=== PATIENT | female | born 1950 | race Caucasian/White ===

== ENCOUNTER 2019-09-27 13:56 | Inpatient (IN) | payer OTHER, MEDICAID ==
[2019-09-27] VITALS (11 sets, daily range): BP systolic 102–128; BP diastolic 48–62
[~2019-09-27] VITALS: Ht 152.4 cm; Wt 61.5 kg
[~2019-09-27 13:56] MED LIST: ALBU2.5V5 INH; ALBU2.5V8 INH; ALPR0.254 PO; AMOX1TAB61 PO; BUDE10.2 INH; FURO40TA4 PO; GABA300C9 PO; HYDR-52 PO; ISOS30TA4 PO; METO-239 PO; NORT25CA PO; OMEP20CA10 PO; POTA20TA84 PO; PRAV20TA2 PO; RIVA20TA2 PO; SPIR25TA5 PO; SULF1TAB24 PO; TIOT18CA INH
[2019-09-27 14:13] LABS: BASE EXCESS ABG 8 mmol/L (-3-3); HCO3 ABG 34 mmol/L (21-28); PCO2 ABG 51 mmHg (35-46); PO2 ABG 84 mmHg (65-108); SAT O2 ABG 96 % (92-99)
[2019-09-27 14:15] LABS: FIO2 ABG 100
[2019-09-27] MEDS ORDERED: IPRATROPIUM BROMIDE 0.5 MG/2.5 ML NEBU. NEB ONE (14:15)
[2019-09-27] MEDS ORDERED: methylPREDNISolone SOD SUCC PF 125 MG/2 ML VIAL. IV ONE (14:15)
[2019-09-27 14:18] LABS: BASO # 0.1 x10^3/uL (0.0-0.2); BASO % 0 % (0-3); EOS # 0.1 x10^3/uL (0.0-0.7); EOS % 0 % (0-3); LYMPH # 3.2 x10^3/uL (1.0-4.8); LYMPH % 12 % (24-48); MEAN CORPUSCULAR HEMOGLOBIN 28 pg (25-35); MEAN CORPUSCULAR HGB CONC 30 g/dL (31-37); MEAN CORPUSCULAR VOLUME 93 fL (79-100); MONO # 1.8 x10^3/uL (0.0-1.1); MONO % 7 % (0-9); NEUT # 22.1 x10^3/uL (1.8-7.7); NEUT % 81 % (31-73); PLATELET COUNT 280 x10^3/uL (140-400); RED BLOOD COUNT 4.95 x10^6/uL (3.50-5.40); RED CELL DISTRIBUTION WIDTH 23.1 % (11.5-14.5); WHITE BLOOD COUNT 27.3 x10^3/uL (4.0-11.0)
[2019-09-27 14:33] LABS: ALBUMIN 4.1 g/dL (3.4-5.0); ALBUMIN/GLOBULIN RATIO 1.1 (1.0-1.7); CALCIUM 9.9 mg/dL (8.5-10.1); CREATININE 1.3 mg/dL (0.6-1.0); GFR 40.7; MAGNESIUM 2.2 mg/dL (1.8-2.4); POTASSIUM 5.1 mmol/L (3.5-5.1); TOTAL BILIRUBIN 0.8 mg/dL (0.2-1.0); TOTAL PROTEIN 7.8 g/dL (6.4-8.2)
[2019-09-27 14:35] LABS: PROTHROMBIN TIME PATIENT 30.7 SEC (11.7-14.0)
--- NOTE | 2019-09-27 14:36 | PHYS DOC ---
Past Medical History Past Medical History: A-Fib, CHF, COPD, High Cholesterol, Heart Disease, Liver Disease, OR, Other Additional Past Medical Histor: sleep apnea, Emphysema Past Surgical History: Cervical Fusion, Pacemaker, Other Additional Past Surgical Histo: RT AKA Alcohol Use: None Drug Use: None Adult General Chief Complaint Chief Complaint: SHORTNESS OF BREATH HPI HPI Patient is a 69 year old female with history of COPD on home oxygen and currently a smoker, dyslipidemia, coronary artery disease, CHF who presents via EMS with complaining of shortness of breath. Patient was admitted at [facility] because of acute respiratory failure from September 19 to September 26 and was discharged to assisted living home yesterday. EMS reported that patient had O2 sat of 42% on her home oxygen increased to 80s with CPAP. Patient had severe respiratory distress at arrival to ER and unable to give history. Review of Systems Review of Systems Constitutional: Denies fever or chills [] Eyes: Denies change in visual acuity, redness, or eye pain [] HENT: Denies nasal congestion or sore throat [] Respiratory: Denies cough or shortness of breath [] Cardiovascular: No additional information not addressed in HPI [] GI: Denies abdominal pain, nausea, vomiting, bloody stools or diarrhea [] : Denies dysuria or hematuria [] Musculoskeletal: Denies back pain or joint pain [] Integument: Denies rash or skin lesions [] Neurologic: Denies headache, focal weakness or sensory changes [] Endocrine: Denies polyuria or polydipsia [] All other systems were reviewed and found to be within normal limits, except as documented in this note. Current Medications Current Medications Allergies Allergies Allergies Coded Allergies Type Severity Reaction Last Updated Verified Penicillins Allergy Unknown 04/27/16 Yes fentanyl Allergy Unknown 04/27/16 Yes levofloxacin Allergy Unknown 04/27/16 Yes Physical Exam Physical Exam Constitutional: Moderate distress, very anxious[] HENT: Normocephalic, atraumatic Eyes: PERRLA Neck: Normal range of motion, no tenderness, supple, no stridor. [] Cardiovascular:Heart rate regular rhythm Lungs & Thorax: Moderate respiratory distress with intercostal retractions and audible rales Abdomen: Bowel sounds normal, soft Skin: Cyanotic and mottled Extremities: Right above-knee amputation, 2+ left lower extremity edema Neurologic: Alert, moves all extremities Psychologic: Affect anxious, unable to evaluate because of medical condition Current Patient Data Vital Signs Vital Signs Date Time Temp Pulse Resp B/P (MAP) Pulse Ox O2 Delivery O2 Flow Rate FiO2 09/27/19 14:05 BiPAP/CPAP 09/27/19 13:58 97.9 79 20 128/74 (92) 81 97.9 Lab Values Laboratory Tests Test 09/27/19 14:00 09/27/19 14:02 White Blood Count 27.3 x10^3/uL (4.0-11.0) H Red Blood Count 4.95 x10^6/uL (3.50-5.40) Hemoglobin 14.0 g/dL (12.0-15.5) Hematocrit 46.0 % (36.0-47.0) Mean Corpuscular Volume 93 fL (79-100) Mean Corpuscular Hemoglobin 28 pg (25-35) Mean Corpuscular Hemoglobin Concent 30 g/dL (31-37) L Red Cell Distribution Width 23.1 % (11.5-14.5) H Platelet Count 280 x10^3/uL (140-400) Neutrophils (%) (Auto) 81 % (31-73) H Lymphocytes (%) (Auto) 12 % (24-48) L Monocytes (%) (Auto) 7 % (0-9) Eosinophils (%) (Auto) 0 % (0-3) Basophils (%) (Auto) 0 % (0-3) Neutrophils # (Auto) 22.1 x10^3/uL (1.8-7.7) H Lymphocytes # (Auto) 3.2 x10^3/uL (1.0-4.8) Monocytes # (Auto) 1.8 x10^3/uL (0.0-1.1) H Eosinophils # (Auto) 0.1 x10^3/uL (0.0-0.7) Basophils # (Auto) 0.1 x10^3/uL (0.0-0.2) Segmented Neutrophils % 73 % (35-66) H Band Neutrophils % 1 % (0-9) Lymphocytes % 17 % (24-48) L Monocytes % 8 % (0-10) Eosinophils % 1 % (0-5) Toxic Vacuolation Slight Platelet Estimate Adequate (ADEQUATE) Anisocytosis Slight Ovalocytes Occ Schistocytes Occ Prothrombin Time 30.7 SEC (11.7-14.0) H Prothrombin Time INR 3.0 (0.8-1.1) H Activated Partial Thromboplast Time 30 SEC (24-38) Sodium Level 142 mmol/L (136-145) Potassium Level 5.1 mmol/L (3.5-5.1) Chloride Level 94 mmol/L (98-107) L Carbon Dioxide Level 40 mmol/L (21-32) H Anion Gap 8 (6-14) Blood Urea Nitrogen 42 mg/dL (7-20) H Creatinine 1.3 mg/dL (0.6-1.0) H Estimated GFR (Cockcroft-Gault) 40.7 BUN/Creatinine Ratio 32 (6-20) H Glucose Level 170 mg/dL (70-99) H Lactic Acid Level 7.6 mmol/L (0.4-2.0) *H Calcium Level 9.9 mg/dL (8.5-10.1) Magnesium Level 2.2 mg/dL (1.8-2.4) Total Bilirubin 0.8 mg/dL (0.2-1.0) Aspartate Amino Transferase (AST) 60 U/L (15-37) H Alanine Aminotransferase (ALT) 78 U/L (14-59) H Alkaline Phosphatase 97 U/L (46-116) Creatine Kinase 29 U/L (26-192) Troponin I Quantitative 0.105 ng/mL (0.000-0.055) MS-Cqu-T-Type Natriuretic Peptide 63873 pg/mL (0-124) H Total Protein 7.8 g/dL (6.4-8.2) Albumin 4.1 g/dL (3.4-5.0) Albumin/Globulin Ratio 1.1 (1.0-1.7) Lipase 58 U/L (73-393) L O2 Saturation 96 % (92-99) Arterial Blood pH 7.44 (7.35-7.45) Arterial Blood pCO2 at Patient Temp 51 mmHg (35-46) H Arterial Blood pO2 at Patient Temp 84 mmHg (65-108) Arterial Blood HCO3 34 mmol/L (21-28) H Arterial Blood Base Excess 8 mmol/L (-3-3) H FiO2 100 Laboratory Tests 09/27/19 14:00 Laboratory Tests 09/27/19 14:00 EKG EKG EKG interpreted by me. EKG at 1422 showed sinus rhythm with multiple artifacts at rate of 75, abnormal right superior axis deviation, left bundle branch block. Radiology/Procedures Radiology/Procedures [][facility] [address] [place] [address] IMAGING REPORT Signed PATIENT: JAIR MARCUS ACCOUNT: [id number] : 1950 LOCATION: [facility] ICU AGE: 69 SEX: F EXAM STATUS: ADM IN ORD. PHYSICIAN: RADHA KEYES MD REASON: shortness of breath NOT READY AT 250PM. WILL CALL PROCEDURE: PORTABLE CHEST 1V Exam performed: One view chest. Indication: Shortness of breath Date of Service: 09/27/2019 3:00 PM Comparison: Two-view chest from 05/02/2016. Single AP upright portable view chest findings: Cardiomediastinal silhouette is enlarged, however stable. Pulmonary vascularity is congested. Prominent interstitial markings are seen in both lungs mainly in the perihilar regions. There is a pacemaker in place. There is a small left pleural effusion. No focal infiltrates are identified. The bony structures are normal. Impression: Cardiomegaly with Central vascular congestion, prominent interstitial markings and small left pleural effusion. Consolation of findings may be related to CHF. Correlate clinically Electronically signed by: Viridiana Murphy MD (09/27/2019 3:49 PM) [facility] DICTATED and SIGNED BY: VIRIDIANA MURPHY MD DATE: 09/27/19 1549 Course & Med Decision Making Course & Med Decision Making Pertinent Labs and Imaging studies reviewed. (See chart for details) Evaluation of patient in ER showed 69-year-old female patient with history of COPD on oxygen and currently smoking, CHF and atrial fibrillation, recent discharge from hospital yesterday because of acute respiratory distress. Patient brought in by EMS because of acute respiratory distress. Patient had tachypnea and audible rales. Patient treated with BiPAP. ABG did not show hypoxia or hypercapnia. Patient treated with Ativan and morphine with improvement of her agitation and tolerating BiPAP. Patient had elevation of lactic 7.6 and antibiotic was started at did not treated with IV fluid because of pulmonary edema and CHF exacerbation because patient did not have hypotension or tachycardia or fever.Patient requiring admission for further evaluation and treatment. Discussed with Dr. Mcintosh who is in agreement with admission. Discussed findings and plan with patient and family, who acknowledge understanding and agreement. Dragon Disclaimer Dragon Disclaimer This electronic medical record was generated, in whole or in part, using a voice recognition dictation system. Departure Departure Impression: Primary Impression: Acute respiratory distress Additional Impressions: Severe sepsis Pulmonary edema Acute exacerbation of CHF (congestive heart failure) COPD exacerbation Tobacco abuse Renal insufficiency Hyponatremia Anxiety Disposition: 09 ADMITTED INPATIENT (at 1431) Admitting Physician: YESICA (Dr. Mcintosh accepted admission at 1430) Condition: GUARDED Referrals: NO PCP (PCP) Date and Time of Reassessment Date: Sep 27, 2019 Time: 14:35 Fluid Challenge Is the fluid challenge complet: No (pulmonary edema) IBW Target Volume Used: No BMI > 30: No Vital Signs Vital Signs: Vital Signs Date Time Temp Pulse Resp B/P (MAP) Pulse Ox O2 Delivery O2 Flow Rate FiO2 09/27/19 14:05 BiPAP/CPAP 09/27/19 13:58 97.9 79 20 128/74 (92) 81 97.9 Temperature Source: Axillary Respirations Respiratory Effort: Labored, Mechanical ventilation Respiratory Pattern: Tachypnea Cardiovascular Pulse Rhythm: Regular Heart: Nml rate, reg. rhythm Lung Sounds Breath Sounds: Crackles, Rhonchi, Diminished, Rales Capillary Refil Capillary Refill: Rt Hand < 3 seconds Peripheral Pulse Pulse Location: Radial Pulse Strength: Normal (2+) Pulse Assessment Method: Palpation Integumentary Skin Moisture: Clammy Critical Care Time Critical care time was 60 minutes exclusive of procedures. Problem Qualifiers Additional Impressions: Pulmonary edema Chronicity: acute Qualified Codes: J81.0 - Acute pulmonary edema Acute exacerbation of CHF (congestive heart failure) Heart failure type: unspecified Qualified Codes: I50.9 - Heart failure, unspecified RADHA KEYES MD Sep 27, 2019 14:36
[2019-09-27 14:43] LABS: % BANDS 1 % (0-9); % EOS 1 % (0-5); % LYMPHS 17 % (24-48); % MONOS 8 % (0-10); % SEGS 73 % (35-66); PLT ESTIMATE ADEQUATE (ADEQUATE)
[2019-09-27 14:44] LABS: ANISOCYTOSIS SLIGHT; OVALOCYTES OCC; SCHISTOCYTES OCC; TOXIC VACUOLATION SLIGHT
[2019-09-27] MEDS ORDERED: cefTRIAXone IV Push 1 GM VIAL. IVP ONE (14:45)
[2019-09-27] MEDS ORDERED: VANCOMYCIN 1GM IVPB FOR OMNI 250 ML IV ONE (14:45)
--- NOTE | 2019-09-27 14:49 | PDOC1 ---
History and Physical Date of Admission Date of Admission DATE: 09/27/19 TIME: 14:48 Identification/Chief Complaint Chief Complaint PRESENTED WITH ACUTE SOB TO ER, HYPOXIC, STARTED ON BIPAP, ADMITTED ICU Just dismissed for [facility] yesterday, was in bathroom, found to be hypoxic 911 called Past Medical History Past Medical History Past Medical History Past Medical History Past Medical History: A-Fib, CHF, COPD, High Cholesterol, Heart Disease, Liver Disease, PR, Other Additional Past Medical Histor: sleep apnea, Emphysema Past Surgical History: Cervical Fusion, Pacemaker, Other Additional Past Surgical Histo: RT AKA Alcohol Use: None Drug Use: None Cardiovascular: AFIB, CAD, HTN, Hyperlipidemia, Other Pulmonary: COPD CENTRAL NERVOUS SYSTEM: CVA GI: GERD Heme/Onc: No pertinent hx Hepatobiliary: No pertinent hx Psych: Anxiety, Addictions Musculoskeletal: Osteoarthritis, Other Rheumatologic: No pertinent hx Infectious disease: Other Renal/: No pertinent hx Endocrine: No pertinent hx Past Surgical History Past Surgical History: Pacemaker Family History Family History: Coronary Artery Disease, Diabetes, High Cholestrol Social History Smoke: <1 pack per day ALCOHOL: occassional Drugs: None, Marijuana Current Problem List Problem List Problems Medical Problems: (1) Acute respiratory distress Status: Acute Current Medications Current Medications Current Medications Ipratropium [place] (Atrovent) 0.5 mg 1X ONCE NEB ; Start 09/27/19 at 14:15; Stop 09/27/19 at 14:16; Status DC Methylprednisolone Sodium Succinate (SOLU-Medrol 125MG VIAL) 125 mg 1X ONCE IV ; Start 09/27/19 at 14:15; Stop 09/27/19 at 14:16; Status DC Lorazepam (Ativan Inj) 1 mg 1X ONCE IVP ; Start 09/27/19 at 14:30; Stop 09/27 at 14:31; Status DC Vancomycin HCl 250 ml @ 250 mls/hr 1X ONCE IV ; Start 09/27/19 at 14:45; Stop 09/27/19 at 15:44 Ceftriaxone Sodium (Rocephin) 1 gm 1X ONCE IVP ; Start 09/27/19 at 14:45; Stop 09/27/19 at 14:46; Status DC Active Scripts Active Reported Augmentin 875-125 Tablet (Amoxicillin/Potassium Clav) 1 Each Tablet 1 Tab PO BID 7 Days Hydrocodone-Acetamin 10-325 mg (Hydrocodone/Acetaminophen) 1 Each Tablet 10-325 Mg PO PRN Q6HRS PRN Alprazolam 0.25 Mg Tablet 0.25 Mg PO PRN PRN Albuterol Sulfate Neb Soln (Albuterol Sulfate) 2.5 Mg/3 Ml Vial.neb 2.5 Mg INH PRN PRN Proair Hfa (Albuterol Sulfate) 8.5 Gm Hfa.aer.ad 108 Mcg INH PRN PRN Symbicort 160-4.5 Mcg Inhaler (Budesonide/Formoterol Fumarate) 10.2 Gm Hfa.ae r.ad 160 Mcg INH BID 160-4.5 mcg. 10.2 GM HFA.AER.AD Spiriva (Tiotropium [place]) 18 Mcg Cap.w.dev 18 Mcg INH DAILY Isosorbide Mononitrate Er (Isosorbide Mononitrate) 30 Mg Tab.er.24h 30 Mg PO DAILY Xarelto (Rivaroxaban) 20 Mg Tablet 20 Mg PO AFTRNOON Metoprolol Succinate ( Xl ) (Metoprolol Succinate) 25 Mg Tab.er.24h 25 Mg PO DAILY Nortriptyline Hcl 25 Mg Capsule 25 Mg PO HS Omeprazole 20 Mg Capsule.dr 20 Mg PO DAILY Pravastatin Sodium 20 Mg Tablet 20 Mg PO DAILY Furosemide 40 Mg Tablet 40 Mg PO DAILY Spironolactone 25 Mg Tablet 25 Mg PO DAILY Gabapentin 300 Mg Capsule 600 Mg PO TID Allergies Allergies: Coded Allergies: Penicillins (Verified Allergy, Unknown, 04/27/16) fentanyl (Verified Allergy, Unknown, 04/27/16) levofloxacin (Verified Allergy, Unknown, 04/27/16) ROS Review of System Cardiovascular: No additional information not addressed in HPI [] GI: Denies abdominal pain, nausea, vomiting, bloody stools or diarrhea [] : Denies dysuria or hematuria [] Musculoskeletal: Denies back pain or joint pain [] Integument: Denies rash or skin lesions [] Neurologic: Denies headache, focal weakness or sensory changes [] Endocrine: Denies polyuria or polydipsia [] All other systems were reviewed and found to be within normal limits, except as documented in this note General: YES: Fatigue ENDOCRINE: YES: Palpitations Respiratory: YES: Shortness of breath, SOB with excertion Musculoskeletal: Yes Gait Disturbance Physical Exam Physical Exam Abdomen: Bowel sounds normal, soft, no tenderness, no masses, no pulsatile masses. [] Skin: Warm, dry, no erythema, no rash. [] Back: No tenderness, no CVA tenderness. [] Extremities: No tenderness, no cyanosis, no clubbing, ROM intact, no edema. [] Neurologic: Alert and oriented X 3, normal motor function, normal sensory function, no focal deficits noted. [] Psychologic: Affect SEDATED General: Cooperative, moderate distress HEENT: Atraumatic, EOMI, Mucous membr. moist/pink Lungs: Other (wheezing on exp) Heart: no thrills Breasts: Not examined Abdomen: Normal bowel sounds, Soft Rectal Exam: not examined PELVIC: Examination not indicated Extremities: No cyanosis Neuro: Cranial nerves 3-12 NL Vitals Vitals Vital Signs Date Time Temp Pulse Resp B/P (MAP) Pulse Ox O2 Delivery O2 Flow Rate FiO2 09/27/19 14:05 BiPAP/CPAP Labs Labs Laboratory Tests Test 09/27/19 14:00 09/27/19 14:02 White Blood Count 27.3 x10^3/uL (4.0-11.0) Red Blood Count 4.95 x10^6/uL (3.50-5.40) Hemoglobin 14.0 g/dL (12.0-15.5) Hematocrit 46.0 % (36.0-47.0) Mean Corpuscular Volume 93 fL (79-100) Mean Corpuscular Hemoglobin 28 pg (25-35) Mean Corpuscular Hemoglobin Concent 30 g/dL (31-37) Red Cell Distribution Width 23.1 % (11.5-14.5) Platelet Count 280 x10^3/uL (140-400) Neutrophils (%) (Auto) 81 % (31-73) Lymphocytes (%) (Auto) 12 % (24-48) Monocytes (%) (Auto) 7 % (0-9) Eosinophils (%) (Auto) 0 % (0-3) Basophils (%) (Auto) 0 % (0-3) Neutrophils # (Auto) 22.1 x10^3/uL (1.8-7.7) Lymphocytes # (Auto) 3.2 x10^3/uL (1.0-4.8) Monocytes # (Auto) 1.8 x10^3/uL (0.0-1.1) Eosinophils # (Auto) 0.1 x10^3/uL (0.0-0.7) Basophils # (Auto) 0.1 x10^3/uL (0.0-0.2) Segmented Neutrophils % 73 % (35-66) Band Neutrophils % 1 % (0-9) Lymphocytes % 17 % (24-48) Monocytes % 8 % (0-10) Eosinophils % 1 % (0-5) Toxic Vacuolation Slight Platelet Estimate Adequate (ADEQUATE) Anisocytosis Slight Ovalocytes Occ Schistocytes Occ Prothrombin Time 30.7 SEC (11.7-14.0) Prothromb Time International Ratio 3.0 (0.8-1.1) Activated Partial Thromboplast Time 30 SEC (24-38) Sodium Level 142 mmol/L (136-145) Potassium Level 5.1 mmol/L (3.5-5.1) Chloride Level 94 mmol/L (98-107) Carbon Dioxide Level 40 mmol/L (21-32) Anion Gap 8 (6-14) Blood Urea Nitrogen 42 mg/dL (7-20) Creatinine 1.3 mg/dL (0.6-1.0) Estimated GFR (Cockcroft-Gault) 40.7 BUN/Creatinine Ratio 32 (6-20) Glucose Level 170 mg/dL (70-99) Calcium Level 9.9 mg/dL (8.5-10.1) Magnesium Level 2.2 mg/dL (1.8-2.4) Total Bilirubin 0.8 mg/dL (0.2-1.0) Aspartate Amino Transf (AST/SGOT) 60 U/L (15-37) Alanine Aminotransferase (ALT/SGPT) 78 U/L (14-59) Alkaline Phosphatase 97 U/L (46-116) Creatine Kinase 29 U/L (26-192) Troponin I Quantitative 0.105 ng/mL (0.000-0.055) AU-Nvr-F-Type Natriuretic Peptide 42530 pg/mL (0-124) Total Protein 7.8 g/dL (6.4-8.2) Albumin 4.1 g/dL (3.4-5.0) Albumin/Globulin Ratio 1.1 (1.0-1.7) Lipase 58 U/L (73-393) O2 Saturation 96 % (92-99) Arterial Blood pH 7.44 (7.35-7.45) Arterial Blood pCO2 at Patient Temp 51 mmHg (35-46) Arterial Blood pO2 at Patient Temp 84 mmHg (65-108) Arterial Blood HCO3 34 mmol/L (21-28) Arterial Blood Base Excess 8 mmol/L (-3-3) FiO2 100 Laboratory Tests Test 09/27/19 14:00 09/27/19 14:02 White Blood Count 27.3 x10^3/uL (4.0-11.0) Red Blood Count 4.95 x10^6/uL (3.50-5.40) Hemoglobin 14.0 g/dL (12.0-15.5) Hematocrit 46.0 % (36.0-47.0) Mean Corpuscular Volume 93 fL (79-100) Mean Corpuscular Hemoglobin 28 pg (25-35) Mean Corpuscular Hemoglobin Concent 30 g/dL (31-37) Red Cell Distribution Width 23.1 % (11.5-14.5) Platelet Count 280 x10^3/uL (140-400) Neutrophils (%) (Auto) 81 % (31-73) Lymphocytes (%) (Auto) 12 % (24-48) Monocytes (%) (Auto) 7 % (0-9) Eosinophils (%) (Auto) 0 % (0-3) Basophils (%) (Auto) 0 % (0-3) Neutrophils # (Auto) 22.1 x10^3/uL (1.8-7.7) Lymphocytes # (Auto) 3.2 x10^3/uL (1.0-4.8) Monocytes # (Auto) 1.8 x10^3/uL (0.0-1.1) Eosinophils # (Auto) 0.1 x10^3/uL (0.0-0.7) Basophils # (Auto) 0.1 x10^3/uL (0.0-0.2) Segmented Neutrophils % 73 % (35-66) Band Neutrophils % 1 % (0-9) Lymphocytes % 17 % (24-48) Monocytes % 8 % (0-10) Eosinophils % 1 % (0-5) Toxic Vacuolation Slight Platelet Estimate Adequate (ADEQUATE) Anisocytosis Slight Ovalocytes Occ Schistocytes Occ Prothrombin Time 30.7 SEC (11.7-14.0) Prothromb Time International Ratio 3.0 (0.8-1.1) Activated Partial Thromboplast Time 30 SEC (24-38) Sodium Level 142 mmol/L (136-145) Potassium Level 5.1 mmol/L (3.5-5.1) Chloride Level 94 mmol/L (98-107) Carbon Dioxide Level 40 mmol/L (21-32) Anion Gap 8 (6-14) Blood Urea Nitrogen 42 mg/dL (7-20) Creatinine 1.3 mg/dL (0.6-1.0) Estimated GFR (Cockcroft-Gault) 40.7 BUN/Creatinine Ratio 32 (6-20) Glucose Level 170 mg/dL (70-99) Calcium Level 9.9 mg/dL (8.5-10.1) Magnesium Level 2.2 mg/dL (1.8-2.4) Total Bilirubin 0.8 mg/dL (0.2-1.0) Aspartate Amino Transf (AST/SGOT) 60 U/L (15-37) Alanine Aminotransferase (ALT/SGPT) 78 U/L (14-59) Alkaline Phosphatase 97 U/L (46-116) Creatine Kinase 29 U/L (26-192) Troponin I Quantitative 0.105 ng/mL (0.000-0.055) RJ-Hyg-N-Type Natriuretic Peptide 05044 pg/mL (0-124) Total Protein 7.8 g/dL (6.4-8.2) Albumin 4.1 g/dL (3.4-5.0) Albumin/Globulin Ratio 1.1 (1.0-1.7) Lipase 58 U/L (73-393) O2 Saturation 96 % (92-99) Arterial Blood pH 7.44 (7.35-7.45) Arterial Blood pCO2 at Patient Temp 51 mmHg (35-46) Arterial Blood pO2 at Patient Temp 84 mmHg (65-108) Arterial Blood HCO3 34 mmol/L (21-28) Arterial Blood Base Excess 8 mmol/L (-3-3) FiO2 100 Images Images Exam: CTA chest INDICATION: Pleuritic pain TECHNIQUE: Sequential axial images through the chest obtained following the administration of 70 mL of Isovue 370 IV contrast IV contrast. Sagittal and coronal reformatted images were reconstructed from the axial data and reviewed. 3-D reformatted images were reconstructed from the axial data and reviewed. Comparisons: None FINDINGS: Visualized portions of the thyroid are unremarkable. No enlarged mediastinal lymph nodes. Heart is enlarged, particularly with right artery enlargement. No pericardial effusion. Mild coronary artery calcifications. Pacer leads terminating in the right ventricle is noted. Thoracic aorta has a normal course and caliber. Pulmonary artery is not enlarged. Evaluation for pulmonary embolus is limited secondary to respiratory motion. No pulmonary embolus identified within the main, lobar or proximal segmental pulmonary arteries. Airways are patent. Moderate centrilobular emphysematous change noted predominantly in the upper lungs. No consolidation or pneumothorax. 4 mm nodule in the left upper lobe series 3 image 63. No pleural effusion or thickening. Visualized upper abdomen is unremarkable. No suspicious osseous lesion or acute fracture. IMPRESSION: 1. No pulmonary embolus identified within the main, lobar or proximal segmental pulmonary arteries. Limitations as described above. 2. A 4 mm pulmonary nodule in the left upper lobe. Given degree of emphysematous change patient is likely high-risk patient and optional one-year CT follow-up can BE performed. Exposure: One or more of the following in the visualized dose reduction techniques were utilized for this examination: 1. Automated exposure control 2. Adjustment of the MA and/or KV according to patient size 3. Use of iterative of reconstructive technique Electronically signed by: Parmjit Huerta MD (07/20/2019 10:40 PM) [id number] DICTATED and SIGNED BY: PARMJIT HUERTA MD DATE: 07/20/19 2240 VTE Prophylaxis Ordered VTE Prophylaxis Devices: Yes VTE Pharmacological Prophylaxi: Yes Assessment/Plan Assessment/Plan IMPRESSION ACUTE HYPERCAPNIC RESP FAILURE CHF exacerbation, acute Atrial fibrillation COPD ACUTE EXAC CAD HX THC ABUSE noncompliance hypertension hyperlipidemia tachybrady syndrome hx left bundle branch block GERD ADMIT ICU CONSULT PULM BIPAP SUPPORT IV STEROID TAPER IV ZOSYN Q 6 HRS SPUTUM CULTURE cardiology consult echo 43 MIN CC TIME DENNY OSHEA MD Sep 27, 2019 14:49
[2019-09-27] MEDS ORDERED: MORPHINE SULFATE 4 MG/ML VIAL. ONE (14:53)
[2019-09-27] MEDS ORDERED: MORPHINE SULFATE 4 MG/ML VIAL. IV ONE (15:00)
[2019-09-27] MEDS ORDERED: ONDANSETRON PF 4 MG/2 ML VIAL. IV ONE (15:00)
--- NOTE | 2019-09-27 15:52 | RAD ---
Exam performed: One view chest. Indication: Shortness of breath Date of Service: 09/27/2019 3:00 PM Comparison: Two-view chest from 05/02/2016. Single AP upright portable view chest findings: Cardiomediastinal silhouette is enlarged, however stable. Pulmonary vascularity is congested. Prominent interstitial markings are seen in both lungs mainly in the perihilar regions. There is a pacemaker in place. There is a small left pleural effusion. No focal infiltrates are identified. The bony structures are normal. Impression: Cardiomegaly with Central vascular congestion, prominent interstitial markings and small left pleural effusion. Consolation of findings may be related to CHF. Correlate clinically Electronically signed by: Viridiana Murphy MD (09/27/2019 3:49 PM) [facility]
[2019-09-27 16:28] LABS: BILIRUBIN,URINE NEGATIVE (NEG); CLARITY,URINE CLEAR; COLOR,URINE YELLOW; NITRITE,URINE NEGATIVE (NEG); PROTEIN,URINE 30 mg/dL (NEG-TRACE); UROBILINOGEN,URINE 0.2 mg/dL (0.2 mg/dL)
[2019-09-27] MEDS ORDERED: VANCOMYCIN 500 MG in IV NORMAL SALINE 100ML 100 ML IV ONE (16:30)
[2019-09-27 16:33] LABS: AMORPHOUS SEDIMENT,UR PRESENT /HPF; BACTERIA,URINE 0 /HPF (0-FEW); RBC,URINE 0 /HPF (0-2); SQUAMOUS EPITHELIAL CELL,UR MANY /LPF
[2019-09-27] MEDS: VANCOMYCIN PER PHARMACY MC PRN (16:43)
--- NOTE | 2019-09-27 16:46 | NUR ---
Pharmacy Vancomycin Dosing Note S:Consulted to monitor and dose vancomycin started 09/27/19. O:JAIR MARCUS is a 69 year old F with respiratory failure/leukocytosis . Height: 5 feet, 4 inches Weight: 56.9 kg [place] Body Weight: 54.70 Adjusted Body Weight: 55.58 Dosing Weight: Actual Other Antibiotics: zosyn LABS: Last BUN: 42 Last Creatinine: 1.3 Creatinine Clearance: 36 mL/min Last WBC: 27.3 Last Procalcitonin: Tmax (past 24 hours): 97.9 Microbiology: - Vancomycin Dosing: Loading Dose: 1500 mg x1 Dosing Weight: Actual Target Trough: 15-20 A: Based on: weight and renal function P: 1. Begin Vancomycin 1000 mg IV q24h 2. Follow up Trough level on 09/29/19 at 1730 3. Pharmacy will continue to monitor, follow and adjust therapy as needed. Delphine Ernst RPH, 09/27/19 [id number]
[2019-09-27] MEDS: PIPERACILLIN/TAZOBACTAM 3.375 GM in IV NORMAL SALINE 50ML 50 ML IV SCH ×2 (16:55→23:52)
[2019-09-27] MEDS: ALBUTEROL SULFATE 2.5 MG/3 ML NEBU. INH SCH ×3 (17:00→23:36)
[2019-09-27] MEDS ORDERED: ALPRAZolam 0.25 MG TABLET PO PRN (17:00)
[2019-09-27] MEDS ORDERED: RIVAROXABAN 10 MG TABLET. PO SCH (17:30)
[2019-09-27] MEDS: PANTOPRAZOLE 40 MG TABLET.DR. PO SCH (17:30)
[2019-09-27] MEDS: SPIRONOLACTONE 25 MG TABLET PO SCH (18:00)
[2019-09-27] MEDS: FUROSEMIDE 40 MG TABLET. PO SCH (18:00)
[2019-09-27] MEDS: ISOSORBIDE MONONITRATE ER 30 MG TAB.ER.24H PO SCH (18:00)
[2019-09-27] MEDS: METOPROLOL SUCC 24HR ER 25 MG TAB.ER.24H. PO SCH (18:00)
[2019-09-27] MEDS: BUDESONIDE 0.5 MG/2 ML NEBU. NEB SCH (19:38)
--- NOTE | 2019-09-27 19:38 | NUR ---
Reassessment of Morphine not completed by ED RN, documented as "not done" by this RN.
[2019-09-27] MEDS: methylPREDNISolone SOD SUCC PF 125 MG/2 ML VIAL. IV SCH ×2 (20:15→23:52)
[2019-09-27] MEDS: ATORVASTATIN CALCIUM 10 MG TABLET. PO SCH (20:39)
[2019-09-27] MEDS: GABAPENTIN 300 MG CAPSULE. PO SCH (20:39)
[2019-09-27] MEDS: NORTRIPTYLINE 25 MG CAPSULE PO SCH (20:40)
[2019-09-27] MEDS ORDERED: BUDESONIDE INH SCH (21:00)
[2019-09-27] MEDS ORDERED: FORMOTEROL FUMARATE INH SCH (21:00)
[2019-09-27] MEDS ORDERED: [UNRECOGNIZED DRUG - OTHER] INH SCH (21:00)
[2019-09-27 22:40] LABS: INFLUENZA A PATIENT NEGATIVE (NEGATIVE); INFLUENZA B PATIENT NEGATIVE (NEGATIVE)
[2019-09-27] MEDS ORDERED: ONDANSETRON PF 4 MG/2 ML VIAL. IV PRN (22:45)
[2019-09-27] MEDS ORDERED: MAG HYDROX/ALUMINUM HYD/SIMETH 30 ML ORAL.SUSP PO PRN (22:45)
[2019-09-27] MEDS ORDERED: PROCHLORPERAZINE 10 MG/2 ML VIAL. IV PRN (22:45)
[2019-09-27] MEDS ORDERED: BISACODYL 10 MG SUPP.RECT. PR PRN (22:45)
[2019-09-27] MEDS ORDERED: 0.9 % SODIUM CHLORIDE 10 ML DISP.SYRIN. IV PRN (22:45)
[2019-09-28] VITALS (24 sets, daily range): BP systolic 100–140; BP diastolic 43–111
[2019-09-28] MEDS: ALBUTEROL SULFATE 2.5 MG/3 ML NEBU. INH SCH ×2 (03:53→08:14)
[2019-09-28 05:11] LABS: PROTHROMBIN TIME PATIENT 33.2 SEC (11.7-14.0)
[2019-09-28] MEDS: methylPREDNISolone SOD SUCC PF 125 MG/2 ML VIAL. IV SCH (05:32)
[2019-09-28] MEDS: PIPERACILLIN/TAZOBACTAM 3.375 GM in IV NORMAL SALINE 50ML 50 ML IV SCH ×3 (05:33→18:00)
--- NOTE | 2019-09-28 06:50 | EKG ---
[facility] [address] [place] [address] Test Date: 2019-09-27 Test Time: 14:22:53 Pat Name: JAIR MARCUS Department: Room: Gender: F Building [place]: : 1950 Requested By: RADHA KEYES Order Number: [id number] Reading MD: Measurements Intervals [place] Rate: 75 P: ID: QRS: -95 QRSD: 206 T: 90 QT: 442 QTc: 497 Interpretive Statements SINUS RHYTHM COMPLEX(ES) WITH ABERRANT INTRAVENTRICULAR CONDUCTION ABNORMAL RIGHT SUPERIOR AXIS DEVIATION LEFT BUNDLE BRANCH BLOCK ABNORMAL ECG RI6.01 No previous ECG available for comparison
[2019-09-28 07:41] LABS: BASO % 0 % (0-3); EOS % 0 % (0-3); HEMATOCRIT 40.2 % (36.0-47.0); HEMOGLOBIN 12.6 g/dL (12.0-15.5); LYMPH # 0.5 x10^3/uL (1.0-4.8); LYMPH % 5 % (24-48); MEAN CORPUSCULAR HEMOGLOBIN 28 pg (25-35); MEAN CORPUSCULAR HGB CONC 31 g/dL (31-37); MEAN CORPUSCULAR VOLUME 91 fL (79-100); MONO # 0.2 x10^3/uL (0.0-1.1); MONO % 2 % (0-9); NEUT # 9.4 x10^3/uL (1.8-7.7); NEUT % 93 % (31-73); PLATELET COUNT 157 x10^3/uL (140-400); RED BLOOD COUNT 4.44 x10^6/uL (3.50-5.40); RED CELL DISTRIBUTION WIDTH 23.1 % (11.5-14.5); WHITE BLOOD COUNT 10.1 x10^3/uL (4.0-11.0)
[2019-09-28 08:01] LABS: CALCIUM 9.2 mg/dL (8.5-10.1); CREATININE 1.1 mg/dL (0.6-1.0); GFR 49.4; POTASSIUM 3.5 mmol/L (3.5-5.1)
[2019-09-28] MEDS: BUDESONIDE 0.5 MG/2 ML NEBU. NEB SCH ×2 (08:15→19:35)
[2019-09-28] MEDS: ANTI-COAG MONITOR BY PHARMACY. MC PRN ×2 (08:20→08:26)
[2019-09-28] MEDS: PANTOPRAZOLE 40 MG TABLET.DR. PO SCH (08:33)
[2019-09-28] MEDS: GABAPENTIN 300 MG CAPSULE. PO SCH ×3 (08:33→20:51)
[2019-09-28] MEDS: DOCUSATE SODIUM 100 MG CAPSULE. PO SCH ×2 (08:34→20:51)
[2019-09-28] MEDS: SENNOSIDES/DOCUSATE 8.6/50MG TABLET. PO SCH ×2 (08:34→20:51)
[2019-09-28] MEDS: FUROSEMIDE 40 MG TABLET. PO SCH (08:34)
[2019-09-28] MEDS: SPIRONOLACTONE 25 MG TABLET PO SCH (08:36)
[2019-09-28] MEDS: ISOSORBIDE MONONITRATE ER 30 MG TAB.ER.24H PO SCH (08:36)
[2019-09-28] MEDS: METOPROLOL SUCC 24HR ER 25 MG TAB.ER.24H. PO SCH (08:36)
[2019-09-28 08:38] LABS: BASE EXCESS ABG 14 mmol/L (-3-3); HCO3 ABG 40 mmol/L (21-28); PCO2 ABG 55 mmHg (35-46); PO2 ABG 104 mmHg (65-108); SAT O2 ABG 98 % (92-99)
[2019-09-28] MEDS ORDERED: oxyCODONE/APAP 5/325 1 TAB TABLET PO PRN (09:45)
[2019-09-28] MEDS ORDERED: TEMAZEPAM 7.5 MG CAPSULE PO PRN (09:45)
[2019-09-28] MEDS ORDERED: ALBUTEROL SULFATE 2.5 MG/3 ML NEBU. INH PRN (09:45)
[2019-09-28] MEDS ORDERED: MORPHINE SULFATE 2 MG/ML VIAL. IV PRN (09:45)
[2019-09-28] MEDS ORDERED: ONDANSETRON PF 4 MG/2 ML VIAL. IVP PRN (09:45)
--- NOTE | 2019-09-28 09:55 | PDOC2 ---
CHARLOTTE GOLDMAN SENIOR BIOINFORMATICS SPECIALIST 09/28/19 0955: CARDIAC CONSULT DATE OF CONSULT Date of Consult DATE: 09/28/19 TIME: 09:40 REASON FOR CONSULT Reason for Consult: Elevated troponin REFERRING PHYSICIAN Referring Physician: Dr. Mcintosh SOURCE Source: Chart review, Patient HISTORY OF PRESENT ILLNESS HISTORY OF PRESENT ILLNESS This is a 69 yo female who presented secondary to shortness of breath. Was treated for acute respiratory failure at [facility] from September 19- . Was discharged to assisted living facility. Returned secondary to shortness of breath. Was found in the bathroom to be significantly short of breath and hypoxic. Also noted with blueish discoloration of her LLE toes. EMS was called. In respiratory distress with O2 saturation in the 40's upon EMS arrival. She denies any chest pain, palpitations, dizziness, diaphoresis, or nausea/vomiting. PAST MEDICAL HISTORY Past Medical History Cardiovascular: AFIB, CAD, HTN, Hyperlipidemia, Other (tachy nathan syndrome; chronic LBBB) Pulmonary: COPD (OP2 dependent) CENTRAL NERVOUS SYSTEM: CVA (multiple) GI: GERD Heme/Onc: No pertinent hx Hepatobiliary: No pertinent hx Psych: Anxiety Musculoskeletal: Osteoarthritis, Other (RAKA, LLE cellulitis) Rheumatologic: No pertinent hx Infectious disease: Other (LLE cellulitis) Renal/: No pertinent hx Endocrine: No pertinent hx Dermatology: Other (LLE cellulitis) Musculoskeletal: Muscle atrophy PAST SURGICAL HISTORY Past Surgical History: Pacemaker FAMILY HISTORY Family History Coronary Artery Disease (mother and father) SOCIAL HISTORY Social History Smoke: <1 pack per day ALCOHOL: none Drugs: None Lives: Alone CURRENT MEDICATIONS CURRENT MEDICATIONS Current Medications Medications (Trade) Dose Ordered Sig/Ralph Route PRN Reason Start Time Stop Time Status Last Admin Dose Admin Ipratropium Sherwood (Atrovent) 0.5 mg 1X ONCE NEB 09/27/19 14:15 09/27/19 14:16 DC 09/27/19 14:15 Methylprednisolone Sodium Succinate (SOLU-Medrol 125MG VIAL) 125 mg 1X ONCE IV 09/27/19 14:15 09/27/19 14:16 DC 09/27/19 14:56 Lorazepam (Ativan Inj) 1 mg 1X ONCE IVP 09/27/19 14:30 09/27/19 14:31 DC 09/27/19 14:30 Vancomycin HCl 250 ml @ 250 mls/hr 1X ONCE IV 09/27/19 14:45 09/27/19 15:44 DC 09/27/19 15:06 Ceftriaxone Sodium (Rocephin) 1 gm 1X ONCE IVP 09/27/19 14:45 09/27/19 14:46 DC 09/27/19 15:02 Morphine Sulfate (Morphine Sulfate) 4 mg 1X ONCE IV 09/27/19 15:00 09/27/19 15:01 DC 09/27/19 14:56 Methylprednisolone Sodium Succinate (SOLU-Medrol 125MG VIAL) 100 mg Q6HRS IV 09/27/19 18:00 09/28/19 05:32 Vancomycin HCl (Vanco Per Pharmacy) 1 each PRN DAILY PRN MC SEE COMMENTS 09/27/19 16:30 09/27/19 16:43 Vancomycin HCl 500 mg/Sodium Chloride 100 ml @ 100 mls/hr 1X ONCE IV 09/27/19 16:30 09/27/19 17:29 DC 09/27/19 16:55 Piperacillin Sod/ Tazobactam Sod 3.375 gm/Sodium Chloride 50 ml @ 100 mls/hr Q6HRS IV 09/27/19 17:00 09/28/19 05:33 Albuterol Sulfate (Ventolin Neb Soln) 2.5 mg Q4HRS INH 09/27/19 17:00 09/28/19 08:14 Furosemide (Lasix) 40 mg DAILY PO 09/27/19 18:00 09/28/19 08:34 Gabapentin (Neurontin) 600 mg TID PO 09/27/19 21:00 09/28/19 08:33 Isosorbide Mononitrate (Imdur) 30 mg DAILY PO 09/27/19 18:00 09/28/19 08:36 Metoprolol Succinate (Toprol Xl) 25 mg DAILY PO 09/27/19 18:00 09/28/19 08:36 Spironolactone (Aldactone) 25 mg DAILY PO 09/27/19 18:00 09/28/19 08:36 Pantoprazole Sodium (Protonix) 40 mg DAILYAC PO 09/27/19 17:30 09/28/19 08:33 Budesonide (Pulmicort) 0.5 mg RTBID NEB 09/27/19 20:00 09/28/19 08:15 Senna/Docusate Sodium (Senna Plus) 1 tab BID PO 09/28/19 09:00 09/28/19 08:34 Docusate Sodium (Colace) 100 mg BID PO 09/28/19 09:00 09/28/19 08:34 Info (Anti-Coagulation Monitoring By Pharmacy) 1 each PRN DAILY PRN MC SEE COMMENTS 09/28/19 07:45 09/28/19 08:26 ALLERGIES ALLERGIES: Coded Allergies: Penicillins (Verified Allergy, Unknown, 04/27/16) fentanyl (Verified Allergy, Unknown, 04/27/16) levofloxacin (Verified Allergy, Unknown, 04/27/16) ROS Review of System 14 point ROS conducted with pertinent positives noted above in HPI. PHYSICAL EXAM General: Alert, Oriented X3, Cooperative, No acute distress HEENT: Mucous membr. moist/pink Lungs: Other (crackles ) Heart: Regular rate, Normal S1, Normal S2 Abdomen: Soft Extremities: Other (2+ LLE edema.. right AKA) Skin: Other ( cyanosis of LLE toes) Neuro: Sensation intact Psych/Mental Status: Mental status NL, Other (drowsy ) MUSCULOSKELETAL: Osteoarthritic changes both hands VITALS/I&O VITALS/I&O: Vital Signs Date Time Temp Pulse Resp B/P (MAP) Pulse Ox O2 Delivery O2 Flow Rate FiO2 09/28/19 09:11 100 BiPAP/CPAP 09/28/19 08:36 77 137/58 09/28/19 08:22 4.0 09/28/19 07:00 23 09/28/19 04:00 97.0 97.0 I & O 09/27/19 09/27/19 09/28/19 15:00 23:00 07:00 Intake Total 0 ml 100 ml Output Total 335 ml 355 ml Balance -335 ml -255 ml LABS Lab: Laboratory Tests Test 09/27/19 14:00 09/27/19 14:02 09/27/19 15:55 09/27/19 17:10 White Blood Count 27.3 x10^3/uL (4.0-11.0) H Red Blood Count 4.95 x10^6/uL (3.50-5.40) Hemoglobin 14.0 g/dL (12.0-15.5) Hematocrit 46.0 % (36.0-47.0) Mean Corpuscular Volume 93 fL (79-100) Mean Corpuscular Hemoglobin 28 pg (25-35) Mean Corpuscular Hemoglobin Concent 30 g/dL (31-37) L Red Cell Distribution Width 23.1 % (11.5-14.5) H Platelet Count 280 x10^3/uL (140-400) Neutrophils (%) (Auto) 81 % (31-73) H Lymphocytes (%) (Auto) 12 % (24-48) L Monocytes (%) (Auto) 7 % (0-9) Eosinophils (%) (Auto) 0 % (0-3) Basophils (%) (Auto) 0 % (0-3) Neutrophils # (Auto) 22.1 x10^3/uL (1.8-7.7) H Lymphocytes # (Auto) 3.2 x10^3/uL (1.0-4.8) Monocytes # (Auto) 1.8 x10^3/uL (0.0-1.1) H Eosinophils # (Auto) 0.1 x10^3/uL (0.0-0.7) Basophils # (Auto) 0.1 x10^3/uL (0.0-0.2) Segmented Neutrophils % 73 % (35-66) H Band Neutrophils % 1 % (0-9) Lymphocytes % 17 % (24-48) L Monocytes % 8 % (0-10) Eosinophils % 1 % (0-5) Toxic Vacuolation Slight Platelet Estimate Adequate (ADEQUATE) Anisocytosis Slight Ovalocytes Occ Schistocytes Occ Prothrombin Time 30.7 SEC (11.7-14.0) H Prothrombin Time INR 3.0 (0.8-1.1) H Activated Partial Thromboplast Time 30 SEC (24-38) Sodium Level 142 mmol/L (136-145) Potassium Level 5.1 mmol/L (3.5-5.1) Chloride Level 94 mmol/L (98-107) L Carbon Dioxide Level 40 mmol/L (21-32) H Anion Gap 8 (6-14) Blood Urea Nitrogen 42 mg/dL (7-20) H Creatinine 1.3 mg/dL (0.6-1.0) H Estimated GFR (Cockcroft-Gault) 40.7 BUN/Creatinine Ratio 32 (6-20) H Glucose Level 170 mg/dL (70-99) H Lactic Acid Level 7.6 mmol/L (0.4-2.0) *H 3.0 mmol/L (0.4-2.0) H Calcium Level 9.9 mg/dL (8.5-10.1) Magnesium Level 2.2 mg/dL (1.8-2.4) Total Bilirubin 0.8 mg/dL (0.2-1.0) Aspartate Amino Transferase (AST) 60 U/L (15-37) H Alanine Aminotransferase (ALT) 78 U/L (14-59) H Alkaline Phosphatase 97 U/L (46-116) Creatine Kinase 29 U/L (26-192) Troponin I Quantitative 0.105 ng/mL (0.000-0.055) VR-Krp-O-Type Natriuretic Peptide 48854 pg/mL (0-124) H Total Protein 7.8 g/dL (6.4-8.2) Albumin 4.1 g/dL (3.4-5.0) Albumin/Globulin Ratio 1.1 (1.0-1.7) Lipase 58 U/L (73-393) L O2 Saturation 96 % (92-99) Arterial Blood pH 7.44 (7.35-7.45) Arterial Blood pCO2 at Patient Temp 51 mmHg (35-46) H Arterial Blood pO2 at Patient Temp 84 mmHg (65-108) Arterial Blood HCO3 34 mmol/L (21-28) H Arterial Blood Base Excess 8 mmol/L (-3-3) H FiO2 100 Urine Collection Type U cath Urine Color Yellow Urine Clarity Clear Urine pH 5.0 Urine Specific [place] 1.020 Urine Protein 30 mg/dL (NEG-TRACE) Urine Glucose (UA) Negative mg/dL (NEG) Urine Ketones (Stick) Negative mg/dL (NEG) Urine Blood Negative (NEG) Urine Nitrite Negative (NEG) Urine Bilirubin Negative (NEG) Urine Urobilinogen Dipstick 0.2 mg/dL (0.2 mg/dL) Urine Leukocyte Esterase Negative (NEG) Urine RBC 0 /HPF (0-2) Urine WBC 1-4 /HPF (0-4) Urine Squamous Epithelial Cells Many /LPF Urine Amorphous Sediment Present /HPF Urine Bacteria 0 /HPF (0-FEW) Test 09/27/19 22:15 09/28/19 04:45 09/28/19 08:30 Influenza Type A Antigen Negative (NEGATIVE) Influenza Type B Antigen Negative (NEGATIVE) White Blood Count 10.1 x10^3/uL (4.0-11.0) Red Blood Count 4.44 x10^6/uL (3.50-5.40) Hemoglobin 12.6 g/dL (12.0-15.5) Hematocrit 40.2 % (36.0-47.0) Mean Corpuscular Volume 91 fL (79-100) Mean Corpuscular Hemoglobin 28 pg (25-35) Mean Corpuscular Hemoglobin Concent 31 g/dL (31-37) Red Cell Distribution Width 23.1 % (11.5-14.5) H Platelet Count 157 x10^3/uL (140-400) Neutrophils (%) (Auto) 93 % (31-73) H Lymphocytes (%) (Auto) 5 % (24-48) L Monocytes (%) (Auto) 2 % (0-9) Eosinophils (%) (Auto) 0 % (0-3) Basophils (%) (Auto) 0 % (0-3) Neutrophils # (Auto) 9.4 x10^3/uL (1.8-7.7) H Lymphocytes # (Auto) 0.5 x10^3/uL (1.0-4.8) L Monocytes # (Auto) 0.2 x10^3/uL (0.0-1.1) Eosinophils # (Auto) 0.0 x10^3/uL (0.0-0.7) Basophils # (Auto) 0.0 x10^3/uL (0.0-0.2) Prothrombin Time 33.2 SEC (11.7-14.0) H Prothrombin Time INR 3.3 (0.8-1.1) H Sodium Level 143 mmol/L (136-145) Potassium Level 3.5 mmol/L (3.5-5.1) # Chloride Level 95 mmol/L (98-107) L Carbon Dioxide Level 38 mmol/L (21-32) H Anion Gap 10 (6-14) Blood Urea Nitrogen 40 mg/dL (7-20) H Creatinine 1.1 mg/dL (0.6-1.0) H Estimated GFR (Cockcroft-Gault) 49.4 Glucose Level 192 mg/dL (70-99) H Calcium Level 9.2 mg/dL (8.5-10.1) O2 Saturation 98 % (92-99) Arterial Blood pH 7.48 (7.35-7.45) H Arterial Blood pCO2 at Patient Temp 55 mmHg (35-46) H Arterial Blood pO2 at Patient Temp 104 mmHg (65-108) Arterial Blood HCO3 40 mmol/L (21-28) H Arterial Blood Base Excess 14 mmol/L (-3-3) H FiO2 4 lpm nc Laboratory Tests 09/27/19 14:00 09/28/19 04:45 Laboratory Tests 09/27/19 14:00 09/28/19 04:45 ECHOCARDIOGRAM ECHOCARDIOGRAM Echo 07/02/19 CONCLUSION: Left ventricular systolic function is mildly depressed. LVEF 45% Mild to moderately depressed right ventricular systolic function. TAPSE is 0.9 cm. Mild concentric left ventricular hypertrophy. Severe biatrial enlargement. Aortic valve sclerosis without stenosis. No pericardial effusion. Estimated peak systolic pulmonary artery pressure is 30 mmHg. Compared to a previous study dated 05/06/2019, there has been no significant interval change on qualitative review. DATE: 07/21/19 1156 <Conclusion> The Left Ventricle is borderline dilated. The ejection fraction is moderately impaired. The Ejection Fraction is estimated at 35-40%. There is global hypokinesis of the left ventricle. Paradoxic septum consistent right ventricle pressure overload. The right ventricle is moderately dilated. Device leads noted in RV/RA. There is borderline valvular aortic stenosis. Doppler and Color Flow revealed no significant aortic regurgitation. Doppler and Color Flow revealed trace mitral valve regurgitation. Doppler and Color Flow revealed severe tricuspid regurgitation. The PA pressure was estimated at 65 mmHg. STRESS TEST STRESS TEST REGADENOSON MPI STRESS TEST 05/06/19 SUMMARY/OPINION: This study is probably normal from a perfusion standpoint no definite perfusion defects are present global left ventricular function is bor derline depressed high risk indicators however are not noted. This exam is compared to the patient's previous myocardial perfusion study from 07/21/2018. The previous study had a 45% ejection fraction with a ventricular paced rhythm lung to heart ratio 0.45 some score of 4 a rest score of 0 calcul ated ejection fraction of 52% in the left ventricular end-diastolic volume of 43 mL. The previous study was interpreted to show a questionable basal septal defect and a small inferior defect but no high risk indicators. The previous study however was performed with a standard gamma camera where as the current exam is performed with the D-SPECT. The perfusion defect noted on the previous exam is not present on the current study. HEART CATH HEART CATH Cardiac Cath 2017 cardiac catheterization in May 2017 also did not show any evidence of coronary artery disease, her PA pressure on the right heart catheterization was mildly 35-40 systolic. ASSESSMENT/PLAN ASSESSMENT/PLAN 1. Acute on chronic respiratory failure with AECOPD and acute CHF 2. Mild troponin elevation; 0.105. Most probably type II, demand ischemia. CP free. MPI 04/29 at without definite ischemia as noted above. Cath 2017 did not show any evidence of CAD. 3. Leukocytosis, lactic acidosis 4. AECOPD 5. Acute on chronic systolic HF 6. NICM; LVEF 35%. Plan for outpatient upgrade to ASSOCIATE DIRECTOR [employer]ANCIAL AID-D at per notes. 7. CHB s/p ([employer]) 8. H/o AFIB s/p AV audi ablation in 2017; Maintaining SR. On Xarelto for stroke prevention. INR 3.3 9. RAYNE; improved 10. Hypertension; controlled 11. Hyperlipidemia; statin. LDL 40 12. Hx of Multiple CVA's 13. Hx of DVT s/p IVC filter 14. PAD; s/p right AKA. LLE with mottling Recommendations Diuresis with monitoring of renal function Repeat troponin LLE arterial duplex Rook boot Hold Xarelto with coagulopathy Lung optimization Supportive care RAFA SQUIRES MD 09/28/19 1550: CARDIAC CONSULT ASSESSMENT/PLAN ASSESSMENT/PLAN Patient seen and examined. Agree with HORTICULTURE PROFESSOR's assessment and plan. Acute respiratory failure secondary to combination of acute COPD exacerbation and acute on chronic systolic heart failure Continue diuresis Slight troponin elevation probably demand ischemia Cardiac catheterization in 2016 did not show any significant coronary artery disease and more recent nuclear stress test in April 2019 did not show any significant ischemia A. Fib s/p AV audi ablation and pacemaker implantation - agree with outpatient evaluation for upgrading to ASSOCIATE [employer] A[employer]-D Continue current treatment for COPD exacerbation Thank you for your consultation CHARLOTTE GOLDMAN APRN Sep 28, 2019 09:55 RAFA SQUIRES MD Sep 28, 2019 15:50
[2019-09-28] MEDS ORDERED: FUROSEMIDE 40 MG/4 ML VIAL. IVP ONE (10:00)
--- NOTE | 2019-09-28 10:21 | NUR ---
Wound care: Patient seen per wound care consult. See wound assessment. Patient has DFU to left anterior foot. Foot/toes are purple and black. Patient will need Vascular consult. Wound cleansed and assessed and a hydrocolloid is placed. Recommend a Rooke boot at his time if not amputating. Awaiting vascular consult. No other wounds noted at this time. Spoke with RN. Call light in reach, patient up in chair at this time. Will follow up regarding wound care.
[2019-09-28] MEDS: methylPREDNISolone SOD SUCC PF 40 MG/ML VIAL. IV SCH ×3 (10:37→22:00)
[2019-09-28] MEDS: IPRATRPIUM/ALBUTEROL 0.5/2.5MG 3 ML NEBU. NEB SCH ×3 (11:39→19:35)
--- NOTE | 2019-09-28 12:59 | PDOC ---
PULMONARY PROGRESS NOTES Vitals Vital Signs Date Time Temp Pulse Resp B/P (MAP) Pulse Ox O2 Delivery O2 Flow Rate FiO2 09/28/19 11:42 97 Nasal Cannula 4.0 09/28/19 11:00 72 25 138/111 (120) 09/28/19 08:00 97.9 97.9 Lungs: Wheezing Labs Laboratory Tests Test 09/27/19 14:00 09/27/19 14:02 09/27/19 15:55 09/27/19 17:10 White Blood Count 27.3 x10^3/uL (4.0-11.0) Red Blood Count 4.95 x10^6/uL (3.50-5.40) Hemoglobin 14.0 g/dL (12.0-15.5) Hematocrit 46.0 % (36.0-47.0) Mean Corpuscular Volume 93 fL (79-100) Mean Corpuscular Hemoglobin 28 pg (25-35) Mean Corpuscular Hemoglobin Concent 30 g/dL (31-37) Red Cell Distribution Width 23.1 % (11.5-14.5) Platelet Count 280 x10^3/uL (140-400) Neutrophils (%) (Auto) 81 % (31-73) Lymphocytes (%) (Auto) 12 % (24-48) Monocytes (%) (Auto) 7 % (0-9) Eosinophils (%) (Auto) 0 % (0-3) Basophils (%) (Auto) 0 % (0-3) Neutrophils # (Auto) 22.1 x10^3/uL (1.8-7.7) Lymphocytes # (Auto) 3.2 x10^3/uL (1.0-4.8) Monocytes # (Auto) 1.8 x10^3/uL (0.0-1.1) Eosinophils # (Auto) 0.1 x10^3/uL (0.0-0.7) Basophils # (Auto) 0.1 x10^3/uL (0.0-0.2) Segmented Neutrophils % 73 % (35-66) Band Neutrophils % 1 % (0-9) Lymphocytes % 17 % (24-48) Monocytes % 8 % (0-10) Eosinophils % 1 % (0-5) Toxic Vacuolation Slight Platelet Estimate Adequate (ADEQUATE) Anisocytosis Slight Ovalocytes Occ Schistocytes Occ Prothrombin Time 30.7 SEC (11.7-14.0) Prothromb Time International Ratio 3.0 (0.8-1.1) Activated Partial Thromboplast Time 30 SEC (24-38) Sodium Level 142 mmol/L (136-145) Potassium Level 5.1 mmol/L (3.5-5.1) Chloride Level 94 mmol/L (98-107) Carbon Dioxide Level 40 mmol/L (21-32) Anion Gap 8 (6-14) Blood Urea Nitrogen 42 mg/dL (7-20) Creatinine 1.3 mg/dL (0.6-1.0) Estimated GFR (Cockcroft-Gault) 40.7 BUN/Creatinine Ratio 32 (6-20) Glucose Level 170 mg/dL (70-99) Lactic Acid Level 7.6 mmol/L (0.4-2.0) 3.0 mmol/L (0.4-2.0) Calcium Level 9.9 mg/dL (8.5-10.1) Magnesium Level 2.2 mg/dL (1.8-2.4) Total Bilirubin 0.8 mg/dL (0.2-1.0) Aspartate Amino Transf (AST/SGOT) 60 U/L (15-37) Alanine Aminotransferase (ALT/SGPT) 78 U/L (14-59) Alkaline Phosphatase 97 U/L (46-116) Creatine Kinase 29 U/L (26-192) Troponin I Quantitative 0.105 ng/mL (0.000-0.055) NO-Ima-Z-Type Natriuretic Peptide 47806 pg/mL (0-124) Total Protein 7.8 g/dL (6.4-8.2) Albumin 4.1 g/dL (3.4-5.0) Albumin/Globulin Ratio 1.1 (1.0-1.7) Lipase 58 U/L (73-393) O2 Saturation 96 % (92-99) Arterial Blood pH 7.44 (7.35-7.45) Arterial Blood pCO2 at Patient Temp 51 mmHg (35-46) Arterial Blood pO2 at Patient Temp 84 mmHg (65-108) Arterial Blood HCO3 34 mmol/L (21-28) Arterial Blood Base Excess 8 mmol/L (-3-3) FiO2 100 Urine Collection Type U cath Urine Color Yellow Urine Clarity Clear Urine pH 5.0 Urine Specific [place] 1.020 Urine Protein 30 mg/dL (NEG-TRACE) Urine Glucose (UA) Negative mg/dL (NEG) Urine Ketones (Stick) Negative mg/dL (NEG) Urine Blood Negative (NEG) Urine Nitrite Negative (NEG) Urine Bilirubin Negative (NEG) Urine Urobilinogen Dipstick 0.2 mg/dL (0.2 mg/dL) Urine Leukocyte Esterase Negative (NEG) Urine RBC 0 /HPF (0-2) Urine WBC 1-4 /HPF (0-4) Urine Squamous Epithelial Cells Many /LPF Urine Amorphous Sediment Present /HPF Urine Bacteria 0 /HPF (0-FEW) Test 09/27/19 22:15 09/28/19 04:45 09/28/19 08:30 Influenza Type A Antigen Negative (NEGATIVE) Influenza Type B Antigen Negative (NEGATIVE) White Blood Count 10.1 x10^3/uL (4.0-11.0) Red Blood Count 4.44 x10^6/uL (3.50-5.40) Hemoglobin 12.6 g/dL (12.0-15.5) Hematocrit 40.2 % (36.0-47.0) Mean Corpuscular Volume 91 fL (79-100) Mean Corpuscular Hemoglobin 28 pg (25-35) Mean Corpuscular Hemoglobin Concent 31 g/dL (31-37) Red Cell Distribution Width 23.1 % (11.5-14.5) Platelet Count 157 x10^3/uL (140-400) Neutrophils (%) (Auto) 93 % (31-73) Lymphocytes (%) (Auto) 5 % (24-48) Monocytes (%) (Auto) 2 % (0-9) Eosinophils (%) (Auto) 0 % (0-3) Basophils (%) (Auto) 0 % (0-3) Neutrophils # (Auto) 9.4 x10^3/uL (1.8-7.7) Lymphocytes # (Auto) 0.5 x10^3/uL (1.0-4.8) Monocytes # (Auto) 0.2 x10^3/uL (0.0-1.1) Eosinophils # (Auto) 0.0 x10^3/uL (0.0-0.7) Basophils # (Auto) 0.0 x10^3/uL (0.0-0.2) Prothrombin Time 33.2 SEC (11.7-14.0) Prothromb Time International Ratio 3.3 (0.8-1.1) Sodium Level 143 mmol/L (136-145) Potassium Level 3.5 mmol/L (3.5-5.1) Chloride Level 95 mmol/L (98-107) Carbon Dioxide Level 38 mmol/L (21-32) Anion Gap 10 (6-14) Blood Urea Nitrogen 40 mg/dL (7-20) Creatinine 1.1 mg/dL (0.6-1.0) Estimated GFR (Cockcroft-Gault) 49.4 Glucose Level 192 mg/dL (70-99) Calcium Level 9.2 mg/dL (8.5-10.1) Troponin I Quantitative 0.111 ng/mL (0.000-0.055) O2 Saturation 98 % (92-99) Arterial Blood pH 7.48 (7.35-7.45) Arterial Blood pCO2 at Patient Temp 55 mmHg (35-46) Arterial Blood pO2 at Patient Temp 104 mmHg (65-108) Arterial Blood HCO3 40 mmol/L (21-28) Arterial Blood Base Excess 14 mmol/L (-3-3) FiO2 4 lpm nc Laboratory Tests Test 09/27/19 14:00 09/27/19 14:02 09/27/19 15:55 09/27/19 17:10 White Blood Count 27.3 x10^3/uL (4.0-11.0) Red Blood Count 4.95 x10^6/uL (3.50-5.40) Hemoglobin 14.0 g/dL (12.0-15.5) Hematocrit 46.0 % (36.0-47.0) Mean Corpuscular Volume 93 fL (79-100) Mean Corpuscular Hemoglobin 28 pg (25-35) Mean Corpuscular Hemoglobin Concent 30 g/dL (31-37) Red Cell Distribution Width 23.1 % (11.5-14.5) Platelet Count 280 x10^3/uL (140-400) Neutrophils (%) (Auto) 81 % (31-73) Lymphocytes (%) (Auto) 12 % (24-48) Monocytes (%) (Auto) 7 % (0-9) Eosinophils (%) (Auto) 0 % (0-3) Basophils (%) (Auto) 0 % (0-3) Neutrophils # (Auto) 22.1 x10^3/uL (1.8-7.7) Lymphocytes # (Auto) 3.2 x10^3/uL (1.0-4.8) Monocytes # (Auto) 1.8 x10^3/uL (0.0-1.1) Eosinophils # (Auto) 0.1 x10^3/uL (0.0-0.7) Basophils # (Auto) 0.1 x10^3/uL (0.0-0.2) Segmented Neutrophils % 73 % (35-66) Band Neutrophils % 1 % (0-9) Lymphocytes % 17 % (24-48) Monocytes % 8 % (0-10) Eosinophils % 1 % (0-5) Toxic Vacuolation Slight Platelet Estimate Adequate (ADEQUATE) Anisocytosis Slight Ovalocytes Occ Schistocytes Occ Prothrombin Time 30.7 SEC (11.7-14.0) Prothromb Time International Ratio 3.0 (0.8-1.1) Activated Partial Thromboplast Time 30 SEC (24-38) Sodium Level 142 mmol/L (136-145) Potassium Level 5.1 mmol/L (3.5-5.1) Chloride Level 94 mmol/L (98-107) Carbon Dioxide Level 40 mmol/L (21-32) Anion Gap 8 (6-14) Blood Urea Nitrogen 42 mg/dL (7-20) Creatinine 1.3 mg/dL (0.6-1.0) Estimated GFR (Cockcroft-Gault) 40.7 BUN/Creatinine Ratio 32 (6-20) Glucose Level 170 mg/dL (70-99) Lactic Acid Level 7.6 mmol/L (0.4-2.0) 3.0 mmol/L (0.4-2.0) Calcium Level 9.9 mg/dL (8.5-10.1) Magnesium Level 2.2 mg/dL (1.8-2.4) Total Bilirubin 0.8 mg/dL (0.2-1.0) Aspartate Amino Transf (AST/SGOT) 60 U/L (15-37) Alanine Aminotransferase (ALT/SGPT) 78 U/L (14-59) Alkaline Phosphatase 97 U/L (46-116) Creatine Kinase 29 U/L (26-192) Troponin I Quantitative 0.105 ng/mL (0.000-0.055) EM-Ibk-X-Type Natriuretic Peptide 18869 pg/mL (0-124) Total Protein 7.8 g/dL (6.4-8.2) Albumin 4.1 g/dL (3.4-5.0) Albumin/Globulin Ratio 1.1 (1.0-1.7) Lipase 58 U/L (73-393) O2 Saturation 96 % (92-99) Arterial Blood pH 7.44 (7.35-7.45) Arterial Blood pCO2 at Patient Temp 51 mmHg (35-46) Arterial Blood pO2 at Patient Temp 84 mmHg (65-108) Arterial Blood HCO3 34 mmol/L (21-28) Arterial Blood Base Excess 8 mmol/L (-3-3) FiO2 100 Urine Collection Type U cath Urine Color Yellow Urine Clarity Clear Urine pH 5.0 Urine Specific [place] 1.020 Urine Protein 30 mg/dL (NEG-TRACE) Urine Glucose (UA) Negative mg/dL (NEG) Urine Ketones (Stick) Negative mg/dL (NEG) Urine Blood Negative (NEG) Urine Nitrite Negative (NEG) Urine Bilirubin Negative (NEG) Urine Urobilinogen Dipstick 0.2 mg/dL (0.2 mg/dL) Urine Leukocyte Esterase Negative (NEG) Urine RBC 0 /HPF (0-2) Urine WBC 1-4 /HPF (0-4) Urine Squamous Epithelial Cells Many /LPF Urine Amorphous Sediment Present /HPF Urine Bacteria 0 /HPF (0-FEW) Test 09/27/19 22:15 09/28/19 04:45 09/28/19 08:30 Influenza Type A Antigen Negative (NEGATIVE) Influenza Type B Antigen Negative (NEGATIVE) White Blood Count 10.1 x10^3/uL (4.0-11.0) Red Blood Count 4.44 x10^6/uL (3.50-5.40) Hemoglobin 12.6 g/dL (12.0-15.5) Hematocrit 40.2 % (36.0-47.0) Mean Corpuscular Volume 91 fL (79-100) Mean Corpuscular Hemoglobin 28 pg (25-35) Mean Corpuscular Hemoglobin Concent 31 g/dL (31-37) Red Cell Distribution Width 23.1 % (11.5-14.5) Platelet Count 157 x10^3/uL (140-400) Neutrophils (%) (Auto) 93 % (31-73) Lymphocytes (%) (Auto) 5 % (24-48) Monocytes (%) (Auto) 2 % (0-9) Eosinophils (%) (Auto) 0 % (0-3) Basophils (%) (Auto) 0 % (0-3) Neutrophils # (Auto) 9.4 x10^3/uL (1.8-7.7) Lymphocytes # (Auto) 0.5 x10^3/uL (1.0-4.8) Monocytes # (Auto) 0.2 x10^3/uL (0.0-1.1) Eosinophils # (Auto) 0.0 x10^3/uL (0.0-0.7) Basophils # (Auto) 0.0 x10^3/uL (0.0-0.2) Prothrombin Time 33.2 SEC (11.7-14.0) Prothromb Time International Ratio 3.3 (0.8-1.1) Sodium Level 143 mmol/L (136-145) Potassium Level 3.5 mmol/L (3.5-5.1) Chloride Level 95 mmol/L (98-107) Carbon Dioxide Level 38 mmol/L (21-32) Anion Gap 10 (6-14) Blood Urea Nitrogen 40 mg/dL (7-20) Creatinine 1.1 mg/dL (0.6-1.0) Estimated GFR (Cockcroft-Gault) 49.4 Glucose Level 192 mg/dL (70-99) Calcium Level 9.2 mg/dL (8.5-10.1) Troponin I Quantitative 0.111 ng/mL (0.000-0.055) O2 Saturation 98 % (92-99) Arterial Blood pH 7.48 (7.35-7.45) Arterial Blood pCO2 at Patient Temp 55 mmHg (35-46) Arterial Blood pO2 at Patient Temp 104 mmHg (65-108) Arterial Blood HCO3 40 mmol/L (21-28) Arterial Blood Base Excess 14 mmol/L (-3-3) FiO2 4 lpm nc Medications Active Scripts Medications Dose Route/Sig Max Daily Dose Days Date Category Dose Instructions Augmentin 875-125 Tablet (Amoxicillin/Potassium Clav) 1 Each Tablet 1 Tab PO BID 7 07/22/19 Reported Hydrocodone-Acetamin 10-325 mg (Hydrocodone/Acetaminophen) 1 Each Tablet 10-325 Mg PO PRN Q6HRS PRN 07/21/19 Reported Alprazolam 0.25 Mg Tablet 0.25 Mg PO PRN PRN 07/21/19 Reported Albuterol Sulfate Neb Soln (Albuterol Sulfate) 2.5 Mg/3 Ml Vial.neb 2.5 Mg INH PRN PRN 07/21/19 Reported Proair Hfa (Albuterol Sulfate) 8.5 Gm Hfa.aer.ad 108 Mcg INH PRN PRN 07/21/19 Reported Symbicort 160-4.5 Mcg Inhaler (Budesonide/Formoterol Fumarate) 10.2 Gm Hfa.aer.ad 160 Mcg INH BID 07/21/19 Reported 160-4.5 mcg. 10.2 GM HFA.AER.AD Spiriva (Tiotropium [place]) 18 Mcg Cap.w.dev 18 Mcg INH DAILY 07/21/19 Reported Isosorbide Mononitrate Er (Isosorbide Mononitrate) 30 Mg Tab.er.24h 30 Mg PO DAILY 07/21/19 Reported Xarelto (Rivaroxaban) 20 Mg Tablet 20 Mg PO AFTRNOON 07/21/19 Reported Metoprolol Succinate ( Xl ) (Metoprolol Succinate) 25 Mg Tab.er.24h 25 Mg PO DAILY 07/21/19 Reported Nortriptyline Hcl 25 Mg Capsule 25 Mg PO HS 07/21/19 Reported Omeprazole 20 Mg Capsule.dr 20 Mg PO DAILY 07/21/19 Reported Pravastatin Sodium 20 Mg Tablet 20 Mg PO DAILY 07/21/19 Reported Furosemide 40 Mg Tablet 40 Mg PO DAILY 07/21/19 Reported Spironolactone 25 Mg Tablet 25 Mg PO DAILY 07/21/19 Reported Gabapentin 300 Mg Capsule 600 Mg PO TID 07/21/19 Reported Impression . FULL NOTE DICTATED A/C RESP FAILURE SEC TO A/C CHF NO CLINICAL SIGN OF PNEUMONIA DOUBT AECOPD HANH RICKETTS MD Sep 28, 2019 12:59
--- NOTE | 2019-09-28 13:31 | PDOC ---
PROGRESS NOTES Chief Complaint Chief Complaint A/C RESP FAILURE SEC TO A/C CHF needing NIPPV NO CLINICAL SIGN OF PNEUMONIA DOUBT AECOPD Blue, dusky left toes - LIKELY PAD undiagnosed RT BKA [facility]iatric [facility] fall risk FULL CODE Supratheraputic INR on novel OAC LEukocytosis, improved History of Present Illness History of Present Illness CAlled by CHIEF DESIGN ENGINEER this AM for concerns of left leg perfusion issues I reviewed H and P - no mention of this I see pt at 1 PM, and that foot is blue, dusky, cold CArds has ordered arterial US I asked for a stat vasc sx consult Pt on OAC INR 3.3 Apparently duskiness has been going on for days, not the best historian LIves at home, alone uses assistive device of ambulation Off BIPAP Pulmo note reviewed, likely CHF, no pna Pt agreeable to SNU if recommended PLAN: Stat vasc sx consult NPO till vasc sx rounds Await arterial sono Follwo cards recs, might need diuresing DOubt infectious process going on 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 may eat - dw CHIEF DESIGN ENGINEER Recently dcd [facility] saturday, dcd to [place] then back to hospital for SOA needing BIPAP Will need HH on dc Keep in icu for now SHe is flu neg WIll need HH at elast at AL on dc Vitals Vitals Vital Signs Date Time Temp Pulse Resp B/P (MAP) Pulse Ox O2 Delivery O2 Flow Rate FiO2 09/28/19 12:00 4.0 09/28/19 11:42 97 Nasal Cannula 09/28/19 11:00 72 25 138/111 (120) 09/28/19 08:00 97.9 97.9 Physical Exam General: Alert, Oriented X3, Cooperative, No acute distress, moderate distress Heart: Regular rate Lungs: Wheezing Abdomen: Normal bowel sounds, Soft Extremities: No edema, Other (rt bka, left foot is blue dusky, cold to touch) Labs LABS Laboratory Tests Test 09/27/19 14:00 09/27/19 14:02 09/27/19 15:55 09/27/19 17:10 White Blood Count 27.3 x10^3/uL (4.0-11.0) Red Blood Count 4.95 x10^6/uL (3.50-5.40) Hemoglobin 14.0 g/dL (12.0-15.5) Hematocrit 46.0 % (36.0-47.0) Mean Corpuscular Volume 93 fL (79-100) Mean Corpuscular Hemoglobin 28 pg (25-35) Mean Corpuscular Hemoglobin Concent 30 g/dL (31-37) Red Cell Distribution Width 23.1 % (11.5-14.5) Platelet Count 280 x10^3/uL (140-400) Neutrophils (%) (Auto) 81 % (31-73) Lymphocytes (%) (Auto) 12 % (24-48) Monocytes (%) (Auto) 7 % (0-9) Eosinophils (%) (Auto) 0 % (0-3) Basophils (%) (Auto) 0 % (0-3) Neutrophils # (Auto) 22.1 x10^3/uL (1.8-7.7) Lymphocytes # (Auto) 3.2 x10^3/uL (1.0-4.8) Monocytes # (Auto) 1.8 x10^3/uL (0.0-1.1) Eosinophils # (Auto) 0.1 x10^3/uL (0.0-0.7) Basophils # (Auto) 0.1 x10^3/uL (0.0-0.2) Segmented Neutrophils % 73 % (35-66) Band Neutrophils % 1 % (0-9) Lymphocytes % 17 % (24-48) Monocytes % 8 % (0-10) Eosinophils % 1 % (0-5) Toxic Vacuolation Slight Platelet Estimate Adequate (ADEQUATE) Anisocytosis Slight Ovalocytes Occ Schistocytes Occ Prothrombin Time 30.7 SEC (11.7-14.0) Prothromb Time International Ratio 3.0 (0.8-1.1) Activated Partial Thromboplast Time 30 SEC (24-38) Sodium Level 142 mmol/L (136-145) Potassium Level 5.1 mmol/L (3.5-5.1) Chloride Level 94 mmol/L (98-107) Carbon Dioxide Level 40 mmol/L (21-32) Anion Gap 8 (6-14) Blood Urea Nitrogen 42 mg/dL (7-20) Creatinine 1.3 mg/dL (0.6-1.0) Estimated GFR (Cockcroft-Gault) 40.7 BUN/Creatinine Ratio 32 (6-20) Glucose Level 170 mg/dL (70-99) Lactic Acid Level 7.6 mmol/L (0.4-2.0) 3.0 mmol/L (0.4-2.0) Calcium Level 9.9 mg/dL (8.5-10.1) Magnesium Level 2.2 mg/dL (1.8-2.4) Total Bilirubin 0.8 mg/dL (0.2-1.0) Aspartate Amino Transf (AST/SGOT) 60 U/L (15-37) Alanine Aminotransferase (ALT/SGPT) 78 U/L (14-59) Alkaline Phosphatase 97 U/L (46-116) Creatine Kinase 29 U/L (26-192) Troponin I Quantitative 0.105 ng/mL (0.000-0.055) [id number]-Type Natriuretic Peptide 28193 pg/mL (0-124) Total Protein 7.8 g/dL (6.4-8.2) Albumin 4.1 g/dL (3.4-5.0) Albumin/Globulin Ratio 1.1 (1.0-1.7) Lipase 58 U/L (73-393) O2 Saturation 96 % (92-99) Arterial Blood pH 7.44 (7.35-7.45) Arterial Blood pCO2 at Patient Temp 51 mmHg (35-46) Arterial Blood pO2 at Patient Temp 84 mmHg (65-108) Arterial Blood HCO3 34 mmol/L (21-28) Arterial Blood Base Excess 8 mmol/L (-3-3) FiO2 100 Urine Collection Type U cath Urine Color Yellow Urine Clarity Clear Urine pH 5.0 Urine Specific Tucker 1.020 Urine Protein 30 mg/dL (NEG-TRACE) Urine Glucose (UA) Negative mg/dL (NEG) Urine Ketones (Stick) Negative mg/dL (NEG) Urine Blood Negative (NEG) Urine Nitrite Negative (NEG) Urine Bilirubin Negative (NEG) Urine Urobilinogen Dipstick 0.2 mg/dL (0.2 mg/dL) Urine Leukocyte Esterase Negative (NEG) Urine RBC 0 /HPF (0-2) Urine WBC 1-4 /HPF (0-4) Urine Squamous Epithelial Cells Many /LPF Urine Amorphous Sediment Present /HPF Urine Bacteria 0 /HPF (0-FEW) Test 09/27/19 22:15 09/28/19 04:45 09/28/19 08:30 Influenza Type A Antigen Negative (NEGATIVE) Influenza Type B Antigen Negative (NEGATIVE) White Blood Count 10.1 x10^3/uL (4.0-11.0) Red Blood Count 4.44 x10^6/uL (3.50-5.40) Hemoglobin 12.6 g/dL (12.0-15.5) Hematocrit 40.2 % (36.0-47.0) Mean Corpuscular Volume 91 fL (79-100) Mean Corpuscular Hemoglobin 28 pg (25-35) Mean Corpuscular Hemoglobin Concent 31 g/dL (31-37) Red Cell Distribution Width 23.1 % (11.5-14.5) Platelet Count 157 x10^3/uL (140-400) Neutrophils (%) (Auto) 93 % (31-73) Lymphocytes (%) (Auto) 5 % (24-48) Monocytes (%) (Auto) 2 % (0-9) Eosinophils (%) (Auto) 0 % (0-3) Basophils (%) (Auto) 0 % (0-3) Neutrophils # (Auto) 9.4 x10^3/uL (1.8-7.7) Lymphocytes # (Auto) 0.5 x10^3/uL (1.0-4.8) Monocytes # (Auto) 0.2 x10^3/uL (0.0-1.1) Eosinophils # (Auto) 0.0 x10^3/uL (0.0-0.7) Basophils # (Auto) 0.0 x10^3/uL (0.0-0.2) Prothrombin Time 33.2 SEC (11.7-14.0) Prothromb Time International Ratio 3.3 (0.8-1.1) Sodium Level 143 mmol/L (136-145) Potassium Level 3.5 mmol/L (3.5-5.1) Chloride Level 95 mmol/L (98-107) Carbon Dioxide Level 38 mmol/L (21-32) Anion Gap 10 (6-14) Blood Urea Nitrogen 40 mg/dL (7-20) Creatinine 1.1 mg/dL (0.6-1.0) Estimated GFR (Cockcroft-Gault) 49.4 Glucose Level 192 mg/dL (70-99) Calcium Level 9.2 mg/dL (8.5-10.1) Troponin I Quantitative 0.111 ng/mL (0.000-0.055) O2 Saturation 98 % (92-99) Arterial Blood pH 7.48 (7.35-7.45) Arterial Blood pCO2 at Patient Temp 55 mmHg (35-46) Arterial Blood pO2 at Patient Temp 104 mmHg (65-108) Arterial Blood HCO3 40 mmol/L (21-28) Arterial Blood Base Excess 14 mmol/L (-3-3) FiO2 4 lpm nc Review of Systems Review of Systems she denies 14 pt reviewed with her Assessment and Plan Assessmemt and Plan Problems Medical Problems: (1) Acute exacerbation of CHF (congestive heart failure) Status: Acute (2) Acute respiratory distress Status: Acute (3) Anxiety Status: Acute (4) COPD exacerbation Status: Acute (5) Hyponatremia Status: Acute (6) Pulmonary edema Status: Acute (7) Renal insufficiency Status: Acute (8) Tobacco abuse Status: Acute Comment Review of Relevant I have reviewed the following items sourav (where applicable) has been applied. Labs Laboratory Tests Test 09/27/19 14:00 09/27/19 14:02 09/27/19 15:55 09/27/19 17:10 White Blood Count 27.3 x10^3/uL (4.0-11.0) Red Blood Count 4.95 x10^6/uL (3.50-5.40) Hemoglobin 14.0 g/dL (12.0-15.5) Hematocrit 46.0 % (36.0-47.0) Mean Corpuscular Volume 93 fL (79-100) Mean Corpuscular Hemoglobin 28 pg (25-35) Mean Corpuscular Hemoglobin Concent 30 g/dL (31-37) Red Cell Distribution Width 23.1 % (11.5-14.5) Platelet Count 280 x10^3/uL (140-400) Neutrophils (%) (Auto) 81 % (31-73) Lymphocytes (%) (Auto) 12 % (24-48) Monocytes (%) (Auto) 7 % (0-9) Eosinophils (%) (Auto) 0 % (0-3) Basophils (%) (Auto) 0 % (0-3) Neutrophils # (Auto) 22.1 x10^3/uL (1.8-7.7) Lymphocytes # (Auto) 3.2 x10^3/uL (1.0-4.8) Monocytes # (Auto) 1.8 x10^3/uL (0.0-1.1) Eosinophils # (Auto) 0.1 x10^3/uL (0.0-0.7) Basophils # (Auto) 0.1 x10^3/uL (0.0-0.2) Segmented Neutrophils % 73 % (35-66) Band Neutrophils % 1 % (0-9) Lymphocytes % 17 % (24-48) Monocytes % 8 % (0-10) Eosinophils % 1 % (0-5) Toxic Vacuolation Slight Platelet Estimate Adequate (ADEQUATE) Anisocytosis Slight Ovalocytes Occ Schistocytes Occ Prothrombin Time 30.7 SEC (11.7-14.0) Prothromb Time International Ratio 3.0 (0.8-1.1) Activated Partial Thromboplast Time 30 SEC (24-38) Sodium Level 142 mmol/L (136-145) Potassium Level 5.1 mmol/L (3.5-5.1) Chloride Level 94 mmol/L (98-107) Carbon Dioxide Level 40 mmol/L (21-32) Anion Gap 8 (6-14) Blood Urea Nitrogen 42 mg/dL (7-20) Creatinine 1.3 mg/dL (0.6-1.0) Estimated GFR (Cockcroft-Gault) 40.7 BUN/Creatinine Ratio 32 (6-20) Glucose Level 170 mg/dL (70-99) Lactic Acid Level 7.6 mmol/L (0.4-2.0) 3.0 mmol/L (0.4-2.0) Calcium Level 9.9 mg/dL (8.5-10.1) Magnesium Level 2.2 mg/dL (1.8-2.4) Total Bilirubin 0.8 mg/dL (0.2-1.0) Aspartate Amino Transf (AST/SGOT) 60 U/L (15-37) Alanine Aminotransferase (ALT/SGPT) 78 U/L (14-59) Alkaline Phosphatase 97 U/L (46-116) Creatine Kinase 29 U/L (26-192) Troponin I Quantitative 0.105 ng/mL (0.000-0.055) VU-Ref-U-Type Natriuretic Peptide 14625 pg/mL (0-124) Total Protein 7.8 g/dL (6.4-8.2) Albumin 4.1 g/dL (3.4-5.0) Albumin/Globulin Ratio 1.1 (1.0-1.7) Lipase 58 U/L (73-393) O2 Saturation 96 % (92-99) Arterial Blood pH 7.44 (7.35-7.45) Arterial Blood pCO2 at Patient Temp 51 mmHg (35-46) Arterial Blood pO2 at Patient Temp 84 mmHg (65-108) Arterial Blood HCO3 34 mmol/L (21-28) Arterial Blood Base Excess 8 mmol/L (-3-3) FiO2 100 Urine Collection Type U cath Urine Color Yellow Urine Clarity Clear Urine pH 5.0 Urine Specific Tucker 1.020 Urine Protein 30 mg/dL (NEG-TRACE) Urine Glucose (UA) Negative mg/dL (NEG) Urine Ketones (Stick) Negative mg/dL (NEG) Urine Blood Negative (NEG) Urine Nitrite Negative (NEG) Urine Bilirubin Negative (NEG) Urine Urobilinogen Dipstick 0.2 mg/dL (0.2 mg/dL) Urine Leukocyte Esterase Negative (NEG) Urine RBC 0 /HPF (0-2) Urine WBC 1-4 /HPF (0-4) Urine Squamous Epithelial Cells Many /LPF Urine Amorphous Sediment Present /HPF Urine Bacteria 0 /HPF (0-FEW) Test 09/27/19 22:15 09/28/19 04:45 09/28/19 08:30 Influenza Type A Antigen Negative (NEGATIVE) Influenza Type B Antigen Negative (NEGATIVE) White Blood Count 10.1 x10^3/uL (4.0-11.0) Red Blood Count 4.44 x10^6/uL (3.50-5.40) Hemoglobin 12.6 g/dL (12.0-15.5) Hematocrit 40.2 % (36.0-47.0) Mean Corpuscular Volume 91 fL (79-100) Mean Corpuscular Hemoglobin 28 pg (25-35) Mean Corpuscular Hemoglobin Concent 31 g/dL (31-37) Red Cell Distribution Width 23.1 % (11.5-14.5) Platelet Count 157 x10^3/uL (140-400) Neutrophils (%) (Auto) 93 % (31-73) Lymphocytes (%) (Auto) 5 % (24-48) Monocytes (%) (Auto) 2 % (0-9) Eosinophils (%) (Auto) 0 % (0-3) Basophils (%) (Auto) 0 % (0-3) Neutrophils # (Auto) 9.4 x10^3/uL (1.8-7.7) Lymphocytes # (Auto) 0.5 x10^3/uL (1.0-4.8) Monocytes # (Auto) 0.2 x10^3/uL (0.0-1.1) Eosinophils # (Auto) 0.0 x10^3/uL (0.0-0.7) Basophils # (Auto) 0.0 x10^3/uL (0.0-0.2) Prothrombin Time 33.2 SEC (11.7-14.0) Prothromb Time International Ratio 3.3 (0.8-1.1) Sodium Level 143 mmol/L (136-145) Potassium Level 3.5 mmol/L (3.5-5.1) Chloride Level 95 mmol/L (98-107) Carbon Dioxide Level 38 mmol/L (21-32) Anion Gap 10 (6-14) Blood Urea Nitrogen 40 mg/dL (7-20) Creatinine 1.1 mg/dL (0.6-1.0) Estimated GFR (Cockcroft-Gault) 49.4 Glucose Level 192 mg/dL (70-99) Calcium Level 9.2 mg/dL (8.5-10.1) Troponin I Quantitative 0.111 ng/mL (0.000-0.055) O2 Saturation 98 % (92-99) Arterial Blood pH 7.48 (7.35-7.45) Arterial Blood pCO2 at Patient Temp 55 mmHg (35-46) Arterial Blood pO2 at Patient Temp 104 mmHg (65-108) Arterial Blood HCO3 40 mmol/L (21-28) Arterial Blood Base Excess 14 mmol/L (-3-3) FiO2 4 lpm nc Laboratory Tests Test 09/27/19 14:00 09/27/19 14:02 09/27/19 15:55 09/27/19 17:10 White Blood Count 27.3 x10^3/uL (4.0-11.0) Red Blood Count 4.95 x10^6/uL (3.50-5.40) Hemoglobin 14.0 g/dL (12.0-15.5) Hematocrit 46.0 % (36.0-47.0) Mean Corpuscular Volume 93 fL (79-100) Mean Corpuscular Hemoglobin 28 pg (25-35) Mean Corpuscular Hemoglobin Concent 30 g/dL (31-37) Red Cell Distribution Width 23.1 % (11.5-14.5) Platelet Count 280 x10^3/uL (140-400) Neutrophils (%) (Auto) 81 % (31-73) Lymphocytes (%) (Auto) 12 % (24-48) Monocytes (%) (Auto) 7 % (0-9) Eosinophils (%) (Auto) 0 % (0-3) Basophils (%) (Auto) 0 % (0-3) Neutrophils # (Auto) 22.1 x10^3/uL (1.8-7.7) Lymphocytes # (Auto) 3.2 x10^3/uL (1.0-4.8) Monocytes # (Auto) 1.8 x10^3/uL (0.0-1.1) Eosinophils # (Auto) 0.1 x10^3/uL (0.0-0.7) Basophils # (Auto) 0.1 x10^3/uL (0.0-0.2) Segmented Neutrophils % 73 % (35-66) Band Neutrophils % 1 % (0-9) Lymphocytes % 17 % (24-48) Monocytes % 8 % (0-10) Eosinophils % 1 % (0-5) Toxic Vacuolation Slight Platelet Estimate Adequate (ADEQUATE) Anisocytosis Slight Ovalocytes Occ Schistocytes Occ Prothrombin Time 30.7 SEC (11.7-14.0) Prothromb Time International Ratio 3.0 (0.8-1.1) Activated Partial Thromboplast Time 30 SEC (24-38) Sodium Level 142 mmol/L (136-145) Potassium Level 5.1 mmol/L (3.5-5.1) Chloride Level 94 mmol/L (98-107) Carbon Dioxide Level 40 mmol/L (21-32) Anion Gap 8 (6-14) Blood Urea Nitrogen 42 mg/dL (7-20) Creatinine 1.3 mg/dL (0.6-1.0) Estimated GFR (Cockcroft-Gault) 40.7 BUN/Creatinine Ratio 32 (6-20) Glucose Level 170 mg/dL (70-99) Lactic Acid Level 7.6 mmol/L (0.4-2.0) 3.0 mmol/L (0.4-2.0) Calcium Level 9.9 mg/dL (8.5-10.1) Magnesium Level 2.2 mg/dL (1.8-2.4) Total Bilirubin 0.8 mg/dL (0.2-1.0) Aspartate Amino Transf (AST/SGOT) 60 U/L (15-37) Alanine Aminotransferase (ALT/SGPT) 78 U/L (14-59) Alkaline Phosphatase 97 U/L (46-116) Creatine Kinase 29 U/L (26-192) Troponin I Quantitative 0.105 ng/mL (0.000-0.055) GE-Vrg-E-Type Natriuretic Peptide 58053 pg/mL (0-124) Total Protein 7.8 g/dL (6.4-8.2) Albumin 4.1 g/dL (3.4-5.0) Albumin/Globulin Ratio 1.1 (1.0-1.7) Lipase 58 U/L (73-393) O2 Saturation 96 % (92-99) Arterial Blood pH 7.44 (7.35-7.45) Arterial Blood pCO2 at Patient Temp 51 mmHg (35-46) Arterial Blood pO2 at Patient Temp 84 mmHg (65-108) Arterial Blood HCO3 34 mmol/L (21-28) Arterial Blood Base Excess 8 mmol/L (-3-3) FiO2 100 Urine Collection Type U cath Urine Color Yellow Urine Clarity Clear Urine pH 5.0 Urine Specific Tucker 1.020 Urine Protein 30 mg/dL (NEG-TRACE) Urine Glucose (UA) Negative mg/dL (NEG) Urine Ketones (Stick) Negative mg/dL (NEG) Urine Blood Negative (NEG) Urine Nitrite Negative (NEG) Urine Bilirubin Negative (NEG) Urine Urobilinogen Dipstick 0.2 mg/dL (0.2 mg/dL) Urine Leukocyte Esterase Negative (NEG) Urine RBC 0 /HPF (0-2) Urine WBC 1-4 /HPF (0-4) Urine Squamous Epithelial Cells Many /LPF Urine Amorphous Sediment Present /HPF Urine Bacteria 0 /HPF (0-FEW) Test 09/27/19 22:15 09/28/19 04:45 09/28/19 08:30 Influenza Type A Antigen Negative (NEGATIVE) Influenza Type B Antigen Negative (NEGATIVE) White Blood Count 10.1 x10^3/uL (4.0-11.0) Red Blood Count 4.44 x10^6/uL (3.50-5.40) Hemoglobin 12.6 g/dL (12.0-15.5) Hematocrit 40.2 % (36.0-47.0) Mean Corpuscular Volume 91 fL (79-100) Mean Corpuscular Hemoglobin 28 pg (25-35) Mean Corpuscular Hemoglobin Concent 31 g/dL (31-37) Red Cell Distribution Width 23.1 % (11.5-14.5) Platelet Count 157 x10^3/uL (140-400) Neutrophils (%) (Auto) 93 % (31-73) Lymphocytes (%) (Auto) 5 % (24-48) Monocytes (%) (Auto) 2 % (0-9) Eosinophils (%) (Auto) 0 % (0-3) Basophils (%) (Auto) 0 % (0-3) Neutrophils # (Auto) 9.4 x10^3/uL (1.8-7.7) Lymphocytes # (Auto) 0.5 x10^3/uL (1.0-4.8) Monocytes # (Auto) 0.2 x10^3/uL (0.0-1.1) Eosinophils # (Auto) 0.0 x10^3/uL (0.0-0.7) Basophils # (Auto) 0.0 x10^3/uL (0.0-0.2) Prothrombin Time 33.2 SEC (11.7-14.0) Prothromb Time International Ratio 3.3 (0.8-1.1) Sodium Level 143 mmol/L (136-145) Potassium Level 3.5 mmol/L (3.5-5.1) Chloride Level 95 mmol/L (98-107) Carbon Dioxide Level 38 mmol/L (21-32) Anion Gap 10 (6-14) Blood Urea Nitrogen 40 mg/dL (7-20) Creatinine 1.1 mg/dL (0.6-1.0) Estimated GFR (Cockcroft-Gault) 49.4 Glucose Level 192 mg/dL (70-99) Calcium Level 9.2 mg/dL (8.5-10.1) Troponin I Quantitative 0.111 ng/mL (0.000-0.055) O2 Saturation 98 % (92-99) Arterial Blood pH 7.48 (7.35-7.45) Arterial Blood pCO2 at Patient Temp 55 mmHg (35-46) Arterial Blood pO2 at Patient Temp 104 mmHg (65-108) Arterial Blood HCO3 40 mmol/L (21-28) Arterial Blood Base Excess 14 mmol/L (-3-3) FiO2 4 lpm nc Medications Current Medications Ipratropium Souris (Atrovent) 0.5 mg 1X ONCE NEB Last administered on 09/27/19at 14:15; Start 09/27/19 at 14:15; Stop 09/27/19 at 14:16; Status DC Methylprednisolone Sodium Succinate (SOLU-Medrol 125MG VIAL) 125 mg 1X ONCE IV Last administered on 09/27/19at 14:56; Start 09/27/19 at 14:15; Stop 09/27/19 at 14:16; Status DC Lorazepam (Ativan Inj) 1 mg 1X ONCE IVP Last administered on 09/27/19at 14:30; Start 09/27/19 at 14:30; Stop 09/27/19 at 14:31; Status DC Vancomycin HCl 250 ml @ 250 mls/hr 1X ONCE IV Last administered on 09/27/19at 15:06; Start 09/27/19 at 14:45; Stop 09/27/19 at 15:44; Status DC Ceftriaxone Sodium (Rocephin) 1 gm 1X ONCE IVP Last administered on 09/27/19at 15:02; Start 09/27/19 at 14:45; Stop 09/27/19 at 14:46; Status DC Morphine Sulfate (Morphine Sulfate) 4 mg STK-MED ONCE .ROUTE ; Start 09/27/19 at 14:53; Stop 09/27/19 at 14:53; Status DC Morphine Sulfate (Morphine Sulfate) 4 mg 1X ONCE IV Last administered on 09/27/19at 14:56; Start 09/27/19 at 15:00; Stop 09/27/19 at 15:01; Status DC Ondansetron HCl (Zofran) 4 mg 1X ONCE IV ; Start 09/27/19 at 15:00; Stop 09/27/19 at 15:01; Status DC Methylprednisolone Sodium Succinate (SOLU-Medrol 125MG VIAL) 100 mg Q6HRS IV Last administered on 09/28/19at 05:32; Start 09/27/19 at 18:00; Stop 09/28/19 at 09:48; Status DC Vancomycin HCl (Vanco Per Pharmacy) 1 each PRN DAILY PRN MC SEE COMMENTS Last administered on 09/27/19at 16:43; Start 09/27/19 at 16:30 Vancomycin HCl 500 mg/Sodium Chloride 100 ml @ 100 mls/hr 1X ONCE IV Last administered on 09/27/19at 16:55; Start 09/27/19 at 16:30; Stop 09/27/19 at 17:29; Status DC Piperacillin Sod/ Tazobactam Sod 3.375 gm/Sodium Chloride 50 ml @ 100 mls/hr Q6HRS IV Last administered on 09/28/19at 11:43; Start 09/27/19 at 17:00 Vancomycin HCl 1 gm/Sodium Chloride 250 ml @ 250 mls/hr Q24H IV ; Start 09/28/19 at 18:00 Vancomycin HCl (Vancomycin Trough Level) 1 each 1X ONCE MC ; Start 09/29/19 at 17:30; Stop 09/29/19 at 17:31 Albuterol Sulfate (Ventolin Neb Soln) 2.5 mg Q4HRS INH Last administered on 09/28/19at 08:14; Start 09/27/19 at 17:00; Stop 09/28/19 at 09:48; Status DC Alprazolam (Xanax) 0.25 mg PRN BID PRN PO ANXIETY / AGITATION; Start 09/27/19 at 17:00 Furosemide (Lasix) 40 mg DAILY PO Last administered on 09/28/19at 08:34; Start 09/27/19 at 18:00; Stop 09/28/19 at 09:48; Status DC Gabapentin (Neurontin) 600 mg TID PO Last administered on 09/28/19at 08:33; Start 09/27/19 at 21:00 Isosorbide Mononitrate (Imdur) 30 mg DAILY PO Last administered on 09/28/19at 08:36; Start 09/27/19 at 18:00 Metoprolol Succinate (Toprol Xl) 25 mg DAILY PO Last administered on 09/28/19at 08:36; Start 09/27/19 at 18:00 Nortriptyline HCl (Pamelor) 25 mg HS PO ; Start 09/27/19 at 21:00 Spironolactone (Aldactone) 25 mg DAILY PO Last administered on 09/28/19at 08:36; Start 09/27/19 at 18:00 Non-Formulary Medication (Budesonide/ Formoterol Fumarate (Symbicort 160-4.5 Mcg Inhaler)) 160 mcg BID INH ; Start 09/27/19 at 21:00; Status UNV Pantoprazole Sodium (Protonix) 40 mg DAILYAC PO Last administered on 09/28/19at 08:33; Start 09/27/19 at 17:30 Atorvastatin Calcium (Lipitor) 5 mg QHS PO ; Start 09/27/19 at 21:00 Rivaroxaban (Xarelto) 20 mg DAILYWSUP PO ; Start 09/27/19 at 17:30; Stop 09/28/19 at 08:23; Status DC Budesonide (Pulmicort) 0.5 mg RTBID NEB Last administered on 09/28/19at 08:15; Start 09/27/19 at 20:00 Lorazepam (Ativan Inj) 0.5 mg PRN Q6HRS PRN IV ANXIETY / AGITATION; Start 09/27/19 at 22:45 Ondansetron HCl (Zofran) 4 mg PRN Q6HRS PRN IV NAUSEA/VOMITING; Start 09/27/19 at 22:45; Stop 09/28/19 at 09:49; Status DC Prochlorperazine Edisylate (Compazine) 5 mg PRN Q6HRS PRN IV NAUSEA/VOMITING, 2ND CHOICE; Start 09/27/19 at 22:45 Al Hydroxide/Mg Hydroxide (Mylanta Plus Xs) 30 ml PRN Q3HRS PRN PO HEARTBURN / GAS; Start 09/27/19 at 22:45 Famotidine (Pepcid Vial) 20 mg QHS IVP ; Start 09/28/19 at 21:00 Sodium Chloride (Normal Saline Flush) 3 ml QSHIFT PRN IV AFTER MEDS AND BLOOD DRAWS; Start 09/27/19 at 22:45 Senna/Docusate Sodium (Senna Plus) 1 tab BID PO Last administered on 09/28/19at 08:34; Start 09/28/19 at 09:00 Docusate Sodium (Colace) 100 mg BID PO Last administered on 09/28/19at 08:34; Start 09/28/19 at 09:00 Bisacodyl (Dulcolax Supp) 10 mg PRN DAILY PRN ME CONSTIPATION; Start 09/27/19 at 22:45 Info (Anti-Coagulation Monitoring By Pharmacy) 1 each PRN DAILY PRN MC SEE COMMENTS Last administered on 09/28/19at 08:26; Start 09/28/19 at 07:45 Rivaroxaban (Xarelto) 15 mg QEVNG PO ; Start 09/28/19 at 18:00 Morphine Sulfate (Morphine Sulfate) 2 mg PRN Q2HR PRN IV PAIN; Start 09/28/19 at 09:45 Oxycodone/ Acetaminophen (Percocet 5/325) 1 tab PRN Q4HRS PRN PO MODERATE PAIN; Start 09/28/19 at 09:45 Temazepam (Restoril) 7.5 mg PRN QHS PRN PO INSOMNIA; Start 09/28/19 at 09:45 Ondansetron HCl (Zofran) 4 mg PRN Q6HRS PRN IVP NAUSEA/VOMITING, 1ST CHOICE; Start 09/28/19 at 09:45 Albuterol Sulfate (Ventolin Neb Soln) 2.5 mg PRN QID PRN INH SHORTNESS OF BR EATH; Start 09/28/19 at 09:45 Acetaminophen/ Hydrocodone Bitart (Lortab 10/325) 1 tab PRN Q6HRS PRN PO SEVERE PAIN; Start 09/28/19 at 09:45 Albuterol/ Ipratropium (Duoneb) 3 ml RTQID NEB Last administered on 09/28/19at 11:39; Start 09/28/19 at 12:00 Methylprednisolone Sodium Succinate (SOLU-Medrol 40MG VIAL) 40 mg Q8HRS IV Last administered on 09/28/19at 10:37; Start 09/28/19 at 10:00 Furosemide (Lasix) 40 mg 1X ONCE IVP Last administered on 11/18/19at 11:43; Start 09/28/19 at 10:00; Stop 09/28/19 at 10:01; Status DC Furosemide (Lasix) 40 mg DAILY IVP ; Start 09/29/19 at 09:00 Active Scripts Active Reported Augmentin [id number] Tablet (Amoxicillin/Potassium Clav) 1 Each Tablet 1 Tab PO BID 7 Days Hydrocodone-Acetamin 10-325 mg (Hydrocodone/Acetaminophen) 1 Each Tablet 10-325 Mg PO PRN Q6HRS PRN Alprazolam 0.25 Mg Tablet 0.25 Mg PO PRN PRN Albuterol Sulfate Neb Soln (Albuterol Sulfate) 2.5 Mg/3 Ml Vial.neb 2.5 Mg INH PRN PRN Proair Hfa (Albuterol Sulfate) 8.5 Gm Hfa.aer.ad 108 Mcg INH PRN PRN Symbicort 160-4.5 Mcg Inhaler (Budesonide/Formoterol Fumarate) 10.2 Gm Hfa.aer.ad 160 Mcg INH BID 160-4.5 mcg. 10.2 GM HFA.AER.AD Spiriva (Tiotropium Souris) 18 Mcg Cap.w.dev 18 Mcg INH DAILY Isosorbide Mononitrate Er (Isosorbide Mononitrate) 30 Mg Tab.er.24h 30 Mg PO DAILY Xarelto (Rivaroxaban) 20 Mg Tablet 20 Mg PO AFTRNOON Metoprolol Succinate ( Xl ) (Metoprolol Succinate) 25 Mg Tab.er.24h 25 Mg PO DAILY Nortriptyline Hcl 25 Mg Capsule 25 Mg PO HS Omeprazole 20 Mg Capsule.dr 20 Mg PO DAILY Pravastatin Sodium 20 Mg Tablet 20 Mg PO DAILY Furosemide 40 Mg Tablet 40 Mg PO DAILY Spironolactone 25 Mg Tablet 25 Mg PO DAILY Gabapentin 300 Mg Capsule 600 Mg PO TID Vitals/I & O Vital Sign - Last 24 Hours 09/27/19 09/27/19 09/27/19 09/27/19 13:58 14:05 14:25 14:30 Temp 97.9 97.9 Pulse 79 68 Resp 20 36 B/P (MAP) 128/74 (92) 160/108 (125) Pulse Ox 81 88 97 O2 Delivery BiPAP/CPAP BiPAP/CPAP BiPAP/CPAP BiPAP/CPAP 09/27/19 09/27/19 09/27/19 09/27/19 14:55 14:56 15:15 15:20 Temp 97.8 97.8 Pulse 88 74 86 Resp 34 32 30 30 B/P (MAP) 128/73 (91) 124/70 (88) 128/64 (85) Pulse Ox 95 96 97 O2 Delivery BiPAP/CPAP BiPAP/CPAP BiPAP/CPAP 09/27/19 09/27/19 09/27/19 09/27/19 16:00 16:00 16:17 16:30 Temp 98.9 98.9 Pulse 70 72 Resp 22 21 B/P (MAP) 114/48 (70) 116/61 (79) Pulse Ox 98 O2 Delivery Bi-pap BiPAP/CPAP BiPAP/CPAP BiPAP/CPAP 09/27/19 09/27/19 09/27/19 09/27/19 17:00 17:30 17:48 18:00 Pulse 72 70 70 Resp 19 18 18 B/P (MAP) 110/55 (73) 102/50 (67) 118/49 (72) Pulse Ox 98 O2 Delivery BiPAP/CPAP BiPAP/CPAP BiPAP/CPAP BiPAP/CPAP 09/27/19 09/27/19 09/27/19 09/27/19 18:30 19:00 19:35 20:00 Pulse 70 70 Resp 18 17 B/P (MAP) 120/52 (74) 127/59 (81) Pulse Ox 100 O2 Delivery BiPAP/CPAP BiPAP/CPAP BiPAP/CPAP Bi-pap 09/27/19 09/27/19 09/27/19 09/27/19 20:00 21:00 22:00 23:00 Temp 97.5 97.5 Pulse 73 77 75 73 Resp 20 17 17 17 B/P (MAP) 123/62 (82) 115/53 (73) 111/52 (71) 128/57 (80) Pulse Ox 100 96 100 100 O2 Delivery BiPAP/CPAP BiPAP/CPAP BiPAP/CPAP BiPAP/CPAP 09/27/19 09/28/19 09/28/19 09/28/19 23:32 00:00 00:00 01:00 Temp 97.2 97.2 Pulse 75 69 Resp 14 17 B/P (MAP) 113/52 (72) 119/61 (80) Pulse Ox 100 99 99 O2 Delivery BiPAP/CPAP BiPAP/CPAP Bi-pap BiPAP/CPAP 09/28/19 09/28/19 09/28/19 09/28/19 01:36 02:00 03:00 03:52 Pulse 73 75 Resp 18 18 B/P (MAP) 122/60 (80) 126/64 (84) Pulse Ox 100 99 99 100 O2 Delivery BiPAP/CPAP BiPAP/CPAP BiPAP/CPAP BiPAP/CPAP 09/28/19 09/28/19 09/28/19 09/28/19 04:00 04:00 05:00 05:32 Temp 97.0 97.0 Pulse 73 71 Resp 25 21 B/P (MAP) 120/58 (78) 123/58 (79) Pulse Ox 100 100 100 O2 Delivery BiPAP/CPAP Bi-pap BiPAP/CPAP BiPAP/CPAP 09/28/19 09/28/19 09/28/19 09/28/19 06:00 07:00 08:00 08:00 Temp 97.9 97.9 Pulse 73 75 78 Resp 18 23 30 B/P (MAP) 137/62 (87) 140/65 (90) 135/72 (93) Pulse Ox 100 100 100 O2 Delivery BiPAP/CPAP BiPAP/CPAP BiPAP/CPAP Bi-pap 09/28/19 09/28/19 09/28/19 09/28/19 08:22 08:36 08:36 09:00 Pulse 77 77 70 Resp 25 B/P (MAP) 137/58 137/58 135/58 (83) Pulse Ox 97 100 O2 Delivery Nasal Cannula BiPAP/CPAP O2 Flow Rate 4.0 09/28/19 09/28/19 09/28/19 09/28/19 09:11 10:00 11:00 11:42 Pulse 70 72 Resp 22 25 B/P (MAP) 115/80 (92) 138/111 (120) Pulse Ox 100 97 88 97 O2 Delivery BiPAP/CPAP Nasal Cannula Nasal Cannula Nasal Cannula O2 Flow Rate 4.0 4.0 4.0 09/28/19 12:00 O2 Flow Rate 4.0 Intake and Output 09/27/19 09/27/19 09/28/19 15:00 23:00 07:00 Intake Total 0 ml 100 ml Output Total 335 ml 355 ml Balance -335 ml -255 ml AMARILIS VALENTINO MD Sep 28, 2019 13:31
--- NOTE | 2019-09-28 15:12 | PDOC ---
Provider Note Provider Note (please see full dictation) 69 yo female with cardiomyopathy, COPD and peripheral artery disease who was admitted yesterday after discharge from on 09/26/19. She has had a right below knee amputation. She has pain in the left foot. She has acrocyanosis toes and left forefoot. She has 2 sec capillary refill. There is a fissure with eschar on the edges of the left 1st toenail. She has strong monophasic Doppler flow in the left PT. Left DP has no signal. Angiogram was done at and demonstrated left distal AT and DP occlusion. There was good in-line flow via left PT and peroneal arteries with left PT extension onto plantar vessels in the foot. Would continue protective measures to the left foot with a Rooke boot. Would not recommend any other arterial interventions at this time. SILVANO OCONNOR MD Sep 28, 2019 15:12
--- NOTE | 2019-09-28 15:39 | CONS ---
DATE OF CONSULTATION: 09/28/2019 ATTENDING PHYSICIAN: Dr. Mcintosh. REASON FOR CONSULTATION: The patient seen in pulmonary consultation at the request of Dr. Mcintosh for acute on chronic respiratory failure requiring noninvasive ventilation. Initial arterial blood gas revealed a pH of 7.44, PaCO2 of 51, pO2 of 84, bicarb of 34. HISTORY OF PRESENT ILLNESS: The patient is a 69-year-old with multiple comorbidities, previous documented pulmonary hypertension, cardiomyopathy, ejection fraction 35-40%, peripheral vascular disease with previous right above-knee amputation, who presents with increasing shortness of air. She was at [facility] from the to the and was discharged to assisted living, return secondary to increasing shortness of breath, was found short of breath in the bathroom, she was also noted to have peripheral cyanosis. EMS was summoned. They responded and placed the patient on oxygen supplementation. She normally wears 2 liters. She continues to smoke on and off. She presented to the Emergency Room, was seen in the Emergency Department and stabilized. She was transferred to the Intensive Care Unit, placed on BiPAP. Chest x-ray was obtained revealing cardiomegaly with signs of pulmonary edema. The patient states that she quit tobacco on and off now for approximately 3 months, has been on oxygen supplementation for approximately a month but denies any fever, chills or productive cough. No chest pain. No pressure. PAST MEDICAL HISTORY: 1. Cardiomyopathy with previous ejection fraction of 35-40% by echocardiogram in 07/2019. 2. Secondary pulmonary hypertension. Echocardiogram estimated pressures of 65 mmHg. The patient had a cardiac catheterization ____ revealing pulmonary artery pressure of approximately 35-40. 3. Hyperlipidemia. 2. Hypertension. 3. Peripheral vascular disease with previous right above-knee amputation. 4. Chronic cellulitis. 5. Tachybrady syndrome. 6. COPD. 7. Chronic respiratory failure. 8. She has had previous CVAs and history of gastroesophageal reflux. PAST SURGICAL HISTORY: As indicated above, previous right above-knee amputation. ALLERGIES: TO PENICILLIN, FENTANYL, AND LEVOFLOXACIN. REVIEW OF SYSTEMS: CONSTITUTIONAL: No fever or chills. EYES: No change in visual acuity. HEENT: No nasal congestion or sore throat. PULMONARY: As indicated above. CARDIOVASCULAR: No chest pain. No pressure. GASTROINTESTINAL: No nausea, vomiting, diarrhea. GENITOURINARY: No dysuria or frequency. MUSCULOSKELETAL: No localized muscle aches or joint pains. SKIN: No new skin rashes. CURRENT MEDICATION: List was reviewed. FAMILY HISTORY: No family history of lung cancer. PHYSICAL EXAMINATION: GENERAL: The patient was in the Intensive Care Unit, currently off of BiPAP on 4 liters of oxygen supplementation. HEENT: Eyes: The sclerae were nonicteric. NECK: Jugular venous distention was not elevated. LUNGS: Crackles in the bases. No wheezes. CARDIOVASCULAR: Regular rate and rhythm with S1, S2, no S3. ABDOMEN: Soft, nontender, nondistended. EXTREMITIES: Evidence of left cellulitis, status post right above-knee amputation. LABORATORY DATA: Chest x-ray reviewed as indicated above revealing vascular congestion. Influenza screen was negative. Electrolytes were noted. BUN was elevated, creatinine was elevated. Lactic acid level was initially elevated, but came down to 3.0. Troponin level was elevated. BNP was elevated. IMPRESSION: 1. Acute on chronic hypoxemic hypercapnic respiratory failure. 2. Acute on chronic systolic, diastolic heart failure. 3. Acute cor pulmonale. 4. Leukocytosis. 5. Metabolic acidosis, suspect related to increased work of breathing, doubt sepsis. 6. Acute exacerbation of chronic obstructive pulmonary disease. 7. Status post Medtronic pacer for complete heart block. 8. History of atrial fibrillation, status post AV audi ablation in 2017. 9. Acute on chronic kidney disease. 10. Hypertension. 11. History of deep venous thrombosis, status post IVC filter placement. 12. Peripheral arterial disease, status post above knee amputation. PLAN: 1. Concur with Cardiology to continue to diurese and monitor renal function. 2. Continue p.r.n. BiPAP. 3. Oxygen supplementation. 4. Reevaluate left lower extremity arterial blood flow. The patient anticoagulated with Xarelto. 6. No need for antibiotics or steroids. I do appreciate the privilege in sharing in the patient's care. HANH RICKETTS MD DR: JAZIEL/jaziel JOB#: [id number] / [id number]
--- NOTE | 2019-09-28 16:16 | NUR ---
SS following for discharge planning. SS reviewed pt chart. Pt is from home and is currently requiring oxygen. PT/OT recommended fci unit. SS will meet with pt in the morning to discuss discharge planning and fci unit.
--- NOTE | 2019-09-28 16:46 | RAD ---
MR#: [id number] Date of Study: 09/28/2019 Ordering Physician: CHARLOTTE GOLDMAN, Referring Physician: CHARLOTTE GOLDMAN, Tech: TELLO Hanna, RDMS, RTR APPROVED REPORT Patient Location: IN-PATIENT Indications Pulselessness black toes VELOCITY AND DOPPLER WAVEFORM ANALYSIS RIGHT cm/secWaveformSeverity LEFT cm/secWaveform Severity pCFA pCFA 201.8Triphasic Prof Fem Art. Prof Fem Art. 141.4 Fem Art Prox. Fem Art Prox. 167.1Biphasic Fem Art Mid. Fem Art Mid. 97.5Biphasic Fem Art Dist. Fem Art Dist. 139.9Biphasic Pop Art(Fossa) Pop Art(AK) 145.1Biphasic TOMB MAKER HELPER Dist. TOMB MAKER HELPER Dist. 43.1Biphasic Per Art Dist.Per Art Dist.17.7 RANDALL Dist. RANDALL Dist. 44.1Biphasic DPA DPA 37Biphasic Findings Grayscale images of the lower extremity arterial vessels on the left side are grossly unchanged from previous examination 2 months ago. The spectral waveforms from the common femoral artery to the popliteal segment are grossly unchanged from previous. There are mostly triphasic and biphasic waveforms. No focal high-grade stenosis is braden ntified from the common femoral artery to the popliteal segment. Below the knee there are diminished waveforms that her less robust with lower peak systolic velocitie s compared to 2 months ago. This may suggest progression of disease versus technique/angulation. None theless, there is three-vessel runoff below the knee albeit with blunted waveforms and diminished keagan ocities. Critical Notification Critical Value: No <Conclusion> 1. No significant change in the above knee vessels compared to 2 months ago 2. Decreased velocities in the below-knee vessels in a monophasic wave pattern related to either prog ression of disease versus technique/angulation. Signed by : Alex Jacobson, Electronically Approved : 09/28/2019 16:45:47
[2019-09-28] MEDS ORDERED: RIVAROXABAN 15 MG TABLET. PO SCH (18:00)
[2019-09-28] MEDS: VANCOMYCIN 1 GM in IV NORMAL SALINE 250ML 250 ML IV SCH (18:01)
--- NOTE | 2019-09-28 20:41 | CONS ---
DATE OF CONSULTATION: 09/28/2019 CHIEF COMPLAINT: Left foot pain and shortness of breath. HISTORY OF PRESENT ILLNESS: The patient is a 69-year-old female with coronary artery disease, atrial fibrillation, cardiomyopathy, hypertension, and severe COPD, who was admitted yesterday for worsening shortness of breath as well as inability to stand off of the commode with her left foot. She was in [facility] for several weeks. She reports that when she was discharged home yesterday, it appears that she was sent home on 09/26/2019. It is unclear what supports she had at home. She became short of breath and had inability to adequately move, so EMS was contacted. She reports continued left foot pain. She was evaluated for left foot ischemic changes while in the [facility]. She had areas of skin breakdown around her left first toe. She had an angiogram in the end of July that demonstrated occlusion of the distal left anterior tibial artery and dorsalis pedis artery. Attempt at percutaneous revascularization of this showed minimal improvement. She had good inline flow through the left posterior tibial artery and left peroneal artery with posterior tibial artery extending to the plantar vessels on to the foot. She has had a previous right below-knee amputation. PAST MEDICAL HISTORY: 1. Coronary artery disease. 2. Atrial fibrillation. 3. Hypertension. 4. Hyperlipidemia. 5. COPD. 6. Peripheral arterial disease. PAST SURGICAL HISTORY: 1. Pacemaker implantation. 2. Right leg amputation. 3. Percutaneous intervention for the last distal anterior tibial artery and dorsalis pedis artery as described above. CURRENT MEDICATIONS: Please see detailed medication administration record for dosing details. ALLERGIES: INCLUDE PENICILLIN, FENTANYL AND LEVOFLOXACIN. SOCIAL HISTORY: She has a long history of smoking. She has decreased this significantly recently. She denies alcohol use. She states that she was living independently. FAMILY HISTORY: Significant for mother and father having coronary artery disease. REVIEW OF SYSTEMS: Shortness of breath, bleeding and generalized weakness leading to admission. She denies any specific chest pain. She denies any nausea, vomiting, diarrhea, constipation, hematochezia or melena. She denies any unilateral weakness/numbness, vision loss, or speech changes or other lateralizing TIA or stroke symptoms. PHYSICAL EXAMINATION: GENERAL: This is a chronically ill-appearing female in no acute distress. VITAL SIGNS: Temperature 97.4, pulse 72, blood pressure 100/54, respirations 30, O2 saturation 95% on 4 liters per nasal cannula. NECK: Supple, no lymphadenopathy. CARDIOVASCULAR: Regular rhythm. ABDOMEN: Obese, soft, nontender, nondistended. No focal tenderness. EXTREMITIES: Status post right leg amputation. No skin breakdown on her right leg at this time. She has palpable radial pulses bilaterally. Her left femoral pulses also palpable. She has no significant ecchymosis or tenderness at this time. She has acrocyanosis of her left forefoot and toes. She has 2-second capillary refill in all digits. There is a small area of skin abrasion on the dorsal left foot. She has some small area of fissures and eschar at the distal aspect of her edges of her toenails on her left first toe. This is minimally changed from when she was in the when I last saw her over a month ago. LABORATORY DATA: Labs are significant for white blood cell 10.1, hemoglobin 12.6, platelet count of 157. INR 3.3. Sodium 143, potassium 3.5, BUN 40, creatinine 1.1, glucose 192. She had an angiogram with findings as noted above. I reviewed the films again from with findings as detailed. IMPRESSION: 1. Peripheral arterial disease with chronic left anterior tibial and dorsalis pedis occlusion. She continues to have good left posterior tibial flow despite her distal toe changes. 2. Coronary artery disease. 3. Cardiomyopathy. 4. Chronic obstructive pulmonary disease. RECOMMENDATIONS: 1. Continue protective measures to the left foot. Would keep the left foot warm with a Rooke boot as well as offload her heel while in the hospital to prevent decubitus heel ulcer. 2. I would not recommend any further arterial imaging or interventions. It is unlikely to improve her left foot significantly. Risks likely outweigh any potential benefits. 3. She may follow up with us as an outpatient in 3-4 weeks to evaluate her toe wounds. SILVANO OCONNOR MD DR: GABRIELLE/jaziel JOB#: [id number] / [id number] DENNY Prado MD
[2019-09-28] MEDS: ATORVASTATIN CALCIUM 10 MG TABLET. PO SCH (20:51)
[2019-09-28] MEDS: FAMOTIDINE 20 MG/2 ML VIAL IVP SCH (20:51)
[2019-09-28] MEDS: NORTRIPTYLINE 25 MG CAPSULE PO SCH (20:51)
[2019-09-29] VITALS (14 sets, daily range): BP systolic 100–148; BP diastolic 57–86
[2019-09-29] MEDS: PIPERACILLIN/TAZOBACTAM 3.375 GM in IV NORMAL SALINE 50ML 50 ML IV SCH ×4 (00:13→17:15)
[2019-09-29 03:41] LABS: BASO % 0 % (0-3); EOS % 0 % (0-3); HEMATOCRIT 36.9 % (36.0-47.0); HEMOGLOBIN 11.5 g/dL (12.0-15.5); LYMPH # 0.4 x10^3/uL (1.0-4.8); LYMPH % 3 % (24-48); MEAN CORPUSCULAR HEMOGLOBIN 28 pg (25-35); MEAN CORPUSCULAR HGB CONC 31 g/dL (31-37); MEAN CORPUSCULAR VOLUME 91 fL (79-100); MONO # 0.4 x10^3/uL (0.0-1.1); MONO % 4 % (0-9); NEUT # 10.8 x10^3/uL (1.8-7.7); NEUT % 93 % (31-73); PLATELET COUNT 154 x10^3/uL (140-400); RED BLOOD COUNT 4.05 x10^6/uL (3.50-5.40); RED CELL DISTRIBUTION WIDTH 22.9 % (11.5-14.5); WHITE BLOOD COUNT 11.6 x10^3/uL (4.0-11.0)
[2019-09-29 03:48] LABS: PROTHROMBIN TIME PATIENT 21.7 SEC (11.7-14.0)
[2019-09-29 03:56] LABS: CALCIUM 9.1 mg/dL (8.5-10.1); CREATININE 1.2 mg/dL (0.6-1.0); GFR 44.7; POTASSIUM 3.4 mmol/L (3.5-5.1)
[2019-09-29] MEDS: methylPREDNISolone SOD SUCC PF 40 MG/ML VIAL. IV SCH ×3 (05:34→21:30)
[2019-09-29] MEDS: BUDESONIDE 0.5 MG/2 ML NEBU. NEB SCH ×2 (08:12→19:52)
[2019-09-29] MEDS: IPRATRPIUM/ALBUTEROL 0.5/2.5MG 3 ML NEBU. NEB SCH ×4 (08:12→19:52)
[2019-09-29] MEDS: GABAPENTIN 300 MG CAPSULE. PO SCH ×3 (08:51→21:32)
[2019-09-29] MEDS: FUROSEMIDE 40 MG/4 ML VIAL. IVP SCH (08:52)
[2019-09-29] MEDS: PANTOPRAZOLE 40 MG TABLET.DR. PO SCH (08:52)
[2019-09-29] MEDS: SPIRONOLACTONE 25 MG TABLET PO SCH (08:52)
[2019-09-29] MEDS: SENNOSIDES/DOCUSATE 8.6/50MG TABLET. PO SCH ×2 (08:52→21:00)
[2019-09-29] MEDS: ISOSORBIDE MONONITRATE ER 30 MG TAB.ER.24H PO SCH (08:52)
[2019-09-29] MEDS: DOCUSATE SODIUM 100 MG CAPSULE. PO SCH ×2 (08:52→21:00)
[2019-09-29] MEDS: METOPROLOL SUCC 24HR ER 25 MG TAB.ER.24H. PO SCH (08:53)
[2019-09-29] MEDS ORDERED: POTASSIUM CHLORIDE 20 MEQ TABLET.ER. PO ONE (10:00)
--- NOTE | 2019-09-29 10:38 | PDOC ---
PROGRESS NOTES Chief Complaint Chief Complaint A/C RESP FAILURE SEC TO A/C CHF needing NIPPV NO CLINICAL SIGN OF PNEUMONIA DOUBT AECOPD Blue, dusky left toes - PAD - vasc sx OP 3-4 weeks RT BKA GROSS HEMATURIA 09/29 Geriatric [facility] fall risk FULL CODE Supratheraputic INR on eliquis, resolved LEukocytosis, improved History of Present Illness History of Present Illness needed BIPAP last night Weak Agreeable to SNU CAme from home NOw 10AM gross hematuria, HAd high inr (on eliquis - but actually has not gotten any eliquis dose yet) INR now normalized vasc sx note reviewed OP ff up 3-4 weeks Recently dcd [facility] saturday, dcd to [place] then back to hospital for SOA needing BIPAP PLAn: CBI Hold eliquis for now CHeck ct abd pelvis without contrast BUt still can transfer to tele bed tmr SNU eval - came from [place] Vitals Vitals Vital Signs Date Time Temp Pulse Resp B/P (MAP) Pulse Ox O2 Delivery O2 Flow Rate FiO2 09/29/19 09:00 76 22 134/65 (88) 93 Nasal Cannula 3.0 09/29/19 08:00 97.8 97.8 Physical Exam General: Alert, Oriented X3, Cooperative, No acute distress Heart: Regular rate, Normal S1, Normal S2 Lungs: Wheezing Abdomen: Soft Extremities: No clubbing, No cyanosis, Other (2+ LLE edema.. right AKA) Skin: Other ( cyanosis of LLE toes) Labs LABS Laboratory Tests Test 09/28/19 22:04 09/29/19 03:20 Glucose (Fingerstick) 189 mg/dL (70-99) White Blood Count 11.6 x10^3/uL (4.0-11.0) Red Blood Count 4.05 x10^6/uL (3.50-5.40) Hemoglobin 11.5 g/dL (12.0-15.5) Hematocrit 36.9 % (36.0-47.0) Mean Corpuscular Volume 91 fL (79-100) Mean Corpuscular Hemoglobin 28 pg (25-35) Mean Corpuscular Hemoglobin Concent 31 g/dL (31-37) Red Cell Distribution Width 22.9 % (11.5-14.5) Platelet Count 154 x10^3/uL (140-400) Neutrophils (%) (Auto) 93 % (31-73) Lymphocytes (%) (Auto) 3 % (24-48) Monocytes (%) (Auto) 4 % (0-9) Eosinophils (%) (Auto) 0 % (0-3) Basophils (%) (Auto) 0 % (0-3) Neutrophils # (Auto) 10.8 x10^3/uL (1.8-7.7) Lymphocytes # (Auto) 0.4 x10^3/uL (1.0-4.8) Monocytes # (Auto) 0.4 x10^3/uL (0.0-1.1) Eosinophils # (Auto) 0.0 x10^3/uL (0.0-0.7) Basophils # (Auto) 0.0 x10^3/uL (0.0-0.2) Prothrombin Time 21.7 SEC (11.7-14.0) Prothromb Time International Ratio 1.9 (0.8-1.1) Sodium Level 142 mmol/L (136-145) Potassium Level 3.4 mmol/L (3.5-5.1) Chloride Level 97 mmol/L (98-107) Carbon Dioxide Level 43 mmol/L (21-32) Anion Gap 2 (6-14) Blood Urea Nitrogen 35 mg/dL (7-20) Creatinine 1.2 mg/dL (0.6-1.0) Estimated GFR (Cockcroft-Gault) 44.7 Glucose Level 177 mg/dL (70-99) Calcium Level 9.1 mg/dL (8.5-10.1) Lactate Dehydrogenase 282 U/L (81-234) Troponin I Quantitative 0.093 ng/mL (0.000-0.055) Review of Systems Review of Systems weak, gross hematuria, easy fatigability, all esle neg Assessment and Plan Assessmemt and Plan Problems Medical Problems: (1) Acute exacerbation of CHF (congestive heart failure) Status: Acute (2) Acute respiratory distress Status: Acute (3) Anxiety Status: Acute (4) COPD exacerbation Status: Acute (5) Hyponatremia Status: Acute (6) Pulmonary edema Status: Acute (7) Renal insufficiency Status: Acute (8) Tobacco abuse Status: Acute Comment Review of Relevant I have reviewed the following items sourav (where applicable) has been applied. Labs Laboratory Tests Test 09/27/19 14:00 09/27/19 14:02 09/27/19 15:55 09/27/19 17:10 White Blood Count 27.3 x10^3/uL (4.0-11.0) Red Blood Count 4.95 x10^6/uL (3.50-5.40) Hemoglobin 14.0 g/dL (12.0-15.5) Hematocrit 46.0 % (36.0-47.0) Mean Corpuscular Volume 93 fL (79-100) Mean Corpuscular Hemoglobin 28 pg (25-35) Mean Corpuscular Hemoglobin Concent 30 g/dL (31-37) Red Cell Distribution Width 23.1 % (11.5-14.5) Platelet Count 280 x10^3/uL (140-400) Neutrophils (%) (Auto) 81 % (31-73) Lymphocytes (%) (Auto) 12 % (24-48) Monocytes (%) (Auto) 7 % (0-9) Eosinophils (%) (Auto) 0 % (0-3) Basophils (%) (Auto) 0 % (0-3) Neutrophils # (Auto) 22.1 x10^3/uL (1.8-7.7) Lymphocytes # (Auto) 3.2 x10^3/uL (1.0-4.8) Monocytes # (Auto) 1.8 x10^3/uL (0.0-1.1) Eosinophils # (Auto) 0.1 x10^3/uL (0.0-0.7) Basophils # (Auto) 0.1 x10^3/uL (0.0-0.2) Segmented Neutrophils % 73 % (35-66) Band Neutrophils % 1 % (0-9) Lymphocytes % 17 % (24-48) Monocytes % 8 % (0-10) Eosinophils % 1 % (0-5) Toxic Vacuolation Slight Platelet Estimate Adequate (ADEQUATE) Anisocytosis Slight Ovalocytes Occ Schistocytes Occ Prothrombin Time 30.7 SEC (11.7-14.0) Prothromb Time International Ratio 3.0 (0.8-1.1) Activated Partial Thromboplast Time 30 SEC (24-38) Sodium Level 142 mmol/L (136-145) Potassium Level 5.1 mmol/L (3.5-5.1) Chloride Level 94 mmol/L (98-107) Carbon Dioxide Level 40 mmol/L (21-32) Anion Gap 8 (6-14) Blood Urea Nitrogen 42 mg/dL (7-20) Creatinine 1.3 mg/dL (0.6-1.0) Estimated GFR (Cockcroft-Gault) 40.7 BUN/Creatinine Ratio 32 (6-20) Glucose Level 170 mg/dL (70-99) Lactic Acid Level 7.6 mmol/L (0.4-2.0) 3.0 mmol/L (0.4-2.0) Calcium Level 9.9 mg/dL (8.5-10.1) Magnesium Level 2.2 mg/dL (1.8-2.4) Total Bilirubin 0.8 mg/dL (0.2-1.0) Aspartate Amino Transf (AST/SGOT) 60 U/L (15-37) Alanine Aminotransferase (ALT/SGPT) 78 U/L (14-59) Alkaline Phosphatase 97 U/L (46-116) Creatine Kinase 29 U/L (26-192) Troponin I Quantitative 0.105 ng/mL (0.000-0.055) HF-Cza-B-Type Natriuretic Peptide 55042 pg/mL (0-124) Total Protein 7.8 g/dL (6.4-8.2) Albumin 4.1 g/dL (3.4-5.0) Albumin/Globulin Ratio 1.1 (1.0-1.7) Lipase 58 U/L (73-393) O2 Saturation 96 % (92-99) Arterial Blood pH 7.44 (7.35-7.45) Arterial Blood pCO2 at Patient Temp 51 mmHg (35-46) Arterial Blood pO2 at Patient Temp 84 mmHg (65-108) Arterial Blood HCO3 34 mmol/L (21-28) Arterial Blood Base Excess 8 mmol/L (-3-3) FiO2 100 Urine Collection Type U cath Urine Color Yellow Urine Clarity Clear Urine pH 5.0 Urine Specific [place] 1.020 Urine Protein 30 mg/dL (NEG-TRACE) Urine Glucose (UA) Negative mg/dL (NEG) Urine Ketones (Stick) Negative mg/dL (NEG) Urine Blood Negative (NEG) Urine Nitrite Negative (NEG) Urine Bilirubin Negative (NEG) Urine Urobilinogen Dipstick 0.2 mg/dL (0.2 mg/dL) Urine Leukocyte Esterase Negative (NEG) Urine RBC 0 /HPF (0-2) Urine WBC 1-4 /HPF (0-4) Urine Squamous Epithelial Cells Many /LPF Urine Amorphous Sediment Present /HPF Urine Bacteria 0 /HPF (0-FEW) Test 09/27/19 22:15 09/28/19 04:45 09/28/19 08:30 09/28/19 22:04 Influenza Type A Antigen Negative (NEGATIVE) Influenza Type B Antigen Negative (NEGATIVE) White Blood Count 10.1 x10^3/uL (4.0-11.0) Red Blood Count 4.44 x10^6/uL (3.50-5.40) Hemoglobin 12.6 g/dL (12.0-15.5) Hematocrit 40.2 % (36.0-47.0) Mean Corpuscular Volume 91 fL (79-100) Mean Corpuscular Hemoglobin 28 pg (25-35) Mean Corpuscular Hemoglobin Concent 31 g/dL (31-37) Red Cell Distribution Width 23.1 % (11.5-14.5) Platelet Count 157 x10^3/uL (140-400) Neutrophils (%) (Auto) 93 % (31-73) Lymphocytes (%) (Auto) 5 % (24-48) Monocytes (%) (Auto) 2 % (0-9) Eosinophils (%) (Auto) 0 % (0-3) Basophils (%) (Auto) 0 % (0-3) Neutrophils # (Auto) 9.4 x10^3/uL (1.8-7.7) Lymphocytes # (Auto) 0.5 x10^3/uL (1.0-4.8) Monocytes # (Auto) 0.2 x10^3/uL (0.0-1.1) Eosinophils # (Auto) 0.0 x10^3/uL (0.0-0.7) Basophils # (Auto) 0.0 x10^3/uL (0.0-0.2) Prothrombin Time 33.2 SEC (11.7-14.0) Prothromb Time International Ratio 3.3 (0.8-1.1) Sodium Level 143 mmol/L (136-145) Potassium Level 3.5 mmol/L (3.5-5.1) Chloride Level 95 mmol/L (98-107) Carbon Dioxide Level 38 mmol/L (21-32) Anion Gap 10 (6-14) Blood Urea Nitrogen 40 mg/dL (7-20) Creatinine 1.1 mg/dL (0.6-1.0) Estimated GFR (Cockcroft-Gault) 49.4 Glucose Level 192 mg/dL (70-99) Calcium Level 9.2 mg/dL (8.5-10.1) Troponin I Quantitative 0.111 ng/mL (0.000-0.055) O2 Saturation 98 % (92-99) Arterial Blood pH 7.48 (7.35-7.45) Arterial Blood pCO2 at Patient Temp 55 mmHg (35-46) Arterial Blood pO2 at Patient Temp 104 mmHg (65-108) Arterial Blood HCO3 40 mmol/L (21-28) Arterial Blood Base Excess 14 mmol/L (-3-3) FiO2 4 lpm nc Glucose (Fingerstick) 189 mg/dL (70-99) Test 09/29/19 03:20 White Blood Count 11.6 x10^3/uL (4.0-11.0) Red Blood Count 4.05 x10^6/uL (3.50-5.40) Hemoglobin 11.5 g/dL (12.0-15.5) Hematocrit 36.9 % (36.0-47.0) Mean Corpuscular Volume 91 fL (79-100) Mean Corpuscular Hemoglobin 28 pg (25-35) Mean Corpuscular Hemoglobin Concent 31 g/dL (31-37) Red Cell Distribution Width 22.9 % (11.5-14.5) Platelet Count 154 x10^3/uL (140-400) Neutrophils (%) (Auto) 93 % (31-73) Lymphocytes (%) (Auto) 3 % (24-48) Monocytes (%) (Auto) 4 % (0-9) Eosinophils (%) (Auto) 0 % (0-3) Basophils (%) (Auto) 0 % (0-3) Neutrophils # (Auto) 10.8 x10^3/uL (1.8-7.7) Lymphocytes # (Auto) 0.4 x10^3/uL (1.0-4.8) Monocytes # (Auto) 0.4 x10^3/uL (0.0-1.1) Eosinophils # (Auto) 0.0 x10^3/uL (0.0-0.7) Basophils # (Auto) 0.0 x10^3/uL (0.0-0.2) Prothrombin Time 21.7 SEC (11.7-14.0) Prothromb Time International Ratio 1.9 (0.8-1.1) Sodium Level 142 mmol/L (136-145) Potassium Level 3.4 mmol/L (3.5-5.1) Chloride Level 97 mmol/L (98-107) Carbon Dioxide Level 43 mmol/L (21-32) Anion Gap 2 (6-14) Blood Urea Nitrogen 35 mg/dL (7-20) Creatinine 1.2 mg/dL (0.6-1.0) Estimated GFR (Cockcroft-Gault) 44.7 Glucose Level 177 mg/dL (70-99) Calcium Level 9.1 mg/dL (8.5-10.1) Lactate Dehydrogenase 282 U/L (81-234) Troponin I Quantitative 0.093 ng/mL (0.000-0.055) Laboratory Tests Test 09/28/19 22:04 09/29/19 03:20 Glucose (Fingerstick) 189 mg/dL (70-99) White Blood Count 11.6 x10^3/uL (4.0-11.0) Red Blood Count 4.05 x10^6/uL (3.50-5.40) Hemoglobin 11.5 g/dL (12.0-15.5) Hematocrit 36.9 % (36.0-47.0) Mean Corpuscular Volume 91 fL (79-100) Mean Corpuscular Hemoglobin 28 pg (25-35) Mean Corpuscular Hemoglobin Concent 31 g/dL (31-37) Red Cell Distribution Width 22.9 % (11.5-14.5) Platelet Count 154 x10^3/uL (140-400) Neutrophils (%) (Auto) 93 % (31-73) Lymphocytes (%) (Auto) 3 % (24-48) Monocytes (%) (Auto) 4 % (0-9) Eosinophils (%) (Auto) 0 % (0-3) Basophils (%) (Auto) 0 % (0-3) Neutrophils # (Auto) 10.8 x10^3/uL (1.8-7.7) Lymphocytes # (Auto) 0.4 x10^3/uL (1.0-4.8) Monocytes # (Auto) 0.4 x10^3/uL (0.0-1.1) Eosinophils # (Auto) 0.0 x10^3/uL (0.0-0.7) Basophils # (Auto) 0.0 x10^3/uL (0.0-0.2) Prothrombin Time 21.7 SEC (11.7-14.0) Prothromb Time International Ratio 1.9 (0.8-1.1) Sodium Level 142 mmol/L (136-145) Potassium Level 3.4 mmol/L (3.5-5.1) Chloride Level 97 mmol/L (98-107) Carbon Dioxide Level 43 mmol/L (21-32) Anion Gap 2 (6-14) Blood Urea Nitrogen 35 mg/dL (7-20) Creatinine 1.2 mg/dL (0.6-1.0) Estimated GFR (Cockcroft-Gault) 44.7 Glucose Level 177 mg/dL (70-99) Calcium Level 9.1 mg/dL (8.5-10.1) Lactate Dehydrogenase 282 U/L (81-234) Troponin I Quantitative 0.093 ng/mL (0.000-0.055) Microbiology 09/27/19 Blood Culture - Preliminary, Resulted NO GROWTH AFTER 1 DAY Medications Current Medications Ipratropium [place] (Atrovent) 0.5 mg 1X ONCE NEB Last administered on 09/27/19at 14:15; Start 09/27/19 at 14:15; Stop 09/27/19 at 14:16; Status DC Methylprednisolone Sodium Succinate (SOLU-Medrol 125MG VIAL) 125 mg 1X ONCE IV Last administered on 09/27/19at 14:56; Start 09/27/19 at 14:15; Stop 09/27/19 at 14:16; Status DC Lorazepam (Ativan Inj) 1 mg 1X ONCE IVP Last administered on 09/27/19at 14:30; Start 09/27/19 at 14:30; Stop 09/27/19 at 14:31; Status DC Vancomycin HCl 250 ml @ 250 mls/hr 1X ONCE IV Last administered on 09/27/19at 15:06; Start 09/27/19 at 14:45; Stop 09/27/19 at 15:44; Status DC Ceftriaxone Sodium (Rocephin) 1 gm 1X ONCE IVP Last administered on 09/27/19at 15:02; Start 09/27/19 at 14:45; Stop 09/27/19 at 14:46; Status DC Morphine Sulfate (Morphine Sulfate) 4 mg STK-MED ONCE .ROUTE ; Start 09/27/19 at 14:53; Stop 09/27/19 at 14:53; Status DC Morphine Sulfate (Morphine Sulfate) 4 mg 1X ONCE IV Last administered on 09/27/19at 14:56; Start 09/27/19 at 15:00; Stop 09/27/19 at 15:01; Status DC Ondansetron HCl (Zofran) 4 mg 1X ONCE IV ; Start 09/27/19 at 15:00; Stop 09/27/19 at 15:01; Status DC Methylprednisolone Sodium Succinate (SOLU-Medrol 125MG VIAL) 100 mg Q6HRS IV Last administered on 09/28/19at 05:32; Start 09/27/19 at 18:00; Stop 09/28/19 at 09:48; Status DC Vancomycin HCl (Vanco Per Pharmacy) 1 each PRN DAILY PRN MC SEE COMMENTS Last administered on 09/27/19at 16:43; Start 09/27/19 at 16:30 Vancomycin HCl 500 mg/Sodium Chloride 100 ml @ 100 mls/hr 1X ONCE IV Last administered on 09/27/19at 16:55; Start 09/27/19 at 16:30; Stop 09/27/19 at 17:29; Status DC Piperacillin Sod/ Tazobactam Sod 3.375 gm/Sodium Chloride 50 ml @ 100 mls/hr Q6HRS IV Last administered on 09/29/19at 05:34; Start 09/27/19 at 17:00 Vancomycin HCl 1 gm/Sodium Chloride 250 ml @ 250 mls/hr Q24H IV Last administered on 09/28/19at 18:01; Start 09/28/19 at 18:00 Vancomycin HCl (Vancomycin Trough Level) 1 each 1X ONCE MC ; Start 09/29/19 at 17:30; Stop 09/29/19 at 17:31 Albuterol Sulfate (Ventolin Neb Soln) 2.5 mg Q4HRS INH Last administered on 09/28/19 08:14; Start 09/27/19 at 17:00; Stop 09/28/19 at 09:48; Status DC Alprazolam (Xanax) 0.25 mg PRN BID PRN PO ANXIETY / AGITATION; Start 09/27/19 at 17:00 Furosemide (Lasix) 40 mg DAILY PO Last administered on 09/28/19 08:34; Start 09/27/19 at 18:00; Stop 09/28/19 at 09:48; Status DC Gabapentin (Neurontin) 600 mg TID PO Last administered on 09/29/19 08:51; Start 09/27/19 at 21:00 Isosorbide Mononitrate (Imdur) 30 mg DAILY PO Last administered on 09/29/19 08:52; Start 09/27/19 at 18:00 Metoprolol Succinate (Toprol Xl) 25 mg DAILY PO Last administered on 09/29/19 08:53; Start 09/27/19 at 18:00 Nortriptyline HCl (Pamelor) 25 mg HS PO Last administered on 09/28/19 20:51; Start 09/27/19 at 21:00 Spironolactone (Aldactone) 25 mg DAILY PO Last administered on 09/29/19 08:52; Start 09/27/19 at 18:00 Non-Formulary Medication (Budesonide/ Formoterol Fumarate (Symbicort 160-4.5 Mcg Inhaler)) 160 mcg BID INH ; Start 09/27/19 at 21:00; Status UNV Pantoprazole Sodium (Protonix) 40 mg DAILYAC PO Last administered on 09/29/19 08:52; Start 09/27/19 at 17:30 Atorvastatin Calcium (Lipitor) 5 mg QHS PO Last administered on 09/28/19 20:51; Start 09/27/19 at 21:00 Rivaroxaban (Xarelto) 20 mg DAILYWSUP PO ; Start 09/27/19 at 17:30; Stop 09/28/19 at 08:23; Status DC Budesonide (Pulmicort) 0.5 mg RTBID NEB Last administered on 09/29/19at 08:12; Start 09/27/19 at 20:00 Lorazepam (Ativan Inj) 0.5 mg PRN Q6HRS PRN IV ANXIETY / AGITATION; Start at 22:45 Ondansetron HCl (Zofran) 4 mg PRN Q6HRS PRN IV NAUSEA/VOMITING; Start 09/27/19 at 22:45; Stop 09/28/19 at 09:49; Status DC Prochlorperazine Edisylate (Compazine) 5 mg PRN Q6HRS PRN IV NAUSEA/VOMITING, 2ND CHOICE; Start 09/27/19 at 22:45 Al Hydroxide/Mg Hydroxide (Mylanta Plus Xs) 30 ml PRN Q3HRS PRN PO HEARTBURN / GAS; Start 09/27/19 at 22:45 Famotidine (Pepcid Vial) 20 mg QHS IVP Last administered on 09/28/19at 20:51; Start 09/28/19 at 21:00 Sodium Chloride (Normal Saline Flush) 3 ml QSHIFT PRN IV AFTER MEDS AND BLOOD DRAWS; Start 09/27/19 at 22:45 Senna/Docusate Sodium (Senna Plus) 1 tab BID PO Last administered on 09/29/19at 08:52; Start 09/28/19 at 09:00 Docusate Sodium (Colace) 100 mg BID PO Last administered on 09/29/19at 08:52; Start 09/28/19 at 09:00 Bisacodyl (Dulcolax Supp) 10 mg PRN DAILY PRN [place] CONSTIPATION; Start 09/27/19 at 22:45 Info (Anti-Coagulation Monitoring By Pharmacy) 1 each PRN DAILY PRN MC SEE COMMENTS Last administered on 09/28/19at 08:26; Start 09/28/19 at 07:45 Rivaroxaban (Xarelto) 15 mg QEVNG PO ; Start 09/28/19 at 18:00 Morphine Sulfate (Morphine Sulfate) 2 mg PRN Q2HR PRN IV PAIN; Start 09/28/19 at 09:45 Oxycodone/ Acetaminophen (Percocet 5/325) 1 tab PRN Q4HRS PRN PO MODERATE PAIN; Start 09/28/19 at 09:45 Temazepam (Restoril) 7.5 mg PRN QHS PRN PO INSOMNIA; Start 09/28/19 at 09:45 Ondansetron HCl (Zofran) 4 mg PRN Q6HRS PRN IVP NAUSEA/VOMITING, 1ST CHOICE; Start 09/28/19 at 09:45 Albuterol Sulfate (Ventolin Neb Soln) 2.5 mg PRN QID PRN INH SHORTNESS OF BREATH; Start 09/28/19 at 09:45 Acetaminophen/ Hydrocodone Bitart (Lortab 10/325) 1 tab PRN Q6HRS PRN PO SEVERE PAIN; Start 09/28/19 at 09:45 Albuterol/ Ipratropium (Duoneb) 3 ml RTQID NEB Last administered on 09/29/19at 08:12; Start 09/28/19 at 12:00 Methylprednisolone Sodium Succinate (SOLU-Medrol 40MG VIAL) 40 mg Q8HRS IV Last administered on 09/29/19at 05:34; Start 09/28/19 at 10:00 Furosemide (Lasix) 40 mg 1X ONCE IVP Last administered on 09/28/19at 11:43; Start 09/28/19 at 10:00; Stop 09/28/19 at 10:01; Status DC Furosemide (Lasix) 40 mg DAILY IVP Last administered on 09/29/19at 08:52; Start 09/29/19 at 09:00 Potassium Chloride (Klor-Con) 40 meq 1X ONCE PO ; Start 09/29/19 at 10:00; Stop 09/29/19 at 10:01; Status DC Active Scripts Active Reported Augmentin 875-125 Tablet (Amoxicillin/Potassium Clav) 1 Each Tablet 1 Tab PO BID 7 Days Hydrocodone-Acetamin 10-325 mg (Hydrocodone/Acetaminophen) 1 Each Tablet 10-325 Mg PO PRN Q6HRS PRN Alprazolam 0.25 Mg Tablet 0.25 Mg PO PRN PRN Albuterol Sulfate Neb Soln (Albuterol Sulfate) 2.5 Mg/3 Ml Vial.neb 2.5 Mg INH PRN PRN Proair Hfa (Albuterol Sulfate) 8.5 Gm Hfa.aer.ad 108 Mcg INH PRN PRN Symbicort 160-4.5 Mcg Inhaler (Budesonide/Formoterol Fumarate) 10.2 Gm Hfa.aer.ad 160 Mcg INH BID 160-4.5 mcg. 10.2 GM HFA.AER.AD Spiriva (Tiotropium [place]) 18 Mcg Cap.w.dev 18 Mcg INH DAILY Isosorbide Mononitrate Er (Isosorbide Mononitrate) 30 Mg Tab.er.24h 30 Mg PO DAILY Xarelto (Rivaroxaban) 20 Mg Tablet 20 Mg PO AFTRNOON Metoprolol Succinate ( Xl ) (Metoprolol Succinate) 25 Mg Tab.er.24h 25 Mg PO DAILY Nortriptyline Hcl 25 Mg Capsule 25 Mg PO HS Omeprazole 20 Mg Capsule.dr 20 Mg PO DAILY Pravastatin Sodium 20 Mg Tablet 20 Mg PO DAILY Furosemide 40 Mg Tablet 40 Mg PO DAILY Spironolactone 25 Mg Tablet 25 Mg PO DAILY Gabapentin 300 Mg Capsule 600 Mg PO TID Vitals/I & O Vital Sign - Last 24 Hours 09/28/19 09/28/19 09/28/19 09/28/19 11:00 11:42 12:00 12:00 Pulse 72 Resp 25 B/P (MAP) 138/111 (120) Pulse Ox 88 97 O2 Delivery Nasal Cannula Nasal Cannula Nasal Cannula O2 Flow Rate 4.0 4.0 4.0 4.0 09/28/19 09/28/19 09/28/19 09/28/19 12:00 13:00 14:00 15:00 Temp 97.4 97.4 Pulse 70 72 74 74 Resp 32 30 28 16 B/P (MAP) 106/46 (66) 100/51 (67) 117/61 (79) 109/48 (68) Pulse Ox 100 95 96 99 O2 Delivery Nasal Cannula Nasal Cannula Nasal Cannula Nasal Cannula O2 Flow Rate 4.0 4.0 4.0 4.0 09/28/19 09/28/19 09/28/19 09/28/19 15:32 16:00 16:00 16:00 Temp 98.2 98.2 Pulse 74 Resp 30 B/P (MAP) 111/84 (93) Pulse Ox 94 98 O2 Delivery Nasal Cannula Nasal Cannula Nasal Cannula O2 Flow Rate 3.0 4.0 4.0 4.0 09/28/19 09/28/19 09/28/19 09/28/19 17:00 18:00 19:00 19:35 Pulse 72 70 73 Resp 22 28 24 B/P (MAP) 100/59 (73) 107/61 (76) 103/43 (63) Pulse Ox 97 92 99 94 O2 Delivery Nasal Cannula Nasal Cannula Nasal Cannula Nasal Cannula O2 Flow Rate 4.0 4.0 4.0 3.0 09/28/19 09/28/19 09/28/19 09/28/19 20:00 20:00 20:00 21:00 Temp 98.4 98.4 Pulse 75 69 Resp 26 15 B/P (MAP) 117/49 (71) 104/49 (67) Pulse Ox 99 98 O2 Delivery Nasal Cannula Nasal Cannula Nasal Cannula O2 Flow Rate 4.0 4.0 4.0 4.0 09/28/19 09/28/19 09/28/19 09/28/19 21:15 22:00 23:00 23:39 Pulse 73 69 Resp 18 30 B/P (MAP) 107/59 (75) 106/49 (68) Pulse Ox 100 99 100 100 O2 Delivery BiPAP/CPAP BiPAP/CPAP BiPAP/CPAP BiPAP/CPAP 09/28/19 09/29/19 09/29/19 09/29/19 23:45 00:00 01:00 01:32 Temp 98.3 98.3 Pulse 72 71 Resp 19 20 B/P (MAP) 121/57 (78) 114/59 (77) Pulse Ox 100 100 100 O2 Delivery Bi-pap BiPAP/CPAP BiPAP/CPAP BiPAP/CPAP 09/29/19 09/29/19 09/29/19 09/29/19 02:00 03:00 03:35 03:45 Pulse 75 71 Resp 19 30 B/P (MAP) 135/69 (91) 133/63 (86) Pulse Ox 99 97 100 O2 Delivery BiPAP/CPAP BiPAP/CPAP BiPAP/CPAP Bi-pap 09/29/19 09/29/19 09/29/19 09/29/19 04:00 05:00 05:17 06:00 Temp 97.6 97.6 Pulse 74 70 76 Resp 19 19 19 B/P (MAP) 130/60 (83) 118/59 (78) 100/60 (73) Pulse Ox 95 93 94 95 O2 Delivery BiPAP/CPAP BiPAP/CPAP BiPAP/CPAP BiPAP/CPAP 09/29/19 09/29/19 09/29/1919 07:00 08:00 08:00 08:00 Temp 97.8 97.8 Pulse 75 76 Resp 16 33 B/P (MAP) 141/69 (93) 115/74 (88) Pulse Ox 98 95 O2 Delivery BiPAP/CPAP Nasal Cannula Nasal Cannula O2 Flow Rate 4.0 4.0 3.0 09/29/19 09/29/19 09/29/19 09/29/19 08:10 08:52 08:53 09:00 Pulse 66 77 76 Resp 22 B/P (MAP) 115/76 115/74 134/65 (88) Pulse Ox 92 93 O2 Delivery Nasal Cannula Nasal Cannula O2 Flow Rate 3.0 3.0 Intake and Output 09/28/19 09/28/19 09/29/19 15:00 23:00 07:00 Intake Total 50 ml 368 ml 200 ml Output Total 670 ml 495 ml 265 ml Balance -620 ml -127 ml -65 ml AMARILIS VALENTINO MD Sep 29, 2019 10:38
--- NOTE | 2019-09-29 10:41 | PDOC ---
PULMONARY PROGRESS NOTES Subjective PT SITTING IN BED NOT MORE SOA NO CHEST PAIN Vitals Vital Signs Date Time Temp Pulse Resp B/P (MAP) Pulse Ox O2 Delivery O2 Flow Rate FiO2 09/29/19 09:00 76 22 134/65 (88) 93 Nasal Cannula 3.0 09/29/19 08:00 97.8 97.8 ROS: No Nausea, No Chest Pain, No Abdominal Pain, No Increase Cough General: Alert Lungs: Wheezing, Crackles Cardiovascular: S1, S2 Abdomen: Soft Neuro Exam: Alert Extremities: No Edema, Other (AKA) Skin: Warm Labs Laboratory Tests Test 09/27/19 14:00 09/27/19 14:02 09/27/19 15:55 09/27/19 17:10 White Blood Count 27.3 x10^3/uL (4.0-11.0) Red Blood Count 4.95 x10^6/uL (3.50-5.40) Hemoglobin 14.0 g/dL (12.0-15.5) Hematocrit 46.0 % (36.0-47.0) Mean Corpuscular Volume 93 fL (79-100) Mean Corpuscular Hemoglobin 28 pg (25-35) Mean Corpuscular Hemoglobin Concent 30 g/dL (31-37) Red Cell Distribution Width 23.1 % (11.5-14.5) Platelet Count 280 x10^3/uL (140-400) Neutrophils (%) (Auto) 81 % (31-73) Lymphocytes (%) (Auto) 12 % (24-48) Monocytes (%) (Auto) 7 % (0-9) Eosinophils (%) (Auto) 0 % (0-3) Basophils (%) (Auto) 0 % (0-3) Neutrophils # (Auto) 22.1 x10^3/uL (1.8-7.7) Lymphocytes # (Auto) 3.2 x10^3/uL (1.0-4.8) Monocytes # (Auto) 1.8 x10^3/uL (0.0-1.1) Eosinophils # (Auto) 0.1 x10^3/uL (0.0-0.7) Basophils # (Auto) 0.1 x10^3/uL (0.0-0.2) Segmented Neutrophils % 73 % (35-66) Band Neutrophils % 1 % (0-9) Lymphocytes % 17 % (24-48) Monocytes % 8 % (0-10) Eosinophils % 1 % (0-5) Toxic Vacuolation Slight Platelet Estimate Adequate (ADEQUATE) Anisocytosis Slight Ovalocytes Occ Schistocytes Occ Prothrombin Time 30.7 SEC (11.7-14.0) Prothromb Time International Ratio 3.0 (0.8-1.1) Activated Partial Thromboplast Time 30 SEC (24-38) Sodium Level 142 mmol/L (136-145) Potassium Level 5.1 mmol/L (3.5-5.1) Chloride Level 94 mmol/L (98-107) Carbon Dioxide Level 40 mmol/L (21-32) Anion Gap 8 (6-14) Blood Urea Nitrogen 42 mg/dL (7-20) Creatinine 1.3 mg/dL (0.6-1.0) Estimated GFR (Cockcroft-Gault) 40.7 BUN/Creatinine Ratio 32 (6-20) Glucose Level 170 mg/dL (70-99) Lactic Acid Level 7.6 mmol/L (0.4-2.0) 3.0 mmol/L (0.4-2.0) Calcium Level 9.9 mg/dL (8.5-10.1) Magnesium Level 2.2 mg/dL (1.8-2.4) Total Bilirubin 0.8 mg/dL (0.2-1.0) Aspartate Amino Transf (AST/SGOT) 60 U/L (15-37) Alanine Aminotransferase (ALT/SGPT) 78 U/L (14-59) Alkaline Phosphatase 97 U/L (46-116) Creatine Kinase 29 U/L (26-192) Troponin I Quantitative 0.105 ng/mL (0.000-0.055) FU-Shy-K-Type Natriuretic Peptide 69257 pg/mL (0-124) Total Protein 7.8 g/dL (6.4-8.2) Albumin 4.1 g/dL (3.4-5.0) Albumin/Globulin Ratio 1.1 (1.0-1.7) Lipase 58 U/L (73-393) O2 Saturation 96 % (92-99) Arterial Blood pH 7.44 (7.35-7.45) Arterial Blood pCO2 at Patient Temp 51 mmHg (35-46) Arterial Blood pO2 at Patient Temp 84 mmHg (65-108) Arterial Blood HCO3 34 mmol/L (21-28) Arterial Blood Base Excess 8 mmol/L (-3-3) FiO2 100 Urine Collection Type U cath Urine Color Yellow Urine Clarity Clear Urine pH 5.0 Urine Specific [place] 1.020 Urine Protein 30 mg/dL (NEG-TRACE) Urine Glucose (UA) Negative mg/dL (NEG) Urine Ketones (Stick) Negative mg/dL (NEG) Urine Blood Negative (NEG) Urine Nitrite Negative (NEG) Urine Bilirubin Negative (NEG) Urine Urobilinogen Dipstick 0.2 mg/dL (0.2 mg/dL) Urine Leukocyte Esterase Negative (NEG) Urine RBC 0 /HPF (0-2) Urine WBC 1-4 /HPF (0-4) Urine Squamous Epithelial Cells Many /LPF Urine Amorphous Sediment Present /HPF Urine Bacteria 0 /HPF (0-FEW) Test 09/27/19 22:15 09/28/19 04:45 09/28/19 08:30 09/28/19 22:04 Influenza Type A Antigen Negative (NEGATIVE) Influenza Type B Antigen Negative (NEGATIVE) White Blood Count 10.1 x10^3/uL (4.0-11.0) Red Blood Count 4.44 x10^6/uL (3.50-5.40) Hemoglobin 12.6 g/dL (12.0-15.5) Hematocrit 40.2 % (36.0-47.0) Mean Corpuscular Volume 91 fL (79-100) Mean Corpuscular Hemoglobin 28 pg (25-35) Mean Corpuscular Hemoglobin Concent 31 g/dL (31-37) Red Cell Distribution Width 23.1 % (11.5-14.5) Platelet Count 157 x10^3/uL (140-400) Neutrophils (%) (Auto) 93 % (31-73) Lymphocytes (%) (Auto) 5 % (24-48) Monocytes (%) (Auto) 2 % (0-9) Eosinophils (%) (Auto) 0 % (0-3) Basophils (%) (Auto) 0 % (0-3) Neutrophils # (Auto) 9.4 x10^3/uL (1.8-7.7) Lymphocytes # (Auto) 0.5 x10^3/uL (1.0-4.8) Monocytes # (Auto) 0.2 x10^3/uL (0.0-1.1) Eosinophils # (Auto) 0.0 x10^3/uL (0.0-0.7) Basophils # (Auto) 0.0 x10^3/uL (0.0-0.2) Prothrombin Time 33.2 SEC (11.7-14.0) Prothromb Time International Ratio 3.3 (0.8-1.1) Sodium Level 143 mmol/L (136-145) Potassium Level 3.5 mmol/L (3.5-5.1) Chloride Level 95 mmol/L (98-107) Carbon Dioxide Level 38 mmol/L (21-32) Anion Gap 10 (6-14) Blood Urea Nitrogen 40 mg/dL (7-20) Creatinine 1.1 mg/dL (0.6-1.0) Estimated GFR (Cockcroft-Gault) 49.4 Glucose Level 192 mg/dL (70-99) Calcium Level 9.2 mg/dL (8.5-10.1) Troponin I Quantitative 0.111 ng/mL (0.000-0.055) O2 Saturation 98 % (92-99) Arterial Blood pH 7.48 (7.35-7.45) Arterial Blood pCO2 at Patient Temp 55 mmHg (35-46) Arterial Blood pO2 at Patient Temp 104 mmHg (65-108) Arterial Blood HCO3 40 mmol/L (21-28) Arterial Blood Base Excess 14 mmol/L (-3-3) FiO2 4 lpm nc Glucose (Fingerstick) 189 mg/dL (70-99) Test 09/29/19 03:20 White Blood Count 11.6 x10^3/uL (4.0-11.0) Red Blood Count 4.05 x10^6/uL (3.50-5.40) Hemoglobin 11.5 g/dL (12.0-15.5) Hematocrit 36.9 % (36.0-47.0) Mean Corpuscular Volume 91 fL (79-100) Mean Corpuscular Hemoglobin 28 pg (25-35) Mean Corpuscular Hemoglobin Concent 31 g/dL (31-37) Red Cell Distribution Width 22.9 % (11.5-14.5) Platelet Count 154 x10^3/uL (140-400) Neutrophils (%) (Auto) 93 % (31-73) Lymphocytes (%) (Auto) 3 % (24-48) Monocytes (%) (Auto) 4 % (0-9) Eosinophils (%) (Auto) 0 % (0-3) Basophils (%) (Auto) 0 % (0-3) Neutrophils # (Auto) 10.8 x10^3/uL (1.8-7.7) Lymphocytes # (Auto) 0.4 x10^3/uL (1.0-4.8) Monocytes # (Auto) 0.4 x10^3/uL (0.0-1.1) Eosinophils # (Auto) 0.0 x10^3/uL (0.0-0.7) Basophils # (Auto) 0.0 x10^3/uL (0.0-0.2) Prothrombin Time 21.7 SEC (11.7-14.0) Prothromb Time International Ratio 1.9 (0.8-1.1) Sodium Level 142 mmol/L (136-145) Potassium Level 3.4 mmol/L (3.5-5.1) Chloride Level 97 mmol/L (98-107) Carbon Dioxide Level 43 mmol/L (21-32) Anion Gap 2 (6-14) Blood Urea Nitrogen 35 mg/dL (7-20) Creatinine 1.2 mg/dL (0.6-1.0) Estimated GFR (Cockcroft-Gault) 44.7 Glucose Level 177 mg/dL (70-99) Calcium Level 9.1 mg/dL (8.5-10.1) Lactate Dehydrogenase 282 U/L (81-234) Troponin I Quantitative 0.093 ng/mL (0.000-0.055) Laboratory Tests Test 09/28/19 22:04 09/29/19 03:20 Glucose (Fingerstick) 189 mg/dL (70-99) White Blood Count 11.6 x10^3/uL (4.0-11.0) Red Blood Count 4.05 x10^6/uL (3.50-5.40) Hemoglobin 11.5 g/dL (12.0-15.5) Hematocrit 36.9 % (36.0-47.0) Mean Corpuscular Volume 91 fL (79-100) Mean Corpuscular Hemoglobin 28 pg (25-35) Mean Corpuscular Hemoglobin Concent 31 g/dL (31-37) Red Cell Distribution Width 22.9 % (11.5-14.5) Platelet Count 154 x10^3/uL (140-400) Neutrophils (%) (Auto) 93 % (31-73) Lymphocytes (%) (Auto) 3 % (24-48) Monocytes (%) (Auto) 4 % (0-9) Eosinophils (%) (Auto) 0 % (0-3) Basophils (%) (Auto) 0 % (0-3) Neutrophils # (Auto) 10.8 x10^3/uL (1.8-7.7) Lymphocytes # (Auto) 0.4 x10^3/uL (1.0-4.8) Monocytes # (Auto) 0.4 x10^3/uL (0.0-1.1) Eosinophils # (Auto) 0.0 x10^3/uL (0.0-0.7) Basophils # (Auto) 0.0 x10^3/uL (0.0-0.2) Prothrombin Time 21.7 SEC (11.7-14.0) Prothromb Time International Ratio 1.9 (0.8-1.1) Sodium Level 142 mmol/L (136-145) Potassium Level 3.4 mmol/L (3.5-5.1) Chloride Level 97 mmol/L (98-107) Carbon Dioxide Level 43 mmol/L (21-32) Anion Gap 2 (6-14) Blood Urea Nitrogen 35 mg/dL (7-20) Creatinine 1.2 mg/dL (0.6-1.0) Estimated GFR (Cockcroft-Gault) 44.7 Glucose Level 177 mg/dL (70-99) Calcium Level 9.1 mg/dL (8.5-10.1) Lactate Dehydrogenase 282 U/L (81-234) Troponin I Quantitative 0.093 ng/mL (0.000-0.055) Medications Active Scripts Medications Dose Route/Sig Max Daily Dose Days Date Category Dose Instructions Augmentin 875-125 Tablet (Amoxicillin/Potassium Clav) 1 Each Tablet 1 Tab PO BID 7 07/22/19 Reported Hydrocodone-Acetamin 10-325 mg (Hydrocodone/Acetaminophen) 1 Each Tablet 10-325 Mg PO PRN Q6HRS PRN 07/21/19 Reported Alprazolam 0.25 Mg Tablet 0.25 Mg PO PRN PRN 07/21/19 Reported Albuterol Sulfate Neb Soln (Albuterol Sulfate) 2.5 Mg/3 Ml Vial.neb 2.5 Mg INH PRN PRN 07/21/19 Reported Proair Hfa (Albuterol Sulfate) 8.5 Gm Hfa.aer.ad 108 Mcg INH PRN PRN 07/21/19 Reported Symbicort 160-4.5 Mcg Inhaler (Budesonide/Formoterol Fumarate) 10.2 Gm Hfa.aer.ad 160 Mcg INH BID 07/21/19 Reported 160-4.5 mcg. 10.2 GM HFA.AER.AD Spiriva (Tiotropium [place]) 18 Mcg Cap.w.dev 18 Mcg INH DAILY 07/21/19 Reported Isosorbide Mononitrate Er (Isosorbide Mononitrate) 30 Mg Tab.er.24h 30 Mg PO DAILY 07/21/19 Reported Xarelto (Rivaroxaban) 20 Mg Tablet 20 Mg PO AFTRNOON 07/21/19 Reported Metoprolol Succinate ( Xl ) (Metoprolol Succinate) 25 Mg Tab.er.24h 25 Mg PO DAILY 07/21/19 Reported Nortriptyline Hcl 25 Mg Capsule 25 Mg PO HS 07/21/19 Reported Omeprazole 20 Mg Capsule.dr 20 Mg PO DAILY 07/21/19 Reported Pravastatin Sodium 20 Mg Tablet 20 Mg PO DAILY 07/21/19 Reported Furosemide 40 Mg Tablet 40 Mg PO DAILY 07/21/19 Reported Spironolactone 25 Mg Tablet 25 Mg PO DAILY 07/21/19 Reported Gabapentin 300 Mg Capsule 600 Mg PO TID 07/21/19 Reported Impression . IMPRESSION: 1. Acute on chronic hypoxemic hypercapnic respiratory failure. 2. Acute on chronic systolic, diastolic heart failure. 3. Acute cor pulmonale. 4. Leukocytosis. 5. Metabolic acidosis, suspect related to increased work of breathing, doubt sepsis. 6. Acute exacerbation of chronic obstructive pulmonary disease. 7. Status post Medtronic pacer for complete heart block. 8. History of atrial fibrillation, status post AV audi ablation in 2017. 9. Acute on chronic kidney disease. 10. Hypertension. 11. History of deep venous thrombosis, status post IVC filter placement. 12. Peripheral arterial disease, status post above knee amputation. VASCULAR SURGEON MPRESSION: 1. Peripheral arterial disease with chronic left anterior tibial and dorsalis pedis occlusion. She continues to have good left posterior tibial flow despite her distal toe changes. 2. Coronary artery disease. 3. Cardiomyopathy. 4. Chronic obstructive pulmonary disease. VASCULAR SURGEON RECOMMENDATIONS: 1. Continue protective measures to the left foot. Would keep the left foot warm with a Rooke boot as well as offload her heel while in the hospital to prevent decubitus heel ulcer. 2. I would not recommend any further arterial imaging or interventions. It is unlikely to improve her left foot significantly. Risks likely outweigh any potential benefits. 3. She may follow up with us as an outpatient in 3-4 weeks to evaluate her toe wounds. Plan . UP TO CHAIR CONTINUE SUPPORT 1. Concur with Cardiology to continue to diurese and monitor renal function. 2. Continue p.r.n. BiPAP. 3. Oxygen supplementation. 4. The patient anticoagulated with Xarelto. 6. No need for antibiotics or steroids. HANH RICKETTS MD Sep 29, 2019 10:41
[2019-09-29] MEDS: HYDROcodone/APAP 10/325 1 TAB TABLET PO PRN (10:42)
--- NOTE | 2019-09-29 12:29 | NUR ---
SS following up with discharge planning. SS met with pt and pt's family in room to discuss discharge planning and long term unit. Pt and pt's family agreeable to long term unit and requested that referral be phoned and faxed to [facility], ; fax [phone]. Pt reported that [facility] was closest to her home and wanted to go to the facility that was next to her home. Pt declined referral to [facility] at this time. SS phoned and faxed referral to [facility]. SS will await acceptance decision and insurance determination and will proceed accordingly with discharge planning.
--- NOTE | 2019-09-29 14:10 | PDOC ---
PROGRESS NOTES Subjective Subjective Dyspnea improving slowly. Denied any chest pain. Objective Objective Vital Signs Date Time Temp Pulse Resp B/P (MAP) Pulse Ox O2 Delivery O2 Flow Rate FiO2 09/29/19 12:31 93 Nasal Cannula 3.0 09/29/19 12:00 97.4 73 25 129/63 (85) 97.4 Intake and Output 09/29/19 07:00 Intake Total 618 ml Output Total 1430 ml Balance -812 ml Intake Oral 218 ml IV Total 400 ml Output Urine Total 1430 ml Physical Exam Abdomen: Soft Heart: Regular rate Extremities: Other (2+ LLE edema.. right AKA) General: Alert, Cooperative, No acute distress HEENT: Mucous membr. moist/pink Lungs: Other (crackles ) Neuro: Sensation intact Psych/Mental Status: Mental status NL, Other (drowsy ) Skin: Other ( cyanosis of LLE toes) Assessment Assessment 1. Acute on chronic respiratory failure most probably secondary to combination of acute COPD exacerbation and acute on chronic systolic heart failure. Symptoms improving with diuresis. LVEF 35% on recent 2-D echo. 2. Mild troponin elevation; 0.105. Most probably type II, demand ischemia. CP free. MPI 04/29 at did not show any significant ischemia. Cath 2017 did not show any evidence of CAD. 3. NICM; LVEF 35%. Consider upgrade to IRON CASTER-D as an outpatient 4. AECOPD: Per pulmonary team 5. PAD; s/p right AKA. Vascular surgery following. 6. Atrial fibrillation s/p AV audi ablation and permanent pacemaker implantation. Maintaining sinus rhythm. 7. Hypertension; controlled 8. Hyperlipidemia; statin. LDL 40 9. Hx of DVT s/p IVC filter Plan Plan of Care Problems Medical Problems: (1) Acute exacerbation of CHF (congestive heart failure) Status: Acute (2) Acute respiratory distress Status: Acute (3) Anxiety Status: Acute (4) COPD exacerbation Status: Acute (5) Hyponatremia Status: Acute (6) Pulmonary edema Status: Acute (7) Renal insufficiency Status: Acute (8) Tobacco abuse Status: Acute Comment Review of Relevant I have reviewed the following items sourav (where applicable) has been applied. Labs Laboratory Tests Test 09/28/19 22:04 09/29/19 03:20 Glucose (Fingerstick) 189 mg/dL (70-99) White Blood Count 11.6 x10^3/uL (4.0-11.0) Red Blood Count 4.05 x10^6/uL (3.50-5.40) Hemoglobin 11.5 g/dL (12.0-15.5) Hematocrit 36.9 % (36.0-47.0) Mean Corpuscular Volume 91 fL (79-100) Mean Corpuscular Hemoglobin 28 pg (25-35) Mean Corpuscular Hemoglobin Concent 31 g/dL (31-37) Red Cell Distribution Width 22.9 % (11.5-14.5) Platelet Count 154 x10^3/uL (140-400) Neutrophils (%) (Auto) 93 % (31-73) Lymphocytes (%) (Auto) 3 % (24-48) Monocytes (%) (Auto) 4 % (0-9) Eosinophils (%) (Auto) 0 % (0-3) Basophils (%) (Auto) 0 % (0-3) Neutrophils # (Auto) 10.8 x10^3/uL (1.8-7.7) Lymphocytes # (Auto) 0.4 x10^3/uL (1.0-4.8) Monocytes # (Auto) 0.4 x10^3/uL (0.0-1.1) Eosinophils # (Auto) 0.0 x10^3/uL (0.0-0.7) Basophils # (Auto) 0.0 x10^3/uL (0.0-0.2) Prothrombin Time 21.7 SEC (11.7-14.0) Prothromb Time International Ratio 1.9 (0.8-1.1) Sodium Level 142 mmol/L (136-145) Potassium Level 3.4 mmol/L (3.5-5.1) Chloride Level 97 mmol/L (98-107) Carbon Dioxide Level 43 mmol/L (21-32) Anion Gap 2 (6-14) Blood Urea Nitrogen 35 mg/dL (7-20) Creatinine 1.2 mg/dL (0.6-1.0) Estimated GFR (Cockcroft-Gault) 44.7 Glucose Level 177 mg/dL (70-99) Calcium Level 9.1 mg/dL (8.5-10.1) Lactate Dehydrogenase 282 U/L (81-234) Troponin I Quantitative 0.093 ng/mL (0.000-0.055) Microbiology 09/27/19 Blood Culture - Preliminary, Resulted NO GROWTH AFTER 1 DAY Medications Current Medications Famotidine (Pepcid Vial) 20 mg QHS IVP Last administered on 09/28/19at 20:51; Start 09/28/19 at 21:00 Furosemide (Lasix) 40 mg DAILY IVP Last administered on 09/29/19at 08:52; Start 09/29/19 at 09:00 Potassium Chloride (Klor-Con) 40 meq 1X ONCE PO Last administered on 09/29/19at 10:42; Start 09/29/19 at 10:00; Stop 09/29/19 at 10:01; Status DC Rivaroxaban (Xarelto) 15 mg QEVNG PO ; Start 09/28/19 at 18:00; Stop 09/29/19 at 10:34; Status DC Vancomycin HCl (Vancomycin Trough Level) 1 each 1X ONCE MC ; Start 09/29/19 at 17:30; Stop 09/29/19 at 17:31 Vancomycin HCl 1 gm/Sodium Chloride 250 ml @ 250 mls/hr Q24H IV Last administered on 09/28/19at 18:01; Start 09/28/19 at 18:00 Vitals/I & O Vital Sign - Last 24 Hours 09/28/19 09/28/19 09/28/19 09/28/19 15:00 15:32 16:00 16:00 Temp 98.2 98.2 Pulse 74 74 Resp 16 30 B/P (MAP) 109/48 (68) 111/84 (93) Pulse Ox 99 94 98 O2 Delivery Nasal Cannula Nasal Cannula Nasal Cannula O2 Flow Rate 4.0 3.0 4.0 4.0 09/28/19 09/28/19 09/28/19 09/28/19 16:00 17:00 18:00 19:00 Pulse 72 70 73 Resp 22 28 24 B/P (MAP) 100/59 (73) 107/61 (76) 103/43 (63) Pulse Ox 97 92 99 O2 Delivery Nasal Cannula Nasal Cannula Nasal Cannula Nasal Cannula O2 Flow Rate 4.0 4.0 4.0 4.0 09/28/19 09/28/19 09/28/19 09/28/19 19:35 20:00 20:00 20:00 Temp 98.4 98.4 Pulse 75 Resp 26 B/P (MAP) 117/49 (71) Pulse Ox 94 99 O2 Delivery Nasal Cannula Nasal Cannula Nasal Cannula O2 Flow Rate 3.0 4.0 4.0 4.0 09/28/19 09/28/19 09/28/19 09/28/19 21:00 21:15 22:00 23:00 Pulse 69 73 69 Resp 15 18 30 B/P (MAP) 104/49 (67) 107/59 (75) 106/49 (68) Pulse Ox 98 100 99 100 O2 Delivery Nasal Cannula BiPAP/CPAP BiPAP/CPAP BiPAP/CPAP O2 Flow Rate 4.0 09/28/19 09/28/19 09/29/19 09/29/19 23:39 23:45 00:00 01:00 Temp 98.3 98.3 Pulse 72 71 Resp 19 20 B/P (MAP) 121/57 (78) 114/59 (77) Pulse Ox 100 100 100 O2 Delivery BiPAP/CPAP Bi-pap BiPAP/CPAP BiPAP/CPAP 09/29/19 09/29/19 09/29/19 09/29/19 01:32 02:00 03:00 03:35 Pulse 75 71 Resp 19 30 B/P (MAP) 135/69 (91) 133/63 (86) Pulse Ox 100 99 97 100 O2 Delivery BiPAP/CPAP BiPAP/CPAP BiPAP/CPAP BiPAP/CPAP 09/29/19 09/29/19 09/29/19 09/29/19 03:45 04:00 05:00 05:17 Temp 97.6 97.6 Pulse 74 70 Resp 19 19 B/P (MAP) 130/60 (83) 118/59 (78) Pulse Ox 95 93 94 O2 Delivery Bi-pap BiPAP/CPAP BiPAP/CPAP BiPAP/CPAP 09/29/19 09/29/19 09/29/19 09/29/19 06:00 07:00 08:00 08:00 Pulse 76 75 Resp 19 16 B/P (MAP) 100/60 (73) 141/69 (93) Pulse Ox 95 98 O2 Delivery BiPAP/CPAP BiPAP/CPAP Nasal Cannula O2 Flow Rate 4.0 4.0 09/29/19 09/29/19 09/29/19 09/29/19 08:00 08:10 08:52 08:53 Temp 97.8 97.8 Pulse 76 66 77 Resp 33 B/P (MAP) 115/74 (88) 115/76 115/74 Pulse Ox 95 92 O2 Delivery Nasal Cannula Nasal Cannula O2 Flow Rate 3.0 3.0 09/29/19 09/29/19 09/29/19 09/29/19 09:00 10:42 12:00 12:00 Temp 97.4 97.4 Pulse 76 73 Resp 22 18 25 B/P (MAP) 134/65 (88) 129/63 (85) Pulse Ox 93 98 94 O2 Delivery Nasal Cannula Nasal Cannula Nasal Cannula O2 Flow Rate 3.0 3.0 2.0 2.0 09/29/19 12:31 Pulse Ox 93 O2 Delivery Nasal Cannula O2 Flow Rate 3.0 Intake and Output 09/28/19 09/28/19 09/29/19 15:00 23:00 07:00 Intake Total 50 ml 368 ml 200 ml Output Total 670 ml 495 ml 265 ml Balance -620 ml -127 ml -65 ml RAFA SQUIRES MD Sep 29, 2019 14:10
--- NOTE | 2019-09-29 15:29 | RAD ---
Examination: CT of the abdomen pelvis without contrast History: history of gross hematuria COMPARISON: None available TECHNIQUE: Axial CT images of the abdomen pelvis were performed without contrast. Coronal sagittal reformats are performed. Exposure: One or more of the following individualized dose reduction techniques were utilized for this examination: 1. Automated exposure control 2. Adjustment of the mA and/or kV according to patient size 3. Use of iterative reconstruction technique FINDINGS: Patchy airspace opacities identified in the bibasilar lungs with focal consolidation left lower lobe of the lung likely pneumonia or atelectasis. Mild atelectasis or infiltrates identified in the right middle lobe of the lung. No evidence of free air identified in the abdomen. The evaluation of the solid organs is limited due to lack of IV contrast. The evaluation of bowel is limited due to lack of oral contrast. Moderate cardiomegaly. The visualized noncontrasted liver, spleen, adrenals grossly appears unremarkable. The stomach is mildly distended. The visualized pancreas grossly appears unremarkable small bowel is nondilated Feces and gas noted in the colon. No evidence of intrarenal collecting system calculi or hydronephrosis. Mild diffuse thickened appearance of the urinary bladder wall with surrounding inflammatory fat stranding probably cystitis. Foci of air identified in the urinary bladder could be due to recent instrumentation or cystitis. Underlying mucosal pathology not excluded. Severe aortic atherosclerosis. IVC filter is identified. Mild degenerative changes lumbar spine Vascular stent identified in the right iliac artery. IMPRESSION: 1. Inflammatory fat stranding with irregularity of the urinary bladder wall probably cystitis. Underlying mucosal pathology such as a neoplasm is not completely excluded. Foci of air identified in the urinary bladder could be due to recent instrumentation or cystitis. 2. Patchy airspace opacities identified in the bibasilar lungs with focal consolidation left lower lobe lung likely pneumonia or atelectasis. Follow-up to resolution. Electronically signed by: Sky Mckeon MD (09/29/2019 3:27 PM) [facility]
[2019-09-29] MEDS: VANCOMYCIN 1 GM in IV NORMAL SALINE 250ML 250 ML IV SCH (17:50)
[2019-09-29 18:06] LABS: VANC TR 13.3 mcg/mL (10.0-20.0)
[2019-09-29] MEDS: VANCOMYCIN PER PHARMACY MC PRN (18:38)
--- NOTE | 2019-09-29 18:40 | NUR ---
Pharmacy Vancomycin Dosing Note S:Consulted to monitor and dose vancomycin started 09/27/19. O:JAIR MARCUS is a 69 year old F with respiratory failure/leukocytosis . Height: 5 feet, 0 inches Weight: 60.569069 kg [place] Body Weight: 45.50 Adjusted Body Weight: 50.06 Dosing Weight: Actual Other Antibiotics: zosyn LABS: Last BUN: 42 Last Creatinine: 1.2 Creatinine Clearance: 36 mL/min Last WBC: 27.3 Last Procalcitonin: Tmax (past 24 hours): 97.9 Microbiology: - I/O: 618/1390 Drug Levels: Last Trough level: 13.3 on 09/29/19 at 1730 Last dose given at Vancomycin Dosing: Loading Dose: 1500 mg x1 Dosing Weight: Actual Target Trough: 15-20 A: Based on: LEVEL P: 1. Continue Vancomycin 1000 mg IV q24h 2. Follow up Trough level NEEDED 3. Pharmacy will continue to monitor, follow and adjust therapy as needed. CHEYANNE GASTELUM FORMERLY [facility] [place], 09/29/19 [id number]
[2019-09-29] MEDS: LACTOBACILLUS RHAMNOSUS GG 1 CAPSULE. PO SCH (21:30)
[2019-09-29] MEDS: NORTRIPTYLINE 25 MG CAPSULE PO SCH (21:31)
[2019-09-29] MEDS: ATORVASTATIN CALCIUM 10 MG TABLET. PO SCH (21:31)
[2019-09-29] MEDS: FAMOTIDINE 20 MG/2 ML VIAL IVP SCH (21:32)
--- NOTE | 2019-09-29 22:40 | NUR ---
Patient's heart rhythm in [facility]. Dr. Curtis notified at this time, reviewed vitals, DrKeisha notes, and labs. Orders received for STAT lab draw. Will continue to monitor.
[2019-09-29 23:10] LABS: CALCIUM 9.2 mg/dL (8.5-10.1); CREATININE 1.5 mg/dL (0.6-1.0); GFR 34.5; POTASSIUM 3.5 mmol/L (3.5-5.1)
[2019-09-29 23:11] LABS: MAGNESIUM 2.3 mg/dL (1.8-2.4)
[2019-09-30] VITALS (7 sets, daily range): BP systolic 104–143; BP diastolic 57–82
[2019-09-30] MEDS: PIPERACILLIN/TAZOBACTAM 3.375 GM in IV NORMAL SALINE 50ML 50 ML IV SCH ×2 (00:40→05:37)
--- NOTE | 2019-09-30 02:58 | NUR ---
Patient continues to be in [place], heart rate maintaining around 78-80. Patient's heart rate went down to 36-38 on two instances lasting about 5-[address] Curtis paged, labs reviewed from previous order. Received orders to transfer to . Dr. Mcintosh paged about transfer. Awaiting call back from on-call doctor, Dr. Abrams.
--- NOTE | 2019-09-30 03:40 | NUR ---
The patient, JAIR MARCUS, 69 y/o, F admitted by DENNY OSHEA MD, was transferred to room 250 from 6th floor. VS 104/57 on 100% 2 L nc HR 72, patient is a R AKA, Left foot with Rooke boot on. Bed alarm. [address] way CBI cuong, patient stated she came to [place] after Discharge from because wanted to send her to Rehab. Alarm set on bed. Patient instructed to call when she wants to get up. RN will monitor.
[2019-09-30] MEDS: methylPREDNISolone SOD SUCC PF 40 MG/ML VIAL. IV SCH (05:36)
[2019-09-30 05:56] LABS: BASO % 0 % (0-3); EOS % 0 % (0-3); HEMATOCRIT 36.5 % (36.0-47.0); HEMOGLOBIN 11.4 g/dL (12.0-15.5); LYMPH # 0.4 x10^3/uL (1.0-4.8); LYMPH % 5 % (24-48); MEAN CORPUSCULAR HEMOGLOBIN 29 pg (25-35); MEAN CORPUSCULAR HGB CONC 31 g/dL (31-37); MEAN CORPUSCULAR VOLUME 92 fL (79-100); MONO # 0.4 x10^3/uL (0.0-1.1); MONO % 6 % (0-9); NEUT # 7.1 x10^3/uL (1.8-7.7); NEUT % 90 % (31-73); PLATELET COUNT 140 x10^3/uL (140-400); RED BLOOD COUNT 3.98 x10^6/uL (3.50-5.40); RED CELL DISTRIBUTION WIDTH 22.7 % (11.5-14.5)
[2019-09-30 06:32] LABS: CALCIUM 8.9 mg/dL (8.5-10.1); CREATININE 1.1 mg/dL (0.6-1.0); GFR 49.4; POTASSIUM 3.2 mmol/L (3.5-5.1)
[2019-09-30] MEDS: DOCUSATE SODIUM 100 MG CAPSULE. PO SCH ×2 (08:52→19:55)
[2019-09-30] MEDS: FUROSEMIDE 40 MG/4 ML VIAL. IVP SCH (08:52)
[2019-09-30] MEDS: SPIRONOLACTONE 25 MG TABLET PO SCH (08:52)
[2019-09-30] MEDS: LACTOBACILLUS RHAMNOSUS GG 1 CAPSULE. PO SCH ×2 (08:52→19:54)
[2019-09-30] MEDS: PANTOPRAZOLE 40 MG TABLET.DR. PO SCH (08:52)
[2019-09-30] MEDS: SENNOSIDES/DOCUSATE 8.6/50MG TABLET. PO SCH ×2 (08:52→19:54)
[2019-09-30] MEDS: METOPROLOL SUCC 24HR ER 25 MG TAB.ER.24H. PO SCH (08:53)
[2019-09-30] MEDS: GABAPENTIN 300 MG CAPSULE. PO SCH ×3 (08:53→19:54)
[2019-09-30] MEDS: ISOSORBIDE MONONITRATE ER 30 MG TAB.ER.24H PO SCH (08:53)
[2019-09-30] MEDS: IPRATRPIUM/ALBUTEROL 0.5/2.5MG 3 ML NEBU. NEB SCH ×4 (09:08→20:05)
[2019-09-30] MEDS: BUDESONIDE 0.5 MG/2 ML NEBU. NEB SCH ×2 (09:08→20:05)
--- NOTE | 2019-09-30 10:01 | PDOC ---
PULMONARY PROGRESS NOTES Subjective PT MORE SOA TODAY Vitals Vital Signs Date Time Temp Pulse Resp B/P (MAP) Pulse Ox O2 Delivery O2 Flow Rate FiO2 09/30/19 09:12 93 Nasal Cannula 3.0 09/30/19 08:53 81 138/82 09/30/19 07:11 97.2 18 97.2 ROS: No Nausea, No Chest Pain, No Abdominal Pain, No Increase Cough General: Alert Lungs: Wheezing, Crackles Cardiovascular: S1, S2 Abdomen: Soft Neuro Exam: Alert Extremities: No Edema, Other (AKA) Skin: Warm Labs Laboratory Tests Test 09/28/19 22:04 09/29/19 03:20 09/29/19 17:30 09/29/19 22:50 Glucose (Fingerstick) 189 mg/dL (70-99) White Blood Count 11.6 x10^3/uL (4.0-11.0) Red Blood Count 4.05 x10^6/uL (3.50-5.40) Hemoglobin 11.5 g/dL (12.0-15.5) Hematocrit 36.9 % (36.0-47.0) Mean Corpuscular Volume 91 fL (79-100) Mean Corpuscular Hemoglobin 28 pg (25-35) Mean Corpuscular Hemoglobin Concent 31 g/dL (31-37) Red Cell Distribution Width 22.9 % (11.5-14.5) Platelet Count 154 x10^3/uL (140-400) Neutrophils (%) (Auto) 93 % (31-73) Lymphocytes (%) (Auto) 3 % (24-48) Monocytes (%) (Auto) 4 % (0-9) Eosinophils (%) (Auto) 0 % (0-3) Basophils (%) (Auto) 0 % (0-3) Neutrophils # (Auto) 10.8 x10^3/uL (1.8-7.7) Lymphocytes # (Auto) 0.4 x10^3/uL (1.0-4.8) Monocytes # (Auto) 0.4 x10^3/uL (0.0-1.1) Eosinophils # (Auto) 0.0 x10^3/uL (0.0-0.7) Basophils # (Auto) 0.0 x10^3/uL (0.0-0.2) Prothrombin Time 21.7 SEC (11.7-14.0) Prothromb Time International Ratio 1.9 (0.8-1.1) Sodium Level 142 mmol/L (136-145) 138 mmol/L (136-145) Potassium Level 3.4 mmol/L (3.5-5.1) 3.5 mmol/L (3.5-5.1) Chloride Level 97 mmol/L (98-107) 94 mmol/L (98-107) Carbon Dioxide Level 43 mmol/L (21-32) 38 mmol/L (21-32) Anion Gap 2 (6-14) 6 (6-14) Blood Urea Nitrogen 35 mg/dL (7-20) 45 mg/dL (7-20) Creatinine 1.2 mg/dL (0.6-1.0) 1.5 mg/dL (0.6-1.0) Estimated GFR (Cockcroft-Gault) 44.7 34.5 Glucose Level 177 mg/dL (70-99) 220 mg/dL (70-99) Calcium Level 9.1 mg/dL (8.5-10.1) 9.2 mg/dL (8.5-10.1) Lactate Dehydrogenase 282 U/L (81-234) Troponin I Quantitative 0.093 ng/mL (0.000-0.055) Vancomycin Level Trough 13.3 mcg/mL (10.0-20.0) Vancomycin Last Dose Date Unknown Vancomycin Last Dose Time Unknown Magnesium Level 2.3 mg/dL (1.8-2.4) Test 09/30/19 05:29 White Blood Count 8.0 x10^3/uL (4.0-11.0) Red Blood Count 3.98 x10^6/uL (3.50-5.40) Hemoglobin 11.4 g/dL (12.0-15.5) Hematocrit 36.5 % (36.0-47.0) Mean Corpuscular Volume 92 fL (79-100) Mean Corpuscular Hemoglobin 29 pg (25-35) Mean Corpuscular Hemoglobin Concent 31 g/dL (31-37) Red Cell Distribution Width 22.7 % (11.5-14.5) Platelet Count 140 x10^3/uL (140-400) Neutrophils (%) (Auto) 90 % (31-73) Lymphocytes (%) (Auto) 5 % (24-48) Monocytes (%) (Auto) 6 % (0-9) Eosinophils (%) (Auto) 0 % (0-3) Basophils (%) (Auto) 0 % (0-3) Neutrophils # (Auto) 7.1 x10^3/uL (1.8-7.7) Lymphocytes # (Auto) 0.4 x10^3/uL (1.0-4.8) Monocytes # (Auto) 0.4 x10^3/uL (0.0-1.1) Eosinophils # (Auto) 0.0 x10^3/uL (0.0-0.7) Basophils # (Auto) 0.0 x10^3/uL (0.0-0.2) Sodium Level 139 mmol/L (136-145) Potassium Level 3.2 mmol/L (3.5-5.1) Chloride Level 95 mmol/L (98-107) Carbon Dioxide Level 40 mmol/L (21-32) Anion Gap 4 (6-14) Blood Urea Nitrogen 39 mg/dL (7-20) Creatinine 1.1 mg/dL (0.6-1.0) Estimated GFR (Cockcroft-Gault) 49.4 Glucose Level 175 mg/dL (70-99) Calcium Level 8.9 mg/dL (8.5-10.1) Thyroid Stimulating Hormone (TSH) 1.284 uIU/mL (0.358-3.74) Laboratory Tests Test 09/29/19 17:30 09/29/19 22:50 09/30/19 05:29 Vancomycin Level Trough 13.3 mcg/mL (10.0-20.0) Vancomycin Last Dose Date Unknown Vancomycin Last Dose Time Unknown Sodium Level 138 mmol/L (136-145) 139 mmol/L (136-145) Potassium Level 3.5 mmol/L (3.5-5.1) 3.2 mmol/L (3.5-5.1) Chloride Level 94 mmol/L (98-107) 95 mmol/L (98-107) Carbon Dioxide Level 38 mmol/L (21-32) 40 mmol/L (21-32) Anion Gap 6 (6-14) 4 (6-14) Blood Urea Nitrogen 45 mg/dL (7-20) 39 mg/dL (7-20) Creatinine 1.5 mg/dL (0.6-1.0) 1.1 mg/dL (0.6-1.0) Estimated GFR (Cockcroft-Gault) 34.5 49.4 Glucose Level 220 mg/dL (70-99) 175 mg/dL (70-99) Calcium Level 9.2 mg/dL (8.5-10.1) 8.9 mg/dL (8.5-10.1) Magnesium Level 2.3 mg/dL (1.8-2.4) White Blood Count 8.0 x10^3/uL (4.0-11.0) Red Blood Count 3.98 x10^6/uL (3.50-5.40) Hemoglobin 11.4 g/dL (12.0-15.5) Hematocrit 36.5 % (36.0-47.0) Mean Corpuscular Volume 92 fL (79-100) Mean Corpuscular Hemoglobin 29 pg (25-35) Mean Corpuscular Hemoglobin Concent 31 g/dL (31-37) Red Cell Distribution Width 22.7 % (11.5-14.5) Platelet Count 140 x10^3/uL (140-400) Neutrophils (%) (Auto) 90 % (31-73) Lymphocytes (%) (Auto) 5 % (24-48) Monocytes (%) (Auto) 6 % (0-9) Eosinophils (%) (Auto) 0 % (0-3) Basophils (%) (Auto) 0 % (0-3) Neutrophils # (Auto) 7.1 x10^3/uL (1.8-7.7) Lymphocytes # (Auto) 0.4 x10^3/uL (1.0-4.8) Monocytes # (Auto) 0.4 x10^3/uL (0.0-1.1) Eosinophils # (Auto) 0.0 x10^3/uL (0.0-0.7) Basophils # (Auto) 0.0 x10^3/uL (0.0-0.2) Thyroid Stimulating Hormone (TSH) 1.284 uIU/mL (0.358-3.74) Medications Active Scripts Medications Dose Route/Sig Max Daily Dose Days Date Category Dose Instructions Augmentin 875-125 Tablet (Amoxicillin/Potassium Clav) 1 Each Tablet 1 Tab PO BID 7 07/22/19 Reported Hydrocodone-Acetamin 10-325 mg (Hydrocodone/Acetaminophen) 1 Each Tablet 10-325 Mg PO PRN Q6HRS PRN 07/21/19 Reported Alprazolam 0.25 Mg Tablet 0.25 Mg PO PRN PRN 07/21/19 Reported Albuterol Sulfate Neb Soln (Albuterol Sulfate) 2.5 Mg/3 Ml Vial.neb 2.5 Mg INH PRN PRN 07/21/19 Reported Proair Hfa (Albuterol Sulfate) 8.5 Gm Hfa.aer.ad 108 Mcg INH PRN PRN 07/21/19 Reported Symbicort 160-4.5 Mcg Inhaler (Budesonide/Formoterol Fumarate) 10.2 Gm Hfa.aer.ad 160 Mcg INH BID 07/21/19 Reported 160-4.5 mcg. 10.2 GM HFA.AER.AD Spiriva (Tiotropium Bomont) 18 Mcg Cap.w.dev 18 Mcg INH DAILY 07/21/19 Reported Isosorbide Mononitrate Er (Isosorbide Mononitrate) 30 Mg Tab.er.24h 30 Mg PO DAILY 07/21/19 Reported Xarelto (Rivaroxaban) 20 Mg Tablet 20 Mg PO AFTRNOON 07/21/19 Reported Metoprolol Succinate ( Xl ) (Metoprolol Succinate) 25 Mg Tab.er.24h 25 Mg PO DAILY 07/21/19 Reported Nortriptyline Hcl 25 Mg Capsule 25 Mg PO HS 07/21/19 Reported Omeprazole 20 Mg Capsule.dr 20 Mg PO DAILY 07/21/19 Reported Pravastatin Sodium 20 Mg Tablet 20 Mg PO DAILY 07/21/19 Reported Furosemide 40 Mg Tablet 40 Mg PO DAILY 07/21/19 Reported Spironolactone 25 Mg Tablet 25 Mg PO DAILY 07/21/19 Reported Gabapentin 300 Mg Capsule 600 Mg PO TID 07/21/19 Reported Impression . IMPRESSION: 1. Acute on chronic hypoxemic hypercapnic respiratory failure. 2. Acute on chronic systolic, diastolic heart failure. 3. Acute cor pulmonale. 4. Leukocytosis. 5. Metabolic acidosis, suspect related to increased work of breathing, doubt sepsis. 6. Acute exacerbation of chronic obstructive pulmonary disease. 7. Status post Medtronic pacer for complete heart block. 8. History of atrial fibrillation, status post AV audi ablation in 2017. 9. Acute on chronic kidney disease. 10. Hypertension. 11. History of deep venous thrombosis, status post IVC filter placement. 12. Peripheral arterial disease, status post above knee amputation. VASCULAR SURGEON MPRESSION: 1. Peripheral arterial disease with chronic left anterior tibial and dorsalis pedis occlusion. She continues to have good left posterior tibial flow despite her distal toe changes. 2. Coronary artery disease. 3. Cardiomyopathy. 4. Chronic obstructive pulmonary disease. VASCULAR SURGEON RECOMMENDATIONS: 1. Continue protective measures to the left foot. Would keep the left foot warm with a [place] boot as well as offload her heel while in the hospital to prevent decubitus heel ulcer. 2. I would not recommend any further arterial imaging or interventions. It is unlikely to improve her left foot significantly. Risks likely outweigh any potential benefits. 3. She may follow up with us as an outpatient in 3-4 weeks to evaluate her toe wounds. Plan . DC ANTIBX PRED WILL GIVE EXTRA DOSE OF LASIX CONTINUE SUPPORT HANH RICKETTS MD Sep 30, 2019 10:01
[2019-09-30] MEDS: HYDROcodone/APAP 10/325 1 TAB TABLET PO PRN ×2 (10:37→19:55)
[2019-09-30] MEDS ORDERED: FUROSEMIDE 40 MG/4 ML VIAL. IVP ONE (11:00)
[2019-09-30] MEDS ORDERED: POTASSIUM CHLORIDE 20 MEQ TABLET.ER. PO ONE ×2 (12:00→16:00)
--- NOTE | 2019-09-30 12:07 | PDOC ---
PROGRESS NOTES Chief Complaint Chief Complaint A/C RESP FAILURE SEC TO A/C CHF needing NIPPV NO CLINICAL SIGN OF PNEUMONIA DOUBT AECOPD Blue, dusky left toes - PAD - vasc sx OP 3-4 weeks RT BKA GROSS HEMATURIA 09/29 [facility] fall risk FULL CODE Supratheraputic INR on eliquis, resolved LEukocytosis, improved History of Present Illness History of Present Illness Gross hematuria continues, on CBI INR 1.9 Urinary pain UA on 09/27 is CLEAN, not even a single RBC BUt hutchins was inserted 09/27 8 PM , AFTER THE URINE SPECIMEN Still soa and weak on exertion I ordered INtervl CXR, today, bec i have been diuresing 40 IV lasix x 2 days now, and seems much worse, pulmo has ordered extra lasix dose K 3.2 PT agreeable to SNU, came from home LEss wheezy though,BIPAP standby on solu 40 IV q8] CT abd . Inflammatory fat stranding with irregularity of the urinary bladder wall probably cystitis. Underlying mucosal pathology such as a neoplasm is not completely excluded. Foci of air identified in the urinary bladder could be due to recent instrumentation or cystitis. 2. Patchy airspace opacities identified in the bibasilar lungs with focal consolidation left lower lobe lung likely pneumonia or atelectasis. Follow-up to resolution. Plan: MAy dc iv steroid, do pred 60 instead Extra lasix KCl 60 x 1 now and start kcl 40 daily BMOP tmr SNU screen SW FULL CODE CONT CBI for now, till clears THEN DC hutchins bec causing her signif discomfort Check UA Raheel Cooney Trying to reach [facility] urology - as CT mentions CANNOT RULE OUT MALIGNANCY causing hematuria TRial 5 mgs orak now to help INR' Recheck INR tmr Vitals Vitals Vital Signs Date Time Temp Pulse Resp B/P (MAP) Pulse Ox O2 Delivery O2 Flow Rate FiO2 09/30/19 10:07 98.0 75 20 111/68 (82) 94 Nasal Cannula 3.0 98.0 Physical Exam General: Alert, Cooperative, No acute distress Heart: Regular rate Lungs: Wheezing, Crackles Abdomen: Soft Extremities: Other (2+ LLE edema.. right AKA) Skin: Other ( cyanosis of LLE toes) Labs LABS Laboratory Tests Test 09/29/19 17:30 09/29/19 22:50 09/30/19 05:29 Vancomycin Level Trough 13.3 mcg/mL (10.0-20.0) Vancomycin Last Dose Date Unknown Vancomycin Last Dose Time Unknown Sodium Level 138 mmol/L (136-145) 139 mmol/L (136-145) Potassium Level 3.5 mmol/L (3.5-5.1) 3.2 mmol/L (3.5-5.1) Chloride Level 94 mmol/L (98-107) 95 mmol/L (98-107) Carbon Dioxide Level 38 mmol/L (21-32) 40 mmol/L (21-32) Anion Gap 6 (6-14) 4 (6-14) Blood Urea Nitrogen 45 mg/dL (7-20) 39 mg/dL (7-20) Creatinine 1.5 mg/dL (0.6-1.0) 1.1 mg/dL (0.6-1.0) Estimated GFR (Cockcroft-Gault) 34.5 49.4 Glucose Level 220 mg/dL (70-99) 175 mg/dL (70-99) Calcium Level 9.2 mg/dL (8.5-10.1) 8.9 mg/dL (8.5-10.1) Magnesium Level 2.3 mg/dL (1.8-2.4) White Blood Count 8.0 x10^3/uL (4.0-11.0) Red Blood Count 3.98 x10^6/uL (3.50-5.40) Hemoglobin 11.4 g/dL (12.0-15.5) Hematocrit 36.5 % (36.0-47.0) Mean Corpuscular Volume 92 fL (79-100) Mean Corpuscular Hemoglobin 29 pg (25-35) Mean Corpuscular Hemoglobin Concent 31 g/dL (31-37) Red Cell Distribution Width 22.7 % (11.5-14.5) Platelet Count 140 x10^3/uL (140-400) Neutrophils (%) (Auto) 90 % (31-73) Lymphocytes (%) (Auto) 5 % (24-48) Monocytes (%) (Auto) 6 % (0-9) Eosinophils (%) (Auto) 0 % (0-3) Basophils (%) (Auto) 0 % (0-3) Neutrophils # (Auto) 7.1 x10^3/uL (1.8-7.7) Lymphocytes # (Auto) 0.4 x10^3/uL (1.0-4.8) Monocytes # (Auto) 0.4 x10^3/uL (0.0-1.1) Eosinophils # (Auto) 0.0 x10^3/uL (0.0-0.7) Basophils # (Auto) 0.0 x10^3/uL (0.0-0.2) Thyroid Stimulating Hormone (TSH) 1.284 uIU/mL (0.358-3.74) Review of Systems Review of Systems POS for: weak, urinary pain, gross hematuria, SOA, NEg the rest Assessment and Plan Assessmemt and Plan Problems Medical Problems: (1) Acute exacerbation of CHF (congestive heart failure) Status: Acute (2) Acute respiratory distress Status: Acute (3) Anxiety Status: Acute (4) COPD exacerbation Status: Acute (5) Hyponatremia Status: Acute (6) Pulmonary edema Status: Acute (7) Renal insufficiency Status: Acute (8) Tobacco abuse Status: Acute Comment Review of Relevant I have reviewed the following items sourav (where applicable) has been applied. Labs Laboratory Tests Test 09/28/19 22:04 09/29/19 03:20 09/29/19 17:30 09/29/19 22:50 Glucose (Fingerstick) 189 mg/dL (70-99) White Blood Count 11.6 x10^3/uL (4.0-11.0) Red Blood Count 4.05 x10^6/uL (3.50-5.40) Hemoglobin 11.5 g/dL (12.0-15.5) Hematocrit 36.9 % (36.0-47.0) Mean Corpuscular Volume 91 fL (79-100) Mean Corpuscular Hemoglobin 28 pg (25-35) Mean Corpuscular Hemoglobin Concent 31 g/dL (31-37) Red Cell Distribution Width 22.9 % (11.5-14.5) Platelet Count 154 x10^3/uL (140-400) Neutrophils (%) (Auto) 93 % (31-73) Lymphocytes (%) (Auto) 3 % (24-48) Monocytes (%) (Auto) 4 % (0-9) Eosinophils (%) (Auto) 0 % (0-3) Basophils (%) (Auto) 0 % (0-3) Neutrophils # (Auto) 10.8 x10^3/uL (1.8-7.7) Lymphocytes # (Auto) 0.4 x10^3/uL (1.0-4.8) Monocytes # (Auto) 0.4 x10^3/uL (0.0-1.1) Eosinophils # (Auto) 0.0 x10^3/uL (0.0-0.7) Basophils # (Auto) 0.0 x10^3/uL (0.0-0.2) Prothrombin Time 21.7 SEC (11.7-14.0) Prothromb Time International Ratio 1.9 (0.8-1.1) Sodium Level 142 mmol/L (136-145) 138 mmol/L (136-145) Potassium Level 3.4 mmol/L (3.5-5.1) 3.5 mmol/L (3.5-5.1) Chloride Level 97 mmol/L (98-107) 94 mmol/L (98-107) Carbon Dioxide Level 43 mmol/L (21-32) 38 mmol/L (21-32) Anion Gap 2 (6-14) 6 (6-14) Blood Urea Nitrogen 35 mg/dL (7-20) 45 mg/dL (7-20) Creatinine 1.2 mg/dL (0.6-1.0) 1.5 mg/dL (0.6-1.0) Estimated GFR (Cockcroft-Gault) 44.7 34.5 Glucose Level 177 mg/dL (70-99) 220 mg/dL (70-99) Calcium Level 9.1 mg/dL (8.5-10.1) 9.2 mg/dL (8.5-10.1) Lactate Dehydrogenase 282 U/L (81-234) Troponin I Quantitative 0.093 ng/mL (0.000-0.055) Vancomycin Level Trough 13.3 mcg/mL (10.0-20.0) Vancomycin Last Dose Date Unknown Vancomycin Last Dose Time Unknown Magnesium Level 2.3 mg/dL (1.8-2.4) Test 09/30/19 05:29 White Blood Count 8.0 x10^3/uL (4.0-11.0) Red Blood Count 3.98 x10^6/uL (3.50-5.40) Hemoglobin 11.4 g/dL (12.0-15.5) Hematocrit 36.5 % (36.0-47.0) Mean Corpuscular Volume 92 fL (79-100) Mean Corpuscular Hemoglobin 29 pg (25-35) Mean Corpuscular Hemoglobin Concent 31 g/dL (31-37) Red Cell Distribution Width 22.7 % (11.5-14.5) Platelet Count 140 x10^3/uL (140-400) Neutrophils (%) (Auto) 90 % (31-73) Lymphocytes (%) (Auto) 5 % (24-48) Monocytes (%) (Auto) 6 % (0-9) Eosinophils (%) (Auto) 0 % (0-3) Basophils (%) (Auto) 0 % (0-3) Neutrophils # (Auto) 7.1 x10^3/uL (1.8-7.7) Lymphocytes # (Auto) 0.4 x10^3/uL (1.0-4.8) Monocytes # (Auto) 0.4 x10^3/uL (0.0-1.1) Eosinophils # (Auto) 0.0 x10^3/uL (0.0-0.7) Basophils # (Auto) 0.0 x10^3/uL (0.0-0.2) Sodium Level 139 mmol/L (136-145) Potassium Level 3.2 mmol/L (3.5-5.1) Chloride Level 95 mmol/L (98-107) Carbon Dioxide Level 40 mmol/L (21-32) Anion Gap 4 (6-14) Blood Urea Nitrogen 39 mg/dL (7-20) Creatinine 1.1 mg/dL (0.6-1.0) Estimated GFR (Cockcroft-Gault) 49.4 Glucose Level 175 mg/dL (70-99) Calcium Level 8.9 mg/dL (8.5-10.1) Thyroid Stimulating Hormone (TSH) 1.284 uIU/mL (0.358-3.74) Laboratory Tests Test 09/29/19 17:30 09/29/19 22:50 09/30/19 05:29 Vancomycin Level Trough 13.3 mcg/mL (10.0-20.0) Vancomycin Last Dose Date Unknown Vancomycin Last Dose Time Unknown Sodium Level 138 mmol/L (136-145) 139 mmol/L (136-145) Potassium Level 3.5 mmol/L (3.5-5.1) 3.2 mmol/L (3.5-5.1) Chloride Level 94 mmol/L (98-107) 95 mmol/L (98-107) Carbon Dioxide Level 38 mmol/L (21-32) 40 mmol/L (21-32) Anion Gap 6 (6-14) 4 (6-14) Blood Urea Nitrogen 45 mg/dL (7-20) 39 mg/dL (7-20) Creatinine 1.5 mg/dL (0.6-1.0) 1.1 mg/dL (0.6-1.0) Estimated GFR (Cockcroft-Gault) 34.5 49.4 Glucose Level 220 mg/dL (70-99) 175 mg/dL (70-99) Calcium Level 9.2 mg/dL (8.5-10.1) 8.9 mg/dL (8.5-10.1) Magnesium Level 2.3 mg/dL (1.8-2.4) White Blood Count 8.0 x10^3/uL (4.0-11.0) Red Blood Count 3.98 x10^6/uL (3.50-5.40) Hemoglobin 11.4 g/dL (12.0-15.5) Hematocrit 36.5 % (36.0-47.0) Mean Corpuscular Volume 92 fL (79-100) Mean Corpuscular Hemoglobin 29 pg (25-35) Mean Corpuscular Hemoglobin Concent 31 g/dL (31-37) Red Cell Distribution Width 22.7 % (11.5-14.5) Platelet Count 140 x10^3/uL (140-400) Neutrophils (%) (Auto) 90 % (31-73) Lymphocytes (%) (Auto) 5 % (24-48) Monocytes (%) (Auto) 6 % (0-9) Eosinophils (%) (Auto) 0 % (0-3) Basophils (%) (Auto) 0 % (0-3) Neutrophils # (Auto) 7.1 x10^3/uL (1.8-7.7) Lymphocytes # (Auto) 0.4 x10^3/uL (1.0-4.8) Monocytes # (Auto) 0.4 x10^3/uL (0.0-1.1) Eosinophils # (Auto) 0.0 x10^3/uL (0.0-0.7) Basophils # (Auto) 0.0 x10^3/uL (0.0-0.2) Thyroid Stimulating Hormone (TSH) 1.284 uIU/mL (0.358-3.74) Microbiology 09/27/19 Blood Culture - Preliminary, Resulted NO GROWTH AFTER 2 DAYS Medications Current Medications Ipratropium [place] (Atrovent) 0.5 mg 1X ONCE NEB Last administered on 09/27/19at 14:15; Start 09/27/19 at 14:15; Stop 09/27/19 at 14:16; Status DC Methylprednisolone Sodium Succinate (SOLU-Medrol 125MG VIAL) 125 mg 1X ONCE IV Last administered on 09/27/19at 14:56; Start 09/27/19 at 14:15; Stop 09/27/19 at 14:16; Status DC Lorazepam (Ativan Inj) 1 mg 1X ONCE IVP Last administered on 09/27/19at 14:30; Start 09/27/19 at 14:30; Stop 09/27/19 at 14:31; Status DC Vancomycin HCl 250 ml @ 250 mls/hr 1X ONCE IV Last administered on 09/27/19at 15:06; Start 09/27/19 at 14:45; Stop 09/27/19 at 15:44; Status DC Ceftriaxone Sodium (Rocephin) 1 gm 1X ONCE IVP Last administered on 09/27/19at 15:02; Start 09/27/19 at 14:45; Stop 09/27/19 at 14:46; Status DC Morphine Sulfate (Morphine Sulfate) 4 mg STK-MED ONCE .ROUTE ; Start 09/27/19 at 14:53; Stop 09/27/19 at 14:53; Status DC Morphine Sulfate (Morphine Sulfate) 4 mg 1X ONCE IV Last administered on 09/27/19at 14:56; Start 09/27/19 at 15:00; Stop 09/27/19 at 15:01; Status DC Ondansetron HCl (Zofran) 4 mg 1X ONCE IV ; Start 09/27/19 at 15:00; Stop 09/27/19 at 15:01; Status DC Methylprednisolone Sodium Succinate (SOLU-Medrol 125MG VIAL) 100 mg Q6HRS IV Last administered on 09/28/19at 05:32; Start 09/27/19 at 18:00; Stop 09/28/19 at 09:48; Status DC Vancomycin HCl (Vanco Per Pharmacy) 1 each PRN DAILY PRN MC SEE COMMENTS Last administered on 09/29/19at 18:38; Start 09/27/19 at 16:30; Stop 09/30/19 at 09:02; Status DC Vancomycin HCl 500 mg/Sodium Chloride 100 ml @ 100 mls/hr 1X ONCE IV Last administered on 09/27/19at 16:55; Start 09/27/19 at 16:30; Stop 09/27/19 at 17:29; Status DC Piperacillin Sod/ Tazobactam Sod 3.375 gm/Sodium Chloride 50 ml @ 100 mls/hr Q6HRS IV Last administered on 09/30/19at 05:37; Start 09/27/19 at 17:00; Stop 09/30/19 at 09:02; Status DC Vancomycin HCl 1 gm/Sodium Chloride 250 ml @ 250 mls/hr Q24H IV Last administered on 09/29/19at 17:50; Start 09/28/19 at 18:00; Stop 09/30/19 at 09:02; Status DC Vancomycin HCl (Vancomycin Trough Level) 1 each 1X ONCE MC Last administered on 09/29/19at 17:30; Start 09/29/19 at 17:30; Stop 09/29/19 at 17:31; Status DC Albuterol Sulfate (Ventolin Neb Soln) 2.5 mg Q4HRS INH Last administered on 09/28/19at 08:14; Start 09/27/19 at 17:00; Stop 09/28/19 at 09:48; Status DC Alprazolam (Xanax) 0.25 mg PRN BID PRN PO ANXIETY / AGITATION; Start 09/27/19 at 17:00 Furosemide (Lasix) 40 mg DAILY PO Last administered on 09/28/19at 08:34; Start 09/27/19 at 18:00; Stop 09/28/19 at 09:48; Status DC Gabapentin (Neurontin) 600 mg TID PO Last administered on 09/30/19 08:53; Start 09/27/19 at 21:00 Isosorbide Mononitrate (Imdur) 30 mg DAILY PO Last administered on 09/30/19 08:53; Start 09/27/19 at 18:00 Metoprolol Succinate (Toprol Xl) 25 mg DAILY PO Last administered on 09/30/19 08:53; Start 09/27/19 at 18:00 Nortriptyline HCl (Pamelor) 25 mg HS PO Last administered on 09/29/19 21:31; Start 09/27/19 at 21:00 Spironolactone (Aldactone) 25 mg DAILY PO Last administered on 09/30/19 08:52; Start 09/27/19 at 18:00 Non-Formulary Medication (Budesonide/ Formoterol Fumarate (Symbicort 160-4.5 Mcg Inhaler)) 160 mcg BID INH ; Start 09/27/19 at 21:00; Status UNV Pantoprazole Sodium (Protonix) 40 mg DAILYAC PO Last administered on 09/30/19 08:52; Start 09/27/19 at 17:30 Atorvastatin Calcium (Lipitor) 5 mg QHS PO Last administered on 09/29/19 21:31; Start 09/27/19 at 21:00 Rivaroxaban (Xarelto) 20 mg DAILYWSUP PO ; Start 09/27/19 at 17:30; Stop 09/28/19 at 08:23; Status DC Budesonide (Pulmicort) 0.5 mg RTBID NEB Last administered on 09/30/19at 09:08; Start 09/27/19 at 20:00 Lorazepam (Ativan Inj) 0.5 mg PRN Q6HRS PRN IV ANXIETY / AGITATION; Start 09/27/19 at 22:45 Ondansetron HCl (Zofran) 4 mg PRN Q6HRS PRN IV NAUSEA/VOMITING; Start 09/27/19 at 22:45; Stop 09/28/19 at 09:49; Status DC Prochlorperazine Edisylate (Compazine) 5 mg PRN Q6HRS PRN IV NAUSEA/VOMITING, 2ND CHOICE; Start 09/27/19 at 22:45 Al Hydroxide/Mg Hydroxide (Mylanta Plus Xs) 30 ml PRN Q3HRS PRN PO HEARTBURN / GAS; Start 09/27/19 at 22:45 Famotidine (Pepcid Vial) 20 mg QHS IVP Last administered on 09/29/19at 21:32; Start 09/28/19 at 21:00; Stop 09/30/19 at 09:03; Status DC Sodium Chloride (Normal Saline Flush) 3 ml QSHIFT PRN IV AFTER MEDS AND BLOOD DRAWS; Start 09/27/19 at 22:45 Senna/Docusate Sodium (Senna Plus) 1 tab BID PO Last administered on 09/30/19at 08:52; Start 09/28/19 at 09:00 Docusate Sodium (Colace) 100 mg BID PO Last administered on 09/30/19at 08:52; Start 09/28/19 at 09:00 Bisacodyl (Dulcolax Supp) 10 mg PRN DAILY PRN IA CONSTIPATION; Start 09/27/19 at 22:45 Info (Anti-Coagulation Monitoring By Pharmacy) 1 each PRN DAILY PRN MC SEE COMMENTS Last administered on 09/28/19at 08:26; Start 09/28/19 at 07:45; Stop 09/30/19 at 10:37; Status DC Rivaroxaban (Xarelto) 15 mg QEVNG PO ; Start 09/28/19 at 18:00; Stop 09/29/19 at 10:34; Status DC Morphine Sulfate (Morphine Sulfate) 2 mg PRN Q2HR PRN IV PAIN; Start 09/28/19 at 09:45 Oxycodone/ Acetaminophen (Percocet 5/325) 1 tab PRN Q4HRS PRN PO MODERATE PAIN; Start 09/28/19 at 09:45 Temazepam (Restoril) 7.5 mg PRN QHS PRN PO INSOMNIA; Start 09/28/19 at 09:45 Ondansetron HCl (Zofran) 4 mg PRN Q6HRS PRN IVP NAUSEA/VOMITING, 1ST CHOICE; Start 09/28/19 at 09:45 Albuterol Sulfate (Ventolin Neb Soln) 2.5 mg PRN QID PRN INH SHORTNESS OF BREATH; Start 09/28/19 at 09:45 Acetaminophen/ Hydrocodone Bitart (Lortab 10/325) 1 tab PRN Q6HRS PRN PO SEVERE PAIN Last administered on 09/30/19at 10:37; Start 09/28/19 at 09:45 Albuterol/ Ipratropium (Duoneb) 3 ml RTQID NEB Last administered on 09/30/19at 09:08; Start 09/28/19 at 12:00 Methylprednisolone Sodium Succinate (SOLU-Medrol 40MG VIAL) 40 mg Q8HRS IV Last administered on 09/30/19at 05:36; Start 09/28/19 at 10:00; Stop 09/30/19 at 09:03; Status DC Furosemide (Lasix) 40 mg 1X ONCE IVP Last administered on 09/28/19at 11:43; Start 09/28/19 at 10:00; Stop 09/28/19 at 10:01; Status DC Furosemide (Lasix) 40 mg DAILY IVP Last administered on 09/30/19at 08:52; Start 09/29/19 at 09:00 Potassium Chloride (Klor-Con) 40 meq 1X ONCE PO Last administered on 09/29/19at 10:42; Start 09/29/19 at 10:00; Stop 09/29/19 at 10:01; Status DC Lactobacillus Rhamnosus (Culturelle) 1 cap BID PO Last administered on 09/30/19at 08:52; Start 09/29/19 at 21:00 Prednisone (Prednisone) 60 mg DAILY PO ; Start 10/01/19 at 09:00 Furosemide (Lasix) 40 mg 1X ONCE IVP ; Start 09/30/19 at 11:00; Stop 09/30/19 at 11:01; Status DC Phytonadione (Mephyton Oral Soln) 5 mg 1X ONCE PO ; Start 09/30/19 at 13:00; Stop 09/30/19 at 13:01 Potassium Chloride (Klor-Con) 20 meq 1X ONCE PO ; Start 09/30/19 at 16:00; Stop 09/30/19 at 16:01 Potassium Chloride (Klor-Con) 40 meq 1X ONCE PO ; Start 09/30/19 at 12:00; Stop 09/30/19 at 12:01; Status DC Potassium Chloride (Klor-Con) 40 meq DAILYWBKFT PO ; Start 10/01/19 at 08:00 Active Scripts Active Reported Augmentin 875-125 Tablet (Amoxicillin/Potassium Clav) 1 Each Tablet 1 Tab PO BID 7 Days Hydrocodone-Acetamin 10-325 mg (Hydrocodone/Acetaminophen) 1 Each Tablet 10-325 Mg PO PRN Q6HRS PRN Alprazolam 0.25 Mg Tablet 0.25 Mg PO PRN PRN Albuterol Sulfate Neb Soln (Albuterol Sulfate) 2.5 Mg/3 Ml Vial.neb 2.5 Mg INH PRN PRN Proair Hfa (Albuterol Sulfate) 8.5 Gm Hfa.aer.ad 108 Mcg INH PRN PRN Symbicort 160-4.5 Mcg Inhaler (Budesonide/Formoterol Fumarate) 10.2 Gm Hfa.aer.ad 160 Mcg INH BID 160-4.5 mcg. 10.2 GM HFA.AER.AD Spiriva (Tiotropium [place]) 18 Mcg Cap.w.dev 18 Mcg INH DAILY Isosorbide Mononitrate Er (Isosorbide Mononitrate) 30 Mg Tab.er.24h 30 Mg PO DAILY Xarelto (Rivaroxaban) 20 Mg Tablet 20 Mg PO AFTRNOON Metoprolol Succinate ( Xl ) (Metoprolol Succinate) 25 Mg Tab.er.24h 25 Mg PO DAILY Nortriptyline Hcl 25 Mg Capsule 25 Mg PO HS Omeprazole 20 Mg Capsule.dr 20 Mg PO DAILY Pravastatin Sodium 20 Mg Tablet 20 Mg PO DAILY Furosemide 40 Mg Tablet 40 Mg PO DAILY Spironolactone 25 Mg Tablet 25 Mg PO DAILY Gabapentin 300 Mg Capsule 600 Mg PO TID Vitals/I & O Vital Sign - Last 24 Hours 09/29/19 09/29/19 09/29/19 09/29/19 12:31 16:00 16:00 19:05 Temp 97.9 97.8 97.9 97.8 Pulse 59 76 Resp 25 24 B/P (MAP) 117/69 (85) 148/70 (96) Pulse Ox 93 97 100 O2 Delivery Nasal Cannula Nasal Cannula Nasal Cannula O2 Flow Rate 3.0 2.0 2.0 3.0 09/29/19 09/29/19 09/29/19 09/29/19 19:56 20:30 20:30 23:05 Temp 98.2 98.2 Pulse 87 Resp 24 B/P (MAP) 122/86 (98) Pulse Ox 93 99 O2 Delivery Nasal Cannula Nasal Cannula Nasal Cannula O2 Flow Rate 3.0 3.0 3.0 3.0 09/30/19 09/30/19 09/30/19 09/30/19 00:05 03:05 03:40 04:06 Temp 97.8 98.1 97.8 98.1 Pulse 71 73 Resp 20 20 B/P (MAP) 143/59 (87) 104/57 (73) Pulse Ox 100 97 O2 Delivery Nasal Cannula Nasal Cannula O2 Flow Rate 3.0 3.0 2.0 3.0 09/30/19 09/30/19 09/30/19 09/30/19 07:11 08:00 08:53 08:53 Temp 97.2 97.2 Pulse 81 81 81 Resp 18 B/P (MAP) 138/82 (100) 138/82 138/82 Pulse Ox 99 O2 Delivery Nasal Cannula Nasal Cannula O2 Flow Rate 2.0 3.0 09/30/19 09/30/19 09/30/19 09:00 09:12 10:07 Temp 98.0 98.0 Pulse 75 Resp 20 B/P (MAP) 111/68 (82) Pulse Ox 93 94 O2 Delivery Nasal Cannula Nasal Cannula O2 Flow Rate 3.0 3.0 3.0 Intake and Output 09/29/19 09/29/19 09/30/19 15:00 23:00 07:00 Intake Total 50 ml 50 ml 700 ml Output Total 1645 ml 1105 ml 1075 ml Balance -1595 ml -1055 ml -375 ml AMARILIS VALENTINO MD Sep 30, 2019 12:07
--- NOTE | 2019-09-30 12:14 | RAD ---
Single view of the chest. 09/30/2019 9:00 AM Indication: History of edema. Follow-up post diuresis. Comparison: Chest radiograph September 27, 2019 Findings: Patient is rotated. No pneumothorax is seen. New mild right basilar atelectasis appears to be present. Central vascular congestion and interstitial thickening is improved. The heart is mildly enlarged. Left-sided pacemaking device is unchanged in appearance, allowing for positioning. Left midlung scarring or atelectasis is similar. IMPRESSION: 1. Decrease in interstitial thickening and central vascular congestion 2. Mild right basilar atelectasis 3. Otherwise similar appearance of the chest Electronically signed by: Juan Jeffers MD (09/30/2019 12:10 PM) [id number]
--- NOTE | 2019-09-30 12:18 | NUR ---
SS following up with discharge planning. Pt accepted at [facility], ; fax [phone], pending insurance authorization. SS will continue to follow for discharge planning.
[2019-09-30] MEDS ORDERED: PHYTONADIONE 10 MG/ML ORAL SOLUTION. PO ONE (13:00)
--- NOTE | 2019-09-30 15:12 | NUR ---
SS following up with discharge planning. SS following up with request for healthcare POA. SS met with pt and healthcare POA completed. Copy placed in chart. SS will continue to follow for discharge planning.
[2019-09-30] MEDS: NORTRIPTYLINE 25 MG CAPSULE PO SCH (19:54)
[2019-09-30] MEDS: ATORVASTATIN CALCIUM 10 MG TABLET. PO SCH (19:55)
[2019-10-01 03:13] VITALS: BP_SYST 124; BP_SYST 137; BP_DIAS 67; BP_DIAS 69
[2019-10-01 04:07] LABS: BASO % 0 % (0-3); EOS % 0 % (0-3); HEMATOCRIT 38.5 % (36.0-47.0); HEMOGLOBIN 11.7 g/dL (12.0-15.5); LYMPH % 11 % (24-48); MEAN CORPUSCULAR HEMOGLOBIN 29 pg (25-35); MEAN CORPUSCULAR HGB CONC 31 g/dL (31-37); MEAN CORPUSCULAR VOLUME 93 fL (79-100); MONO # 0.8 x10^3/uL (0.0-1.1); MONO % 8 % (0-9); NEUT # 7.6 x10^3/uL (1.8-7.7); NEUT % 81 % (31-73); PLATELET COUNT 147 x10^3/uL (140-400); RED BLOOD COUNT 4.12 x10^6/uL (3.50-5.40); RED CELL DISTRIBUTION WIDTH 22.7 % (11.5-14.5); WHITE BLOOD COUNT 9.4 x10^3/uL (4.0-11.0)
[2019-10-01 04:29] LABS: CREATININE 0.9 mg/dL (0.6-1.0); GFR 62.3; MAGNESIUM 2.3 mg/dL (1.8-2.4); POTASSIUM 4.2 mmol/L (3.5-5.1)
[2019-10-01 04:42] LABS: PROTHROMBIN TIME PATIENT 15.3 SEC (11.7-14.0)
[2019-10-01 07:00] VITALS: BP 122/73
[2019-10-01] MEDS: IPRATRPIUM/ALBUTEROL 0.5/2.5MG 3 ML NEBU. NEB SCH ×3 (07:41→16:00)
[2019-10-01] MEDS: BUDESONIDE 0.5 MG/2 ML NEBU. NEB SCH (07:41)
[2019-10-01] MEDS ORDERED: POTASSIUM CHLORIDE 20 MEQ TABLET.ER. PO SCH (08:00)
--- NOTE | 2019-10-01 08:26 | PDOC ---
PULMONARY PROGRESS NOTES Subjective PT MORE SOA TODAY Vitals Vital Signs Date Time Temp Pulse Resp B/P (MAP) Pulse Ox O2 Delivery O2 Flow Rate FiO2 10/01/19 07:41 97 Nasal Cannula 3.0 10/01/19 03:13 97.9 80 18 137/67 (90) 97.9 ROS: No Nausea, No Chest Pain, No Abdominal Pain, No Increase Cough General: Alert Lungs: Wheezing, Crackles Cardiovascular: S1, S2 Abdomen: Soft Neuro Exam: Alert Extremities: No Edema, Other (AKA) Skin: Warm Labs Laboratory Tests Test 09/29/19 17:30 09/29/19 22:50 09/30/19 05:29 10/01/19 03:35 Vancomycin Level Trough 13.3 mcg/mL (10.0-20.0) Vancomycin Last Dose Date Unknown Vancomycin Last Dose Time Unknown Sodium Level 138 mmol/L (136-145) 139 mmol/L (136-145) 142 mmol/L (136-145) Potassium Level 3.5 mmol/L (3.5-5.1) 3.2 mmol/L (3.5-5.1) 4.2 mmol/L (3.5-5.1) Chloride Level 94 mmol/L (98-107) 95 mmol/L (98-107) 98 mmol/L (98-107) Carbon Dioxide Level 38 mmol/L (21-32) 40 mmol/L (21-32) 44 mmol/L (21-32) Anion Gap 6 (6-14) 4 (6-14) 0 (6-14) Blood Urea Nitrogen 45 mg/dL (7-20) 39 mg/dL (7-20) 31 mg/dL (7-20) Creatinine 1.5 mg/dL (0.6-1.0) 1.1 mg/dL (0.6-1.0) 0.9 mg/dL (0.6-1.0) Estimated GFR (Cockcroft-Gault) 34.5 49.4 62.3 Glucose Level 220 mg/dL (70-99) 175 mg/dL (70-99) 130 mg/dL (70-99) Calcium Level 9.2 mg/dL (8.5-10.1) 8.9 mg/dL (8.5-10.1) 9.0 mg/dL (8.5-10.1) Magnesium Level 2.3 mg/dL (1.8-2.4) 2.3 mg/dL (1.8-2.4) White Blood Count 8.0 x10^3/uL (4.0-11.0) 9.4 x10^3/uL (4.0-11.0) Red Blood Count 3.98 x10^6/uL (3.50-5.40) 4.12 x10^6/uL (3.50-5.40) Hemoglobin 11.4 g/dL (12.0-15.5) 11.7 g/dL (12.0-15.5) Hematocrit 36.5 % (36.0-47.0) 38.5 % (36.0-47.0) Mean Corpuscular Volume 92 fL (79-100) 93 fL (79-100) Mean Corpuscular Hemoglobin 29 pg (25-35) 29 pg (25-35) Mean Corpuscular Hemoglobin Concent 31 g/dL (31-37) 31 g/dL (31-37) Red Cell Distribution Width 22.7 % (11.5-14.5) 22.7 % (11.5-14.5) Platelet Count 140 x10^3/uL (140-400) 147 x10^3/uL (140-400) Neutrophils (%) (Auto) 90 % (31-73) 81 % (31-73) Lymphocytes (%) (Auto) 5 % (24-48) 11 % (24-48) Monocytes (%) (Auto) 6 % (0-9) 8 % (0-9) Eosinophils (%) (Auto) 0 % (0-3) 0 % (0-3) Basophils (%) (Auto) 0 % (0-3) 0 % (0-3) Neutrophils # (Auto) 7.1 x10^3/uL (1.8-7.7) 7.6 x10^3/uL (1.8-7.7) Lymphocytes # (Auto) 0.4 x10^3/uL (1.0-4.8) 1.0 x10^3/uL (1.0-4.8) Monocytes # (Auto) 0.4 x10^3/uL (0.0-1.1) 0.8 x10^3/uL (0.0-1.1) Eosinophils # (Auto) 0.0 x10^3/uL (0.0-0.7) 0.0 x10^3/uL (0.0-0.7) Basophils # (Auto) 0.0 x10^3/uL (0.0-0.2) 0.0 x10^3/uL (0.0-0.2) Thyroid Stimulating Hormone (TSH) 1.284 uIU/mL (0.358-3.74) Test 10/01/19 03:52 Prothrombin Time 15.3 SEC (11.7-14.0) Prothromb Time International Ratio 1.2 (0.8-1.1) Laboratory Tests Test 10/01/19 03:35 10/01/19 03:52 White Blood Count 9.4 x10^3/uL (4.0-11.0) Red Blood Count 4.12 x10^6/uL (3.50-5.40) Hemoglobin 11.7 g/dL (12.0-15.5) Hematocrit 38.5 % (36.0-47.0) Mean Corpuscular Volume 93 fL (79-100) Mean Corpuscular Hemoglobin 29 pg (25-35) Mean Corpuscular Hemoglobin Concent 31 g/dL (31-37) Red Cell Distribution Width 22.7 % (11.5-14.5) Platelet Count 147 x10^3/uL (140-400) Neutrophils (%) (Auto) 81 % (31-73) Lymphocytes (%) (Auto) 11 % (24-48) Monocytes (%) (Auto) 8 % (0-9) Eosinophils (%) (Auto) 0 % (0-3) Basophils (%) (Auto) 0 % (0-3) Neutrophils # (Auto) 7.6 x10^3/uL (1.8-7.7) Lymphocytes # (Auto) 1.0 x10^3/uL (1.0-4.8) Monocytes # (Auto) 0.8 x10^3/uL (0.0-1.1) Eosinophils # (Auto) 0.0 x10^3/uL (0.0-0.7) Basophils # (Auto) 0.0 x10^3/uL (0.0-0.2) Sodium Level 142 mmol/L (136-145) Potassium Level 4.2 mmol/L (3.5-5.1) Chloride Level 98 mmol/L (98-107) Carbon Dioxide Level 44 mmol/L (21-32) Anion Gap 0 (6-14) Blood Urea Nitrogen 31 mg/dL (7-20) Creatinine 0.9 mg/dL (0.6-1.0) Estimated GFR (Cockcroft-Gault) 62.3 Glucose Level 130 mg/dL (70-99) Calcium Level 9.0 mg/dL (8.5-10.1) Magnesium Level 2.3 mg/dL (1.8-2.4) Prothrombin Time 15.3 SEC (11.7-14.0) Prothromb Time International Ratio 1.2 (0.8-1.1) Medications Active Scripts Medications Dose Route/Sig Max Daily Dose Days Date Category Dose Instructions Augmentin 875-125 Tablet (Amoxicillin/Potassium Clav) 1 Each Tablet 1 Tab PO BID 7 07/22/19 Reported Hydrocodone-Acetamin 10-325 mg (Hydrocodone/Acetaminophen) 1 Each Tablet 10-325 Mg PO PRN Q6HRS PRN 07/21/19 Reported Alprazolam 0.25 Mg Tablet 0.25 Mg PO PRN PRN 07/21/19 Reported Albuterol Sulfate Neb Soln (Albuterol Sulfate) 2.5 Mg/3 Ml Vial.neb 2.5 Mg INH PRN PRN 07/21/19 Reported Proair Hfa (Albuterol Sulfate) 8.5 Gm Hfa.aer.ad 108 Mcg INH PRN PRN 07/21/19 Reported Symbicort 160-4.5 Mcg Inhaler (Budesonide/Formoterol Fumarate) 10.2 Gm Hfa.aer.ad 160 Mcg INH BID 07/21/19 Reported 160-4.5 mcg. 10.2 GM HFA.AER.AD Spiriva (Tiotropium [place]) 18 Mcg Cap.w.dev 18 Mcg INH DAILY 07/21/19 Reported Isosorbide Mononitrate Er (Isosorbide Mononitrate) 30 Mg Tab.er.24h 30 Mg PO DAILY 07/21/19 Reported Xarelto (Rivaroxaban) 20 Mg Tablet 20 Mg PO AFTRNOON 07/21/19 Reported Metoprolol Succinate ( Xl ) (Metoprolol Succinate) 25 Mg Tab.er.24h 25 Mg PO DAILY 07/21/19 Reported Nortriptyline Hcl 25 Mg Capsule 25 Mg PO HS 07/21/19 Reported Omeprazole 20 Mg Capsule.dr 20 Mg PO DAILY 07/21/19 Reported Pravastatin Sodium 20 Mg Tablet 20 Mg PO DAILY 07/21/19 Reported Furosemide 40 Mg Tablet 40 Mg PO DAILY 07/21/19 Reported Spironolactone 25 Mg Tablet 25 Mg PO DAILY 07/21/19 Reported Gabapentin 300 Mg Capsule 600 Mg PO TID 07/21/19 Reported Impression . IMPRESSION: 1. Acute on chronic hypoxemic hypercapnic respiratory failure. 2. Acute on chronic systolic, diastolic heart failure. 3. Acute cor pulmonale. 4. Leukocytosis. 5. Metabolic acidosis, suspect related to increased work of breathing, doubt sepsis. 6. Acute exacerbation of chronic obstructive pulmonary disease. 7. Status post Medtronic pacer for complete heart block. 8. History of atrial fibrillation, status post AV audi ablation in 2017. 9. Acute on chronic kidney disease. 10. Hypertension. 11. History of deep venous thrombosis, status post IVC filter placement. 12. Peripheral arterial disease, status post above knee amputation. VASCULAR SURGEON MPRESSION: 1. Peripheral arterial disease with chronic left anterior tibial and dorsalis pedis occlusion. She continues to have good left posterior tibial flow despite her distal toe changes. 2. Coronary artery disease. 3. Cardiomyopathy. 4. Chronic obstructive pulmonary disease. VASCULAR SURGEON RECOMMENDATIONS: 1. Continue protective measures to the left foot. Would keep the left foot warm with a [place] boot as well as offload her heel while in the hospital to prevent decubitus heel ulcer. 2. I would not recommend any further arterial imaging or interventions. It is unlikely to improve her left foot significantly. Risks likely outweigh any potential benefits. 3. She may follow up with us as an outpatient in 3-4 weeks to evaluate her toe wounds. Plan . DC ANTIBX PRED WILL GIVE EXTRA DOSE OF LASIX CONTINUE SUPPORT HANH RICKETTS MD Oct 01, 2019 08:26
[2019-10-01] MEDS: FUROSEMIDE 40 MG/4 ML VIAL. IVP SCH (08:50)
[2019-10-01] MEDS ORDERED: ALPR0.254 PO (08:50)
[2019-10-01] MEDS ORDERED: HYDR-52 PO (08:50)
[2019-10-01] MEDS ORDERED: FURO40TA4 PO (08:50)
[2019-10-01] MEDS ORDERED: PRED20TA PO (08:50)
[2019-10-01] MEDS: SPIRONOLACTONE 25 MG TABLET PO SCH (08:51)
--- NOTE | 2019-10-01 08:51 | SNU/HH DC ---
DISCHARGE ORDERS DISCHARGE INFORMATION: DISCHARGE DATE: Oct 01, 2019 FINAL DIAGNOSIS Problems Medical Problems: (1) Acute exacerbation of CHF (congestive heart failure) Status: Acute (2) Acute respiratory distress Status: Acute (3) Anxiety Status: Acute (4) COPD exacerbation Status: Acute (5) Hyponatremia Status: Acute (6) Pulmonary edema Status: Acute (7) Renal insufficiency Status: Acute (8) Tobacco abuse Status: Acute CONDITION ON DISCHARGE: Stable CODE STATUS: Code Status: Full HOSPICE: HOSPICE: No HOSPICE EVAL & TREAT: No LTAC: ADMIT TO LTAC: No POST DISCHARGE ORDERS: ACTIVITY ORDERS: Activity as tolerated DIET AFTER DISCHARGE: ADA CHECKS AFTER DISCHARGE: CHECKS AFTER DISCHARGE: Check blood press - daily, Check your Temp as needed, Weigh Yourself Daily FOLLOW-UP: PHYSICIAN FOLLOW-UP: lasix 40 BID x 10 days the reasses, might need 4o PqD TREATMENT/EQUIPMENT ORDERS: ADAPTIVE EQUIPMENT NEEDED: Front wheeled walker Physical Therapy For: Evalulation/Treatment Occupational Therapy For: Evaluation/Treatment DISCHARGE MEDICATIONS: Home Meds Active Scripts Prednisone (PREDNISONE) 20 Mg Tablet, 60 MG PO DAILY for copd for 2 Days, #6 TAB then taper by 10 mg q 2 days then STOP Prov:AMARILIS VALENTINO MD 10/01/19 Hydrocodone/Acetaminophen (Hydrocodone-Acetamin 10-325 mg) 1 Each Tablet, 10-325 MG PO PRN Q6HRS PRN for PAIN, #20 TAB Prov:AMARILIS VALENTINO MD 10/01/19 Alprazolam (ALPRAZOLAM) 0.25 Mg Tablet, 0.25 MG PO PRN BID PRN for ANXIETY / AGITATION, #30 TAB Prov:AMARILIS VALENTINO MD 10/01/19 Furosemide (FUROSEMIDE) 40 Mg Tablet, 40 MG PO BID for remove fluid for 10 Days, #20 TAB then reasses, might need just 40 PO qdaily subsequently Prov:AMARILIS VALENTINO MD 10/01/19 Reported Medications Albuterol Sulfate (Proair Hfa) 8.5 Gm Hfa.aer.ad, 108 MCG INH PRN PRN for COPD 07/21/19 Budesonide/Formoterol Fumarate (SYMBICORT 160-4.5 MCG INHALER) 10.2 Gm Hfa.aer.ad, 160 MCG INH BID for COPD 160-4.5 mcg. 10.2 GM HFA.AER.AD 07/21/19 Tiotropium [place] (SPIRIVA) 18 Mcg Cap.w.dev, 18 MCG INH DAILY for COPD 07/21/19 Isosorbide Mononitrate (ISOSORBIDE MONONITRATE ER) 30 Mg Tab.er.24h, 30 MG PO DAILY for heart failure 07/21/19 Rivaroxaban (XARELTO) 20 Mg Tablet, 20 MG PO AFTRNOON for anti coagulant 07/21/19 Metoprolol Succinate (METOPROLOL SUCCINATE ( XL )) 25 Mg Tab.er.24h, 25 MG PO DAILY for BP 07/21/19 Nortriptyline Hcl (NORTRIPTYLINE HCL) 25 Mg Capsule, 25 MG PO HS for sleep 07/21/19 Omeprazole (OMEPRAZOLE) 20 Mg Capsule.dr, 20 MG PO DAILY for stomach 07/21/19 Pravastatin Sodium (PRAVASTATIN SODIUM) 20 Mg Tablet, 20 MG PO DAILY for cholesterol 07/21/19 Spironolactone (SPIRONOLACTONE) 25 Mg Tablet, 25 MG PO DAILY for chf 07/21/19 Gabapentin (Gabapentin) 300 Mg Capsule, 600 MG PO TID for neuropathy 07/21/19 Discontinued Reported Medications Amoxicillin/Potassium Clav (AUGMENTIN 875-125 TABLET) 1 Each Tablet, 1 TAB PO BID for Cellulitis for 7 Days, #14 TAB 0 Refills 07/22/19 Albuterol Sulfate (ALBUTEROL SULFATE NEB SOLN) 2.5 Mg/3 Ml Vial.neb, 2.5 MG INH PRN PRN for COPD 07/21/19 AMARILIS VALENTINO MD Oct 01, 2019 08:51
[2019-10-01] MEDS: LACTOBACILLUS RHAMNOSUS GG 1 CAPSULE. PO SCH (08:52)
[2019-10-01] MEDS: PANTOPRAZOLE 40 MG TABLET.DR. PO SCH (08:52)
[2019-10-01] MEDS: GABAPENTIN 300 MG CAPSULE. PO SCH ×2 (08:53→14:00)
[2019-10-01] MEDS: METOPROLOL SUCC 24HR ER 25 MG TAB.ER.24H. PO SCH (08:54)
[2019-10-01] MEDS: ISOSORBIDE MONONITRATE ER 30 MG TAB.ER.24H PO SCH (08:54)
[2019-10-01] MEDS: DOCUSATE SODIUM 100 MG CAPSULE. PO SCH (08:55)
[2019-10-01] MEDS: SENNOSIDES/DOCUSATE 8.6/50MG TABLET. PO SCH (08:56)
[2019-10-01] MEDS ORDERED: predniSONE 20 MG TABLET PO SCH (09:00)
[2019-10-01 11:00] VITALS: BP 130/63
--- NOTE | 2019-10-01 11:08 | PDOC3 ---
Discharge Summary Visit Information Date of Admission: Sep 27, 2019 Date of Discharge: Oct 01, 2019 Admitting Diagnosis Comment: A/C RESP FAILURE SEC TO A/C CHF needing NIPPV NO CLINICAL SIGN OF PNEUMONIA DOUBT AECOPD Blue, dusky left toes - PAD - vasc sx OP 3-4 weeks RT BKA GROSS HEMATURIA 09/29 Geriatric HIgh fall risk FULL CODE Supratheraputic INR on eliquis, resolved LEukocytosis, improved Final Diagnosis Problems Medical Problems: (1) Acute exacerbation of CHF (congestive heart failure) Status: Acute (2) Acute respiratory distress Status: Acute (3) Anxiety Status: Acute (4) COPD exacerbation Status: Acute (5) Hyponatremia Status: Acute (6) Pulmonary edema Status: Acute (7) Renal insufficiency Status: Acute (8) Tobacco abuse Status: Acute Brief Hospital Course Allergies Allergies Coded Allergies Type Severity Reaction Last Updated Verified Penicillins Allergy Unknown 04/27/16 Yes fentanyl Allergy Unknown 04/27/16 Yes levofloxacin Allergy Unknown 04/27/16 Yes Vital Signs Vital Signs Date Time Temp Pulse Resp B/P (MAP) Pulse Ox O2 Delivery O2 Flow Rate FiO2 10/01/19 08:54 71 122/73 10/01/19 07:41 97 Nasal Cannula 3.0 10/01/19 07:00 96.6 20 96.6 Lab Results Laboratory Tests Test 09/29/19 17:30 09/29/19 22:50 09/30/19 05:29 10/01/19 03:35 Vancomycin Level Trough 13.3 mcg/mL (10.0-20.0) Vancomycin Last Dose Date Unknown Vancomycin Last Dose Time Unknown Sodium Level 138 mmol/L (136-145) 139 mmol/L (136-145) 142 mmol/L (136-145) Potassium Level 3.5 mmol/L (3.5-5.1) 3.2 mmol/L (3.5-5.1) 4.2 mmol/L (3.5-5.1) Chloride Level 94 mmol/L (98-107) 95 mmol/L (98-107) 98 mmol/L (98-107) Carbon Dioxide Level 38 mmol/L (21-32) 40 mmol/L (21-32) 44 mmol/L (21-32) Anion Gap 6 (6-14) 4 (6-14) 0 (6-14) Blood Urea Nitrogen 45 mg/dL (7-20) 39 mg/dL (7-20) 31 mg/dL (7-20) Creatinine 1.5 mg/dL (0.6-1.0) 1.1 mg/dL (0.6-1.0) 0.9 mg/dL (0.6-1.0) Estimated GFR (Cockcroft-Gault) 34.5 49.4 62.3 Glucose Level 220 mg/dL (70-99) 175 mg/dL (70-99) 130 mg/dL (70-99) Calcium Level 9.2 mg/dL (8.5-10.1) 8.9 mg/dL (8.5-10.1) 9.0 mg/dL (8.5-10.1) Magnesium Level 2.3 mg/dL (1.8-2.4) 2.3 mg/dL (1.8-2.4) White Blood Count 8.0 x10^3/uL (4.0-11.0) 9.4 x10^3/uL (4.0-11.0) Red Blood Count 3.98 x10^6/uL (3.50-5.40) 4.12 x10^6/uL (3.50-5.40) Hemoglobin 11.4 g/dL (12.0-15.5) 11.7 g/dL (12.0-15.5) Hematocrit 36.5 % (36.0-47.0) 38.5 % (36.0-47.0) Mean Corpuscular Volume 92 fL (79-100) 93 fL (79-100) Mean Corpuscular Hemoglobin 29 pg (25-35) 29 pg (25-35) Mean Corpuscular Hemoglobin Concent 31 g/dL (31-37) 31 g/dL (31-37) Red Cell Distribution Width 22.7 % (11.5-14.5) 22.7 % (11.5-14.5) Platelet Count 140 x10^3/uL (140-400) 147 x10^3/uL (140-400) Neutrophils (%) (Auto) 90 % (31-73) 81 % (31-73) Lymphocytes (%) (Auto) 5 % (24-48) 11 % (24-48) Monocytes (%) (Auto) 6 % (0-9) 8 % (0-9) Eosinophils (%) (Auto) 0 % (0-3) 0 % (0-3) Basophils (%) (Auto) 0 % (0-3) 0 % (0-3) Neutrophils # (Auto) 7.1 x10^3/uL (1.8-7.7) 7.6 x10^3/uL (1.8-7.7) Lymphocytes # (Auto) 0.4 x10^3/uL (1.0-4.8) 1.0 x10^3/uL (1.0-4.8) Monocytes # (Auto) 0.4 x10^3/uL (0.0-1.1) 0.8 x10^3/uL (0.0-1.1) Eosinophils # (Auto) 0.0 x10^3/uL (0.0-0.7) 0.0 x10^3/uL (0.0-0.7) Basophils # (Auto) 0.0 x10^3/uL (0.0-0.2) 0.0 x10^3/uL (0.0-0.2) Thyroid Stimulating Hormone (TSH) 1.284 uIU/mL (0.358-3.74) Test 10/01/19 03:52 Prothrombin Time 15.3 SEC (11.7-14.0) Prothromb Time International Ratio 1.2 (0.8-1.1) Laboratory Tests Test 10/01/19 03:35 10/01/19 03:52 White Blood Count 9.4 x10^3/uL (4.0-11.0) Red Blood Count 4.12 x10^6/uL (3.50-5.40) Hemoglobin 11.7 g/dL (12.0-15.5) Hematocrit 38.5 % (36.0-47.0) Mean Corpuscular Volume 93 fL (79-100) Mean Corpuscular Hemoglobin 29 pg (25-35) Mean Corpuscular Hemoglobin Concent 31 g/dL (31-37) Red Cell Distribution Width 22.7 % (11.5-14.5) Platelet Count 147 x10^3/uL (140-400) Neutrophils (%) (Auto) 81 % (31-73) Lymphocytes (%) (Auto) 11 % (24-48) Monocytes (%) (Auto) 8 % (0-9) Eosinophils (%) (Auto) 0 % (0-3) Basophils (%) (Auto) 0 % (0-3) Neutrophils # (Auto) 7.6 x10^3/uL (1.8-7.7) Lymphocytes # (Auto) 1.0 x10^3/uL (1.0-4.8) Monocytes # (Auto) 0.8 x10^3/uL (0.0-1.1) Eosinophils # (Auto) 0.0 x10^3/uL (0.0-0.7) Basophils # (Auto) 0.0 x10^3/uL (0.0-0.2) Sodium Level 142 mmol/L (136-145) Potassium Level 4.2 mmol/L (3.5-5.1) Chloride Level 98 mmol/L (98-107) Carbon Dioxide Level 44 mmol/L (21-32) Anion Gap 0 (6-14) Blood Urea Nitrogen 31 mg/dL (7-20) Creatinine 0.9 mg/dL (0.6-1.0) Estimated GFR (Cockcroft-Gault) 62.3 Glucose Level 130 mg/dL (70-99) Calcium Level 9.0 mg/dL (8.5-10.1) Magnesium Level 2.3 mg/dL (1.8-2.4) Prothrombin Time 15.3 SEC (11.7-14.0) Prothromb Time International Ratio 1.2 (0.8-1.1) Brief Hospital Course Ms. More is a 69 old frail elderly white female who came from home and had a CC of soa. Was found to be from combi diastolic heart failure and COPD, neeeding O2,. NO PNA on CXR< HAd mildly high INR< on eliquis with some gross hematuria, reversed after Vit K 5 PO x 1. SHe had some gross hematuria, did well with CBI. CTA bd showed signs opf chronic cystitis, mucosal pathology for gross hematuria cant be ruled out, NO ACTIVE UTI ON UA. NO urology HERE, BUT I DID DISCUSS WITH [facility] mid level urology on 09/30, advised CBI and see them as OP as the nex step is cystoscopy, She is on eliquis for cardiac reasons, Ok to cont, but i advsied to see urology as OP. FO course hold if gross hematuria Dw her, SW and RN Dipo: SNU Consults. Pulm, cards proc; none dc 34 mins Discharge Information Condition at Discharge: Improved, Stable Disposition/Orders: Other (snu) Scheduled Budesonide/Formoterol Fumarate (Symbicort 160-4.5 Mcg Inhaler) 10.2 Gm Hfa.aer.ad, 160 MCG INH BID for COPD, (Reported) 160-4.5 mcg. 10.2 GM HFA.AER.AD Entered as Reported by: JOANNA CLAUDIO RN on 07/21/19434 Last Action: Converted on 09/27/191654 by DENNY OSHEA MD Furosemide (Furosemide) 40 Mg Tablet, 40 MG PO BID for remove fluid for 10 Days, #20 then reasses, might need just 40 PO qdaily subsequently Prescribed by: AMARILIS VALENTINO on 10/01/19 0850 Gabapentin (Gabapentin) 300 Mg Capsule, 600 MG PO TID for neuropathy, (Reported) Entered as Reported by: JOANNA CLAUDIO RN on 07/21/19403 Last Action: Continued on 09/27/191654 by DENNY OSHEA MD Isosorbide Mononitrate (Isosorbide Mononitrate Er) 30 Mg Tab.er.24h, 30 MG PO D AILY for heart failure, (Reported) Entered as Reported by: JOANNA CLAUDIO RN on 07/21/19427 Last Action: Continued on 09/27/191654 by DENNY OSHEA MD Metoprolol Succinate (Metoprolol Succinate ( Xl )) 25 Mg Tab.er.24h, 25 MG PO DAILY for BP, (Reported) Entered as Reported by: JOANNA CLAUDIO RN on 07/21/19427 Last Action: Continued on 09/27/191654 by DENNY OSHEA MD Nortriptyline Hcl (Nortriptyline Hcl) 25 Mg Capsule, 25 MG PO HS for sleep, (Reported) Entered as Reported by: JOANNA CLAUDIO RN on 07/21/19427 Last Action: Continued on 09/27/191654 by DENNY OSHEA MD Omeprazole (Omeprazole) 20 Mg Capsule.dr, 20 MG PO DAILY for stomach, (Reported) Entered as Reported by: JOANNA CLAUDIO RN on 07/21/19427 Last Action: Converted on 09/27/191654 by DENNY OSHEA MD Pravastatin Sodium (Pravastatin Sodium) 20 Mg Tablet, 20 MG PO DAILY for cholesterol, (Reported) Entered as Reported by: JOANNA CLAUDIO RN on 07/21/19427 Last Action: Converted on 09/27/191654 by DENNY OSHEA MD Prednisone (Prednisone) 20 Mg Tablet, 60 MG PO DAILY for copd for 2 Days, #6 then taper by 10 mg q 2 days then STOP Prescribed by: AMARILIS VALENTINO on 10/01/19 0850 Rivaroxaban (Xarelto) 20 Mg Tablet, 20 MG PO AFTRNOON for anti coagulant, (Reported) Entered as Reported by: JOANNA CLAUDIO RN on 07/21/19427 Last Action: Converted on 09/27/191654 by DENNY OSHEA MD Spironolactone (Spironolactone) 25 Mg Tablet, 25 MG PO DAILY for chf, (Reported) Entered as Reported by: JOANNA CLAUDIO RN on 07/21/19403 Last Action: Continued on 09/27/191654 by DENNY OSHEA MD Tiotropium [place] (Spiriva) 18 Mcg Cap.w.dev, 18 MCG INH DAILY for COPD, (Reported) Entered as Reported by: JOANNA CLAUDIO RN on 07/21/19434 Last Action: Converted on 09/28/19945 by AMARILIS VALENTINO Scheduled PRN Albuterol Sulfate (Proair Hfa) 8.5 Gm Hfa.aer.ad, 108 MCG INH PRN PRN for COPD, (Reported) Entered as Reported by: JOANNA CLAUDIO RN on 07/21/19434 Last Action: Continued on 09/28/19945 by AMARILIS VALENTINO Alprazolam (Alprazolam) 0.25 Mg Tablet, 0.25 MG PO PRN BID PRN for ANXIETY / AGITATION, #30 Prescribed by: AMARILIS VALENTINO on 10/01/19 0850 Hydrocodone/Acetaminophen (Hydrocodone-Acetamin 10-325 mg) 1 Each Tablet, 10-325 MG PO PRN Q6HRS PRN for PAIN, #20 Prescribed by: AMARILIS VALENTINO on 10/01/19 0850 Discontinued Medications Albuterol Sulfate (Albuterol Sulfate Neb Soln) 2.5 Mg/3 Ml Vial.neb, 2.5 MG INH PRN PRN for COPD, (Reported) Entered as Reported by: JOANNA CLAUDIO RN on 07/21/19 0435 Last Action: Continued on 09/27/191654 by DENNY OSHEA MD Amoxicillin/Potassium Clav (Augmentin 875-125 Tablet) 1 Each Tablet, 1 TAB PO BID for Cellulitis for 7 Days, #14 Ref 0 (Reported) Entered as Reported by: BON LANCASTER on 07/22/19 1303 Last Action: HELD on 09/27/191654 by MD CHICHO TREJO CHERRIE Y MD Oct 01, 2019 11:08
--- NOTE | 2019-10-01 12:08 | NUR ---
SS following up with discharge planning. Discharge orders received for care home unit. SS phoned and faxed discharge orders for [facility], ; fax [phone]. Pt will discharge today and go to [facility] at 1330 via stretcher. [facility] to provide transportation. Pt, pt's family, and pt's RN notified.
--- NOTE | 2019-10-01 13:47 | PDOC ---
CARDIO Progress Notes Date and Time Date of Service 10/01/2019 Time of Evaluation 1310 Subjective Subjective: No Chest Pain, No shortness of breath, No Palpitations Vitals Vitals Vital Signs Date Time Temp Pulse Resp B/P (MAP) Pulse Ox O2 Delivery O2 Flow Rate FiO2 10/01/19 11:40 94 Nasal Cannula 3.0 10/01/19 11:00 96.7 73 22 130/63 (85) 96.7 Weight Weight [ ] Input and Output Intake and Output Intake and Output 10/01/19 07:00 Intake Total 1360 ml Output Total 1300 ml Balance 60 ml Intake Oral 1360 ml Output Urine Total 1300 ml Laboratory Labs Laboratory Tests Test 10/01/19 03:35 10/01/19 03:52 White Blood Count 9.4 x10^3/uL (4.0-11.0) Red Blood Count 4.12 x10^6/uL (3.50-5.40) Hemoglobin 11.7 g/dL (12.0-15.5) Hematocrit 38.5 % (36.0-47.0) Mean Corpuscular Volume 93 fL (79-100) Mean Corpuscular Hemoglobin 29 pg (25-35) Mean Corpuscular Hemoglobin Concent 31 g/dL (31-37) Red Cell Distribution Width 22.7 % (11.5-14.5) Platelet Count 147 x10^3/uL (140-400) Neutrophils (%) (Auto) 81 % (31-73) Lymphocytes (%) (Auto) 11 % (24-48) Monocytes (%) (Auto) 8 % (0-9) Eosinophils (%) (Auto) 0 % (0-3) Basophils (%) (Auto) 0 % (0-3) Neutrophils # (Auto) 7.6 x10^3/uL (1.8-7.7) Lymphocytes # (Auto) 1.0 x10^3/uL (1.0-4.8) Monocytes # (Auto) 0.8 x10^3/uL (0.0-1.1) Eosinophils # (Auto) 0.0 x10^3/uL (0.0-0.7) Basophils # (Auto) 0.0 x10^3/uL (0.0-0.2) Sodium Level 142 mmol/L (136-145) Potassium Level 4.2 mmol/L (3.5-5.1) Chloride Level 98 mmol/L (98-107) Carbon Dioxide Level 44 mmol/L (21-32) Anion Gap 0 (6-14) Blood Urea Nitrogen 31 mg/dL (7-20) Creatinine 0.9 mg/dL (0.6-1.0) Estimated GFR (Cockcroft-Gault) 62.3 Glucose Level 130 mg/dL (70-99) Calcium Level 9.0 mg/dL (8.5-10.1) Magnesium Level 2.3 mg/dL (1.8-2.4) Prothrombin Time 15.3 SEC (11.7-14.0) Prothromb Time International Ratio 1.2 (0.8-1.1) Microbiology Micro Microbiology 09/27/19 Blood Culture - Preliminary, Resulted NO GROWTH AFTER 3 DAYS Physical Exam HEENT: Neck Supple W Full Motion Chest: Symmetric LUNGS: Other (diminished, with basilar crackles) Heart: RRR Abdomen: Soft N/T Neurology: alert, oriented, follow commands Assessment Assessment 1. Acute on chronic respiratory failure with AECOPD and CHF. SOA better 2. Mild troponin elevation; mild, demand mediated. Prior [facility] ischemic workup reviewed 3. NICM; LVEF 35%. better. 4. AECOPD: Per pulmonary team 5. PAD; s/p right AKA. Vascular surgery following. 6. Atrial fibrillation s/p AV audi ablation and permanent pacemaker implantation. Maintaining sinus rhythm. 7. Hypertension; controlled 8. Hyperlipidemia: controlled 9. Hx of DVT s/p IVC filter Recommendations 1. Continue with xarelto and metoprolol 2. Consider upgrade to DEFENSIVE LINE COACH-D as an outpatient, follow with cardiology 3. Lasix therapy. Secondary prevention measures 4. SNU today ENOCH ACHARYA CREDIT RISK REVIEW OFFICER Oct 01, 2019 13:47
--- NOTE | 2019-10-01 18:02 | NUR ---
REPORT CALLED TO DAVID AT [facility]. [phone]. CALLED DAVID BACK TO LET HER KNOW TO CALL CARDIOLOGY FOR THE PT TO FOLLOW UP. PT LEFT VIA MEDICAL TRANSPORT THIS SHIFT. FAMILY NOTIFIED AND STATED THEY WOULD MEET THE PT AT [facility]. DIRECTIONS GIVEN. ALSO INFORMED FAMILY EARLIER IN THE SHIFT THAT THE PT HAD REPORTED HER PURSE NOT BEING WITH HER. INQUIRED WITH FAMILY TO SEE IF THEY PICKED IT UP NO OTHER PERSONAL BELONGINGS LEFT WITH THE PT AT THE TIME OF DISCHARGE. SECURITY CALLED, LOST AND FOUND CALLED [facility] TO SEE ABOUT THE PATIENT HAVING LEFT HER PURSE THERE PT DOES NOT REMEMBER HAVING IT WHEN SHE CAME TO THE SECOND FLOOR. SOCIAL WORK AND NURSING CHARGE AND RESIDENTIAL SUBCONTRACTOR NOTIFIED OF SITUATION [facility]. UNABLE TO PICTURE WOUND AT DISCHARGE DUE TO TRANSPORT PICKING PT UP EARLY.
== END 2019-10-01 14:00 | DRG 291 ==
LOC: ER 13:56 → 1 WEST ICU 14:07 → 6 SOUTH 09-29 19:10 → 2 SOUTH 09-30 03:21
PROVIDERS: ADMIT Family Medicine; ATTEND Family Medicine
PROC: 5A09457 Assistance with Respiratory Ventilation, 24-96 Consecutive Hours, Continuous Positive Airway Pressure (ICD-10-PCS; principal; 2019-09-27)
DX: I13.0 Hypertensive heart and chronic kidney disease with heart failure and stage 1 through stage 4 chronic kidney disease, or unspecified chronic kidney disease (principal); I50.43 Acute on chronic combined systolic (congestive) and diastolic (congestive) heart failure; J96.21 Acute and chronic respiratory failure with hypoxia; J96.22 Acute and chronic respiratory failure with hypercapnia; N17.9 Acute kidney failure, unspecified; E87.1 Hypo-osmolality and hyponatremia; I42.8 Other cardiomyopathies; E78.00 Pure hypercholesterolemia, unspecified; E78.5 Hyperlipidemia, unspecified; F17.210 Nicotine dependence, cigarettes, uncomplicated; F41.9 Anxiety disorder, unspecified; G62.9 Polyneuropathy, unspecified; I25.10 Atherosclerotic heart disease of native coronary artery without angina pectoris; I27.29 Other secondary pulmonary hypertension; I48.91 Unspecified atrial fibrillation; I73.9 Peripheral vascular disease, unspecified; J43.9 Emphysema, unspecified; K21.9 Gastro-esophageal reflux disease without esophagitis; N18.9 Chronic kidney disease, unspecified; Z79.01 Long term (current) use of anticoagulants; Z79.51 Long term (current) use of inhaled steroids; Z79.899 Other long term (current) drug therapy; Z82.49 Family history of ischemic heart disease and other diseases of the circulatory system; Z83.3 Family history of diabetes mellitus; Z86.718 Personal history of other venous thrombosis and embolism; Z86.73 Personal history of transient ischemic attack (TIA), and cerebral infarction without residual deficits; Z89.511 Acquired absence of right leg below knee; Z89.611 Acquired absence of right leg above knee; Z91.19 Patient's noncompliance with other medical treatment and regimen; Z91.81 History of falling; Z95.828 Presence of other vascular implants and grafts; Z99.81 Dependence on supplemental oxygen; R31.0 Gross hematuria; I27.81 Cor pulmonale (chronic)
CPT/HCPCS: 36415; 36600; 71045; 74176; 80048; 80053; 80202; 81001; 82550; 82805; 82962; 83605; 83615; 83690; 83735; 83880; 84443; 84484; 85007; 85025; 85610; 85730; 87040; 87804; 93005; 93926; 94640; 94660; 94760; 96365; 96375; J0696; J0780; J1940; J2060; J2270; J2543; J2920; J2930; J3370; J3490; J7050; J7512; J7613; J7620; J7626; J7644; 92610; 97110; 97530; 97535; 99291-25; G0378; J7030

== ENCOUNTER 2019-10-07 13:11 | Inpatient (IN) | payer OTHER, MEDICAID ==
[2019-10-07] VITALS (7 sets, daily range): BP systolic 97–160; BP diastolic 60–123
[~2019-10-07] VITALS: Ht 152.4 cm; Wt 65.3 kg
[~2019-10-07 13:11] MED LIST changes: +OMEP-229 PO; -OMEP20CA10 PO; +PRED20TA PO
--- NOTE | 2019-10-07 13:33 | PHYS DOC ---
Past Medical History Past Medical History: A-Fib, CHF, COPD, High Cholesterol, Heart Disease, Liver Disease, AL, Other Additional Past Medical Histor: sleep apnea, Emphysema Past Surgical History: Cervical Fusion, Pacemaker, Other Additional Past Surgical Histo: RT AKA Alcohol Use: None Drug Use: None Adult General Chief Complaint Chief Complaint: SHORTNESS OF BREATH HPI HPI 61-year-old female presenting the emergency department today with shortness of breath. Her shortness breath started 2-3 days ago. She comes from a chronic facility. She's had shortness of breath and not feeling well and also had intermittent confusion this morning. She was sent here by the facility for further evaluation. Location lungs. Duration intermittent. Review of systems negative for chest pain abdominal pain vomiting fevers chills. All other review of systems is negative unless otherwise noted in history of present illness. ED course: 61-year-old female presenting with shortness of breath with wheezing on examination consistent with COPD exacerbation. She initially had a low blood pressure of 70/40 which resolved with 500 mL of IV fluids. Chest x-ray shows pulmonary edema and her blood work is consistent with congestive heart failure. bipap started on the pt for hypoxia. Patient was given 2 nebulizer in the emergency department. IV abx for possible pna. Will admit to ICU. spoke with dr. morgan who agrees to admit patient. We will hold off on Lasix given the patient's initial significant hypotension that required fluids. Cardiology consultation. trop elevated likely type 2 nstemi. I spoke with Dr[address] Jacobson who was able to review the patient's 12-lead EKG. Review of Systems Review of Systems SEE ABOVE. Current Medications Current Medications Current Medications Medications (Trade) Dose Ordered Sig/Ralph Start Time Stop Time Status Last Admin Dose Admin Albuterol/ Ipratropium (Duoneb) 3 ml 1X ONCE 10/07/19 14:00 10/07/19 14:01 DC 10/07/19 13:32 3 ML Ceftriaxone Sodium (Rocephin) 1 gm 1X ONCE 10/07/19 13:45 10/07/19 13:46 DC 10/07/19 14:07 1 GM Methylprednisolone Sodium Succinate (SOLU-Medrol 125MG VIAL) 125 mg 1X ONCE 10/07/19 13:45 10/07/19 13:46 DC 10/07/19 14:04 125 MG Morphine Sulfate (Morphine Sulfate) 2 mg PRN Q2HR PRN 10/07/19 14:30 10/08/19 14:29 Ondansetron HCl (Zofran) 4 mg PRN Q8HRS PRN 10/07/19 14:30 10/08/19 14:29 Sodium Chloride 500 ml @ 500 mls/hr 1X ONCE 10/07/19 13:45 10/07/19 14:44 DC 10/07/19 14:28 500 MLS/HR Vancomycin HCl 250 ml @ 250 mls/hr 1X ONCE 10/07/19 13:45 10/07/19 14:44 UNV Allergies Allergies Allergies Coded Allergies Type Severity Reaction Last Updated Verified Penicillins Allergy Intermediate 10/07/19 Yes fentanyl Allergy Intermediate 10/07/19 Yes levofloxacin Allergy Intermediate 10/07/19 Yes Physical Exam Physical Exam SEE ABOVE Constitutional: Increased work of breathing. HENT: Normocephalic, atraumatic, bilateral external ears normal, oropharynx moist, no oral exudates, nose normal. [] Eyes: PERRLA, EOMI, conjunctiva normal, no discharge. [] Neck: Normal range of motion, no tenderness, supple, no stridor. [] Cardiovascular:Heart rate regular rhythm, no murmur [] Lungs & Thorax: wheezing bilaterally. Initially significant increased work of breathing which improved after each nebulizer in the emergency department. Abdomen: Bowel sounds normal, soft, no tenderness, no masses, no pulsatile masses. [] Skin: Warm, dry, no erythema, no rash. [] Back: No tenderness, no CVA tenderness. [] Extremities: No tenderness, no cyanosis, no clubbing, ROM intact, no edema. [] Neurologic: Alert and oriented X 3, normal motor function, normal sensory function, no focal deficits noted. [] Psychologic: Affect normal, judgement normal, mood normal. [] Current Patient Data Vital Signs Vital Signs Date Time Temp Pulse Resp B/P (MAP) Pulse Ox O2 Delivery O2 Flow Rate FiO2 10/07/19 14:29 113 24 118/97 (104) 96 BiPAP/CPAP 10/07/19 13:49 3.0 10/07/19 13:11 98.9 98.9 Lab Values Laboratory Tests Test 10/07/19 13:20 White Blood Count 14.1 x10^3/uL (4.0-11.0) H Red Blood Count 4.12 x10^6/uL (3.50-5.40) Hemoglobin 12.0 g/dL (12.0-15.5) Hematocrit 37.8 % (36.0-47.0) Mean Corpuscular Volume 92 fL (79-100) Mean Corpuscular Hemoglobin 29 pg (25-35) Mean Corpuscular Hemoglobin Concent 32 g/dL (31-37) Red Cell Distribution Width 22.5 % (11.5-14.5) H Platelet Count 156 x10^3/uL (140-400) Neutrophils (%) (Auto) 85 % (31-73) H Lymphocytes (%) (Auto) 9 % (24-48) L Monocytes (%) (Auto) 6 % (0-9) Eosinophils (%) (Auto) 1 % (0-3) Basophils (%) (Auto) 0 % (0-3) Neutrophils # (Auto) 11.9 x10^3/uL (1.8-7.7) H Lymphocytes # (Auto) 1.2 x10^3/uL (1.0-4.8) Monocytes # (Auto) 0.8 x10^3/uL (0.0-1.1) Eosinophils # (Auto) 0.1 x10^3/uL (0.0-0.7) Basophils # (Auto) 0.1 x10^3/uL (0.0-0.2) Platelet Estimate Pending Prothrombin Time 23.3 SEC (11.7-14.0) H Prothrombin Time INR 2.1 (0.8-1.1) H Sodium Level 138 mmol/L (136-145) Potassium Level 3.8 mmol/L (3.5-5.1) Chloride Level 97 mmol/L (98-107) L Carbon Dioxide Level 39 mmol/L (21-32) H Anion Gap 2 (6-14) L Blood Urea Nitrogen 23 mg/dL (7-20) H Creatinine 1.1 mg/dL (0.6-1.0) H Estimated GFR (Cockcroft-Gault) 49.4 Glucose Level 106 mg/dL (70-99) H Calcium Level 8.7 mg/dL (8.5-10.1) Magnesium Level 1.7 mg/dL (1.8-2.4) L Total Bilirubin 0.5 mg/dL (0.2-1.0) Direct Bilirubin 0.2 mg/dL (0.0-0.2) Aspartate Amino Transferase (AST) 53 U/L (15-37) H Alanine Aminotransferase (ALT) 80 U/L (14-59) H Alkaline Phosphatase 101 U/L (46-116) Troponin I Quantitative 0.132 ng/mL (0.000-0.055) JH-Ajb-V-Type Natriuretic Peptide 85741 pg/mL (0-124) H Total Protein 7.2 g/dL (6.4-8.2) Albumin 3.4 g/dL (3.4-5.0) Lipase 42 U/L (73-393) L Digoxin Level < 0.2 ng/mL (0.9-2.0) L Digoxin Last Dose Date Unk Digoxin Last Dose Time Unk Laboratory Tests 10/07/19 13:20 Laboratory Tests 10/07/19 13:20 EKG EKG EKG shows paced rhythm with PVCs. Radiology/Procedures Radiology/Procedures [] Course & Med Decision Making Course & Med Decision Making Pertinent Labs and Imaging studies reviewed. (See chart for details) [] Dragon Disclaimer Dragon Disclaimer This electronic medical record was generated, in whole or in part, using a voice recognition dictation system. Departure Departure Impression: Primary Impression: Hypoxia Additional Impressions: CHF exacerbation COPD exacerbation Non-STEMI (non-ST elevated myocardial infarction) Disposition: ADMITTED INPATIENT Admitting Physician: YESICA Condition: CRITICAL Referrals: NO PCP (PCP) Critical Care Time Critical care time spent was 45 minutes exclusive of procedures. Time was spent evaluating the patient, ordering the administration of medications, reevaluating the patient, discussing with the admitting provider and documenting. Problem Qualifiers DEVON TONEY MD Oct 07, 2019 13:33
[2019-10-07 13:45] LABS: BASO # 0.1 x10^3/uL (0.0-0.2); BASO % 0 % (0-3); EOS # 0.1 x10^3/uL (0.0-0.7); EOS % 1 % (0-3); HEMATOCRIT 37.8 % (36.0-47.0); LYMPH # 1.2 x10^3/uL (1.0-4.8); LYMPH % 9 % (24-48); MEAN CORPUSCULAR HEMOGLOBIN 29 pg (25-35); MEAN CORPUSCULAR HGB CONC 32 g/dL (31-37); MEAN CORPUSCULAR VOLUME 92 fL (79-100); MONO # 0.8 x10^3/uL (0.0-1.1); MONO % 6 % (0-9); NEUT # 11.9 x10^3/uL (1.8-7.7); NEUT % 85 % (31-73); PLATELET COUNT 156 x10^3/uL (140-400); RED BLOOD COUNT 4.12 x10^6/uL (3.50-5.40); RED CELL DISTRIBUTION WIDTH 22.5 % (11.5-14.5); WHITE BLOOD COUNT 14.1 x10^3/uL (4.0-11.0)
[2019-10-07] MEDS ORDERED: IV NORMAL SALINE 500ML BAG 500 ML IV ONE (13:45)
[2019-10-07] MEDS ORDERED: cefTRIAXone IV Push 1 GM VIAL. IVP ONE (13:45)
[2019-10-07] MEDS ORDERED: methylPREDNISolone SOD SUCC PF 125 MG/2 ML VIAL. IV ONE (13:45)
[2019-10-07] MEDS ORDERED: VANCOMYCIN 1GM IVPB FOR OMNI 250 ML IV ONE (13:45)
[2019-10-07 13:59] LABS: CALCIUM 8.7 mg/dL (8.5-10.1); CREATININE 1.1 mg/dL (0.6-1.0); GFR 49.4; POTASSIUM 3.8 mmol/L (3.5-5.1)
[2019-10-07 14:00] LABS: PROTHROMBIN TIME PATIENT 23.3 SEC (11.7-14.0)
[2019-10-07] MEDS ORDERED: IPRATRPIUM/ALBUTEROL 0.5/2.5MG 3 ML NEBU. NEB ONE (14:00)
[2019-10-07 14:02] LABS: ALBUMIN 3.4 g/dL (3.4-5.0); DIRECT BILIRUBIN 0.2 mg/dL (0.0-0.2); TOTAL BILIRUBIN 0.5 mg/dL (0.2-1.0); TOTAL PROTEIN 7.2 g/dL (6.4-8.2)
[2019-10-07 14:03] LABS: DIG < 0.2 ng/mL (0.9-2.0)
--- NOTE | 2019-10-07 14:08 | EKG ---
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
--- NOTE | 2019-10-07 14:25 | RAD ---
AP chest x-ray HISTORY: Shortness of breath. COMPARISON: Chest x-ray September 30, 2019. FINDINGS: Single lead cardiac pacemaker. Cardiomegaly stable. Aortic arch calcified plaque. Pulmonary vascular congestion and interstitial edema at the lung bases. No pleural effusions. No pulmonary consolidation. Improved aeration right lower lobe with decreased atelectasis. Bones unremarkable. IMPRESSION: Congestive heart failure with cardiomegaly, pulmonary opacities or congestion and interstitial edema. No pleural effusions. Electronically signed by: Hussein Dyer MD (10/07/2019 2:21 PM) [facility]
[2019-10-07] MEDS ORDERED: ONDANSETRON PF 4 MG/2 ML VIAL. IV PRN (14:30)
[2019-10-07] MEDS ORDERED: MORPHINE SULFATE 2 MG/ML VIAL. IV PRN (14:30)
[2019-10-07] MEDS ORDERED: VANCOMYCIN 1.75 GM in IV NORMAL SALINE 500ML BAG 500 ML IV ONE (15:00)
[2019-10-07] MEDS ORDERED: MAGNESIUM SULFATE 2GM 50 ML IV ONE (16:00)
[2019-10-07] MEDS ORDERED: IPRATRPIUM/ALBUTEROL 0.5/2.5MG 3 ML NEBU. NEB SCH (16:00)
--- NOTE | 2019-10-07 16:02 | PDOC2 ---
CARDIAC CONSULT DATE OF CONSULT Date of Consult DATE: 10/07/19 TIME: 15:49 REASON FOR CONSULT Reason for Consult: NSTEMI REFERRING PHYSICIAN Referring Physician: Andrea SOURCE Source: Chart review, Patient HISTORY OF PRESENT ILLNESS HISTORY OF PRESENT ILLNESS This is a 61 yo female admitted for complains of SOA. She has severe COPD with associated cardiomyopathy and cor pulmonale. Her SOA has been more in the last 2-3 days. She was discharged to SNU on 10/01 and was seen by cardiology during that stay and was optimized. She also had some intermittent confusion. Upon admission her BP was noted to be low and was needing continuous bipap which she did not have in SNU. No fever or chills and my conversation with her was limited due to the use of bipap but currently she is alert and obeys command and no in any pain and her SOA is better. Lasix was held in ED due to low SBP and IVF bolus was given. No chest pain or palpitations but she did vomit yesterday. PAST MEDICAL HISTORY Past Medical History Cardiovascular: PAFIB, CAD, HTN, Hyperlipidemia, Other (tachy nathan syndrome; chronic LBBB), PAD(followed by vascular surgery) Pulmonary: COPD (OP2 dependent), sevre PHTN, cor pulmonale CENTRAL NERVOUS SYSTEM: CVA (multiple) GI: GERD Heme/Onc: No pertinent hx Hepatobiliary: No pertinent hx Psych: Anxiety Musculoskeletal: Osteoarthritis, Other (RAKA, LLE cellulitis) Rheumatologic: No pertinent hx Infectious disease: Other (LLE cellulitis) Renal/: cystitis Endocrine: No pertinent hx Dermatology: Other (LLE cellulitis) Musculoskeletal: Muscle atrophy PAST SURGICAL HISTORY Past Surgical History: Pacemaker, Other (RAKA) FAMILY HISTORY Family History Coronary Artery Disease (mother and father) SOCIAL HISTORY Smoke: <1 pack per day ALCOHOL: none Drugs: None Lives: [facility] CURRENT MEDICATIONS CURRENT MEDICATIONS Current Medications Medications (Trade) Dose Ordered Sig/Ralph Route PRN Reason Start Time Stop Time Status Last Admin Dose Admin Albuterol/ Ipratropium (Duoneb) 3 ml 1X ONCE NEB 10/07/19 14:00 10/07/19 14:01 DC 10/07/19 13:32 Sodium Chloride 500 ml @ 500 mls/hr 1X ONCE IV 10/07/19 13:45 10/07/19 14:44 DC 10/07/19 14:28 Methylprednisolone Sodium Succinate (SOLU-Medrol 125MG VIAL) 125 mg 1X ONCE IV 10/07/19 13:45 10/07/19 13:46 DC 10/07/19 14:04 Ceftriaxone Sodium (Rocephin) 1 gm 1X ONCE IVP 10/07/19 13:45 10/07/19 13:46 DC 10/07/19 14:07 Vancomycin HCl 1.75 gm/Sodium Chloride 500 ml @ 250 mls/hr 1X ONCE IV 10/07/19 15:00 10/07/19 16:59 10/07/19 14:16 ALLERGIES ALLERGIES: Coded Allergies: Penicillins (Verified Allergy, Intermediate, 10/07/19) fentanyl (Verified Allergy, Intermediate, 10/07/19) levofloxacin (Verified Allergy, Intermediate, 10/07/19) ROS Review of System limited with bipap PHYSICAL EXAM General: Alert, Cooperative, mild distress HEENT: Atraumatic, Mucous membr. moist/pink Lungs: Other (diminished with wheeze) Heart: Regular rate (paced with biageminal PVCs), Other (3/6 systolic murmur to LLS border) Abdomen: Soft Extremities: Other (RBKA, 2+LLE pitting edema) Skin: Other (generalized ecchymoses and telangectasia) Neuro: Sensation intact, Other (unable to verbalized due to bipap but obeys commands) Psych/Mental Status: Mental status NL MUSCULOSKELETAL: Osteoarthritic changes both hands VITALS/I&O VITALS/I&O: Vital Signs Date Time Temp Pulse Resp B/P (MAP) Pulse Ox O2 Delivery O2 Flow Rate FiO2 10/07/19 14:49 76 117/88 (98) 97 BiPAP/CPAP 10/07/19 14:29 24 10/07/19 13:49 3.0 10/07/19 13:11 98.9 98.9 LABS Lab: Laboratory Tests Test 10/07/19 13:20 White Blood Count 14.1 x10^3/uL (4.0-11.0) H Red Blood Count 4.12 x10^6/uL (3.50-5.40) Hemoglobin 12.0 g/dL (12.0-15.5) Hematocrit 37.8 % (36.0-47.0) Mean Corpuscular Volume 92 fL (79-100) Mean Corpuscular Hemoglobin 29 pg (25-35) Mean Corpuscular Hemoglobin Concent 32 g/dL (31-37) Red Cell Distribution Width 22.5 % (11.5-14.5) H Platelet Count 156 x10^3/uL (140-400) Neutrophils (%) (Auto) 85 % (31-73) H Lymphocytes (%) (Auto) 9 % (24-48) L Monocytes (%) (Auto) 6 % (0-9) Eosinophils (%) (Auto) 1 % (0-3) Basophils (%) (Auto) 0 % (0-3) Neutrophils # (Auto) 11.9 x10^3/uL (1.8-7.7) H Lymphocytes # (Auto) 1.2 x10^3/uL (1.0-4.8) Monocytes # (Auto) 0.8 x10^3/uL (0.0-1.1) Eosinophils # (Auto) 0.1 x10^3/uL (0.0-0.7) Basophils # (Auto) 0.1 x10^3/uL (0.0-0.2) Platelet Estimate Pending Prothrombin Time 23.3 SEC (11.7-14.0) H Prothrombin Time INR 2.1 (0.8-1.1) H Sodium Level 138 mmol/L (136-145) Potassium Level 3.8 mmol/L (3.5-5.1) Chloride Level 97 mmol/L (98-107) L Carbon Dioxide Level 39 mmol/L (21-32) H Anion Gap 2 (6-14) L Blood Urea Nitrogen 23 mg/dL (7-20) H Creatinine 1.1 mg/dL (0.6-1.0) H Estimated GFR (Cockcroft-Gault) 49.4 Glucose Level 106 mg/dL (70-99) H Calcium Level 8.7 mg/dL (8.5-10.1) Magnesium Level 1.7 mg/dL (1.8-2.4) L Total Bilirubin 0.5 mg/dL (0.2-1.0) Direct Bilirubin 0.2 mg/dL (0.0-0.2) Aspartate Amino Transferase (AST) 53 U/L (15-37) H Alanine Aminotransferase (ALT) 80 U/L (14-59) H Alkaline Phosphatase 101 U/L (46-116) Troponin I Quantitative 0.132 ng/mL (0.000-0.055) XR-Btk-J-Type Natriuretic Peptide 70601 pg/mL (0-124) H Total Protein 7.2 g/dL (6.4-8.2) Albumin 3.4 g/dL (3.4-5.0) Lipase 42 U/L (73-393) L Digoxin Level < 0.2 ng/mL (0.9-2.0) L Digoxin Last Dose Date Unk Digoxin Last Dose Time Unk Laboratory Tests 10/07/19 13:20 Laboratory Tests 10/07/19 13:20 ECHOCARDIOGRAM ECHOCARDIOGRAM <Conclusion> The Left Ventricle is borderline dilated. The ejection fraction is moderately impaired. The Ejection Fraction is estimated at 35-40%. There is global hypokinesis of the left ventricle. Paradoxic septum consistent right ventricle pressure overload. The right ventricle is moderately dilated. Device leads noted in RV/RA. There is borderline valvular aortic stenosis. Doppler and Color Flow revealed no significant aortic regurgitation. Doppler and Color Flow revealed trace mitral valve regurgitation. Doppler and Color Flow revealed severe tricuspid regurgitation. The PA pressure was estimated at 65 mmHg. DATE: 07/21/19 1156 STRESS TEST STRESS TEST MPI 04/29 at without definite ischemia as noted above. Cath 2017 did not show any evidence of CAD. ASSESSMENT/PLAN ASSESSMENT/PLAN 1. Acute on chronic respiratory failure with acute CHF/cor pulmonale/COPD 2. Mild troponin elevation: demand mediated, type 2 3. NICM; LVEF 35% 4. Atrial fibrillation s/p AV audi ablation and permanent pacemaker implantation. Paroxysmal by hx. 5. HTN: controlled 6. HLP 7. Hx of DVT s/p IVC filter: on xarelto 8. Suspect CKD3 9. Acute on chronic cor pulmonale with severe TR and pulmonary HTN 10. Coagulopathy: INR 2.1 11. AECOPD: possibly severe 12. 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 Recommendations 1. Continue with xarelto and metoprolol. Repeat EKG unable to dscern well due to artifacts. 2. Consider upgrade to SERVICE AIDE-D as an outpatient, follows with cardiology 3. Lasix IV x1, discussed with RN and will noted BP trend and will continue with lasix. Secondary prevention measures. Replace Mg 4. Continue toprol if wheeze is better. Hold other BP meds for now. 5. Consider discussion of goals of care. Remains full coed 6. Ultimately she will likely require outpt bipap 7. Will interrogate her device and will note AFIB burden and any contributing arrhythmias that may have induced her exacerbation. ENOCH ACHARYA APRN Oct 07, 2019 16:02
--- NOTE | 2019-10-07 16:11 | EKG ---
[facility] [address] [place] [address] Test Date: 2019-10-07 Test Time: 16:08:52 Pat Name: JAIR MARCUS Department: Room: 108 1 Gender: F Manpower Development Manager: : 1950 Requested By: ENOCH ACHARYA Order Number: [id number] Reading MD: Measurements Intervals [place] Rate: 76 P: MT: QRS: 160 QRSD: 180 T: 250 QT: 458 QTc: 520 Interpretive Statements IRREGULAR RHYTHM, NO P-WAVE FOUND VENTRICULAR PREMATURE COMPLEX(ES), BIGEMINY ABNORMAL RIGHT AXIS DEVIATION LOW LIMB LEAD VOLTAGE NON SPECIFIC INTRAVENTRICULAR BLOCK QRS(T) CONTOUR ABNORMALITY CONSISTENT WITH ANTEROSEPTAL INFARCT AGE UNDETERMINED CONSIDER INFERIOR INFARCT ABNORMAL ECG RI6.02 Compared to ECG 10/07/2019 13:40:42 Right-axis deviation now present Myocardial infarct finding now present Ventricular-paced complex(es) or rhythm no longer present
[2019-10-07] MEDS ORDERED: FUROSEMIDE 40 MG/4 ML VIAL. IVP ONE (16:30)
[2019-10-07 16:40] LABS: BASE EXCESS ABG 7 mmol/L (-3-3); HCO3 ABG 33 mmol/L (21-28); PCO2 ABG 56 mmHg (35-46); PO2 ABG 109 mmHg (65-108); SAT O2 ABG 98 % (92-99)
[2019-10-07 16:41] LABS: FIO2 ABG 40
[2019-10-07 17:03] LABS: ANISOCYTOSIS MOD; OVALOCYTES OCC; PLT ESTIMATE ADEQUATE (ADEQUATE)
--- NOTE | 2019-10-07 18:54 | HP ---
ADMIT DATE: 10/07/2019 CHIEF COMPLAINT: Shortness of breath. HISTORY OF PRESENT ILLNESS: The patient is a pleasant 69-year-old female who presented from a long-term care facility. She has been developing shortness of breath for several days. She has just not been feeling herself. She had intermittent confusion. She was sent in by ambulance for further evaluation. She has a history of COPD, heart failure, AFib, and multiple comorbidities. In fact, she has a right wzjay-cgk-lipx amputation as well. When she got to the ER, her initial pressure was 70/40. We had to give her a bolus of saline. Her pressure is up some now, but she appears to be in the fulminant heart failure as well and in fact has an elevated troponin. We are concerned she could be having an acute [place]. I discussed the case with the ER physician. We have decided to go ahead and admit her to the ICU with consultation to Pulmonary and Cardiology. She is currently being examined in the ICU where she is on BiPAP. I have discussed the case with the ICU nurse as well. PAST MEDICAL HISTORY: AFib, CHF, COPD, coronary artery disease, liver disease, myocardial infarction, obstructive sleep apnea, anxiety, depression, asthma, chronic anticoagulation, hyperlipidemia, arthritis, chronic pain, peripheral vascular disease, and neuropathy. PAST SURGICAL HISTORY: Cervical fusion, pacemaker, right huchp-nsg-tdro amputation. ALLERGIES: PENICILLIN, FENTANYL, AND LEVAQUIN. FAMILY HISTORY: Coronary artery disease. SOCIAL HISTORY: She does not drink, smoke, or take drugs. She lives at a facility. She used to work at a [employer]. MEDICATIONS: Reviewed. She is on 15 home medications including Spiriva, ProAir, Xarelto, pravastatin, Imdur, metoprolol, spironolactone, hydrocodone, gabapentin, nortriptyline, alprazolam, Lasix, Symbicort, omeprazole, and prednisone. REVIEW OF SYSTEMS: Unable to obtain as the patient is on BiPAP, but she clearly is complaining of shortness of breath. PHYSICAL EXAMINATION: VITALS: Temperature 98.6, pulse 130, respirations 30, blood pressure up to 91/60. GENERAL: She is in the ICU on BiPAP, trying to talk, but I really cannot understand, she is a little bit confused. HEENT: Normocephalic and atraumatic. External auditory canals are patent EYES: Extraocular muscles are intact, pupils are equally round and reactive to light and accommodation MUSCULOSKELETAL: Well developed, well nourished, good range of motion ENDOCRINE: No thyromegaly was palpated LYMPHATICS: No cervical chain or axillary nodes were noted HEMATOPOIETIC: No bruising NECK: Supple, no JVD, no thyromegaly was noted. LUNGS: Bibasilar crackles. HEART: Distant S1 and S2 with a soft S3. ABDOMEN: Soft, decreased bowel sounds, distended, nontender. EXTREMITIES: She has a left qnxmy-tqf-jnva amputation. The right lower extremity does have some edema. NEUROLOGIC: Normal speech, normal tone. A and O x3, moves all extremities, no obvious focal deficits. PSYCHIATRIC: She is depressed and anxious. SKIN: She has got some ecchymosis on her hands and upper leg. VASCULAR: Good capillary refill, neurovascular bundle appears to be intact. IMAGING: Chest x-ray shows vascular congestion consistent with heart failure. LABORATORY DATA: White count 14. Electrolytes: Sodium 138, potassium 3.8, chloride 97, bicarb 29, BUN 23, creatinine 1.1, glucose 106. AST and ALT are high at 53 and 80 respectively. BNP 11,835. Troponin 0.132. Lipase 42. ASSESSMENT AND PLAN: Assrc-sg-hjvxnqt systolic and diastolic heart failure and elevated troponin, leukocytosis, hypotension, transaminitis. The patient is being admitted to the ICU. We have given her IV Lasix. Empiric IV antibiotics. I am going to consult Pulmonary, Infectious Disease, and Cardiology. Frequent labs, serial enzymes, serial EKGs, and cardiac monitoring. Suspect she will need an echocardiogram, but we will await Cardiology's input. I discussed the case with the Respiratory Therapy. Her pH is now down to 7.4. We are going to go ahead and try to wean her off the BiPAP. DVT prophylaxis. Full code. Prognosis is extremely guarded at best. TOTAL TIME: 32 minutes. RICARDO MARTINEZ DO DR: MAURI/jaziel JOB#: [id number] / [id number]
[2019-10-07] MEDS: IPRATRPIUM/ALBUTEROL 0.5/2.5MG 3 ML NEBU. NEB SCH (20:00)
[2019-10-07] MEDS: BUDESONIDE 0.5 MG/2 ML NEBU. NEB SCH (20:00)
--- NOTE | 2019-10-07 20:35 | NUR ---
Upon assessment of pt, tremors were noted. This RN asked pt about pt tremors and if the pt took any medications for them at home. Pt said that they did not. This RN paged provider at [phone] to inquire about tremors. Provider paged back [phone]. Provider updated on patient condition, vital signs and tremors. Provider advised this RN to re- evaluate in the morning to deal with tremors. This RN also advised periodic spikes of pt blood pressure. Provider ordered labetalol 20mg IV Q6H PRN for a systolic pressure of greater than 160. Will continue to assess and monitor.
[2019-10-07] MEDS: GABAPENTIN 300 MG CAPSULE. PO SCH (20:53)
[2019-10-07] MEDS: NORTRIPTYLINE 25 MG CAPSULE PO SCH (20:53)
[2019-10-07] MEDS: ATORVASTATIN CALCIUM 10 MG TABLET. PO SCH (20:53)
[2019-10-07] MEDS: RIVAROXABAN 10 MG TABLET. PO SCH (20:53)
[2019-10-07] MEDS: HYDROcodone/APAP 10/325 1 TAB TABLET PO PRN (20:58)
[2019-10-07] MEDS: ALPRAZolam 0.25 MG TABLET PO PRN (20:59)
[2019-10-07] MEDS ORDERED: [UNRECOGNIZED DRUG - OTHER] INH SCH (21:00)
[2019-10-07] MEDS ORDERED: BUDESONIDE INH SCH (21:00)
[2019-10-07] MEDS ORDERED: FORMOTEROL FUMARATE INH SCH (21:00)
[2019-10-08] VITALS (18 sets, daily range): BP systolic 90–153; BP diastolic 51–112
[2019-10-08] MEDS ORDERED: LABETALOL 20 MG/4 ML DISP.SYRIN. IVP PRN (04:00)
[2019-10-08 06:28] LABS: CALCIUM 8.5 mg/dL (8.5-10.1); CREATININE 0.9 mg/dL (0.6-1.0); GFR 62.3; MAGNESIUM 2.3 mg/dL (1.8-2.4); POTASSIUM 3.9 mmol/L (3.5-5.1)
[2019-10-08] MEDS: IPRATRPIUM/ALBUTEROL 0.5/2.5MG 3 ML NEBU. NEB SCH ×4 (07:38→20:00)
[2019-10-08] MEDS: BUDESONIDE 0.5 MG/2 ML NEBU. NEB SCH ×2 (07:38→20:00)
[2019-10-08] MEDS: FUROSEMIDE 40 MG/4 ML VIAL. IVP SCH (08:39)
[2019-10-08] MEDS: SPIRONOLACTONE 25 MG TABLET PO SCH (08:39)
[2019-10-08] MEDS: ISOSORBIDE MONONITRATE ER 30 MG TAB.ER.24H PO SCH (08:40)
[2019-10-08] MEDS: METOPROLOL SUCC 24HR ER 25 MG TAB.ER.24H. PO SCH (08:40)
[2019-10-08] MEDS: GABAPENTIN 300 MG CAPSULE. PO SCH ×3 (08:40→20:15)
[2019-10-08] MEDS: PANTOPRAZOLE 40 MG TABLET.DR. PO SCH (08:40)
--- NOTE | 2019-10-08 08:40 | PDOC ---
CARDIOLOGY PROGRESS NOTE SUBJECTIVE: Reports that breathing is improved. No acute events overnight. Denies any chest pain. OBJECTIVE: Vital Signs/I&O: Vital Signs Date Time Temp Pulse Resp B/P (MAP) Pulse Ox O2 Delivery O2 Flow Rate FiO2 10/08/19 07:39 97 Nasal Cannula 2.0 10/08/19 06:00 94 128/71 (90) 10/08/19 04:00 98.7 98.7 10/07/19 22:00 22 I & O 10/07/19 10/07/19 10/08/19 15:00 23:00 07:00 Intake Total 400 ml 240 ml 0 ml Output Total 500 ml 600 ml Balance -100 ml -360 ml 0 ml Objective: a/o x 3. RLE amputated LLE with severe discoloration and cool to touch Soft abd bilateral wheezing irregular heart tones. CURRENT MEDICATIONS: Spironolactone, imdur, lasix, metoprolol, atorvastatin DIAGNOSTIC TESTING: Trop peak to 0.116 BNP elevated to > 11K ASSESSMENT: 1. Acute on chronic respiratory failure with acute CHF/cor pulmonale/COPD 2. Mild troponin elevation: demand mediated, type 2 3. NICM; LVEF 35% 4. Atrial fibrillation s/p AV audi ablation and permanent pacemaker implantation. Paroxysmal by hx. 5. HTN: controlled 6. HLP 7. Hx of DVT s/p IVC filter: on xarelto 8. Suspect CKD3 9. Acute on chronic cor pulmonale with severe TR and pulmonary HTN 10. Coagulopathy: INR 2.1 11. AECOPD: possibly severe 12. 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 PLAN: 1. Continue IV diuresis. Likely needs one more day in the hospital at least. 2. PAD is stable per patient, she was seen by Dr. Macias for her LLE color changes. 3. OSH records reviewed. No further CV recs at this time. Please see consult note from yesterday. ILIANA CAO MD Oct 08, 2019 08:40
[2019-10-08] MEDS ORDERED: NON FORMULARY ITEM (Tiotropium Bromide (Spiriva) 18 MCG) INH SCH (09:00)
--- NOTE | 2019-10-08 09:03 | PDOC ---
PROGRESS NOTES Chief Complaint Chief Complaint A/P: Acute on chronic respiratory failure - combined hypoxic and hypercapnic with acute CHF/cor pulmonale/COPD Left leg pain - history of PVD s/p arterial dopplers. Had h/o RLE amputation Mild troponin elevation - likely demand mediated, type 2 from hypoxemia Chronic systolic CHF - with acute exacerbation - LVEF 35% (non-ischemic) Atrial fibrillation s/p AV audi ablation and SSS with PPM in situ HTN - controlled HLD - on statin Hx of DVT s/p IVC filter and on xarelto RAYNE - likely has underlying CKD. Could be cardiorenal, diuresis indicated Acute on chronic cor pulmonale with severe TR and pulmonary HTN Acute exacerbation of COPD - pulmonology to see. PRN BIPAP Tremors - possibly parkinsonism or medication History of Present Illness History of Present Illness Ms More is a 69yo F w/ PMHx DVT s/p IVC filter, h/o RLE amputation, AFib, chronic systolic CHF EF 35-40%, COPD on 3L NCO2, coronary artery disease, liver disease, myocardial infarction, obstructive sleep apnea, anxiety, depression, asthma, chronic anticoagulation, hyperlipidemia, arthritis, chronic pain, peripheral vascular disease, and neuropathy [facility] sp[facility], was admitted to ICU on BIPAP. She had no chest pain. She did have a cough, which is nonproductive. No fever, no chills. She said she had an episode of vomiting, but no diarrhea. Had a systolic blood pressure in the 70s in the ER. She did receive one dose of Lasix after blood pressure was stabilized while on BIPAP. CXR showed prominent interstitial markings. Given empiric Antibiotics and IV steroids. She is feeling somewhat improved after a few hours of BIPAP. She is c/o LLE pain, notes she has been told despite her cold blue foot she has good bloodflow. No CP, less SOB, no GI or complaints Vitals Vitals Vital Signs Date Time Temp Pulse Resp B/P (MAP) Pulse Ox O2 Delivery O2 Flow Rate FiO2 10/08/19 08:40 75 10/08/19 08:40 113/82 10/08/19 07:39 97 Nasal Cannula 2.0 10/08/19 04:00 98.7 98.7 10/07/19 22:00 22 Physical Exam General: Alert, Cooperative, mild distress Heart: Regular rate (paced with biageminal PVCs), Other (3/6 systolic murmur to LLS border) Lungs: Wheezing, Crackles Abdomen: Soft Extremities: Other (RBKA, 2+LLE pitting edema) Skin: Other (generalized ecchymoses and telangectasia) Labs LABS Laboratory Tests Test 10/07/19 13:20 10/07/19 16:30 10/07/19 17:15 10/07/19 20:30 White Blood Count 14.1 x10^3/uL (4.0-11.0) Red Blood Count 4.12 x10^6/uL (3.50-5.40) Hemoglobin 12.0 g/dL (12.0-15.5) Hematocrit 37.8 % (36.0-47.0) Mean Corpuscular Volume 92 fL (79-100) Mean Corpuscular Hemoglobin 29 pg (25-35) Mean Corpuscular Hemoglobin Concent 32 g/dL (31-37) Red Cell Distribution Width 22.5 % (11.5-14.5) Platelet Count 156 x10^3/uL (140-400) Neutrophils (%) (Auto) 85 % (31-73) Lymphocytes (%) (Auto) 9 % (24-48) Monocytes (%) (Auto) 6 % (0-9) Eosinophils (%) (Auto) 1 % (0-3) Basophils (%) (Auto) 0 % (0-3) Neutrophils # (Auto) 11.9 x10^3/uL (1.8-7.7) Lymphocytes # (Auto) 1.2 x10^3/uL (1.0-4.8) Monocytes # (Auto) 0.8 x10^3/uL (0.0-1.1) Eosinophils # (Auto) 0.1 x10^3/uL (0.0-0.7) Basophils # (Auto) 0.1 x10^3/uL (0.0-0.2) Platelet Estimate Adequate (ADEQUATE) Anisocytosis Mod Ovalocytes Occ Crenated Cell Present Prothrombin Time 23.3 SEC (11.7-14.0) Prothromb Time International Ratio 2.1 (0.8-1.1) Sodium Level 138 mmol/L (136-145) Potassium Level 3.8 mmol/L (3.5-5.1) Chloride Level 97 mmol/L (98-107) Carbon Dioxide Level 39 mmol/L (21-32) Anion Gap 2 (6-14) Blood Urea Nitrogen 23 mg/dL (7-20) Creatinine 1.1 mg/dL (0.6-1.0) Estimated GFR (Cockcroft-Gault) 49.4 Glucose Level 106 mg/dL (70-99) Calcium Level 8.7 mg/dL (8.5-10.1) Magnesium Level 1.7 mg/dL (1.8-2.4) Total Bilirubin 0.5 mg/dL (0.2-1.0) Direct Bilirubin 0.2 mg/dL (0.0-0.2) Aspartate Amino Transf (AST/SGOT) 53 U/L (15-37) Alanine Aminotransferase (ALT/SGPT) 80 U/L (14-59) Alkaline Phosphatase 101 U/L (46-116) Troponin I Quantitative 0.132 ng/mL (0.000-0.055) 0.116 ng/mL (0.000-0.055) 0.093 ng/mL (0.000-0.055) PH-Rpi-P-Type Natriuretic Peptide 43812 pg/mL (0-124) Total Protein 7.2 g/dL (6.4-8.2) Albumin 3.4 g/dL (3.4-5.0) Lipase 42 U/L (73-393) Digoxin Level < 0.2 ng/mL (0.9-2.0) Digoxin Last Dose Date Unk Digoxin Last Dose Time Unk O2 Saturation 98 % (92-99) Arterial Blood pH 7.40 (7.35-7.45) Arterial Blood pCO2 at Patient Temp 56 mmHg (35-46) Arterial Blood pO2 at Patient Temp 109 mmHg (65-108) Arterial Blood HCO3 33 mmol/L (21-28) Arterial Blood Base Excess 7 mmol/L (-3-3) FiO2 40 Test 10/08/19 05:55 Sodium Level 134 mmol/L (136-145) Potassium Level 3.9 mmol/L (3.5-5.1) Chloride Level 95 mmol/L (98-107) Carbon Dioxide Level 36 mmol/L (21-32) Anion Gap 3 (6-14) Blood Urea Nitrogen 24 mg/dL (7-20) Creatinine 0.9 mg/dL (0.6-1.0) Estimated GFR (Cockcroft-Gault) 62.3 Glucose Level 190 mg/dL (70-99) Calcium Level 8.5 mg/dL (8.5-10.1) Magnesium Level 2.3 mg/dL (1.8-2.4) Assessment and Plan Assessmemt and Plan Problems Medical Problems: (1) COPD exacerbation Status: Acute (2) Non-STEMI (non-ST elevated myocardial infarction) Status: Acute Comment Review of Relevant I have reviewed the following items sourav (where applicable) has been applied. Labs Laboratory Tests Test 10/07/19 13:20 10/07/19 16:30 10/07/19 17:15 10/07/19 20:30 White Blood Count 14.1 x10^3/uL (4.0-11.0) Red Blood Count 4.12 x10^6/uL (3.50-5.40) Hemoglobin 12.0 g/dL (12.0-15.5) Hematocrit 37.8 % (36.0-47.0) Mean Corpuscular Volume 92 fL (79-100) Mean Corpuscular Hemoglobin 29 pg (25-35) Mean Corpuscular Hemoglobin Concent 32 g/dL (31-37) Red Cell Distribution Width 22.5 % (11.5-14.5) Platelet Count 156 x10^3/uL (140-400) Neutrophils (%) (Auto) 85 % (31-73) Lymphocytes (%) (Auto) 9 % (24-48) Monocytes (%) (Auto) 6 % (0-9) Eosinophils (%) (Auto) 1 % (0-3) Basophils (%) (Auto) 0 % (0-3) Neutrophils # (Auto) 11.9 x10^3/uL (1.8-7.7) Lymphocytes # (Auto) 1.2 x10^3/uL (1.0-4.8) Monocytes # (Auto) 0.8 x10^3/uL (0.0-1.1) Eosinophils # (Auto) 0.1 x10^3/uL (0.0-0.7) Basophils # (Auto) 0.1 x10^3/uL (0.0-0.2) Platelet Estimate Adequate (ADEQUATE) Anisocytosis Mod Ovalocytes Occ Crenated Cell Present Prothrombin Time 23.3 SEC (11.7-14.0) Prothromb Time International Ratio 2.1 (0.8-1.1) Sodium Level 138 mmol/L (136-145) Potassium Level 3.8 mmol/L (3.5-5.1) Chloride Level 97 mmol/L (98-107) Carbon Dioxide Level 39 mmol/L (21-32) Anion Gap 2 (6-14) Blood Urea Nitrogen 23 mg/dL (7-20) Creatinine 1.1 mg/dL (0.6-1.0) Estimated GFR (Cockcroft-Gault) 49.4 Glucose Level 106 mg/dL (70-99) Calcium Level 8.7 mg/dL (8.5-10.1) Magnesium Level 1.7 mg/dL (1.8-2.4) Total Bilirubin 0.5 mg/dL (0.2-1.0) Direct Bilirubin 0.2 mg/dL (0.0-0.2) Aspartate Amino Transf (AST/SGOT) 53 U/L (15-37) Alanine Aminotransferase (ALT/SGPT) 80 U/L (14-59) Alkaline Phosphatase 101 U/L (46-116) Troponin I Quantitative 0.132 ng/mL (0.000-0.055) 0.116 ng/mL (0.000-0.055) 0.093 ng/mL (0.000-0.055) MY-Pgq-L-Type Natriuretic Peptide 94177 pg/mL (0-124) Total Protein 7.2 g/dL (6.4-8.2) Albumin 3.4 g/dL (3.4-5.0) Lipase 42 U/L (73-393) Digoxin Level < 0.2 ng/mL (0.9-2.0) Digoxin Last Dose Date Unk Digoxin Last Dose Time Unk O2 Saturation 98 % (92-99) Arterial Blood pH 7.40 (7.35-7.45) Arterial Blood pCO2 at Patient Temp 56 mmHg (35-46) Arterial Blood pO2 at Patient Temp 109 mmHg (65-108) Arterial Blood HCO3 33 mmol/L (21-28) Arterial Blood Base Excess 7 mmol/L (-3-3) FiO2 40 Test 10/08/19 05:55 Sodium Level 134 mmol/L (136-145) Potassium Level 3.9 mmol/L (3.5-5.1) Chloride Level 95 mmol/L (98-107) Carbon Dioxide Level 36 mmol/L (21-32) Anion Gap 3 (6-14) Blood Urea Nitrogen 24 mg/dL (7-20) Creatinine 0.9 mg/dL (0.6-1.0) Estimated GFR (Cockcroft-Gault) 62.3 Glucose Level 190 mg/dL (70-99) Calcium Level 8.5 mg/dL (8.5-10.1) Magnesium Level 2.3 mg/dL (1.8-2.4) Laboratory Tests Test 10/07/19 13:20 10/07/19 16:30 10/07/19 17:15 10/07/19 20:30 White Blood Count 14.1 x10^3/uL (4.0-11.0) Red Blood Count 4.12 x10^6/uL (3.50-5.40) Hemoglobin 12.0 g/dL (12.0-15.5) Hematocrit 37.8 % (36.0-47.0) Mean Corpuscular Volume 92 fL (79-100) Mean Corpuscular Hemoglobin 29 pg (25-35) Mean Corpuscular Hemoglobin Concent 32 g/dL (31-37) Red Cell Distribution Width 22.5 % (11.5-14.5) Platelet Count 156 x10^3/uL (140-400) Neutrophils (%) (Auto) 85 % (31-73) Lymphocytes (%) (Auto) 9 % (24-48) Monocytes (%) (Auto) 6 % (0-9) Eosinophils (%) (Auto) 1 % (0-3) Basophils (%) (Auto) 0 % (0-3) Neutrophils # (Auto) 11.9 x10^3/uL (1.8-7.7) Lymphocytes # (Auto) 1.2 x10^3/uL (1.0-4.8) Monocytes # (Auto) 0.8 x10^3/uL (0.0-1.1) Eosinophils # (Auto) 0.1 x10^3/uL (0.0-0.7) Basophils # (Auto) 0.1 x10^3/uL (0.0-0.2) Platelet Estimate Adequate (ADEQUATE) Anisocytosis Mod Ovalocytes Occ Crenated Cell Present Prothrombin Time 23.3 SEC (11.7-14.0) Prothromb Time International Ratio 2.1 (0.8-1.1) Sodium Level 138 mmol/L (136-145) Potassium Level 3.8 mmol/L (3.5-5.1) Chloride Level 97 mmol/L (98-107) Carbon Dioxide Level 39 mmol/L (21-32) Anion Gap 2 (6-14) Blood Urea Nitrogen 23 mg/dL (7-20) Creatinine 1.1 mg/dL (0.6-1.0) Estimated GFR (Cockcroft-Gault) 49.4 Glucose Level 106 mg/dL (70-99) Calcium Level 8.7 mg/dL (8.5-10.1) Magnesium Level 1.7 mg/dL (1.8-2.4) Total Bilirubin 0.5 mg/dL (0.2-1.0) Direct Bilirubin 0.2 mg/dL (0.0-0.2) Aspartate Amino Transf (AST/SGOT) 53 U/L (15-37) Alanine Aminotransferase (ALT/SGPT) 80 U/L (14-59) Alkaline Phosphatase 101 U/L (46-116) Troponin I Quantitative 0.132 ng/mL (0.000-0.055) 0.116 ng/mL (0.000-0.055) 0.093 ng/mL (0.000-0.055) JE-Kuj-H-Type Natriuretic Peptide 85747 pg/mL (0-124) Total Protein 7.2 g/dL (6.4-8.2) Albumin 3.4 g/dL (3.4-5.0) Lipase 42 U/L (73-393) Digoxin Level < 0.2 ng/mL (0.9-2.0) Digoxin Last Dose Date Unk Digoxin Last Dose Time Unk O2 Saturation 98 % (92-99) Arterial Blood pH 7.40 (7.35-7.45) Arterial Blood pCO2 at Patient Temp 56 mmHg (35-46) Arterial Blood pO2 at Patient Temp 109 mmHg (65-108) Arterial Blood HCO3 33 mmol/L (21-28) Arterial Blood Base Excess 7 mmol/L (-3-3) FiO2 40 Test 10/08/19 05:55 Sodium Level 134 mmol/L (136-145) Potassium Level 3.9 mmol/L (3.5-5.1) Chloride Level 95 mmol/L (98-107) Carbon Dioxide Level 36 mmol/L (21-32) Anion Gap 3 (6-14) Blood Urea Nitrogen 24 mg/dL (7-20) Creatinine 0.9 mg/dL (0.6-1.0) Estimated GFR (Cockcroft-Gault) 62.3 Glucose Level 190 mg/dL (70-99) Calcium Level 8.5 mg/dL (8.5-10.1) Magnesium Level 2.3 mg/dL (1.8-2.4) Medications Current Medications Albuterol/ Ipratropium (Duoneb) 3 ml 1X ONCE NEB Last administered on 10/07/19at 13:32; Start 10/07/19 at 14:00; Stop 10/07/19 at 14:01; Status DC Sodium Chloride 500 ml @ 500 mls/hr 1X ONCE IV Last administered on 10/07/19at 14:28; Start 10/07/19 at 13:45; Stop 10/07/19 at 14:44; Status DC Methylprednisolone Sodium Succinate (SOLU-Medrol 125MG VIAL) 125 mg 1X ONCE IV Last administered on 10/07/19at 14:04; Start 10/07/19 at 13:45; Stop 10/07/19 at 13:46; Status DC Vancomycin HCl 250 ml @ 250 mls/hr 1X ONCE IV ; Start 10/07/19 at 13:45; Stop 10/07/19 at 14:44; Status UNV Ceftriaxone Sodium (Rocephin) 1 gm 1X ONCE IVP Last administered on 10/07/19at 14:07; Start 10/07/19 at 13:45; Stop 10/07/19 at 13:46; Status DC Vancomycin HCl 1.75 gm/Sodium Chloride 500 ml @ 250 mls/hr 1X ONCE IV Last administered on 10/07/19at 14:16; Start 10/07/19 at 15:00; Stop 10/07/19 at 16:59; Status DC Ondansetron HCl (Zofran) 4 mg PRN Q8HRS PRN IV NAUSEA/VOMITING; Start 10/07/19 at 14:30; Stop 10/08/19 at 14:29 Morphine Sulfate (Morphine Sulfate) 2 mg PRN Q2HR PRN IV PAIN Last administered on 10/07/19 16:22; Start 10/07/19 at 14:30; Stop 10/08/19 at 14:29 Albuterol/ Ipratropium (Duoneb) 3 ml RTQID NEB Last administered on 10/07/19 16:21; Start 10/07/19 at 16:00; Stop 10/07/19 at 19:23; Status DC Magnesium Sulfate 50 ml @ 25 mls/hr 1X ONCE IV Last administered on 10/07/19 16:28; Start 10/07/19 at 16:00; Stop 10/07/19 at 17:59; Status DC Furosemide (Lasix) 40 mg 1X ONCE IVP Last administered on 10/07/19 16:29; Start 10/07/19 at 16:30; Stop 10/07/19 at 16:31; Status DC Metoprolol Succinate (Toprol Xl) 25 mg DAILY PO Last administered on 10/08/19 08:40; Start 10/08/19 at 09:00 Atorvastatin Calcium (Lipitor) 5 mg QHS PO Last administered on 10/07/19 20:53; Start 10/07/19 at 21:00 Furosemide (Lasix) 40 mg DAILY IVP Last administered on 10/08/19 08:39; Start 10/08/19 at 09:00 Alprazolam (Xanax) 0.25 mg PRN BID PRN PO ANXIETY / AGITATION Last administered on 10/07/19 20:59; Start 10/07/19 at 19:15 Gabapentin (Neurontin) 600 mg TID PO Last administered on 10/08/19 08:40; Start 10/07/19 at 21:00 Acetaminophen/ Hydrocodone Bitart (Lortab 10/325) 1 tab PRN Q6HRS PRN PO PAIN Last administered on 10/07/19 20:58; Start 10/07/19 at 19:15 Isosorbide Mononitrate (Imdur) 30 mg DAILY PO Last administered on 10/08/19 08:40; Start 10/08/19 at 09:00 Nortriptyline HCl (Pamelor) 25 mg HS PO Last administered on 10/07/19 20:53; Start 10/07/19 at 21:00 Spironolactone (Aldactone) 25 mg DAILY PO Last administered on 10/08/19 08:39; Start 10/08/19 at 09:00 Non-Formulary Medication (Budesonide/ Formoterol Fumarate (Symbicort 160-4.5 Mcg Inhaler)) 160 mcg BID INH ; Start 10/07/19 at 21:00; Status UNV Pantoprazole Sodium (Protonix) 40 mg DAILYAC PO Last administered on 10/08/19 08:40; Start 10/08/19 at 07:30 Rivaroxaban (Xarelto) 20 mg DAILYWSUP PO Last administered on 10/07/19 20:53; Start 10/07/19 at 20:00 Non-Formulary Medication (Tiotropium Lamont (Spiriva)) 18 mcg DAILY INH ; Start 10/08/19 at 09:00; Status UNV Albuterol/ Ipratropium (Duoneb) 3 ml RTQID NEB Last administered on 10/08/19 07:38; Start 10/07/19 at 20:00 Budesonide (Pulmicort) 0.5 mg RTBID NEB Last administered on 10/08/19 07:38; Start 10/07/19 at 20:00 Labetalol HCl (Normodyne Iv Push) 20 mg PRN Q6HRS PRN IVP HYPERTENSION; Start 10/08/19 at 04:00 Active Scripts Active Prednisone 20 Mg Tablet 60 Mg PO DAILY 2 Days then taper by 10 mg q 2 days then STOP Hydrocodone-Acetamin 10-325 mg (Hydrocodone/Acetaminophen) 1 Each Tablet 10-325 Mg PO PRN Q6HRS PRN Alprazolam 0.25 Mg Tablet 0.25 Mg PO PRN BID PRN Furosemide 40 Mg Tablet 40 Mg PO BID 10 Days then reasses, might need just 40 PO qdaily subsequently Reported Proair Hfa (Albuterol Sulfate) 8.5 Gm Hfa.aer.ad 108 Mcg INH PRN PRN Symbicort 160-4.5 Mcg Inhaler (Budesonide/Formoterol Fumarate) 10.2 Gm Hfa.aer.ad 160 Mcg INH BID 160-4.5 mcg. 10.2 GM HFA.AER.AD Spiriva (Tiotropium Lamont) 18 Mcg Cap.w.dev 18 Mcg INH DAILY Isosorbide Mononitrate Er (Isosorbide Mononitrate) 30 Mg Tab.er.24h 30 Mg PO DAILY Xarelto (Rivaroxaban) 20 Mg Tablet 20 Mg PO AFTRNOON Metoprolol Succinate ( Xl ) (Metoprolol Succinate) 25 Mg Tab.er.24h 25 Mg PO DAILY Nortriptyline Hcl 25 Mg Capsule 25 Mg PO HS Omeprazole 20 Mg Capsule.dr 20 Mg PO DAILY Pravastatin Sodium 20 Mg Tablet 20 Mg PO DAILY Spironolactone 25 Mg Tablet 25 Mg PO DAILY Gabapentin 300 Mg Capsule 600 Mg PO TID Vitals/I & O Vital Sign - Last 24 Hours 10/07/19 10/07/19 10/07/19 10/07/19 13:11 13:32 13:34 13:49 Temp 98.9 98.9 Pulse 86 98 82 Resp 24 20 B/P (MAP) 76/59 (65) 76/59 (65) 138/82 (100) Pulse Ox 89 92 89 99 O2 Delivery Nasal Cannula Nasal Cannula Nasal Cannula Nasal Cannula O2 Flow Rate 3.0 3.0 3.0 3.0 10/07/19 10/07/19 10/07/19 10/07/19 14:15 14:19 14:19 14:29 Pulse 129 113 Resp 30 24 24 B/P (MAP) 96/61 (73) 97/69 (78) 118/97 (104) Pulse Ox 94 100 97 96 O2 Delivery BiPAP/CPAP BiPAP/CPAP BiPAP/CPAP BiPAP/CPAP 10/07/19 10/07/19 10/07/19 10/07/19 14:49 15:19 15:45 15:55 Temp 97.9 97.9 Pulse 76 93 80 Resp 24 B/P (MAP) 117/88 (98) 125/74 (91) 97/62 (74) Pulse Ox 97 100 82 O2 Delivery BiPAP/CPAP BiPAP/CPAP Bi-pap BiPAP/CPAP 10/07/19 10/07/19 10/07/19 10/07/19 16:00 16:00 16:21 17:00 Pulse 78 76 B/P (MAP) 135/88 (104) Pulse Ox 82 95 96 O2 Delivery Bi-pap BiPAP/CPAP BiPAP/CPAP BiPAP/CPAP 10/07/19 10/07/19 10/07/19 10/07/19 18:00 19:59 20:00 20:00 Temp 98.5 98.5 Pulse 76 72 B/P (MAP) 113/90 (98) 160/123 (135) Pulse Ox 96 96 97 O2 Delivery Nasal Cannula Nasal Cannula Nasal Cannula Nasal Cannula O2 Flow Rate 2.0 2.0 2.0 2.0 10/07/19 10/07/19 10/07/19 10/07/19 20:58 21:00 22:00 22:00 Pulse 76 70 Resp 18 22 B/P (MAP) 153/107 (122) 107/70 (82) Pulse Ox 96 95 93 O2 Delivery Nasal Cannula Nasal Cannula Nasal Cannula Nasal Cannula O2 Flow Rate 2.0 2.0 2.0 2.0 10/07/19 10/08/19 10/08/19 10/08/19 23:00 00:00 00:00 01:00 Temp 98.7 98.7 Pulse 70 70 72 B/P (MAP) 124/60 (81) 123/59 (80) 136/51 (79) Pulse Ox 94 94 93 O2 Delivery Nasal Cannula Nasal Cannula Nasal Cannula Nasal Cannula O2 Flow Rate 2.0 2.0 2.0 2.0 10/08/19 10/08/19 10/08/19 10/08/19 02:00 03:00 04:00 04:00 Temp 98.7 98.7 Pulse 72 74 74 B/P (MAP) 153/68 (96) 142/85 (104) Pulse Ox 97 95 93 O2 Delivery Nasal Cannula Nasal Cannula Nasal Cannula Nasal Cannula O2 Flow Rate 2.0 2.0 2.0 2.0 10/08/19 10/08/19 10/08/19 10/08/19 05:00 06:00 07:39 08:40 Pulse 74 94 75 B/P (MAP) 139/80 (99) 128/71 (90) 113/82 Pulse Ox 96 94 97 O2 Delivery Nasal Cannula Nasal Cannula Nasal Cannula O2 Flow Rate 2.0 2.0 2.0 10/08/19 08:40 Pulse 75 Intake and Output 11/27/19 11/27/19 11/28/19 15:00 23:00 07:00 Intake Total 400 ml 240 ml 0 ml Output Total 500 ml 600 ml Balance -100 ml -360 ml 0 ml LETTY DIEHL MD Oct 08, 2019 09:03
[2019-10-08] MEDS ORDERED: DEXTROSE 50% 25 GM / 50ML DISP.SYRIN. IV PRN (09:15)
--- NOTE | 2019-10-08 10:12 | CONS ---
DATE OF CONSULTATION: 10/08/2019 PULMONARY CONSULTATION ATTENDING PHYSICIAN: Dr. Park. REASON FOR CONSULTATION: Respiratory failure. HISTORY OF PRESENT ILLNESS: The patient 69-year-old female who has history of oxygen-dependent COPD on 3 liters on a 24-hour basis. She also has history of cardiomyopathy with an EF of 35-40% based on echo from July of this year. She presented to the hospital with increasing shortness of breath. She had no chest pain. She did have a cough, which is nonproductive. No fever, no chills. She said she had an episode of vomiting, but no diarrhea. The patient has right above knee amputation. She also has a history of atrial fibrillation. The patient was initially noted to have a systolic blood pressure in the 70s in the ER. She did receive one dose of Lasix after blood pressure was stabilized. She had a chest x-ray, which was reviewed by me and it showed slightly prominent interstitial markings. The patient was noted to have a blood gas with a pH of 7.40, pCO2 of 56 and a pO2 109 on 40% FiO2. She was placed on BiPAP for a while and then is now back to nasal cannula. She feels better. The patient was also given antibiotics and IV steroids. Her systolic blood pressure in the 90s. It went up to 152 earlier. I have been asked to see her for further evaluation. PAST MEDICAL HISTORY: Significant for history of cardiomyopathy with an EF of 35%, history of atrial fibrillation, history of coronary artery disease, history of liver disease, MS, obstructive sleep apnea, anxiety, depression, COPD with ongoing tobaccoism, chronic respiratory failure, chronic anticoagulation, peripheral neuropathy and peripheral vascular disease. PAST SURGICAL HISTORY: Cervical fusion, pacemaker, right above knee amputation. ALLERGIES: PENICILLIN, FENTANYL AND LEVAQUIN. FAMILY HISTORY: Coronary artery disease. SOCIAL HISTORY: Still smokes 3 cigarettes a day, has been smoking for 50 years. Used to work at [employer], does not drink. MEDICATIONS: Reviewed as listed in the [facility]. REVIEW OF SYSTEMS: Twelve-point system obtained. Pertinent positives discussed in my history of present illness, otherwise noncontributory. All systems that were negative were reviewed as well. PHYSICAL EXAMINATION: GENERAL: She is awake, in no obvious respiratory distress. VITAL SIGNS: Blood pressure 90/56, pulse ox 92% on 2 liters, afebrile. HEENT: Sclerae nonicteric. NECK: Supple. LUNGS: With few crackles at the bases. CARDIOVASCULAR: With a regular rhythm. ABDOMEN: Soft, nontender, obese. EXTREMITIES: With bilateral pitting edema. LABORATORY DATA: Reviewed. Her BUN is 24, creatinine 0.9. Troponin 0.132. INR 2.1. White cell count 14.1, hemoglobin 12.0 and platelets are 156. IMPRESSION: 1. Acute on chronic hypoxic respiratory failure, likely related to acute on chronic systolic heart failure, cannot exclude the possibility of an infectious etiology such as lower respiratory tract infection/viral infection. 2. The patient with ongoing tobaccoism and has 50 years of tobacco use and has COPD, which is oxygen dependent at 3 liters. 3. Cardiomyopathy with an ejection fraction of 35% along with lower extremity edema and likely contributing to the patient's decompensation with acute on chronic systolic heart failure. 4. Atrial fibrillation, on chronic anticoagulation. 5. Hypomagnesemia. 6. Increased troponin level. 7. Reactive leukocytosis. RECOMMENDATIONS: 1. Continue with present nasal cannula with p.r.n. BiPAP. 2. Follow up chest x-ray to see an improvement in her interstitial infiltrates. 3. I will obtain procalcitonin level and if it normal, no need for any antibiotics. 4. Follow cardiology recommendations. 5. Bronchodilators. 6. Continue Xarelto. 7. Clinically, she is stable, she could be transferred to floor. 8. Monitor blood pressure closely while on IV Lasix. Discussed with RN and RT. Critical care time 35 minutes. PADMINI YUAN MD DR: ROEL/jaziel JOB#: [id number] / [id number]
[2019-10-08] MEDS: INSULIN LISPRO 300 UNITS/3 ML VIAL. SQ SCH ×2 (12:01→17:37)
[2019-10-08] MEDS: RIVAROXABAN 10 MG TABLET. PO SCH (16:27)
[2019-10-08] MEDS: HYDROcodone/APAP 10/325 1 TAB TABLET PO PRN (18:15)
[2019-10-08] MEDS: ATORVASTATIN CALCIUM 10 MG TABLET. PO SCH (20:15)
[2019-10-08] MEDS: NORTRIPTYLINE 25 MG CAPSULE PO SCH (20:15)
[2019-10-08] MEDS: ALPRAZolam 0.25 MG TABLET PO PRN (20:15)
[2019-10-09 03:31] VITALS: BP 123/79
[2019-10-09 07:13] VITALS: BP 139/69
[2019-10-09] MEDS: PANTOPRAZOLE 40 MG TABLET.DR. PO SCH (07:23)
--- NOTE | 2019-10-09 07:39 | PDOC ---
PROGRESS NOTES Chief Complaint Chief Complaint A/P: Acute on chronic respiratory failure - combined hypoxic and hypercapnic with acute CHF/cor pulmonale/COPD Left leg pain - history of PVD s/p arterial dopplers. Had h/o RLE amputation Mild troponin elevation - likely demand mediated, type 2 from hypoxemia Chronic systolic CHF - with acute exacerbation - LVEF 35% (non-ischemic) Atrial fibrillation s/p AV audi ablation and SSS with PPM in situ HTN - controlled HLD - on statin Hx of DVT s/p IVC filter and on xarelto RAYNE - likely has underlying CKD. Could be cardiorenal, diuresis indicated Acute on chronic cor pulmonale with severe TR and pulmonary HTN Acute exacerbation of COPD - pulmonology to see. PRN BIPAP Tremors - possibly parkinsonism or medication History of Present Illness History of Present Illness Ms More is a 69yo F w/ PMHx DVT s/p IVC filter, h/o RLE amputation, AFib, chronic systolic CHF EF 35-40%, COPD on 3L NCO2, coronary artery disease, liver disease, myocardial infarction, obstructive sleep apnea, anxiety, depression, asthma, chronic anticoagulation, hyperlipidemia, arthritis, chronic pain, peripheral vascular disease, and neuropathy admitted from [facility] for re spiratory distress, was admitted to ICU on BIPAP. She had no chest pain. She did have a cough, which is nonproductive. No fever, no chills. She said she had an episode of vomiting, but no diarrhea. Had a systolic blood pressure in the 70s in the ER. She did receive one dose of Lasix after blood pressure was stabilized while on BIPAP. CXR showed prominent interstitial markings. Given empiric Antibiotics and IV steroids. 10/08: She is feeling somewhat improved after a few hours of BIPAP. She is c/o LLE pain, notes she has been told despite her cold blue foot she has good bloodflow. No CP, less SOB, no GI or complaints She is feeling a bit better, still with bibasilar crackles and significant edema. Good diuresis with BID lasix. D/w cardiology 1 additional day of care. Vitals Vitals Vital Signs Date Time Temp Pulse Resp B/P (MAP) Pulse Ox O2 Delivery O2 Flow Rate FiO2 10/09/19 07:13 97.4 72 14 139/69 (92) 95 Nasal Cannula 2.0 97.4 Physical Exam General: Alert, Cooperative, mild distress Heart: Regular rate (paced with biageminal PVCs), Other (3/6 systolic murmur to LLS border) Lungs: Wheezing, Crackles Abdomen: Soft Extremities: Other (RBKA, 2+LLE pitting edema) Skin: Other (generalized ecchymoses and telangectasia) Labs LABS Laboratory Tests Test 10/08/19 11:59 10/08/19 17:14 10/08/19 20:13 10/09/19 07:17 Glucose (Fingerstick) 251 mg/dL (70-99) 229 mg/dL (70-99) 183 mg/dL (70-99) 117 mg/dL (70-99) Assessment and Plan Assessmemt and Plan Problems Medical Problems: (1) COPD exacerbation Status: Acute (2) Non-STEMI (non-ST elevated myocardial infarction) Status: Acute Comment Review of Relevant I have reviewed the following items sourav (where applicable) has been applied. Labs Laboratory Tests Test 10/07/19 13:20 10/07/19 16:30 10/07/19 17:15 10/07/19 20:30 White Blood Count 14.1 x10^3/uL (4.0-11.0) Red Blood Count 4.12 x10^6/uL (3.50-5.40) Hemoglobin 12.0 g/dL (12.0-15.5) Hematocrit 37.8 % (36.0-47.0) Mean Corpuscular Volume 92 fL (79-100) Mean Corpuscular Hemoglobin 29 pg (25-35) Mean Corpuscular Hemoglobin Concent 32 g/dL (31-37) Red Cell Distribution Width 22.5 % (11.5-14.5) Platelet Count 156 x10^3/uL (140-400) Neutrophils (%) (Auto) 85 % (31-73) Lymphocytes (%) (Auto) 9 % (24-48) Monocytes (%) (Auto) 6 % (0-9) Eosinophils (%) (Auto) 1 % (0-3) Basophils (%) (Auto) 0 % (0-3) Neutrophils # (Auto) 11.9 x10^3/uL (1.8-7.7) Lymphocytes # (Auto) 1.2 x10^3/uL (1.0-4.8) Monocytes # (Auto) 0.8 x10^3/uL (0.0-1.1) Eosinophils # (Auto) 0.1 x10^3/uL (0.0-0.7) Basophils # (Auto) 0.1 x10^3/uL (0.0-0.2) Platelet Estimate Adequate (ADEQUATE) Anisocytosis Mod Ovalocytes Occ Crenated Cell Present Prothrombin Time 23.3 SEC (11.7-14.0) Prothromb Time International Ratio 2.1 (0.8-1.1) Sodium Level 138 mmol/L (136-145) Potassium Level 3.8 mmol/L (3.5-5.1) Chloride Level 97 mmol/L (98-107) Carbon Dioxide Level 39 mmol/L (21-32) Anion Gap 2 (6-14) Blood Urea Nitrogen 23 mg/dL (7-20) Creatinine 1.1 mg/dL (0.6-1.0) Estimated GFR (Cockcroft-Gault) 49.4 Glucose Level 106 mg/dL (70-99) Calcium Level 8.7 mg/dL (8.5-10.1) Magnesium Level 1.7 mg/dL (1.8-2.4) Total Bilirubin 0.5 mg/dL (0.2-1.0) Direct Bilirubin 0.2 mg/dL (0.0-0.2) Aspartate Amino Transf (AST/SGOT) 53 U/L (15-37) Alanine Aminotransferase (ALT/SGPT) 80 U/L (14-59) Alkaline Phosphatase 101 U/L (46-116) Troponin I Quantitative 0.132 ng/mL (0.000-0.055) 0.116 ng/mL (0.000-0.055) 0.093 ng/mL (0.000-0.055) ZI-Pze-O-Type Natriuretic Peptide 00519 pg/mL (0-124) Total Protein 7.2 g/dL (6.4-8.2) Albumin 3.4 g/dL (3.4-5.0) Lipase 42 U/L (73-393) Digoxin Level < 0.2 ng/mL (0.9-2.0) Digoxin Last Dose Date Unk Digoxin Last Dose Time Unk O2 Saturation 98 % (92-99) Arterial Blood pH 7.40 (7.35-7.45) Arterial Blood pCO2 at Patient Temp 56 mmHg (35-46) Arterial Blood pO2 at Patient Temp 109 mmHg (65-108) Arterial Blood HCO3 33 mmol/L (21-28) Arterial Blood Base Excess 7 mmol/L (-3-3) FiO2 40 Test 10/08/19 05:55 10/08/19 11:59 10/08/19 17:14 10/08/19 20:13 Sodium Level 134 mmol/L (136-145) Potassium Level 3.9 mmol/L (3.5-5.1) Chloride Level 95 mmol/L (98-107) Carbon Dioxide Level 36 mmol/L (21-32) Anion Gap 3 (6-14) Blood Urea Nitrogen 24 mg/dL (7-20) Creatinine 0.9 mg/dL (0.6-1.0) Estimated GFR (Cockcroft-Gault) 62.3 Glucose Level 190 mg/dL (70-99) Calcium Level 8.5 mg/dL (8.5-10.1) Magnesium Level 2.3 mg/dL (1.8-2.4) Procalcitonin < 0.10 ng/mL (0.00-0.10) Glucose (Fingerstick) 251 mg/dL (70-99) 229 mg/dL (70-99) 183 mg/dL (70-99) Test 10/09/19 07:17 Glucose (Fingerstick) 117 mg/dL (70-99) Laboratory Tests Test 10/08/19 11:59 10/08/19 17:14 10/08/19 20:13 10/09/19 07:17 Glucose (Fingerstick) 251 mg/dL (70-99) 229 mg/dL (70-99) 183 mg/dL (70-99) 117 mg/dL (70-99) Medications Current Medications Albuterol/ Ipratropium (Duoneb) 3 ml 1X ONCE NEB Last administered on 10/07/19at 13:32; Start 10/07/19 at 14:00; Stop 10/07/19 at 14:01; Status DC Sodium Chloride 500 ml @ 500 mls/hr 1X ONCE IV Last administered on 10/07/19at 14:28; Start 10/07/19 at 13:45; Stop 10/07/19 at 14:44; Status DC Methylprednisolone Sodium Succinate (SOLU-Medrol 125MG VIAL) 125 mg 1X ONCE IV Last administered on 10/07/19at 14:04; Start 10/07/19 at 13:45; Stop 10/07/19 at 13:46; Status DC Vancomycin HCl 250 ml @ 250 mls/hr 1X ONCE IV ; Start 10/07/19 at 13:45; Stop 10/07/19 at 14:44; Status UNV Ceftriaxone Sodium (Rocephin) 1 gm 1X ONCE IVP Last administered on 10/07/19at 14:07; Start 10/07/19 at 13:45; Stop 10/07/19 at 13:46; Status DC Vancomycin HCl 1.75 gm/Sodium Chloride 500 ml @ 250 mls/hr 1X ONCE IV Last administered on 10/07/19at 14:16; Start 10/07/19 at 15:00; Stop 10/07/19 at 16:59; Status DC Ondansetron HCl (Zofran) 4 mg PRN Q8HRS PRN IV NAUSEA/VOMITING; Start 10/07/19 at 14:30; Stop 10/08/19 at 14:29; Status DC Morphine Sulfate (Morphine Sulfate) 2 mg PRN Q2HR PRN IV PAIN Last administered on 10/07/19at 16:22; Start 10/07/19 at 14:30; Stop 10/08/19 at 14:29; Status DC Albuterol/ Ipratropium (Duoneb) 3 ml RTQID NEB Last administered on 10/07/19at 16:21; Start 10/07/19 at 16:00; Stop 10/07/19 at 19:23; Status DC Magnesium Sulfate 50 ml @ 25 mls/hr 1X ONCE IV Last administered on 10/07/19at 16:28; Start 10/07/19 at 16:00; Stop 10/07/19 at 17:59; Status DC Furosemide (Lasix) 40 mg 1X ONCE IVP Last administered on 10/07/19at 16:29; Start 10/07/19 at 16:30; Stop 10/07/19 at 16:31; Status DC Metoprolol Succinate (Toprol Xl) 25 mg DAILY PO Last administered on 10/08/19 08:40; Start 10/08/19 at 09:00 Atorvastatin Calcium (Lipitor) 5 mg QHS PO Last administered on 10/08/19 20:15; Start 10/07/19 at 21:00 Furosemide (Lasix) 40 mg DAILY IVP Last administered on 10/08/19 08:39; Start 10/08/19 at 09:00 Alprazolam (Xanax) 0.25 mg PRN BID PRN PO ANXIETY / AGITATION Last administered on 10/08/19 20:15; Start 10/07/19 at 19:15 Gabapentin (Neurontin) 600 mg TID PO Last administered on 10/08/19 20:15; Start 10/07/19 at 21:00 Acetaminophen/ Hydrocodone Bitart (Lortab 10/325) 1 tab PRN Q6HRS PRN PO PAIN Last administered on 10/08/19 18:15; Start 10/07/19 at 19:15 Isosorbide Mononitrate (Imdur) 30 mg DAILY PO Last administered on 10/08/19 08:40; Start 10/08/19 at 09:00 Nortriptyline HCl (Pamelor) 25 mg HS PO Last administered on 10/08/19 20:15; Start 10/07/19 at 21:00 Spironolactone (Aldactone) 25 mg DAILY PO Last administered on 10/08/19 08:39; Start 10/08/19 at 09:00 Non-Formulary Medication (Budesonide/ Formoterol Fumarate (Symbicort 160-4.5 Mcg Inhaler)) 160 mcg BID INH ; Start 10/07/19 at 21:00; Status UNV Pantoprazole Sodium (Protonix) 40 mg DAILYAC PO Last administered on 10/09/19 07:23; Start 10/08/19 at 07:30 Rivaroxaban (Xarelto) 20 mg DAILYWSUP PO Last administered on 10/08/19 16:27; Start 10/07/19 at 20:00 Non-Formulary Medication (Tiotropium Lynx (Spiriva)) 18 mcg DAILY INH ; Start 10/08/19 at 09:00; Status UNV Albuterol/ Ipratropium (Duoneb) 3 ml RTQID NEB Last administered on 11/28/19at 20:00; Start 10/07/19 at 20:00 Budesonide (Pulmicort) 0.5 mg RTBID NEB Last administered on 10/08/19at 20:00; Start 10/07/19 at 20:00 Labetalol HCl (Normodyne Iv Push) 20 mg PRN Q6HRS PRN IVP HYPERTENSION; Start 10/08/19 at 04:00 Insulin Human Lispro (HumaLOG) 0-5 UNITS TIDWMEALS SQ Last administered on 10/08/19at 17:37; Start 10/08/19 at 12:00 Dextrose (Dextrose 50%-Water Syringe) 12.5 gm PRN Q15MIN PRN IV SEE COMMENTS; Start 10/08/19 at 09:15 Active Scripts Active Prednisone 20 Mg Tablet 60 Mg PO DAILY 2 Days then taper by 10 mg q 2 days then STOP Hydrocodone-Acetamin 10-325 mg (Hydrocodone/Acetaminophen) 1 Each Tablet 10-325 Mg PO PRN Q6HRS PRN Alprazolam 0.25 Mg Tablet 0.25 Mg PO PRN BID PRN Furosemide 40 Mg Tablet 40 Mg PO BID 10 Days then reasses, might need just 40 PO qdaily subsequently Reported Proair Hfa (Albuterol Sulfate) 8.5 Gm Hfa.aer.ad 108 Mcg INH PRN PRN Symbicort 160-4.5 Mcg Inhaler (Budesonide/Formoterol Fumarate) 10.2 Gm Hfa.aer.ad 160 Mcg INH BID 160-4.5 mcg. 10.2 GM HFA.AER.AD Spiriva (Tiotropium Lynx) 18 Mcg Cap.w.dev 18 Mcg INH DAILY Isosorbide Mononitrate Er (Isosorbide Mononitrate) 30 Mg Tab.er.24h 30 Mg PO DAILY Xarelto (Rivaroxaban) 20 Mg Tablet 20 Mg PO AFTRNOON Metoprolol Succinate ( Xl ) (Metoprolol Succinate) 25 Mg Tab.er.24h 25 Mg PO DAILY Nortriptyline Hcl 25 Mg Capsule 25 Mg PO HS Omeprazole 20 Mg Capsule.dr 20 Mg PO DAILY Pravastatin Sodium 20 Mg Tablet 20 Mg PO DAILY Spironolactone 25 Mg Tablet 25 Mg PO DAILY Gabapentin 300 Mg Capsule 600 Mg PO TID Vitals/I & O Vital Sign - Last 24 Hours 10/08/19 10/08/19 10/08/19 10/08/19 08:00 08:00 08:40 08:40 Temp 98.5 98.5 Pulse 70 75 75 B/P (MAP) 113/82 (92) 113/82 Pulse Ox 90 O2 Delivery Nasal Cannula Nasal Cannula O2 Flow Rate 2.0 2.0 10/08/19 10/08/19 10/08/19 10/08/19 09:00 10:00 11:00 11:47 Pulse 78 78 70 B/P (MAP) 90/56 (67) 139/66 (90) Pulse Ox 92 92 93 97 O2 Delivery Nasal Cannula Nasal Cannula Nasal Cannula Nasal Cannula O2 Flow Rate 2.0 2.0 2.0 2.0 10/08/19 10/08/19 10/08/19 10/08/19 12:00 12:00 13:00 14:00 Temp 97.9 97.9 Pulse 68 72 72 B/P (MAP) 108/65 (79) 102/80 (87) 119/58 (78) Pulse Ox 94 92 93 O2 Delivery Nasal Cannula Nasal Cannula Nasal Cannula Nasal Cannula O2 Flow Rate 2.0 2.0 2.0 2.0 10/08/19 10/08/19 10/08/19 10/08/19 14:59 15:00 16:00 16:54 Temp 97.3 97.3 Pulse 78 74 71 Resp 18 B/P (MAP) 140/76 (97) 110/88 (95) 142/78 (99) Pulse Ox 94 95 100 O2 Delivery Nasal Cannula Nasal Cannula Nasal Cannula Nasal Cannula O2 Flow Rate 2.0 2.0 2.0 3.0 10/08/19 10/08/19 10/08/19 10/08/19 17:00 18:15 19:05 19:15 Temp 99.0 99.0 Pulse 70 Resp 20 18 18 B/P (MAP) 134/70 (91) Pulse Ox 98 98 O2 Delivery Nasal Cannula Nasal Cannula Nasal Cannula O2 Flow Rate 3.0 2.5 2.0 10/08/19 10/08/19 10/08/19 10/09/19 19:25 20:21 22:20 03:31 Temp 98.9 98.2 98.9 98.2 Pulse 74 73 Resp 20 14 B/P (MAP) 134/63 (86) 123/79 (94) Pulse Ox 95 97 O2 Delivery Nasal Cannula Nasal Cannula Nasal Cannula Room Air O2 Flow Rate 2.0 2.0 1.0 10/09/19 07:13 Temp 97.4 97.4 Pulse 72 Resp 14 B/P (MAP) 139/69 (92) Pulse Ox 95 O2 Delivery Nasal Cannula O2 Flow Rate 2.0 Intake and Output 10/08/19 10/08/19 10/09/19 15:00 23:00 07:00 Intake Total 180 ml 440 ml Output Total 752 ml 300 ml 550 ml Balance -752 ml -120 ml -110 ml LETTY DIEHL MD Oct 09, 2019 07:39
[2019-10-09] MEDS: BUDESONIDE 0.5 MG/2 ML NEBU. NEB SCH ×2 (08:00→19:56)
[2019-10-09] MEDS: INSULIN LISPRO 300 UNITS/3 ML VIAL. SQ SCH ×3 (08:00→16:35)
[2019-10-09] MEDS: IPRATRPIUM/ALBUTEROL 0.5/2.5MG 3 ML NEBU. NEB SCH ×4 (08:00→19:56)
--- NOTE | 2019-10-09 08:31 | RAD ---
Indication: CHF. TECHNIQUE:Portable AP chest X-ray COMPARISON: 10/07/2019 FINDINGS: Patient is rotated to the right side limiting optimal aeration. Heart is moderately enlarged in size. Stable position of left chest wall cardiac pacer. Lungs are clear of focal consolidation. Very mild interstitial opacities bilaterally. No pneumothorax or pleural effusion. Visualized bony thorax within normal limits. IMPRESSION: May mild interstitial opacities may be secondary to atypical/viral infection or interstitial pulmonary edema. No significant change from previous exam. Electronically signed by: Ten Cordova DO (10/09/2019 8:28 AM) [id number]
[2019-10-09] MEDS: GABAPENTIN 300 MG CAPSULE. PO SCH ×3 (08:52→20:50)
[2019-10-09] MEDS: ISOSORBIDE MONONITRATE ER 30 MG TAB.ER.24H PO SCH (08:52)
[2019-10-09] MEDS: SPIRONOLACTONE 25 MG TABLET PO SCH (08:52)
[2019-10-09] MEDS: FUROSEMIDE 40 MG/4 ML VIAL. IVP SCH (08:52)
[2019-10-09] MEDS: METOPROLOL SUCC 24HR ER 25 MG TAB.ER.24H. PO SCH (08:53)
[2019-10-09] MEDS: HYDROcodone/APAP 10/325 1 TAB TABLET PO PRN (08:53)
--- NOTE | 2019-10-09 10:10 | PDOC ---
CARDIOLOGY PROGRESS NOTE SUBJECTIVE: Patient reports feeling better today. She has had trouble with hearing aids and sleeping awkwardly denies any chest pain OBJECTIVE: Vital Signs/I&O: Vital Signs Date Time Temp Pulse Resp B/P (MAP) Pulse Ox O2 Delivery O2 Flow Rate FiO2 10/09/19 08:53 20 93 Nasal Cannula 3.0 10/09/19 08:53 72 139/69 10/09/19 07:13 97.4 97.4 I & O 10/08/19 10/08/19 10/09/19 15:00 23:00 07:00 Intake Total 180 ml 440 ml Output Total 752 ml 300 ml 550 ml Balance -752 ml -120 ml -110 ml Objective: bilateral wheezing still present 2+ LE edema still present. Normal heart tones. CURRENT MEDICATIONS: Current Medications Medications (Trade) Dose Ordered Sig/Ralph Route PRN Reason Start Time Stop Time Status Last Admin Dose Admin Insulin Human Lispro (HumaLOG) 0-5 UNITS TIDWMEALS SQ 10/08/19 12:00 10/08/19 17:37 ASSESSMENT: 1. Acute on chronic respiratory failure with acute CHF/cor pulmonale/COPD 2. Mild troponin elevation: demand mediated, type 2 3. NICM; LVEF 35% 4. Atrial fibrillation s/p AV audi ablation and permanent pacemaker implantation. Paroxysmal by hx. 5. HTN: controlled 6. HLP 7. Hx of DVT s/p IVC filter: on xarelto 8. Suspect CKD3 9. Acute on chronic cor pulmonale with severe TR and pulmonary HTN 10. Coagulopathy: INR 2.1 11. AECOPD: possibly severe 12. 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 PLAN: 1. Continue aggressive diuresis. She is likely not ready for discharge but wants to go home. 2. Consider outpt upgrade to Bi-V ICD depending on goals of care. Thanks. ILIANA CAO MD Oct 09, 2019 10:10
[2019-10-09] MEDS ORDERED: POTASSIUM CHLORIDE 20 MEQ TABLET.ER. PO ONE (10:15)
[2019-10-09 10:29] VITALS: BP 134/61
--- NOTE | 2019-10-09 11:25 | PDOC ---
PULMONARY PROGRESS NOTES Subjective no soa wants to go back to skill Vitals Vital Signs Date Time Temp Pulse Resp B/P (MAP) Pulse Ox O2 Delivery O2 Flow Rate FiO2 10/09/19 10:29 98.1 73 14 134/61 (85) 95 Nasal Cannula 2.0 98.1 General: Alert, No acute distress Lungs: Wheezing (faint) Cardiovascular: S1, S2 Abdomen: Soft Extremities: Other (1=edema) Labs Laboratory Tests Test 10/07/19 13:20 10/07/19 16:30 10/07/19 17:15 10/07/19 20:30 White Blood Count 14.1 x10^3/uL (4.0-11.0) Red Blood Count 4.12 x10^6/uL (3.50-5.40) Hemoglobin 12.0 g/dL (12.0-15.5) Hematocrit 37.8 % (36.0-47.0) Mean Corpuscular Volume 92 fL (79-100) Mean Corpuscular Hemoglobin 29 pg (25-35) Mean Corpuscular Hemoglobin Concent 32 g/dL (31-37) Red Cell Distribution Width 22.5 % (11.5-14.5) Platelet Count 156 x10^3/uL (140-400) Neutrophils (%) (Auto) 85 % (31-73) Lymphocytes (%) (Auto) 9 % (24-48) Monocytes (%) (Auto) 6 % (0-9) Eosinophils (%) (Auto) 1 % (0-3) Basophils (%) (Auto) 0 % (0-3) Neutrophils # (Auto) 11.9 x10^3/uL (1.8-7.7) Lymphocytes # (Auto) 1.2 x10^3/uL (1.0-4.8) Monocytes # (Auto) 0.8 x10^3/uL (0.0-1.1) Eosinophils # (Auto) 0.1 x10^3/uL (0.0-0.7) Basophils # (Auto) 0.1 x10^3/uL (0.0-0.2) Platelet Estimate Adequate (ADEQUATE) Anisocytosis Mod Ovalocytes Occ Crenated Cell Present Prothrombin Time 23.3 SEC (11.7-14.0) Prothromb Time International Ratio 2.1 (0.8-1.1) Sodium Level 138 mmol/L (136-145) Potassium Level 3.8 mmol/L (3.5-5.1) Chloride Level 97 mmol/L (98-107) Carbon Dioxide Level 39 mmol/L (21-32) Anion Gap 2 (6-14) Blood Urea Nitrogen 23 mg/dL (7-20) Creatinine 1.1 mg/dL (0.6-1.0) Estimated GFR (Cockcroft-Gault) 49.4 Glucose Level 106 mg/dL (70-99) Calcium Level 8.7 mg/dL (8.5-10.1) Magnesium Level 1.7 mg/dL (1.8-2.4) Total Bilirubin 0.5 mg/dL (0.2-1.0) Direct Bilirubin 0.2 mg/dL (0.0-0.2) Aspartate Amino Transf (AST/SGOT) 53 U/L (15-37) Alanine Aminotransferase (ALT/SGPT) 80 U/L (14-59) Alkaline Phosphatase 101 U/L (46-116) Troponin I Quantitative 0.132 ng/mL (0.000-0.055) 0.116 ng/mL (0.000-0.055) 0.093 ng/mL (0.000-0.055) RK-Hqm-P-Type Natriuretic Peptide 69968 pg/mL (0-124) Total Protein 7.2 g/dL (6.4-8.2) Albumin 3.4 g/dL (3.4-5.0) Lipase 42 U/L (73-393) Digoxin Level < 0.2 ng/mL (0.9-2.0) Digoxin Last Dose Date Unk Digoxin Last Dose Time Unk O2 Saturation 98 % (92-99) Arterial Blood pH 7.40 (7.35-7.45) Arterial Blood pCO2 at Patient Temp 56 mmHg (35-46) Arterial Blood pO2 at Patient Temp 109 mmHg (65-108) Arterial Blood HCO3 33 mmol/L (21-28) Arterial Blood Base Excess 7 mmol/L (-3-3) FiO2 40 Test 10/08/19 05:55 10/08/19 11:59 10/08/19 17:14 10/08/19 20:13 Sodium Level 134 mmol/L (136-145) Potassium Level 3.9 mmol/L (3.5-5.1) Chloride Level 95 mmol/L (98-107) Carbon Dioxide Level 36 mmol/L (21-32) Anion Gap 3 (6-14) Blood Urea Nitrogen 24 mg/dL (7-20) Creatinine 0.9 mg/dL (0.6-1.0) Estimated GFR (Cockcroft-Gault) 62.3 Glucose Level 190 mg/dL (70-99) Calcium Level 8.5 mg/dL (8.5-10.1) Magnesium Level 2.3 mg/dL (1.8-2.4) Procalcitonin < 0.10 ng/mL (0.00-0.10) Glucose (Fingerstick) 251 mg/dL (70-99) 229 mg/dL (70-99) 183 mg/dL (70-99) Test 10/09/19 07:17 Glucose (Fingerstick) 117 mg/dL (70-99) Laboratory Tests Test 10/08/19 11:59 10/08/19 17:14 10/08/19 20:13 10/09/19 07:17 Glucose (Fingerstick) 251 mg/dL (70-99) 229 mg/dL (70-99) 183 mg/dL (70-99) 117 mg/dL (70-99) Medications Active Scripts Medications Dose Route/Sig Max Daily Dose Days Date Category Dose Instructions Prednisone 20 Mg Tablet 60 Mg PO DAILY 2 10/01/19 Rx then taper by 10 mg q 2 days then STOP Hydrocodone-Acetamin 10-325 mg (Hydrocodone/Acetaminophen) 1 Each Tablet 10-325 Mg PO PRN Q6HRS PRN 10/01/19 Rx Alprazolam 0.25 Mg Tablet 0.25 Mg PO PRN BID PRN 10/01/19 Rx Furosemide 40 Mg Tablet 40 Mg PO BID 10 10/01/19 Rx then reasses, might need just 40 PO qdaily subsequently Proair Hfa (Albuterol Sulfate) 8.5 Gm Hfa.aer.ad 108 Mcg INH PRN PRN 07/21/19 Reported Symbicort 160-4.5 Mcg Inhaler (Budesonide/Formoterol Fumarate) 10.2 Gm Hfa.aer.ad 160 Mcg INH BID 07/21/19 Reported 160-4.5 mcg. 10.2 GM HFA.AER.AD Spiriva (Tiotropium [place]) 18 Mcg Cap.w.dev 18 Mcg INH DAILY 07/21/19 Reported Isosorbide Mononitrate Er (Isosorbide Mononitrate) 30 Mg Tab.er.24h 30 Mg PO DAILY 07/21/19 Reported Xarelto (Rivaroxaban) 20 Mg Tablet 20 Mg PO AFTRNOON 07/21/19 Reported Metoprolol Succinate ( Xl ) (Metoprolol Succinate) 25 Mg Tab.er.24h 25 Mg PO DAILY 07/21/19 Reported Nortriptyline Hcl 25 Mg Capsule 25 Mg PO HS 07/21/19 Reported Omeprazole 20 Mg Capsule.dr 20 Mg PO DAILY 07/21/19 Reported Pravastatin Sodium 20 Mg Tablet 20 Mg PO DAILY 07/21/19 Reported Spironolactone 25 Mg Tablet 25 Mg PO DAILY 07/21/19 Reported Gabapentin 300 Mg Capsule 600 Mg PO TID 07/21/19 Reported Impression . 1. Acute on chronic hypoxic respiratory failure, likely related to acute on chronic systolic heart failure, cannot exclude the possibility of an infectious etiology such as lower respiratory tract infection/viral infection. 2. The patient with ongoing tobaccoism and has 50 years of tobacco use and has COPD, which is oxygen dependent at 3 liters. 3. Cardiomyopathy with an ejection fraction of 35% along with lower extremity edema and likely contributing to the patient's decompensation with acute on chronic systolic heart failure. 4. Atrial fibrillation, on chronic anticoagulation. 5. Hypomagnesemia. 6. Increased troponin level. 7. Reactive leukocytosis. Plan . RECOMMENDATIONS: 1. Continue with present nasal cannula 2. Follow up chest x-ray 10/09 mild interstitial infiltrates. 3. Normal procalcitonin level no need for any antibiotics. 4. Follow cardiology recommendations. 5. Bronchodilators. 6. Continue Xarelto. 7. Discussed with PADMINI THOMAS MD Oct 09, 2019 11:25
--- NOTE | 2019-10-09 12:07 | NUR ---
Wound Care: Wound care consult for left foot wound, pt seen by wc team in previous hospitalizations for same wound. L dorsal foot with DFU, cleansed, xeroform and foam applied to it. No other wound noted upon skin assessment, coccyx is pink but blanchable, pt and family members educated on importance of turning while in bed to prevent bedsores. Wound care will follow up on 10/16.
[2019-10-09 14:14] VITALS: BP 118/70
[2019-10-09] MEDS ORDERED: FUROSEMIDE 40 MG/4 ML VIAL. IVP ONE (16:00)
[2019-10-09] MEDS: RIVAROXABAN 10 MG TABLET. PO SCH (16:32)
[2019-10-09 19:40] VITALS: BP 119/58
[2019-10-09] MEDS: NORTRIPTYLINE 25 MG CAPSULE PO SCH (20:50)
[2019-10-09] MEDS: ATORVASTATIN CALCIUM 10 MG TABLET. PO SCH (20:50)
[2019-10-09 23:49] VITALS: BP 122/58
[2019-10-10] MEDS: HYDROcodone/APAP 10/325 1 TAB TABLET PO PRN ×2 (00:53→21:30)
[2019-10-10] MEDS: ALPRAZolam 0.25 MG TABLET PO PRN (01:04)
[2019-10-10 03:30] VITALS: BP 101/57
[2019-10-10 04:54] LABS: BASO % 0 % (0-3); EOS # 0.1 x10^3/uL (0.0-0.7); EOS % 1 % (0-3); HEMATOCRIT 32.9 % (36.0-47.0); HEMOGLOBIN 10.4 g/dL (12.0-15.5); LYMPH # 1.5 x10^3/uL (1.0-4.8); LYMPH % 13 % (24-48); MEAN CORPUSCULAR HEMOGLOBIN 29 pg (25-35); MEAN CORPUSCULAR HGB CONC 32 g/dL (31-37); MEAN CORPUSCULAR VOLUME 92 fL (79-100); MONO # 0.6 x10^3/uL (0.0-1.1); MONO % 5 % (0-9); NEUT # 9.3 x10^3/uL (1.8-7.7); NEUT % 82 % (31-73); PLATELET COUNT 98 x10^3/uL (140-400); RED BLOOD COUNT 3.57 x10^6/uL (3.50-5.40); WHITE BLOOD COUNT 11.4 x10^3/uL (4.0-11.0)
[2019-10-10 05:10] LABS: CALCIUM 8.4 mg/dL (8.5-10.1); CREATININE 0.9 mg/dL (0.6-1.0); GFR 62.3; POTASSIUM 4.2 mmol/L (3.5-5.1)
[2019-10-10 07:00] VITALS: BP 123/57
[2019-10-10] MEDS: BUDESONIDE 0.5 MG/2 ML NEBU. NEB SCH ×2 (07:15→20:07)
[2019-10-10] MEDS: IPRATRPIUM/ALBUTEROL 0.5/2.5MG 3 ML NEBU. NEB SCH ×4 (07:15→20:07)
[2019-10-10] MEDS: INSULIN LISPRO 300 UNITS/3 ML VIAL. SQ SCH ×3 (08:00→17:00)
[2019-10-10] MEDS: FUROSEMIDE 40 MG/4 ML VIAL. IVP SCH (08:21)
[2019-10-10] MEDS: SPIRONOLACTONE 25 MG TABLET PO SCH (08:22)
[2019-10-10] MEDS: PANTOPRAZOLE 40 MG TABLET.DR. PO SCH (08:22)
[2019-10-10] MEDS: ISOSORBIDE MONONITRATE ER 30 MG TAB.ER.24H PO SCH (08:23)
[2019-10-10] MEDS: METOPROLOL SUCC 24HR ER 25 MG TAB.ER.24H. PO SCH (08:23)
[2019-10-10] MEDS: GABAPENTIN 300 MG CAPSULE. PO SCH ×3 (08:23→21:28)
--- NOTE | 2019-10-10 08:28 | PDOC ---
PROGRESS NOTES Chief Complaint Chief Complaint A/P: Acute on chronic respiratory failure - combined hypoxic and hypercapnic with acute CHF/cor pulmonale/COPD Left leg pain - history of PVD s/p arterial dopplers. Had h/o RLE amputation Mild troponin elevation - likely demand mediated, type 2 from hypoxemia Chronic systolic CHF - with acute exacerbation - LVEF 35% (non-ischemic) Atrial fibrillation s/p AV audi ablation and SSS with PPM in situ HTN - controlled HLD - on statin Hx of DVT s/p IVC filter and on xarelto RAYNE - likely has underlying CKD. Could be cardiorenal, diuresis indicated Acute on chronic cor pulmonale with severe TR and pulmonary HTN Acute exacerbation of COPD - pulmonology to see. PRN BIPAP Tremors - possibly parkinsonism or medication History of Present Illness History of Present Illness Ms More is a 69yo F w/ PMHx DVT s/p IVC filter, h/o RLE amputation, AFib, chronic systolic CHF EF 35-40%, COPD on 3L NCO2, coronary artery disease, liver disease, myocardial infarction, obstructive sleep apnea, anxiety, depression, asthma, chronic anticoagulation, hyperlipidemia, arthritis, chronic pain, peripheral vascular disease, and neuropathy admitted [facility] for re spiratory distress, was admitted to ICU on BIPAP. She had no chest pain. She did have a cough, which is nonproductive. No fever, no chills. She said she had an episode of vomiting, but no diarrhea. Had a systolic blood pressure in the 70s in the ER. She did receive one dose of Lasix after blood pressure was stabilized while on BIPAP. CXR showed prominent interstitial markings. Given empiric Antibiotics and IV steroids. 10/08: She is feeling somewhat improved after a few hours of BIPAP. She is c/o LLE pain, notes she has been told despite her cold blue foot she has good bloodflow. No CP, less SOB, no GI or complaints 10/09: She is feeling a bit better, still with bibasilar crackles and significant edema. CXR confirms interstitial markings increased. Good diuresis with BID lasix. D/w cardiology 1 additional day of care. Feeling improved, on 2.5L NCO2. Wound care completed on foot. Still with basilar crackles on right. Her HCO3 is 37 today. Will work on home health discharge. Vitals Vitals Vital Signs Date Time Temp Pulse Resp B/P (MAP) Pulse Ox O2 Delivery O2 Flow Rate FiO2 10/10/19 08:23 75 123/57 10/10/19 07:17 95 Nasal Cannula 2.5 10/10/19 07:00 97.9 18 97.9 Physical Exam General: Alert, Cooperative, mild distress Heart: Regular rate (paced with biageminal PVCs), Other (3/6 systolic murmur to LLS border) Lungs: Wheezing (faint) Abdomen: Soft Extremities: Other (RBKA, 2+LLE pitting edema) Skin: Other (generalized ecchymoses and telangectasia) Labs LABS Laboratory Tests Test 10/09/19 11:39 10/09/19 16:28 10/09/19 20:41 10/10/19 04:00 Glucose (Fingerstick) 123 mg/dL (70-99) 141 mg/dL (70-99) 138 mg/dL (70-99) White Blood Count 11.4 x10^3/uL (4.0-11.0) Red Blood Count 3.57 x10^6/uL (3.50-5.40) Hemoglobin 10.4 g/dL (12.0-15.5) Hematocrit 32.9 % (36.0-47.0) Mean Corpuscular Volume 92 fL (79-100) Mean Corpuscular Hemoglobin 29 pg (25-35) Mean Corpuscular Hemoglobin Concent 32 g/dL (31-37) Red Cell Distribution Width 23.0 % (11.5-14.5) Platelet Count 98 x10^3/uL (140-400) Neutrophils (%) (Auto) 82 % (31-73) Lymphocytes (%) (Auto) 13 % (24-48) Monocytes (%) (Auto) 5 % (0-9) Eosinophils (%) (Auto) 1 % (0-3) Basophils (%) (Auto) 0 % (0-3) Neutrophils # (Auto) 9.3 x10^3/uL (1.8-7.7) Lymphocytes # (Auto) 1.5 x10^3/uL (1.0-4.8) Monocytes # (Auto) 0.6 x10^3/uL (0.0-1.1) Eosinophils # (Auto) 0.1 x10^3/uL (0.0-0.7) Basophils # (Auto) 0.0 x10^3/uL (0.0-0.2) Sodium Level 139 mmol/L (136-145) Potassium Level 4.2 mmol/L (3.5-5.1) Chloride Level 99 mmol/L (98-107) Carbon Dioxide Level 37 mmol/L (21-32) Anion Gap 3 (6-14) Blood Urea Nitrogen 26 mg/dL (7-20) Creatinine 0.9 mg/dL (0.6-1.0) Estimated GFR (Cockcroft-Gault) 62.3 Glucose Level 102 mg/dL (70-99) Calcium Level 8.4 mg/dL (8.5-10.1) Magnesium Level 2.0 mg/dL (1.8-2.4) Test 10/10/19 07:24 Glucose (Fingerstick) 79 mg/dL (70-99) Assessment and Plan Assessmemt and Plan Problems Medical Problems: (1) COPD exacerbation Status: Acute (2) Non-STEMI (non-ST elevated myocardial infarction) Status: Acute Comment Review of Relevant I have reviewed the following items sourav (where applicable) has been applied. Labs Laboratory Tests Test 10/08/19 11:59 10/08/19 17:14 10/08/19 20:13 10/09/19 07:17 Glucose (Fingerstick) 251 mg/dL (70-99) 229 mg/dL (70-99) 183 mg/dL (70-99) 117 mg/dL (70-99) Test 10/09/19 11:39 10/09/19 16:28 10/09/19 20:41 10/10/19 04:00 Glucose (Fingerstick) 123 mg/dL (70-99) 141 mg/dL (70-99) 138 mg/dL (70-99) White Blood Count 11.4 x10^3/uL (4.0-11.0) Red Blood Count 3.57 x10^6/uL (3.50-5.40) Hemoglobin 10.4 g/dL (12.0-15.5) Hematocrit 32.9 % (36.0-47.0) Mean Corpuscular Volume 92 fL (79-100) Mean Corpuscular Hemoglobin 29 pg (25-35) Mean Corpuscular Hemoglobin Concent 32 g/dL (31-37) Red Cell Distribution Width 23.0 % (11.5-14.5) Platelet Count 98 x10^3/uL (140-400) Neutrophils (%) (Auto) 82 % (31-73) Lymphocytes (%) (Auto) 13 % (24-48) Monocytes (%) (Auto) 5 % (0-9) Eosinophils (%) (Auto) 1 % (0-3) Basophils (%) (Auto) 0 % (0-3) Neutrophils # (Auto) 9.3 x10^3/uL (1.8-7.7) Lymphocytes # (Auto) 1.5 x10^3/uL (1.0-4.8) Monocytes # (Auto) 0.6 x10^3/uL (0.0-1.1) Eosinophils # (Auto) 0.1 x10^3/uL (0.0-0.7) Basophils # (Auto) 0.0 x10^3/uL (0.0-0.2) Sodium Level 139 mmol/L (136-145) Potassium Level 4.2 mmol/L (3.5-5.1) Chloride Level 99 mmol/L (98-107) Carbon Dioxide Level 37 mmol/L (21-32) Anion Gap 3 (6-14) Blood Urea Nitrogen 26 mg/dL (7-20) Creatinine 0.9 mg/dL (0.6-1.0) Estimated GFR (Cockcroft-Gault) 62.3 Glucose Level 102 mg/dL (70-99) Calcium Level 8.4 mg/dL (8.5-10.1) Magnesium Level 2.0 mg/dL (1.8-2.4) Test 10/10/19 07:24 Glucose (Fingerstick) 79 mg/dL (70-99) Laboratory Tests Test 10/09/19 11:39 10/09/19 16:28 10/09/19 20:41 10/10/19 04:00 Glucose (Fingerstick) 123 mg/dL (70-99) 141 mg/dL (70-99) 138 mg/dL (70-99) White Blood Count 11.4 x10^3/uL (4.0-11.0) Red Blood Count 3.57 x10^6/uL (3.50-5.40) Hemoglobin 10.4 g/dL (12.0-15.5) Hematocrit 32.9 % (36.0-47.0) Mean Corpuscular Volume 92 fL (79-100) Mean Corpuscular Hemoglobin 29 pg (25-35) Mean Corpuscular Hemoglobin Concent 32 g/dL (31-37) Red Cell Distribution Width 23.0 % (11.5-14.5) Platelet Count 98 x10^3/uL (140-400) Neutrophils (%) (Auto) 82 % (31-73) Lymphocytes (%) (Auto) 13 % (24-48) Monocytes (%) (Auto) 5 % (0-9) Eosinophils (%) (Auto) 1 % (0-3) Basophils (%) (Auto) 0 % (0-3) Neutrophils # (Auto) 9.3 x10^3/uL (1.8-7.7) Lymphocytes # (Auto) 1.5 x10^3/uL (1.0-4.8) Monocytes # (Auto) 0.6 x10^3/uL (0.0-1.1) Eosinophils # (Auto) 0.1 x10^3/uL (0.0-0.7) Basophils # (Auto) 0.0 x10^3/uL (0.0-0.2) Sodium Level 139 mmol/L (136-145) Potassium Level 4.2 mmol/L (3.5-5.1) Chloride Level 99 mmol/L (98-107) Carbon Dioxide Level 37 mmol/L (21-32) Anion Gap 3 (6-14) Blood Urea Nitrogen 26 mg/dL (7-20) Creatinine 0.9 mg/dL (0.6-1.0) Estimated GFR (Cockcroft-Gault) 62.3 Glucose Level 102 mg/dL (70-99) Calcium Level 8.4 mg/dL (8.5-10.1) Magnesium Level 2.0 mg/dL (1.8-2.4) Test 10/10/19 07:24 Glucose (Fingerstick) 79 mg/dL (70-99) Medications Current Medications Albuterol/ Ipratropium (Duoneb) 3 ml 1X ONCE NEB Last administered on 10/07/19at 13:32; Start 10/07/19 at 14:00; Stop 10/07/19 at 14:01; Status DC Sodium Chloride 500 ml @ 500 mls/hr 1X ONCE IV Last administered on 10/07/19a t 14:28; Start 10/07/19 at 13:45; Stop 10/07/19 at 14:44; Status DC Methylprednisolone Sodium Succinate (SOLU-Medrol 125MG VIAL) 125 mg 1X ONCE IV Last administered on 10/07/19at 14:04; Start 10/07/19 at 13:45; Stop 10/07/19 at 13:46; Status DC Vancomycin HCl 250 ml @ 250 mls/hr 1X ONCE IV ; Start 10/07/19 at 13:45; Stop 10/07/19 at 14:44; Status UNV Ceftriaxone Sodium (Rocephin) 1 gm 1X ONCE IVP Last administered on 10/07/19at 14:07; Start 10/07/19 at 13:45; Stop 10/07/19 at 13:46; Status DC Vancomycin HCl 1.75 gm/Sodium Chloride 500 ml @ 250 mls/hr 1X ONCE IV Last administered on 10/07/19at 14:16; Start 10/07/19 at 15:00; Stop 10/07/19 at 16:59; Status DC Ondansetron HCl (Zofran) 4 mg PRN Q8HRS PRN IV NAUSEA/VOMITING; Start 10/07/19 at 14:30; Stop 10/08/19 at 14:29; Status DC Morphine Sulfate (Morphine Sulfate) 2 mg PRN Q2HR PRN IV PAIN Last administered on 10/07/19at 16:22; Start 10/07/19 at 14:30; Stop 10/08/19 at 14:29; Status DC Albuterol/ Ipratropium (Duoneb) 3 ml RTQID NEB Last administered on 10/07/19at 16:21; Start 10/07/19 at 16:00; Stop 10/07/19 at 19:23; Status DC Magnesium Sulfate 50 ml @ 25 mls/hr 1X ONCE IV Last administered on 10/07/19at 16:28; Start 10/07/19 at 16:00; Stop 10/07/19 at 17:59; Status DC Furosemide (Lasix) 40 mg 1X ONCE IVP Last administered on 10/07/19 16:29; Start 10/07/19 at 16:30; Stop 10/07/19 at 16:31; Status DC Metoprolol Succinate (Toprol Xl) 25 mg DAILY PO Last administered on 10/10/19 08:23; Start 10/08/19 at 09:00 Atorvastatin Calcium (Lipitor) 5 mg QHS PO Last administered on 10/09/19 20:50; Start 10/07/19 at 21:00 Furosemide (Lasix) 40 mg DAILY IVP Last administered on 10/10/19 08:21; Start 10/08/19 at 09:00 Alprazolam (Xanax) 0.25 mg PRN BID PRN PO ANXIETY / AGITATION Last administered on 10/10/19 01:04; Start 10/07/19 at 19:15 Gabapentin (Neurontin) 600 mg TID PO Last administered on 10/10/19 08:23; Start 10/07/19 at 21:00 Acetaminophen/ Hydrocodone Bitart (Lortab 10/325) 1 tab PRN Q6HRS PRN PO PAIN Last administered on 10/10/19 00:53; Start 10/07/19 at 19:15 Isosorbide Mononitrate (Imdur) 30 mg DAILY PO Last administered on 10/10/19 08:23; Start 10/08/19 at 09:00 Nortriptyline HCl (Pamelor) 25 mg HS PO Last administered on 10/09/19 20:50; Start 10/07/19 at 21:00 Spironolactone (Aldactone) 25 mg DAILY PO Last administered on 10/10/19 08:22; Start 10/08/19 at 09:00 Non-Formulary Medication (Budesonide/ Formoterol Fumarate (Symbicort 160-4.5 Mcg Inhaler)) 160 mcg BID INH ; Start 10/07/19 at 21:00; Status UNV Pantoprazole Sodium (Protonix) 40 mg DAILYAC PO Last administered on 10/10/19 08:22; Start 10/08/19 at 07:30 Rivaroxaban (Xarelto) 20 mg DAILYWSUP PO Last administered on 11/29/19at 16:32; Start 10/07/19 at 20:00 Non-Formulary Medication (Tiotropium [place] (Spiriva)) 18 mcg DAILY INH ; Start 10/08/19 at 09:00; Status UNV Albuterol/ Ipratropium (Duoneb) 3 ml RTQID NEB Last administered on 10/10/19at 07:15; Start 10/07/19 at 20:00 Budesonide (Pulmicort) 0.5 mg RTBID NEB Last administered on 10/10/19at 07:15; Start 10/07/19 at 20:00 Labetalol HCl (Normodyne Iv Push) 20 mg PRN Q6HRS PRN IVP HYPERTENSION; Start 10/08/19 at 04:00 Insulin Human Lispro (HumaLOG) 0-5 UNITS TIDWMEALS SQ Last administered on 10/08/19at 17:37; Start 10/08/19 at 12:00 Dextrose (Dextrose 50%-Water Syringe) 12.5 gm PRN Q15MIN PRN IV SEE COMMENTS; Start 10/08/19 at 09:15 Furosemide (Lasix) 40 mg 1X ONCE IVP Last administered on 10/09/19at 16:31; Start 10/09/19 at 16:00; Stop 10/09/19 at 16:01; Status DC Potassium Chloride (Klor-Con) 40 meq 1X ONCE PO Last administered on 10/09/19at 11:42; Start 10/09/19 at 10:15; Stop 10/09/19 at 10:16; Status DC Active Scripts Active Prednisone 20 Mg Tablet 60 Mg PO DAILY 2 Days then taper by 10 mg q 2 days then STOP Hydrocodone-Acetamin 10-325 mg (Hydrocodone/Acetaminophen) 1 Each Tablet 10-325 Mg PO PRN Q6HRS PRN Alprazolam 0.25 Mg Tablet 0.25 Mg PO PRN BID PRN Furosemide 40 Mg Tablet 40 Mg PO BID 10 Days then reasses, might need just 40 PO qdaily subsequently Reported Proair Hfa (Albuterol Sulfate) 8.5 Gm Hfa.aer.ad 108 Mcg INH PRN PRN Symbicort 160-4.5 Mcg Inhaler (Budesonide/Formoterol Fumarate) 10.2 Gm Hfa.aer.ad 160 Mcg INH BID 160-4.5 mcg. 10.2 GM HFA.AER.AD Spiriva (Tiotropium [place]) 18 Mcg Cap.w.dev 18 Mcg INH DAILY Isosorbide Mononitrate Er (Isosorbide Mononitrate) 30 Mg Tab.er.24h 30 Mg PO DAILY Xarelto (Rivaroxaban) 20 Mg Tablet 20 Mg PO AFTRNOON Metoprolol Succinate ( Xl ) (Metoprolol Succinate) 25 Mg Tab.er.24h 25 Mg PO DAILY Nortriptyline Hcl 25 Mg Capsule 25 Mg PO HS Omeprazole 20 Mg Capsule.dr 20 Mg PO DAILY Pravastatin Sodium 20 Mg Tablet 20 Mg PO DAILY Spironolactone 25 Mg Tablet 25 Mg PO DAILY Gabapentin 300 Mg Capsule 600 Mg PO TID Vitals/I & O Vital Sign - Last 24 Hours 10/09/19 10/09/19 10/09/19 10/09/19 08:52 08:53 08:53 09:53 Pulse 72 72 Resp 20 20 B/P (MAP) 139/69 139/69 Pulse Ox 93 95 O2 Delivery Nasal Cannula Nasal Cannula O2 Flow Rate 3.0 3.0 10/09/19 10/09/19 10/09/19 10/09/19 10:29 11:46 14:14 15:15 Temp 98.1 97.6 98.1 97.6 Pulse 73 74 Resp 14 14 B/P (MAP) 134/61 (85) 118/70 (86) Pulse Ox 95 98 95 98 O2 Delivery Nasal Cannula Nasal Cannula Nasal Cannula Nasal Cannula O2 Flow Rate 2.0 2.0 2.0 3.0 10/09/19 10/09/19 10/09/19 10/09/19 19:40 19:57 19:58 20:00 Temp 98.1 98.1 Pulse 69 Resp 20 B/P (MAP) 119/58 (78) Pulse Ox 97 98 98 O2 Delivery Nasal Cannula Nasal Cannula Nasal Cannula Nasal Cannula O2 Flow Rate 3.0 3.0 3.0 3.0 10/09/19 10/10/19 10/10/19 10/10/19 23:49 00:53 01:53 03:30 Temp 98.9 98.7 98.9 98.7 Pulse 75 75 Resp 21 20 20 16 B/P (MAP) 122/58 (79) 101/57 (72) Pulse Ox 97 96 O2 Delivery Nasal Cannula Nasal Cannula Nasal Cannula Nasal Cannula O2 Flow Rate 3.0 3.0 3.0 3.0 10/10/19 10/10/19 10/10/19 10/10/19 07:00 07:17 08:23 08:23 Temp 97.9 97.9 Pulse 78 75 75 Resp 18 B/P (MAP) 123/57 (79) 123/57 123/57 Pulse Ox 93 95 O2 Delivery Nasal Cannula Nasal Cannula O2 Flow Rate 3.0 2.5 Intake and Output 10/09/19 10/09/19 10/10/19 15:00 23:00 07:00 Intake Total 600 ml 500 ml 340 ml Output Total 600 ml 600 ml 850 ml Balance 0 ml -100 ml -510 ml LETTY DIEHL MD Oct 10, 2019 08:28
[2019-10-10 11:00] VITALS: BP 108/58
--- NOTE | 2019-10-10 11:54 | PDOC ---
CARDIOLOGY PROGRESS NOTE SUBJECTIVE: Diuresed well as patient reports she urinated well Reports feeling better with regards to her breathing No chest pain. OBJECTIVE: Vital Signs/I&O: Vital Signs Date Time Temp Pulse Resp B/P (MAP) Pulse Ox O2 Delivery O2 Flow Rate FiO2 10/10/19 11:25 98 Nasal Cannula 3.0 10/10/19 11:00 97.9 74 18 108/58 (75) 97.9 I & O 10/09/19 10/09/19 10/10/19 15:00 23:00 07:00 Intake Total 600 ml 500 ml 340 ml Output Total 600 ml 600 ml 850 ml Balance 0 ml -100 ml -510 ml Objective: 3+ LE edema persists No significant wheezing today. Normal heart tones. - regular. Soft abd. CURRENT MEDICATIONS: Spironolactone 25mg daily Imdur 30mg daily Lasix 40mg IVP daily Toprol XL 25mg daily Atorvastatin 5mg daily Xarelto 20mg daily DIAGNOSTIC TESTING: Plts 98 INR 2.1 ASSESSMENT: 1. Permanent atrial fibrillation with underlying 2. CAD 3. PAD 4. Coagulopathy PLAN: 1. Continue present meds. Patient wants to go home but still appears volume overloaded. Continue diuretics. 2. She has coagulopathy and thrombocytopenia - defer to PCP. Supportive care. Thanks. ILIANA CAO MD Oct 10, 2019 11:54
--- NOTE | 2019-10-10 14:27 | PDOC ---
PULMONARY PROGRESS NOTES Subjective no soa wants to go back to skill Vitals Vital Signs Date Time Temp Pulse Resp B/P (MAP) Pulse Ox O2 Delivery O2 Flow Rate FiO2 10/10/19 11:25 98 Nasal Cannula 3.0 10/10/19 11:00 97.9 74 18 108/58 (75) 97.9 General: Alert, No acute distress Lungs: Wheezing (faint) Cardiovascular: S1, S2 Abdomen: Soft Extremities: Other (1=edema) Labs Laboratory Tests Test 10/08/19 17:14 10/08/19 20:13 10/09/19 07:17 10/09/19 11:39 Glucose (Fingerstick) 229 mg/dL (70-99) 183 mg/dL (70-99) 117 mg/dL (70-99) 123 mg/dL (70-99) Test 10/09/19 16:28 10/09/19 20:41 10/10/19 04:00 10/10/19 07:24 Glucose (Fingerstick) 141 mg/dL (70-99) 138 mg/dL (70-99) 79 mg/dL (70-99) White Blood Count 11.4 x10^3/uL (4.0-11.0) Red Blood Count 3.57 x10^6/uL (3.50-5.40) Hemoglobin 10.4 g/dL (12.0-15.5) Hematocrit 32.9 % (36.0-47.0) Mean Corpuscular Volume 92 fL (79-100) Mean Corpuscular Hemoglobin 29 pg (25-35) Mean Corpuscular Hemoglobin Concent 32 g/dL (31-37) Red Cell Distribution Width 23.0 % (11.5-14.5) Platelet Count 98 x10^3/uL (140-400) Neutrophils (%) (Auto) 82 % (31-73) Lymphocytes (%) (Auto) 13 % (24-48) Monocytes (%) (Auto) 5 % (0-9) Eosinophils (%) (Auto) 1 % (0-3) Basophils (%) (Auto) 0 % (0-3) Neutrophils # (Auto) 9.3 x10^3/uL (1.8-7.7) Lymphocytes # (Auto) 1.5 x10^3/uL (1.0-4.8) Monocytes # (Auto) 0.6 x10^3/uL (0.0-1.1) Eosinophils # (Auto) 0.1 x10^3/uL (0.0-0.7) Basophils # (Auto) 0.0 x10^3/uL (0.0-0.2) Sodium Level 139 mmol/L (136-145) Potassium Level 4.2 mmol/L (3.5-5.1) Chloride Level 99 mmol/L (98-107) Carbon Dioxide Level 37 mmol/L (21-32) Anion Gap 3 (6-14) Blood Urea Nitrogen 26 mg/dL (7-20) Creatinine 0.9 mg/dL (0.6-1.0) Estimated GFR (Cockcroft-Gault) 62.3 Glucose Level 102 mg/dL (70-99) Calcium Level 8.4 mg/dL (8.5-10.1) Magnesium Level 2.0 mg/dL (1.8-2.4) Test 10/10/19 11:18 Glucose (Fingerstick) 115 mg/dL (70-99) Laboratory Tests Test 10/09/19 16:28 10/09/19 20:41 10/10/19 04:00 10/10/19 07:24 Glucose (Fingerstick) 141 mg/dL (70-99) 138 mg/dL (70-99) 79 mg/dL (70-99) White Blood Count 11.4 x10^3/uL (4.0-11.0) Red Blood Count 3.57 x10^6/uL (3.50-5.40) Hemoglobin 10.4 g/dL (12.0-15.5) Hematocrit 32.9 % (36.0-47.0) Mean Corpuscular Volume 92 fL (79-100) Mean Corpuscular Hemoglobin 29 pg (25-35) Mean Corpuscular Hemoglobin Concent 32 g/dL (31-37) Red Cell Distribution Width 23.0 % (11.5-14.5) Platelet Count 98 x10^3/uL (140-400) Neutrophils (%) (Auto) 82 % (31-73) Lymphocytes (%) (Auto) 13 % (24-48) Monocytes (%) (Auto) 5 % (0-9) Eosinophils (%) (Auto) 1 % (0-3) Basophils (%) (Auto) 0 % (0-3) Neutrophils # (Auto) 9.3 x10^3/uL (1.8-7.7) Lymphocytes # (Auto) 1.5 x10^3/uL (1.0-4.8) Monocytes # (Auto) 0.6 x10^3/uL (0.0-1.1) Eosinophils # (Auto) 0.1 x10^3/uL (0.0-0.7) Basophils # (Auto) 0.0 x10^3/uL (0.0-0.2) Sodium Level 139 mmol/L (136-145) Potassium Level 4.2 mmol/L (3.5-5.1) Chloride Level 99 mmol/L (98-107) Carbon Dioxide Level 37 mmol/L (21-32) Anion Gap 3 (6-14) Blood Urea Nitrogen 26 mg/dL (7-20) Creatinine 0.9 mg/dL (0.6-1.0) Estimated GFR (Cockcroft-Gault) 62.3 Glucose Level 102 mg/dL (70-99) Calcium Level 8.4 mg/dL (8.5-10.1) Magnesium Level 2.0 mg/dL (1.8-2.4) Test 10/10/19 11:18 Glucose (Fingerstick) 115 mg/dL (70-99) Medications Active Scripts Medications Dose Route/Sig Max Daily Dose Days Date Category Dose Instructions Prednisone 20 Mg Tablet 60 Mg PO DAILY 2 10/01/19 Rx then taper by 10 mg q 2 days then STOP Hydrocodone-Acetamin 10-325 mg (Hydrocodone/Acetaminophen) 1 Each Tablet 10-325 Mg PO PRN Q6HRS PRN 10/01/19 Rx Alprazolam 0.25 Mg Tablet 0.25 Mg PO PRN BID PRN 10/01/19 Rx Furosemide 40 Mg Tablet 40 Mg PO BID 10 10/01/19 Rx then reasses, might need just 40 PO qdaily subsequently Proair Hfa (Albuterol Sulfate) 8.5 Gm Hfa.aer.ad 108 Mcg INH PRN PRN 07/21/19 Reported Symbicort 160-4.5 Mcg Inhaler (Budesonide/Formoterol Fumarate) 10.2 Gm Hfa.aer.ad 160 Mcg INH BID 07/21/19 Reported 160-4.5 mcg. 10.2 GM HFA.AER.AD Spiriva (Tiotropium [place]) 18 Mcg Cap.w.dev 18 Mcg INH DAILY 07/21/19 Reported Isosorbide Mononitrate Er (Isosorbide Mononitrate) 30 Mg Tab.er.24h 30 Mg PO DAILY 07/21/19 Reported Xarelto (Rivaroxaban) 20 Mg Tablet 20 Mg PO AFTRNOON 07/21/19 Reported Metoprolol Succinate ( Xl ) (Metoprolol Succinate) 25 Mg Tab.er.24h 25 Mg PO DAILY 07/21/19 Reported Nortriptyline Hcl 25 Mg Capsule 25 Mg PO HS 07/21/19 Reported Omeprazole 20 Mg Capsule.dr 20 Mg PO DAILY 07/21/19 Reported Pravastatin Sodium 20 Mg Tablet 20 Mg PO DAILY 07/21/19 Reported Spironolactone 25 Mg Tablet 25 Mg PO DAILY 07/21/19 Reported Gabapentin 300 Mg Capsule 600 Mg PO TID 07/21/19 Reported Impression . 1. Acute on chronic hypoxic respiratory failure, likely related to acute on chronic systolic heart failure, cannot exclude the possibility of an infectious etiology such as lower respiratory tract infection/viral infection. 2. The patient with ongoing tobaccoism and has 50 years of tobacco use and has COPD, which is oxygen dependent at 3 liters. 3. Cardiomyopathy with an ejection fraction of 35% along with lower extremity edema and likely contributing to the patient's decompensation with acute on chronic systolic heart failure. 4. Atrial fibrillation, on chronic anticoagulation. 5. Hypomagnesemia. 6. Increased troponin level. 7. Reactive leukocytosis. Plan . RECOMMENDATIONS: 1. Continue with present nasal cannula 2. Follow up chest x-ray 10/09 mild interstitial infiltrates. 3. Normal procalcitonin level no need for any antibiotics. 4. Follow cardiology recommendations. 5. Bronchodilators. 6. Continue Xarelto. Stable from pulmonary perspective, and ok to discharge to senior living JORDIN YA MD Oct 10, 2019 14:27
[2019-10-10 14:56] VITALS: BP 97/53
[2019-10-10] MEDS: RIVAROXABAN 10 MG TABLET. PO SCH (17:14)
[2019-10-10 19:45] VITALS: BP 110/60
[2019-10-10] MEDS: ATORVASTATIN CALCIUM 10 MG TABLET. PO SCH (21:28)
[2019-10-10] MEDS: NORTRIPTYLINE 25 MG CAPSULE PO SCH (21:29)
[2019-10-10 23:36] VITALS: BP 111/53
[2019-10-11 03:15] VITALS: BP 111/62
[2019-10-11 07:00] VITALS: BP 139/67
[2019-10-11] MEDS: IPRATRPIUM/ALBUTEROL 0.5/2.5MG 3 ML NEBU. NEB SCH ×2 (07:41→11:18)
[2019-10-11] MEDS: BUDESONIDE 0.5 MG/2 ML NEBU. NEB SCH (07:41)
--- NOTE | 2019-10-11 07:44 | PDOC ---
CARDIOLOGY PROGRESS NOTE SUBJECTIVE: Dinora still wants to go home. She denies any acute issues. I spent greater than 20 minutes reviewing all her records and [facility] visits again. She has very poor short and custodial prognosis. OBJECTIVE: Vital Signs/I&O: Vital Signs Date Time Temp Pulse Resp B/P (MAP) Pulse Ox O2 Delivery O2 Flow Rate FiO2 10/11/19 03:15 97.9 69 18 111/62 (78) 97 Nasal Cannula 3.0 97.9 I & O 10/10/19 10/10/19 10/11/19 15:00 23:00 07:00 Intake Total 120 ml 60 ml Output Total 200 ml 0 ml Balance -80 ml 60 ml Objective: She is quite debilitated Continues to have wheezing. She has 2+ RLE Soft abdomen. CURRENT MEDICATIONS: Meds reviewed: Spironolactone 25mg daily Toprol XL 25mg daily Lasix 40mg IVP dailiy Imdur 30mg daily Atorvastatin 5mg daily Xarelto 20mg daily DIAGNOSTIC TESTING: labs reviewed from 10/10. Cr wnl. Hgb mildly decreased. tele reviewed- no new events. ASSESSMENT: 1. Acute on chronic non-ischemic biventricular failure due to valvular disease and COPD 2. PAD 3. Permanent afib s/p pacemaker PLAN: 1. She has had an extensive evaluation through for advanced HF options. She has been ill for several months now with recurrent HF admissions. -Will continue present meds, upon discharge can increase lasix to 80mg p.o a.m. and 40mg p.o pm and continue other meds. -She has had previous low BP's, therefore, if she is able to tolerate diuretics and is more euvolemic, then upon f/u with [facility], they can consider decreasing diuretics and adding entresto. Supportive care for now. Will need close f/u with [facility] or our office if [facility] cannot see patient in a reasonable time period. Thanks ILIANA CAO MD Oct 11, 2019 07:44
[2019-10-11] MEDS: INSULIN LISPRO 300 UNITS/3 ML VIAL. SQ SCH ×2 (08:00→11:55)
[2019-10-11] MEDS: FUROSEMIDE 40 MG/4 ML VIAL. IVP SCH (08:09)
[2019-10-11] MEDS: GABAPENTIN 300 MG CAPSULE. PO SCH ×2 (08:10→15:24)
[2019-10-11] MEDS: SPIRONOLACTONE 25 MG TABLET PO SCH (08:10)
[2019-10-11] MEDS: PANTOPRAZOLE 40 MG TABLET.DR. PO SCH (08:10)
[2019-10-11] MEDS: ISOSORBIDE MONONITRATE ER 30 MG TAB.ER.24H PO SCH (08:12)
[2019-10-11] MEDS: METOPROLOL SUCC 24HR ER 25 MG TAB.ER.24H. PO SCH (08:12)
[2019-10-11 11:00] VITALS: BP 116/60
--- NOTE | 2019-10-11 12:55 | PDOC ---
PROGRESS NOTES Chief Complaint Chief Complaint A/P: Acute on chronic respiratory failure - combined hypoxic and hypercapnic with acute CHF/cor pulmonale/COPD Left leg pain - history of PVD s/p arterial dopplers. Had h/o RLE amputation Mild troponin elevation - likely demand mediated, type 2 from hypoxemia Chronic systolic CHF - with acute exacerbation - LVEF 35% (non-ischemic) Atrial fibrillation s/p AV audi ablation and SSS with PPM in situ HTN - controlled HLD - on statin Hx of DVT s/p IVC filter and on xarelto RAYNE - likely has underlying CKD. Could be cardiorenal, diuresis indicated Acute on chronic cor pulmonale with severe TR and pulmonary HTN Acute exacerbation of COPD - pulmonology to see. PRN BIPAP Tremors - possibly parkinsonism or medication History of Present Illness History of Present Illness Ms More is a 69yo F w/ PMHx DVT s/p IVC filter, h/o RLE amputation, AFib, chronic systolic CHF EF 35-40%, COPD on 3L NCO2, coronary artery disease, liver disease, myocardial infarction, obstructive sleep apnea, anxiety, depression, asthma, chronic anticoagulation, hyperlipidemia, arthritis, chronic pain, peripheral vascular disease, and neuropathy [facility], was admitted to ICU on BIPAP. She had no chest pain. She did have a cough, which is nonproductive. No fever, no chills. She said she had an episode of vomiting, but no diarrhea. Had a systolic blood pressure in the 70s in the ER. She did receive one dose of Lasix after blood pressure was stabilized while on BIPAP. CXR showed prominent interstitial markings. Given empiric Antibiotics and IV steroids. 10/08: She is feeling somewhat improved after a few hours of BIPAP. She is c/o LLE pain, notes she has been told despite her cold blue foot she has good bloodflow. No CP, less SOB, no GI or complaints 10/09: She is feeling a bit better, still with bibasilar crackles and significant edema. CXR confirms interstitial markings increased. Good diuresis with BID lasix. D/w cardiology 1 additional day of care. Feeling improved, on 2.5L NCO2. Wound care completed on foot. Still with basilar crackles on right. Her HCO3 is 37 today. Will work on d/c back to [facility]. Vitals Vitals Vital Signs Date Time Temp Pulse Resp B/P (MAP) Pulse Ox O2 Delivery O2 Flow Rate FiO2 10/11/19 11:19 Nasal Cannula 3.0 10/11/19 11:00 97.3 72 18 116/60 (78) 95 97.3 Physical Exam General: Alert, Cooperative, mild distress Heart: Regular rate (paced with biageminal PVCs), Other (3/6 systolic murmur to LLS border) Lungs: Wheezing (faint) Abdomen: Soft Extremities: Other (RBKA, 2+LLE pitting edema) Skin: Other (generalized ecchymoses and telangectasia) Labs LABS Laboratory Tests Test 10/10/19 16:54 10/10/19 20:56 10/11/19 08:01 10/11/19 11:48 Glucose (Fingerstick) 107 mg/dL (70-99) 109 mg/dL (70-99) 69 mg/dL (70-99) 115 mg/dL (70-99) Assessment and Plan Assessmemt and Plan Problems Medical Problems: (1) COPD exacerbation Status: Acute (2) Non-STEMI (non-ST elevated myocardial infarction) Status: Acute Comment Review of Relevant I have reviewed the following items sourav (where applicable) has been applied. Labs Laboratory Tests Test 10/09/19 16:28 10/09/19 20:41 10/10/19 04:00 10/10/19 07:24 Glucose (Fingerstick) 141 mg/dL (70-99) 138 mg/dL (70-99) 79 mg/dL (70-99) White Blood Count 11.4 x10^3/uL (4.0-11.0) Red Blood Count 3.57 x10^6/uL (3.50-5.40) Hemoglobin 10.4 g/dL (12.0-15.5) Hematocrit 32.9 % (36.0-47.0) Mean Corpuscular Volume 92 fL (79-100) Mean Corpuscular Hemoglobin 29 pg (25-35) Mean Corpuscular Hemoglobin Concent 32 g/dL (31-37) Red Cell Distribution Width 23.0 % (11.5-14.5) Platelet Count 98 x10^3/uL (140-400) Neutrophils (%) (Auto) 82 % (31-73) Lymphocytes (%) (Auto) 13 % (24-48) Monocytes (%) (Auto) 5 % (0-9) Eosinophils (%) (Auto) 1 % (0-3) Basophils (%) (Auto) 0 % (0-3) Neutrophils # (Auto) 9.3 x10^3/uL (1.8-7.7) Lymphocytes # (Auto) 1.5 x10^3/uL (1.0-4.8) Monocytes # (Auto) 0.6 x10^3/uL (0.0-1.1) Eosinophils # (Auto) 0.1 x10^3/uL (0.0-0.7) Basophils # (Auto) 0.0 x10^3/uL (0.0-0.2) Sodium Level 139 mmol/L (136-145) Potassium Level 4.2 mmol/L (3.5-5.1) Chloride Level 99 mmol/L (98-107) Carbon Dioxide Level 37 mmol/L (21-32) Anion Gap 3 (6-14) Blood Urea Nitrogen 26 mg/dL (7-20) Creatinine 0.9 mg/dL (0.6-1.0) Estimated GFR (Cockcroft-Gault) 62.3 Glucose Level 102 mg/dL (70-99) Calcium Level 8.4 mg/dL (8.5-10.1) Magnesium Level 2.0 mg/dL (1.8-2.4) Test 10/10/19 11:18 10/10/19 16:54 10/10/19 20:56 10/11/19 08:01 Glucose (Fingerstick) 115 mg/dL (70-99) 107 mg/dL (70-99) 109 mg/dL (70-99) 69 mg/dL (70-99) Test 10/11/19 11:48 Glucose (Fingerstick) 115 mg/dL (70-99) Laboratory Tests Test 10/10/19 16:54 10/10/19 20:56 10/11/19 08:01 10/11/19 11:48 Glucose (Fingerstick) 107 mg/dL (70-99) 109 mg/dL (70-99) 69 mg/dL (70-99) 115 mg/dL (70-99) Medications Current Medications Albuterol/ Ipratropium (Duoneb) 3 ml 1X ONCE NEB Last administered on 10/07/19at 13:32; Start 10/07/19 at 14:00; Stop 10/07/19 at 14:01; Status DC Sodium Chloride 500 ml @ 500 mls/hr 1X ONCE IV Last administered on 10/07/19at 14:28; Start 10/07/19 at 13:45; Stop 10/07/19 at 14:44; Status DC Methylprednisolone Sodium Succinate (SOLU-Medrol 125MG VIAL) 125 mg 1X ONCE IV Last administered on 10/07/19at 14:04; Start 10/07/19 at 13:45; Stop 10/07/19 at 13:46; Status DC Vancomycin HCl 250 ml @ 250 mls/hr 1X ONCE IV ; Start 10/07/19 at 13:45; Stop 10/07/19 at 14:44; Status UNV Ceftriaxone Sodium (Rocephin) 1 gm 1X ONCE IVP Last administered on 10/07/19at 14:07; Start 10/07/19 at 13:45; Stop 10/07/19 at 13:46; Status DC Vancomycin HCl 1.75 gm/Sodium Chloride 500 ml @ 250 mls/hr 1X ONCE IV Last administered on 10/07/19at 14:16; Start 10/07/19 at 15:00; Stop 10/07/19 at 16:59; Status DC Ondansetron HCl (Zofran) 4 mg PRN Q8HRS PRN IV NAUSEA/VOMITING; Start 10/07/19 at 14:30; Stop 10/08/19 at 14:29; Status DC Morphine Sulfate (Morphine Sulfate) 2 mg PRN Q2HR PRN IV PAIN Last administered on 10/07/19at 16:22; Start 10/07/19 at 14:30; Stop 10/08/19 at 14:29; Status DC Albuterol/ Ipratropium (Duoneb) 3 ml RTQID NEB Last administered on 10/07/19at 16:21; Start 10/07/19 at 16:00; Stop 10/07/19 at 19:23; Status DC Magnesium Sulfate 50 ml @ 25 mls/hr 1X ONCE IV Last administered on 10/07/19at 16:28; Start 10/07/19 at 16:00; Stop 10/07/19 at 17:59; Status DC Furosemide (Lasix) 40 mg 1X ONCE IVP Last administered on 10/07/19 16:29; Start 10/07/19 at 16:30; Stop 10/07/19 at 16:31; Status DC Metoprolol Succinate (Toprol Xl) 25 mg DAILY PO Last administered on 10/11/19 08:12; Start 10/08/19 at 09:00 Atorvastatin Calcium (Lipitor) 5 mg QHS PO Last administered on 10/10/19 21:28; Start 10/07/19 at 21:00 Furosemide (Lasix) 40 mg DAILY IVP Last administered on 10/11/19 08:09; Start 10/08/19 at 09:00 Alprazolam (Xanax) 0.25 mg PRN BID PRN PO ANXIETY / AGITATION Last administered on 10/10/19 01:04; Start 10/07/19 at 19:15 Gabapentin (Neurontin) 600 mg TID PO Last administered on 10/11/19 08:10; Start 10/07/19 at 21:00 Acetaminophen/ Hydrocodone Bitart (Lortab 10/325) 1 tab PRN Q6HRS PRN PO PAIN Last administered on 10/10/19 21:30; Start 10/07/19 at 19:15 Isosorbide Mononitrate (Imdur) 30 mg DAILY PO Last administered on 10/11/19 08:12; Start 10/08/19 at 09:00 Nortriptyline HCl (Pamelor) 25 mg HS PO Last administered on 10/10/19 21:29; Start 10/07/19 at 21:00 Spironolactone (Aldactone) 25 mg DAILY PO Last administered on 10/11/19 08:10; Start 10/08/19 at 09:00 Non-Formulary Medication (Budesonide/ Formoterol Fumarate (Symbicort 160-4.5 Mcg Inhaler)) 160 mcg BID INH ; Start 10/07/19 at 21:00; Status UNV Pantoprazole Sodium (Protonix) 40 mg DAILYAC PO Last administered on 10/11/19 08:10; Start 10/08/19 at 07:30 Rivaroxaban (Xarelto) 20 mg DAILYWSUP PO Last administered on 10/10/19at 17:14; Start 10/07/19 at 20:00 Non-Formulary Medication (Tiotropium [place] (Spiriva)) 18 mcg DAILY INH ; Start 10/08/19 at 09:00; Status UNV Albuterol/ Ipratropium (Duoneb) 3 ml RTQID NEB Last administered on 10/11/19at 11:18; Start 10/07/19 at 20:00 Budesonide (Pulmicort) 0.5 mg RTBID NEB Last administered on 10/11/19at 07:41; Start 10/07/19 at 20:00 Labetalol HCl (Normodyne Iv Push) 20 mg PRN Q6HRS PRN IVP HYPERTENSION; Start 10/08/19 at 04:00 Insulin Human Lispro (HumaLOG) 0-5 UNITS TIDWMEALS SQ Last administered on 10/08/19at 17:37; Start 10/08/19 at 12:00 Dextrose (Dextrose 50%-Water Syringe) 12.5 gm PRN Q15MIN PRN IV SEE COMMENTS; Start 10/08/19 at 09:15 Furosemide (Lasix) 40 mg 1X ONCE IVP Last administered on 10/09/19at 16:31; Start 10/09/19 at 16:00; Stop 10/09/19 at 16:01; Status DC Potassium Chloride (Klor-Con) 40 meq 1X ONCE PO Last administered on 10/09/19at 11:42; Start 10/09/19 at 10:15; Stop 10/09/19 at 10:16; Status DC Furosemide (Lasix) 40 mg 1X ONCE IVP ; Start 10/11/19 at 14:00; Stop 10/11/19 at 14:01 Active Scripts Active Prednisone 20 Mg Tablet 60 Mg PO DAILY 2 Days then taper by 10 mg q 2 days then STOP Hydrocodone-Acetamin 10-325 mg (Hydrocodone/Acetaminophen) 1 Each Tablet 10-325 Mg PO PRN Q6HRS PRN Alprazolam 0.25 Mg Tablet 0.25 Mg PO PRN BID PRN Furosemide 40 Mg Tablet 40 Mg PO BID 10 Days then reasses, might need just 40 PO qdaily subsequently Reported Proair Hfa (Albuterol Sulfate) 8.5 Gm Hfa.aer.ad 108 Mcg INH PRN PRN Symbicort 160-4.5 Mcg Inhaler (Budesonide/Formoterol Fumarate) 10.2 Gm Hfa.aer.ad 160 Mcg INH BID 160-4.5 mcg. 10.2 GM HFA.AER.AD Spiriva (Tiotropium [place]) 18 Mcg Cap.w.dev 18 Mcg INH DAILY Isosorbide Mononitrate Er (Isosorbide Mononitrate) 30 Mg Tab.er.24h 30 Mg PO DAILY Xarelto (Rivaroxaban) 20 Mg Tablet 20 Mg PO AFTRNOON Metoprolol Succinate ( Xl ) (Metoprolol Succinate) 25 Mg Tab.er.24h 25 Mg PO DAILY Nortriptyline Hcl 25 Mg Capsule 25 Mg PO HS Omeprazole 20 Mg Capsule.dr 20 Mg PO DAILY Pravastatin Sodium 20 Mg Tablet 20 Mg PO DAILY Spironolactone 25 Mg Tablet 25 Mg PO DAILY Gabapentin 300 Mg Capsule 600 Mg PO TID Vitals/I & O Vital Sign - Last 24 Hours 10/10/19 10/10/19 10/10/19 10/10/19 14:56 15:52 19:45 20:00 Temp 97.1 99.0 97.1 99.0 Pulse 80 80 Resp 18 22 B/P (MAP) 97/53 (68) 110/60 (77) Pulse Ox 95 98 91 O2 Delivery Nasal Cannula Nasal Cannula Nasal Cannula Nasal Cannula O2 Flow Rate 3.0 3.0 2.0 2.5 10/10/19 10/10/19 10/10/19 10/10/19 20:09 21:30 22:30 23:36 Temp 97.5 97.5 Pulse 69 Resp 20 18 16 B/P (MAP) 111/53 (72) Pulse Ox 92 92 97 95 O2 Delivery Room Air Nasal Cannula Nasal Cannula Nasal Cannula O2 Flow Rate 4.0 3.0 3.0 10/11/19 10/11/19 10/11/19 10/11/19 03:15 07:00 07:41 08:00 Temp 97.9 97.5 97.9 97.5 Pulse 69 59 Resp 18 18 B/P (MAP) 111/62 (78) 139/67 (91) Pulse Ox 97 97 O2 Delivery Nasal Cannula Nasal Cannula Nasal Cannula Nasal Cannula O2 Flow Rate 3.0 3.0 3.0 2.5 10/11/19 10/11/19 10/11/19 10/11/19 08:12 08:12 11:00 11:19 Temp 97.3 97.3 Pulse 74 74 72 Resp 18 B/P (MAP) 139/62 139/67 116/60 (78) Pulse Ox 95 O2 Delivery Nasal Cannula Nasal Cannula O2 Flow Rate 3.0 3.0 Intake and Output 10/10/19 10/10/19 10/11/19 15:00 23:00 07:00 Intake Total 120 ml 60 ml Output Total 200 ml 0 ml Balance -80 ml 60 ml LETTY DIEHL MD Oct 11, 2019 12:55
[2019-10-11] MEDS ORDERED: HYDR-52 PO (12:59)
[2019-10-11] MEDS ORDERED: FURO40TA4 PO (12:59)
[2019-10-11] MEDS ORDERED: ALPR0.254 PO (12:59)
--- NOTE | 2019-10-11 13:00 | SNU/HH DC ---
DISCHARGE ORDERS DISCHARGE INFORMATION: DISCHARGE DATE: Oct 11, 2019 FINAL DIAGNOSIS Problems Medical Problems: (1) COPD exacerbation Status: Acute (2) Non-STEMI (non-ST elevated myocardial infarction) Status: Acute CONDITION ON DISCHARGE: Stable CODE STATUS: Code Status: Full POST DISCHARGE ORDERS: ACTIVITY ORDERS: No restrictions DIET AFTER DISCHARGE: ADA WOUND/INCISION CARE: Change dressing CHECKS AFTER DISCHARGE: CHECKS AFTER DISCHARGE: Check blood press - daily, Check blood sugar, ac/hs, Check your Temp as needed, Weigh Yourself Daily FOLLOW-UP: ADDITIONAL FOLLOW-UP: SHARIFA director of psychiatry at soon as available LAB ORDERS FOR FOLLOW-UP: BMP and Mag weekly TREATMENT/EQUIPMENT ORDERS: ADAPTIVE EQUIPMENT NEEDED: Wheelchair RESPIRATORY EQUIPMENT NEEDED: Oxygen (2.5L), Nebulizer DISCHARGE MEDICATIONS: Home Meds Active Scripts Hydrocodone/Acetaminophen (Hydrocodone-Acetamin 10-325 mg) 1 Each Tablet, 10-325 MG PO PRN Q6HRS PRN for PAIN for 6 Days, #20 TAB Prov:LETTY DIEHL MD 10/11/19 Alprazolam (ALPRAZOLAM) 0.25 Mg Tablet, 0.25 MG PO PRN BID PRN for ANXIETY / AGITATION for 6 Days, #12 TAB Prov:LETTY DIEHL MD 10/11/19 Furosemide (FUROSEMIDE) 40 Mg Tablet, 40 MG PO BID for remove fluid for 30 Days, #90 TAB then reasses, might need just 40 PO qdaily subsequently Prov:LETTY DIEHL MD 10/11/19 Reported Medications Albuterol Sulfate (Proair Hfa) 8.5 Gm Hfa.aer.ad, 108 MCG INH PRN PRN for COPD 07/21/19 Budesonide/Formoterol Fumarate (SYMBICORT 160-4.5 MCG INHALER) 10.2 Gm Hfa.aer.ad, 160 MCG INH BID for COPD 160-4.5 mcg. 10.2 GM HFA.AER.AD 07/21/19 Tiotropium [place] (SPIRIVA) 18 Mcg Cap.w.dev, 18 MCG INH DAILY for COPD 07/21/19 Isosorbide Mononitrate (ISOSORBIDE MONONITRATE ER) 30 Mg Tab.er.24h, 30 MG PO DAILY for heart failure 07/21/19 Rivaroxaban (XARELTO) 20 Mg Tablet, 20 MG PO AFTRNOON for anti coagulant 07/21/19 Metoprolol Succinate (METOPROLOL SUCCINATE ( XL )) 25 Mg Tab.er.24h, 25 MG PO DAILY for BP 07/21/19 Nortriptyline Hcl (NORTRIPTYLINE HCL) 25 Mg Capsule, 25 MG PO HS for sleep 07/21/19 Omeprazole (OMEPRAZOLE) 20 Mg Capsule.dr, 20 MG PO DAILY for stomach 07/21/19 Pravastatin Sodium (PRAVASTATIN SODIUM) 20 Mg Tablet, 20 MG PO DAILY for cholesterol 07/21/19 Spironolactone (SPIRONOLACTONE) 25 Mg Tablet, 25 MG PO DAILY for chf 07/21/19 Gabapentin (Gabapentin) 300 Mg Capsule, 600 MG PO TID for neuropathy 07/21/19 Discontinued Scripts Prednisone (PREDNISONE) 20 Mg Tablet, 60 MG PO DAILY for copd for 2 Days, #6 TAB then taper by 10 mg q 2 days then STOP Prov:AMARILIS VALENTINO MD 10/01/19 LETTY DIEHL MD Oct 11, 2019 13:00
--- NOTE | 2019-10-11 13:03 | PDOC3 ---
Discharge Summary Visit Information Date of Admission: Oct 07, 2019 Date of Discharge: Oct 11, 2019 Admitting Diagnosis: CHF exacerbation Final Diagnosis Problems Medical Problems: (1) COPD exacerbation Status: Acute (2) Non-STEMI (non-ST elevated myocardial infarction) Status: Acute Brief Hospital Course Allergies Allergies Coded Allergies Type Severity Reaction Last Updated Verified Penicillins Allergy Intermediate 10/07/19 Yes fentanyl Allergy Intermediate 10/07/19 Yes levofloxacin Allergy Intermediate 10/07/19 Yes Vital Signs Vital Signs Date Time Temp Pulse Resp B/P (MAP) Pulse Ox O2 Delivery O2 Flow Rate FiO2 10/11/19 11:19 Nasal Cannula 3.0 10/11/19 11:00 97.3 72 18 116/60 (78) 95 97.3 Lab Results Laboratory Tests Test 10/09/19 16:28 10/09/19 20:41 10/10/19 04:00 10/10/19 07:24 Glucose (Fingerstick) 141 mg/dL (70-99) 138 mg/dL (70-99) 79 mg/dL (70-99) White Blood Count 11.4 x10^3/uL (4.0-11.0) Red Blood Count 3.57 x10^6/uL (3.50-5.40) Hemoglobin 10.4 g/dL (12.0-15.5) Hematocrit 32.9 % (36.0-47.0) Mean Corpuscular Volume 92 fL (79-100) Mean Corpuscular Hemoglobin 29 pg (25-35) Mean Corpuscular Hemoglobin Concent 32 g/dL (31-37) Red Cell Distribution Width 23.0 % (11.5-14.5) Platelet Count 98 x10^3/uL (140-400) Neutrophils (%) (Auto) 82 % (31-73) Lymphocytes (%) (Auto) 13 % (24-48) Monocytes (%) (Auto) 5 % (0-9) Eosinophils (%) (Auto) 1 % (0-3) Basophils (%) (Auto) 0 % (0-3) Neutrophils # (Auto) 9.3 x10^3/uL (1.8-7.7) Lymphocytes # (Auto) 1.5 x10^3/uL (1.0-4.8) Monocytes # (Auto) 0.6 x10^3/uL (0.0-1.1) Eosinophils # (Auto) 0.1 x10^3/uL (0.0-0.7) Basophils # (Auto) 0.0 x10^3/uL (0.0-0.2) Sodium Level 139 mmol/L (136-145) Potassium Level 4.2 mmol/L (3.5-5.1) Chloride Level 99 mmol/L (98-107) Carbon Dioxide Level 37 mmol/L (21-32) Anion Gap 3 (6-14) Blood Urea Nitrogen 26 mg/dL (7-20) Creatinine 0.9 mg/dL (0.6-1.0) Estimated GFR (Cockcroft-Gault) 62.3 Glucose Level 102 mg/dL (70-99) Calcium Level 8.4 mg/dL (8.5-10.1) Magnesium Level 2.0 mg/dL (1.8-2.4) Test 10/10/19 11:18 10/10/19 16:54 10/10/19 20:56 10/11/19 08:01 Glucose (Fingerstick) 115 mg/dL (70-99) 107 mg/dL (70-99) 109 mg/dL (70-99) 69 mg/dL (70-99) Test 10/11/19 11:48 Glucose (Fingerstick) 115 mg/dL (70-99) Laboratory Tests Test 10/10/19 16:54 10/10/19 20:56 10/11/19 08:01 10/11/19 11:48 Glucose (Fingerstick) 107 mg/dL (70-99) 109 mg/dL (70-99) 69 mg/dL (70-99) 115 mg/dL (70-99) Brief Hospital Course Ms More is a 69yo F w/ PMHx DVT s/p IVC filter, h/o RLE amputation, AFib, chronic systolic CHF EF 35-40%, COPD on 3L NCO2, coronary artery disease, liver disease, myocardial infarction, obstructive sleep apnea, anxiety, depression, asthma, chronic anticoagulation, hyperlipidemia, arthritis, chronic pain, peripheral vascular disease, and neuropathy [facility], was admitted to ICU on BIPAP.Seen by pulm and cardiology. Lasix changed to 80 QAM and 40 QPM. She had no chest pain. She did have a cough, which is nonproductive. No fever, no chills. She said she had an episode of vomiting, but no diarrhea. Had a systolic blood pressure in the 70s in the ER. She did receive one dose of Lasix after blood pressure was stabilized while on BIPAP. CXR showed prominent interstitial markings. Given empiric Antibiotics and IV steroids. 10/08: She is feeling somewhat improved after a few hours of BIPAP. She is c/o LLE pain, notes she has been told despite her cold blue foot she has good bloodflow. No CP, less SOB, no GI or complaints 10/09: She is feeling a bit better, still with bibasilar crackles and significant edema. CXR confirms interstitial markings increased. Good diuresis with BID lasix. D/w cardiology 1 additional day of care. Feeling improved, on 2.5L NCO2. Wound care completed on foot. Still with basilar crackles on right. Her HCO3 is 37 today. Will work on d/c back to [facility]. Problem list: A/P: Acute on chronic respiratory failure - combined hypoxic and hypercapnic with acute CHF/cor pulmonale/COPD Left leg pain - history of PVD s/p arterial dopplers. Had h/o RLE amputation Mild troponin elevation - likely demand mediated, type 2 from hypoxemia Chronic systolic CHF - with acute exacerbation - LVEF 35% (non-ischemic) Atrial fibrillation s/p AV audi ablation and SSS with PPM in situ HTN - controlled HLD - on statin Hx of DVT s/p IVC filter and on xarelto RAYNE - likely has underlying CKD. Could be cardiorenal, diuresis indicated Acute on chronic cor pulmonale with severe TR and pulmonary HTN Acute exacerbation of COPD - pulmonology to see. PRN BIPAP Tremors - possibly parkinsonism or medication Greater than 30 minutes spent on d/c Discharge Information Condition at Discharge: Improved Follow Up: Weeks (1) Disposition/Orders: D/C to Another Facility Scheduled Budesonide/Formoterol Fumarate (Symbicort 160-4.5 Mcg Inhaler) 10.2 Gm Hfa.aer.ad, 160 MCG INH BID for COPD, (Reported) 160-4.5 mcg. 10.2 GM HFA.AER.AD Entered as Reported by: JOANNA CLAUDIO RN on 07/21/195 Last Action: Converted on 10/07/191916 by LENO ROSENTHAL RN Furosemide (Furosemide) 40 Mg Tablet, 40 MG PO BID for remove fluid for 30 Days, #90 then reasses, might need just 40 PO qdaily subsequently Prescribed by: LETTY DIEHL MD on 10/11/19 1259 Gabapentin (Gabapentin) 300 Mg Capsule, 600 MG PO TID for neuropathy, (Reported) Entered as Reported by: JOANNA CLAUDIO RN on 07/21/194 Last Action: Continued on 10/07/191916 by LENO ROSENTHAL RN Isosorbide Mononitrate (Isosorbide Mononitrate Er) 30 Mg Tab.er.24h, 30 MG PO DAILY for heart failure, (Reported) Entered as Reported by: JOANNA CLAUDIO RN on 07/21/19427 Last Action: Continued on 10/07/191916 by LENO ROSENTHAL RN Metoprolol Succinate (Metoprolol Succinate ( Xl )) 25 Mg Tab.er.24h, 25 MG PO DAILY for BP, (Reported) Entered as Reported by: JOANNA CLAUDIO RN on 07/21/19427 Last Action: Continued on 10/07/191621 by ENOCH ACHARYA Nortriptyline Hcl (Nortriptyline Hcl) 25 Mg Capsule, 25 MG PO HS for sleep, (Reported) Entered as Reported by: JOANNA CLAUDIO RN on 07/21/19427 Last Action: Continued on 10/07/191916 by LENO ROSENTHAL RN Omeprazole (Omeprazole) 20 Mg Capsule.dr, 20 MG PO DAILY for stomach, (Reported) Entered as Reported by: JOANNA CLAUDIO RN on 07/21/19427 Last Action: Converted on 10/07/191916 by LENO ROSENTHAL RN Pravastatin Sodium (Pravastatin Sodium) 20 Mg Tablet, 20 MG PO DAILY for cholesterol, (Reported) Entered as Reported by: JOANNA CLAUDIO RN on 07/21/19427 Last Action: Converted on 10/07/191621 by ENOCH ACHARYA Rivaroxaban (Xarelto) 20 Mg Tablet, 20 MG PO AFTRNOON for anti coagulant, (Reported) Entered as Reported by: JOANNA CLAUDIO RN on 07/21/19427 Last Action: Converted on 10/07/191916 by LENO ROSENTHAL RN Spironolactone (Spironolactone) 25 Mg Tablet, 25 MG PO DAILY for chf, (Reported) Entered as Reported by: JOANNA CLAUDIO RN on 07/21/19 0404 Last Action: Continued on 10/07/191916 by LENO ROSENTHAL RN Tiotropium [place] (Spiriva) 18 Mcg Cap.w.dev, 18 MCG INH DAILY for COPD, (Reported) Entered as Reported by: JOANNA CLAUDIO RN on 07/21/19 0435 Last Action: Converted on 10/07/191916 by LENO ROSENTHAL RN Scheduled PRN Albuterol Sulfate (Proair Hfa) 8.5 Gm Hfa.aer.ad, 108 MCG INH PRN PRN for COPD, (Reported) Entered as Reported by: JOANNA CLAUDIO RN on 07/21/19434 Alprazolam (Alprazolam) 0.25 Mg Tablet, 0.25 MG PO PRN BID PRN for ANXIETY / AGITATION for 6 Days, #12 Prescribed by: LETTY DIEHL MD on 10/11/19 1259 Hydrocodone/Acetaminophen (Hydrocodone-Acetamin 10-325 mg) 1 Each Tablet, 10-325 MG PO PRN Q6HRS PRN for PAIN for 6 Days, #20 Prescribed by: LETTY DIHEL MD on 10/11/19 1259 Discontinued Medications Prednisone (Prednisone) 20 Mg Tablet, 60 MG PO DAILY for copd for 2 Days, #6 then taper by 10 mg q 2 days then STOP Prescribed by: AMARILIS VALENTINO on 10/01/19 0850 LETTY DIEHL MD Oct 11, 2019 13:03
[2019-10-11] MEDS ORDERED: FUROSEMIDE 40 MG/4 ML VIAL. IVP ONE (14:00)
--- NOTE | 2019-10-11 14:46 | PDOC ---
PULMONARY PROGRESS NOTES Subjective no soa wants to go back to senior living, which is scheduled Vitals Vital Signs Date Time Temp Pulse Resp B/P (MAP) Pulse Ox O2 Delivery O2 Flow Rate FiO2 10/11/19 11:19 Nasal Cannula 3.0 10/11/19 11:00 97.3 72 18 116/60 (78) 95 97.3 General: Alert, No acute distress Lungs: Wheezing (faint) Cardiovascular: S1, S2 Abdomen: Soft Extremities: Other (1=edema) Labs Laboratory Tests Test 10/09/19 16:28 10/09/19 20:41 10/10/19 04:00 10/10/19 07:24 Glucose (Fingerstick) 141 mg/dL (70-99) 138 mg/dL (70-99) 79 mg/dL (70-99) White Blood Count 11.4 x10^3/uL (4.0-11.0) Red Blood Count 3.57 x10^6/uL (3.50-5.40) Hemoglobin 10.4 g/dL (12.0-15.5) Hematocrit 32.9 % (36.0-47.0) Mean Corpuscular Volume 92 fL (79-100) Mean Corpuscular Hemoglobin 29 pg (25-35) Mean Corpuscular Hemoglobin Concent 32 g/dL (31-37) Red Cell Distribution Width 23.0 % (11.5-14.5) Platelet Count 98 x10^3/uL (140-400) Neutrophils (%) (Auto) 82 % (31-73) Lymphocytes (%) (Auto) 13 % (24-48) Monocytes (%) (Auto) 5 % (0-9) Eosinophils (%) (Auto) 1 % (0-3) Basophils (%) (Auto) 0 % (0-3) Neutrophils # (Auto) 9.3 x10^3/uL (1.8-7.7) Lymphocytes # (Auto) 1.5 x10^3/uL (1.0-4.8) Monocytes # (Auto) 0.6 x10^3/uL (0.0-1.1) Eosinophils # (Auto) 0.1 x10^3/uL (0.0-0.7) Basophils # (Auto) 0.0 x10^3/uL (0.0-0.2) Sodium Level 139 mmol/L (136-145) Potassium Level 4.2 mmol/L (3.5-5.1) Chloride Level 99 mmol/L (98-107) Carbon Dioxide Level 37 mmol/L (21-32) Anion Gap 3 (6-14) Blood Urea Nitrogen 26 mg/dL (7-20) Creatinine 0.9 mg/dL (0.6-1.0) Estimated GFR (Cockcroft-Gault) 62.3 Glucose Level 102 mg/dL (70-99) Calcium Level 8.4 mg/dL (8.5-10.1) Magnesium Level 2.0 mg/dL (1.8-2.4) Test 10/10/19 11:18 10/10/19 16:54 10/10/19 20:56 10/11/19 08:01 Glucose (Fingerstick) 115 mg/dL (70-99) 107 mg/dL (70-99) 109 mg/dL (70-99) 69 mg/dL (70-99) Test 10/11/19 11:48 Glucose (Fingerstick) 115 mg/dL (70-99) Laboratory Tests Test 10/10/19 16:54 10/10/19 20:56 10/11/19 08:01 10/11/19 11:48 Glucose (Fingerstick) 107 mg/dL (70-99) 109 mg/dL (70-99) 69 mg/dL (70-99) 115 mg/dL (70-99) Medications Active Scripts Medications Dose Route/Sig Max Daily Dose Days Date Category Dose Instructions Prednisone 20 Mg Tablet 60 Mg PO DAILY 2 10/01/19 Rx then taper by 10 mg q 2 days then STOP Hydrocodone-Acetamin 10-325 mg (Hydrocodone/Acetaminophen) 1 Each Tablet 10-325 Mg PO PRN Q6HRS PRN 10/01/19 Rx Alprazolam 0.25 Mg Tablet 0.25 Mg PO PRN BID PRN 10/01/19 Rx Furosemide 40 Mg Tablet 40 Mg PO BID 10 10/01/19 Rx then reasses, might need just 40 PO qdaily subsequently Proair Hfa (Albuterol Sulfate) 8.5 Gm Hfa.aer.ad 108 Mcg INH PRN PRN 07/21/19 Reported Symbicort 160-4.5 Mcg Inhaler (Budesonide/Formoterol Fumarate) 10.2 Gm Hfa.aer.ad 160 Mcg INH BID 07/21/19 Reported 160-4.5 mcg. 10.2 GM HFA.AER.AD Spiriva (Tiotropium [place]) 18 Mcg Cap.w.dev 18 Mcg INH DAILY 07/21/19 Reported Isosorbide Mononitrate Er (Isosorbide Mononitrate) 30 Mg Tab.er.24h 30 Mg PO DAILY 07/21/19 Reported Xarelto (Rivaroxaban) 20 Mg Tablet 20 Mg PO AFTRNOON 07/21/19 Reported Metoprolol Succinate ( Xl ) (Metoprolol Succinate) 25 Mg Tab.er.24h 25 Mg PO DAILY 07/21/19 Reported Nortriptyline Hcl 25 Mg Capsule 25 Mg PO HS 07/21/19 Reported Omeprazole 20 Mg Capsule.dr 20 Mg PO DAILY 07/21/19 Reported Pravastatin Sodium 20 Mg Tablet 20 Mg PO DAILY 07/21/19 Reported Spironolactone 25 Mg Tablet 25 Mg PO DAILY 07/21/19 Reported Gabapentin 300 Mg Capsule 600 Mg PO TID 07/21/19 Reported Impression . 1. Acute on chronic hypoxic respiratory failure, likely related to acute on chronic systolic heart failure, cannot exclude the possibility of an infectious etiology such as lower respiratory tract infection/viral infection. 2. The patient with ongoing tobaccoism and has 50 years of tobacco use and has COPD, which is oxygen dependent at 3 liters. 3. Cardiomyopathy with an ejection fraction of 35% along with lower extremity edema and likely contributing to the patient's decompensation with acute on chronic systolic heart failure. 4. Atrial fibrillation, on chronic anticoagulation. 5. Hypomagnesemia. 6. Increased troponin level. 7. Reactive leukocytosis. Plan . RECOMMENDATIONS: 1. Continue with present nasal cannula 2. Follow up chest x-ray 10/09 mild interstitial infiltrates in several weeks. 3. Follow cardiology recommendations. 4. Bronchodilators. 5. Continue Xarelto. Stable from pulmonary perspective, and ok to discharge to senior living JORDIN YA MD Oct 11, 2019 14:46
--- NOTE | 2019-10-11 16:02 | NUR ---
Discharge Note: JAIR MARCUS S[facility] Discharge instructions and discharge home medications reviewed with Patient and a copy given. All questions have been answered and understanding verbalized. Patient discharged to [facility] with transport via wheelchair
== END 2019-10-11 16:06 | DRG 280 ==
LOC: ER 13:11 → 1 WEST ICU 14:35 → 2 SOUTH 10-08 16:21
PROVIDERS: ADMIT Internal Medicine; ATTEND Internal Medicine
PROC: 5A09357 Assistance with Respiratory Ventilation, Less than 24 Consecutive Hours, Continuous Positive Airway Pressure (ICD-10-PCS; principal; 2019-10-07)
DX: I13.0 Hypertensive heart and chronic kidney disease with heart failure and stage 1 through stage 4 chronic kidney disease, or unspecified chronic kidney disease (principal); I50.43 Acute on chronic combined systolic (congestive) and diastolic (congestive) heart failure; I21.4 Non-ST elevation (NSTEMI) myocardial infarction; J96.21 Acute and chronic respiratory failure with hypoxia; I26.09 Other pulmonary embolism with acute cor pulmonale; J96.22 Acute and chronic respiratory failure with hypercapnia; D68.9 Coagulation defect, unspecified; I48.21 Permanent atrial fibrillation; N17.9 Acute kidney failure, unspecified; I42.8 Other cardiomyopathies; D72.828 Other elevated white blood cell count; E78.00 Pure hypercholesterolemia, unspecified; E78.5 Hyperlipidemia, unspecified; E83.42 Hypomagnesemia; F17.210 Nicotine dependence, cigarettes, uncomplicated; I07.1 Rheumatic tricuspid insufficiency; I25.10 Atherosclerotic heart disease of native coronary artery without angina pectoris; I25.2 Old myocardial infarction; I27.20 Pulmonary hypertension, unspecified; I50.82 Biventricular heart failure; I73.9 Peripheral vascular disease, unspecified; J43.9 Emphysema, unspecified; N18.9 Chronic kidney disease, unspecified; Z79.01 Long term (current) use of anticoagulants; Z82.49 Family history of ischemic heart disease and other diseases of the circulatory system; Z86.718 Personal history of other venous thrombosis and embolism; Z86.73 Personal history of transient ischemic attack (TIA), and cerebral infarction without residual deficits; Z89.611 Acquired absence of right leg above knee; Z95.828 Presence of other vascular implants and grafts; Z99.81 Dependence on supplemental oxygen; F32.9 Major depressive disorder, single episode, unspecified; F41.9 Anxiety disorder, unspecified; G47.33 Obstructive sleep apnea (adult) (pediatric); G89.29 Other chronic pain; K21.9 Gastro-esophageal reflux disease without esophagitis; M19.90 Unspecified osteoarthritis, unspecified site; Z88.0 Allergy status to penicillin; Z88.8 Allergy status to other drugs, medicaments and biological substances
CPT/HCPCS: 36415; 36600; 71045; 80048; 80076; 80162; 82805; 82962; 83036; 83690; 83735; 83880; 84145; 84484; 85025; 85610; 93005; 94640; 94660; 94760; 96365; 96375; J0696; J1815; J1940; J2270; J2930; J3370; J3475; J7040; J7620; J7626; 99291-25; G0378